=== PATIENT | male | born 1950 | race Caucasian/White ===

== ENCOUNTER 2017-06-22 00:34 | Inpatient (IN) | payer OTHER ==
[2017-06-22 01:20] LABS: Absolute Lymphocytes (CBC) 0.7 K/uL (0.7-4.9); Absolute Monocytes 0.7 K/uL (0.1-1.3); Absolute Neutrophil 15.7 K/uL (1.8-8.0); Basophils % 0.3 % (0-1.3); Eosinophils % 0.2 % (0-4.4); Hematocrit 26.6 % (39.6-49.0); Lymphocytes % 4.3 % (15.3-44.8); MCV 92.5 fL (80-100); MPV 7.7 fL (7.6-11.3); Monocytes % 4.1 % (3.3-12.3); RBC Red Blood Cell Count 2.88 M/uL (4.33-5.43)
[2017-06-22 01:22] LABS: Urine Blood 1+ (NEG); Urine Glucose 1+ (NEG); Urine Protein 3+ (NEG)
[2017-06-22 01:25] LABS: Protime INR 1.48
[2017-06-22 01:32] LABS: Potassium 4.6 mEq/L (3.6-5.0)
[2017-06-22 01:38] LABS: Albumin 2.9 g/dL (3.2-5.5); Bilirubin Direct 0.1 mg/dL (0-0.2); Bilirubin Total 0.4 mg/dL (0.3-1.2); Magnesium 1.8 mg/dL (1.8-2.5)
[2017-06-22] MEDS ORDERED: PANTOPRAZOLE 40 MG INJ ONE (01:39)
[2017-06-22] MEDS ORDERED: ONDANSETRON 4 MG/2 ML VIAL ONE (01:40)
[2017-06-22 01:41] LABS: CKMB Creatine Kinase MB 1.6 ng/ml (0.3-4.0)
[2017-06-22 01:42] LABS: Urine RBC <5 /HPF (NONE SEEN)
[2017-06-22 01:43] LABS: Urine Bacteria <20 /HPF (NONE SEEN); Urine Culture Reflex Order NOT NEEDED
[2017-06-22 03:04] LABS: Blood Morphology Comment NOT SEEN (NOT SEEN); Platelet Estimate ADEQ; Urine White Blood Cell Casts OK
--- NOTE | 2017-06-22 03:09 | EDPHYS ---
Physician Documentation [facility] Name: Fausto Bird Age: 66 yrs Sex: Male : 1950 Arrival Date: 06/22/2017 Time: 00:44 Bed 15 Private MD: ED Physician Ric Reyes HPI: 06/22 01:42 This 66 yrs old Male presents to ER via EMS with complaints of Abdominal tw4 Pain, Nausea/Vomiting. 01:42 The patient presents to the emergency department with nausea, vomiting. Onset: The tw4 symptoms/episode began/occurred today. Possible causes: unknown. The symptoms are aggravated by nothing. The symptoms are alleviated by nothing. Associated signs and symptoms: The patient has no apparent associated signs or symptoms. Severity of symptoms: At their worst the symptoms were moderate in the emergency department the symptoms are unchanged. The patient has not experienced similar symptoms in the past. Historical: - Allergies: 01:01 bactrim-topical; bs1 - Home Meds: 01:01 allopurinol 300 mg Oral tab 1 tab once daily [Active]; digoxin 125 mcg Oral tab 1 tab bs1 once daily [Active]; simvastatin 40 mg Oral tab 1 tab once daily [Active]; metoprolol tartrate 25 mg Oral tab three times a day [Active]; Folbic 2.5-25-2 mg Oral tab 1 tab once daily [Active]; furosemide 40 mg Oral tab 3 times per day [Active]; glipizide 10 mg Oral tab 1 tab 2 times per day [Active]; Xarelto 15 mg Oral tab daily [Active]; spironolactone 25 mg Oral tab 1 tab 2 times per day [Active]; Integra 125-40-3 mg Oral cap 1 cap once daily [Active]; Iron CR Oral 325 mg three times a day [Active]; Lantus 100 unit/mL Sub-Q soln morning [Active]; Lantus 30 units Sub-Q soln nightly [Active]; loratadine 10 mg Oral tab 1 tab once daily [Active]; niacin 500 mg Oral tab 1 tab 3 times per day [Active]; omeprazole 40 mg Oral cpDR 1 cap once daily [Active]; tramadol 50 mg Oral tab as needed [Active]; Vitamin D Oral 5000 unit daily [Active]; potassium chloride 10 mEq Oral cpER 1 cap once daily [Active]; Novolin R 3-11 units Sub-Q as needed [Active]; Vitamin C 500 mg Oral cpER twice a day [Active]; Zofran Oral [Active]; - PMHx: 01:01 Atrial Fib; Cellulitis; Diabetes - IDDM; Hypertension; Myocardial infarction; anemic; bs1 NV; lymphedema; - PSHx: 01:01 Cholecystectomy; bs1 - Immunization history:: Adult Immunizations up to date. - Social history:: Smoking status: Patient/guardian denies using tobacco. ROS: 01:42 Constitutional: Negative for fever, chills, and weight loss, Respiratory: Negative for tw4 shortness of breath, cough, wheezing, and pleuritic chest pain. 01:42 Cardiovascular: Positive for chest pain, Negative for edema, orthopnea, palpitations. 01:42 Abdomen/GI: Positive for abdominal pain, nausea and vomiting, abdominal cramps, Negative for diarrhea, constipation. Exam: 01:42 Constitutional: This is a well developed, well nourished patient who is awake, alert, tw4 and in no acute distress. Head/Face: Normocephalic, atraumatic. Chest/axilla: Normal chest wall appearance and motion. Nontender with no deformity. No lesions are appreciated. Cardiovascular: Regular rate and rhythm with a normal S1 and S2. No gallops, murmurs, or rubs. Normal PMI, no JVD. No pulse deficits. Respiratory: Lungs have equal breath sounds bilaterally, clear to auscultation and percussion. No rales, rhonchi or wheezes noted. No increased work of breathing, no retractions or nasal flaring. Abdomen/GI: Soft, non-tender, with normal bowel sounds. No distension or tympany. No guarding or rebound. No evidence of tenderness throughout. MS/ Extremity: Pulses equal, no cyanosis. Neurovascular intact. Full, normal range of motion. Neuro: Awake and alert, GCS 15, oriented to person, place, time, and situation. Cranial nerves II-XII grossly intact. Motor strength 5/5 in all extremities. Sensory grossly intact. Cerebellar exam normal. Normal gait. Vital Signs: 00:35 BP 165 / 85; Pulse 72; Resp 17; Temp 97.9(O); Pulse Ox 99% on R/A; Weight 141.07 kg; bs1 Height 6 ft. 3 in. (190.50 cm); Pain 6/10; 01:30 BP 168 / 96; Pulse 62; Resp 16; Pulse Ox 97% on R/A; bs1 02:30 BP 164 / 91; Pulse 65; Resp 17; Pulse Ox 98% on R/A; bs1 03:47 BP 170 / 82; Pulse 69; Resp 17; Pulse Ox 98% on R/A; Pain 0/10; bs1 04:06 BP 164 / 91; Pulse 79; Resp 16; Temp 97.9(O); Pulse Ox 99% on R/A; Pain 0/10; bs1 00:35 Body Mass Index 38.87 (141.07 kg, 190.50 cm) bs1 MDM: 00:47 Patient medically screened. tw4 03:07 Differential diagnosis: Nonspecific abd pain, gastritis, appendicitis, diverticulitis. tw4 Data reviewed: vital signs, nurses notes. Counseling: I had a detailed discussion with the patient and/or guardian regarding: the historical points, exam findings, and any diagnostic results supporting the discharge/admit diagnosis. Physician consultation: Martín Weaver MD was contacted at 03:06, regarding admission, patient's condition, and will see patient in inpatient room. Admission orders: after a detailed discussion of the patient's condition and case, the admit orders are written by me. 06/22 00:48 Order name: Basic Metabolic Panel; Complete Time: 03:4 06/22 03:02 Interpretation: Normal except: NA 134; BUN 78; CRE 3.00; GFR 21. tw06/22 00:48 Order name: BNP; Complete Time: 03:01 4 06/22 03:02 Interpretation: Abnormal: BNP 149. 06/22 00:48 Order name: CBC with Diff 4 06/22 03:02 Interpretation: Normal except: WBC 17.2; RBC 2.88; HGB 8.3; HCT 26.6; MCHC 31.3; RDW tw4 17.7; NEUT A 15.7; LYM% 4.3; ARIANA% 91.1. 06/22 00:48 Order name: Ckmb; Complete Time: 03:01 06/22 00:48 Order name: CPK; Complete Time: 03:01 06/22 03:02 Interpretation: Abnormal: CPK 20. 06/22 00:48 Order name: LFT's; Complete Time: 03:01 06/22 03:02 Interpretation: Normal except: ALB 2.9; GLOB 4.1; A/G 0.7. 06/22 00:48 Order name: Magnesium; Complete Time: 03:02 06/22 00:48 Order name: PT-INR; Complete Time: 03:01 [facility] 06/22 03:03 Interpretation: Abnormal: PT 17.5. 06/22 00:48 Order name: Ptt, Activated; Complete Time: 03:02 06/22 00:48 Order name: Troponin (emerg Dept Use Only); Complete Time: 03:02 06/22 00:48 Order name: Amylase, Serum; Complete Time: 03:02 06/22 00:48 Order name: Lipase; Complete Time: 03:02 06/22 00:48 Order name: Urine Microscopic Only; Complete Time: 03:02 [facility] 06/22 00:48 Order name: XRAY Chest (1 view) 06/22 00:59 Order name: Urine Dipstick--Ancillary (enter results); Complete Time: 03:01 [place] 06/22 02:11 Order name: Abdomen [facility] 06/22 03:04 Order name: CBC Smear Scan [facility] 06/22 03:48 Order name: CKMB Creatine Kinase MB [facility] 06/22 03:48 Order name: CKMB Creatine Kinase MB [facility] 06/22 03:48 Order name: CKMB Creatine Kinase MB [facility] 06/22 03:48 Order name: CKMB Creatine Kinase MB [facility] 06/22 03:48 Order name: Creatine Phosphokinase [facility] 06/22 03:48 Order name: Creatine Phosphokinase [facility] 06/22 03:48 Order name: Creatine Phosphokinase [facility] 06/22 03:48 Order name: Creatine Phosphokinase [facility] 06/22 03:48 Order name: Troponin I [facility] 06/22 03:48 Order name: Troponin I [facility] 06/22 03:48 Order name: Troponin I [facility] 06/22 00:48 Order name: EKG; Complete Time: 00:49 06/22 00:48 Order name: Cardiac monitoring; Complete Time: 01:06 4 06/22 00:48 Order name: EKG - Nurse/Tech; Complete Time: 00:50 06/22 00:48 Order name: IV Saline Lock; Complete Time: 00:50 06/22 00:48 Order name: Labs collected and sent; Complete Time: 01:06 06/22 00:48 Order name: O2 Per Protocol; Complete Time: 00:50 06/22 00:48 Order name: O2 Sat Monitoring; Complete Time: 00:50 06/22 00:48 Order name: Urine Dipstick-Ancillary (obtain specimen); Complete Time: 01:06 4 06/22 03:48 Order name: CONS Pharmacy Consult [facility] 06/22 03:48 Order name: Clear Liquid [facility] Administered Medications: 01:44 Drug: Zofran 4 mg Route: IVP; Site: left antecubital; bs1 01:57 Follow up: Response: No adverse reaction bs1 01:44 Drug: ProTONIX 40 mg Route: IVP; Site: left antecubital; bs1 01:56 Follow up: Response: No adverse reaction; Nausea is decreased bs1 Disposition: 06/22/17 03:08 Hospitalization ordered by Martín Weaver for Observation. Preliminary diagnosis are Chest pain, unspecified, Atrial fibrillation and flutter, Generalized abdominal pain. - Bed requested for Telemetry/MedSurg (observation). - Status is Observation. bs1 - Condition is Stable. - Problem is new. - Symptoms are unchanged. UTI on Admission? No Signatures: Dispatcher [employer] [facility] Nori Murphy RN RN Stacey Alexandre RN RN bs1 Ric Reyes MD MD tw4 Corrections: (The following items were deleted from the chart) 01:28 00:49 Creatinine for Radiology+C.LAB.BRZ ordered. [facility] 02:11 00:55 Abdomen Pelvis W Con+CT.RAD.BRZ ordered. [facility] 03:22 03:08 Hospitalization Ordered by Martín Weaver MD for Observation. Preliminary diagnosis is Chest pain, unspecified; Atrial fibrillation and flutter; Generalized abdominal pain. Bed requested for Telemetry/MedSurg (observation). Status is Observation. Condition is Stable. Problem is new. Symptoms are unchanged. UTI on Admission? No. tw4 04:06 03:22 06/22/2017 03:08 Hospitalization Ordered by Martín Weaver MD for Observation. bs1 Preliminary diagnosis is Chest pain, unspecified; Atrial fibrillation and flutter; Generalized abdominal pain. Bed requested for Telemetry/MedSurg (observation). Status is Observation. Condition is Stable. Problem is new. Symptoms are unchanged. UTI on Admission? No. mw
--- NOTE | 2017-06-22 03:09 | ER ---
Nurse's Notes [facility] Name: Fausto Bird Age: 66 yrs Sex: Male : 1950 Arrival Date: 06/22/2017 Time: 00:44 Bed 15 Private MD: Diagnosis: Chest pain, unspecified;Atrial fibrillation and flutter;Generalized abdominal pain Presentation: 06/22 00:51 Presenting complaint: EMS states: "Patient c/o RUQ abdominal pain that radiates to bs1 Bilateral Lower Quads for 2 day's, with c/o nausea and vomiting, vitals wnl, BG 292, EKG A-fib.". Transition of care: patient was not received from another setting of care. Onset of symptoms was June 20, 2017. Initial Sepsis Screen: Does the patient meet any 2 criteria? No. Patient's initial sepsis screen is negative. Does the patient have a suspected source of infection? No. Patient's initial sepsis screen is negative. Care prior to arrival: EKG Medication(s) given: zofran 4 mg, IV initiated. 20 GA, in the left antecubital area, Glucose check: 292. 00:51 Method Of Arrival: EMS: [facility] bs1 00:51 Acuity: BLANCA 3 bs1 Historical: - Allergies: 01:01 bactrim-topical; bs1 - Home Meds: 01:01 allopurinol 300 mg Oral tab 1 tab once daily [Active]; digoxin 125 mcg Oral tab 1 tab bs1 once daily [Active]; simvastatin 40 mg Oral tab 1 tab once daily [Active]; metoprolol tartrate 25 mg Oral tab three times a day [Active]; Folbic 2.5-25-2 mg Oral tab 1 tab once daily [Active]; furosemide 40 mg Oral tab 3 times per day [Active]; glipizide 10 mg Oral tab 1 tab 2 times per day [Active]; Xarelto 15 mg Oral tab daily [Active]; spironolactone 25 mg Oral tab 1 tab 2 times per day [Active]; Integra 125-40-3 mg Oral cap 1 cap once daily [Active]; Iron CR Oral 325 mg three times a day [Active]; Lantus 100 unit/mL Sub-Q soln morning [Active]; Lantus 30 units Sub-Q soln nightly [Active]; loratadine 10 mg Oral tab 1 tab once daily [Active]; niacin 500 mg Oral tab 1 tab 3 times per day [Active]; omeprazole 40 mg Oral cpDR 1 cap once daily [Active]; tramadol 50 mg Oral tab as needed [Active]; Vitamin D Oral 5000 unit daily [Active]; potassium chloride 10 mEq Oral cpER 1 cap once daily [Active]; Novolin R 3-11 units Sub-Q as needed [Active]; Vitamin C 500 mg Oral cpER twice a day [Active]; Zofran Oral [Active]; - PMHx: 01:01 Atrial Fib; Cellulitis; Diabetes - IDDM; Hypertension; Myocardial infarction; anemic; bs1 PR; lymphedema; - PSHx: 01:01 Cholecystectomy; bs1 - Immunization history:: Adult Immunizations up to date. - Social history:: Smoking status: Patient/guardian denies using tobacco. Screenin:03 Abuse screen: Denies threats or abuse. Denies injuries from another. Nutritional bs1 screening: No deficits noted. Tuberculosis screening: No symptoms or risk factors identified. Fall Risk No fall in past 12 months (0 pts). No secondary diagnosis (0 pts). IV access (20 points). Ambulatory Aid- Crutches/Cane/Walker (15 pts). Gait- Weak (10 pts.). Mental Status- Oriented to own ability (0 pts). Total Umaña Fall Scale indicates Low Risk Score (25-44 pts). Assessment: 01:00 General: Appears in no apparent distress. uncomfortable, ill, obese, Behavior is calm, bs1 cooperative, appropriate for age. Pain: Complains of pain in Right Upper abdomen Pain radiates to Bilateral lower Abdomen. Neuro: Level of Consciousness is awake, alert, obeys commands, Oriented to person, place, time, situation, Appropriate for age Speech is normal, Facial symmetry appears normal, Pupils are PERRLA, Intact. Cardiovascular: Denies chest pain, palpitations, shortness of breath, Heart tones S1 S2 present Capillary refill < 3 seconds Patient's skin is warm and dry. Cardiovascular: Rhythm is W/ right bundle branch block noted on EKG. Respiratory: Airway is patent Trachea midline Respiratory effort is even, unlabored, Respiratory pattern is regular, symmetrical, Breath sounds are clear bilaterally. GI: Abdomen is round non-distended, Pt is actively vomiting brown in color Bowel sounds present X 4 quads. Abdomen is tender to palpation in right upper quadrant, right lower quadrant and left lower quadrant Reports lower abdominal pain, upper abdominal pain, nausea, vomiting, Patient currently denies bloody stool, diarrhea, rectal bleeding. : No deficits noted. No signs and/or symptoms were reported regarding the genitourinary system. EENT: No deficits noted. No signs and/or symptoms were reported regarding the EENT system. Derm: Skin is intact, Skin is pink, warm \\T\\ dry. lymphedema noted to bilateral lower legs. Patients right first/2nd digit covered on dressing, patient states sores for diabetes/lymphedema. Musculoskeletal: Circulation, motion, and sensation intact. Capillary refill < 3 seconds, Range of motion: intact in all extremities. 01:40 Reassessment: Patient c/o nausea/vomiting. 50cc brown emesis in bag, notified Dr raúl Reyes, verbal order for protonix/zofran. 02:45 Reassessment: Patient appears in no apparent distress at this time. Patient and/or bs1 family updated on plan of care and expected duration. Pain level reassessed. Patient is alert, oriented x 3, equal unlabored respirations, skin warm/dry/pink. Pending results of CT scan. 03:46 Reassessment: Patient appears in no apparent distress at this time. No changes from bs1 previously documented assessment. Patient and/or family updated on plan of care and expected duration. Pain level reassessed. Patient is alert, oriented x 3, equal unlabored respirations, skin warm/dry/pink. Vital Signs: 00:35 BP 165 / 85; Pulse 72; Resp 17; Temp 97.9(O); Pulse Ox 99% on R/A; Weight 141.07 kg; bs1 Height 6 ft. 3 in. (190.50 cm); Pain 6/10; 01:30 BP 168 / 96; Pulse 62; Resp 16; Pulse Ox 97% on R/A; bs1 02:30 BP 164 / 91; Pulse 65; Resp 17; Pulse Ox 98% on R/A; bs1 03:47 BP 170 / 82; Pulse 69; Resp 17; Pulse Ox 98% on R/A; Pain 0/10; bs1 04:06 BP 164 / 91; Pulse 79; Resp 16; Temp 97.9(O); Pulse Ox 99% on R/A; Pain 0/10; bs1 00:35 Body Mass Index 38.87 (141.07 kg, 190.50 cm) bs1 ED Course: 00:44 Patient arrived in ED. bs1 00:47 Ric Reyes MD is Attending Physician. tw4 00:51 Stacey Alexandre, BEBO is Primary Nurse. bs1 00:54 Triage completed. bs1 01:03 Patient has correct armband on for positive identification. Bed in low position. Call bs1 light in reach. Side rails up X 1. radiation monitor on. Pulse ox on. NIBP on. Warm blanket given. 01:04 Arm band placed on left wrist. EKG completed in triage. Results shown to MD. bs1 01:06 Maintain EMS IV. Dressing intact. Good blood return noted. Site clean \\T\\ dry. Gauge \\T\\ bs 1 site: 20G double lumen to left AC. IV is patent. 01:09 X-ray completed. Portable x-ray completed in exam room. Patient tolerated procedure kw well. 01:10 XRAY Chest (1 view) In Process Unspecified. EDMS 02:53 Abdomen In Process Unspecified. EDMS 03:07 Martín Weaver MD is Hospitalizing Provider. tw4 04:04 No provider procedures requiring assistance completed. Patient admitted, IV remains in bs1 place. intact. Administered Medications: 01:44 Drug: Zofran 4 mg Route: IVP; Site: left antecubital; bs1 01:57 Follow up: Response: No adverse reaction bs1 01:44 Drug: ProTONIX 40 mg Route: IVP; Site: left antecubital; bs1 01:56 Follow up: Response: No adverse reaction; Nausea is decreased bs1 Outcome: 03:08 Decision to Hospitalize by Provider. tw4 04:04 Admitted to Med/surg accompanied by tech, via stretcher, room 214, with chart, Report bs1 called to BEBO Huerta 04:04 Condition: stable 04:04 Instructed on the need for admit. 04:06 Patient left the ED. bs1 Signatures: Dispatcher [employer] EDMS Yamilet Brian kw Stacey Alexandre RN RN bs1 Amy, Ric, MD MD tw4
[2017-06-22] MEDS ORDERED: Morphine 2 MG/2 ML SYR ONE (04:18)
[2017-06-22] MEDS ORDERED: MORPHINE 2 MG/ML SYR IV ONE (04:34)
[2017-06-22 05:37] LABS: CKMB Creatine Kinase MB 1.8 ng/ml (0.3-4.0)
--- NOTE | 2017-06-22 06:50 | RAD REPORT ---
EXAM DESCRIPTION: CT - Abdomen Pelvis Wo Contrast - 06/22/2017 6:28 am CLINICAL HISTORY: Right upper quadrant pain, abdominal pain, prior cholecystectomy A preliminary written report was provided at the time of the study, and the report was reviewed prio r to final dictation. COMPARISON: CT study December 2015 and July 2015 TECHNIQUE: Axial [address] imaging of the abdomen and pelvis was performed without IV contrast. No IV contrast was given because of allergy, abnormal renal function, patient refusal or physician re quest. Oral contrast was given. All CT scans are performed using dose optimization technique as appropriate and may include automated exposure control or mA/KV adjustment according to patient size. FINDINGS: No acute pleural or parenchymal lung base abnormality. No pericardial thickening or effusi on. There is a large 7 centimeter area of dense tissue in the left chest/breast region. No calcificat ion or spiculated tissue. A 5 centimeter area of similar tissue noted on the right. Liver capsule has a nodular contour. No focal lesions seen on noncontrast imaging. No splenomegaly or focal splenic process. Pancreas and peripancreatic tissue show no acute finding or significant inter tamar change. Cholecystectomy clips are present. No biliary tree dilatation. No hydronephrosis or suspicious renal mass. No significant adrenal finding. Isodense renal masses an d pyelonephritis cannot be excluded in the absence of IV contrast. Partially filled urinary bladder i s grossly normal. No bladder calculi. Prostate gland and seminal vesicles are normal range. No gastric dilatation or wall thickening. No dilated large or small bowel loops. Moderate stool volum e throughout the nondilated colon. No acute colon process seen. No free air, free fluid or inflammatory stranding. No mass or bulky lymphadenopathy. Small fat only umbilical hernia is present. Patient has laxity of the abdominal wall musculature and fascia. Periton eal fat and bowel loops extend to the left lateral aspect of the body with the abdominal wall fascia intact. Advanced disc and bony degenerative changes are present. Scoliotic curvature is present. No pathologi c bone process identifiable. Arterial calcifications are present. Old rib fractures are noted. IMPRESSION: No bowel obstruction, free air or surgically emergent finding. No acute GI or process identifiable. There is moderate stool volume throughout the colon. Nodular liver contour with no focal liver lesion and no ascites. Cirrhosis or other hepatic parenchym al disease could be present. Pronounced bilateral left greater than right gynecomastia.
[2017-06-22] MEDS: ONDANSETRON 4 MG/2 ML VIAL IV PRN ×2 (07:37→16:21)
--- NOTE | 2017-06-22 07:45 | RAD REPORT ---
EXAM DESCRIPTION: RAD - Chest Single View - 06/22/2017 1:10 am CLINICAL HISTORY: Right upper quadrant pain COMPARISON: September 2016 TECHNIQUE: AP portable chest image was obtained 0101 hours . FINDINGS: Interstitial markings are prominent but diminished compared to the prior study. No periphe ral mass or consolidation. No significant failure or volume overload findings. Lung volumes are reduc ed. Heart and vasculature are normal. No measurable pleural effusion and no pneumothorax. No acute marvel ne finding. Significant degenerative change at each shoulder joint, not fully assessed on this study. No acute aortic findings suspected. IMPRESSION: Mild chronic interstitial lung disease less prominent than seen previously. No focal pro cess or significant failure/ volume overload.
[2017-06-22] MEDS: INSULIN -REGULAR HUMAN 50 UNIT/0.5 ML ML SQ SCH ×4 (08:34→21:54)
--- NOTE | 2017-06-22 08:45 | EKG ---
Test Date: 2017-06-22 Test Time: 00:38:40 Instructor Of Spanish: VIKTOR MEASUREMENT RESULTS: Intervals: Rate: 74 [place]: QRSD: 138 QT: 396 QTc: 439 [place]: P: [place]: QRS: -2 T: -42 INTERPRETIVE STATEMENTS: Atrial fibrillation Right bundle branch block T wave abnormality, consider inferior ischemia or digitalis effect Abnormal ECG Compared to ECG 09/18/2016 22:01:25 Myocardial infarct finding no longer present T-wave abnormality still present Possible ischemia still present Electronically Signed On 06-22-17 08:43:42 CDT by Yannick Degroot
[2017-06-22 10:47] LABS: CKMB Creatine Kinase MB 1.7 ng/ml (0.3-4.0)
[2017-06-22] MEDS ORDERED: D50W 25 GM/50 ML SYRINGE IV PRN (14:21)
[2017-06-22] MEDS ORDERED: GLUCAGON 1 MG/VIAL IM PRN (14:21)
[2017-06-22] MEDS ORDERED: NA CHLORIDE 0.9% 1,000 ML IV SCH (15:00)
[2017-06-22] MEDS: ACETAMINOPHEN 500 MG TAB PO PRN (16:22)
--- NOTE | 2017-06-22 20:12 | RAD REPORT ---
EXAM DESCRIPTION: US - Renal Ultrasound-Complete - 06/22/2017 7:52 pm CLINICAL HISTORY: Renal failure. COMPARISON: 10/04/2012 FINDINGS: Both kidneys are normal in size, shape and echotexture. The right kidney measures 13.3 x 8.0 x 7.5 cm. No hydronephrosis, focal mass or perinephric fluid. The left kidney measures 13.8 x 7.7 x 7.2 cm. No hydronephrosis, focal mass or perinephric fluid. IMPRESSION: Unremarkable renal sonogram.
[2017-06-22 21:35] LABS: CKMB Creatine Kinase MB 1.9 ng/ml (0.3-4.0)
[2017-06-22] MEDS: METOPROLOL TAR 25 MG TAB PO SCH (21:53)
[2017-06-23] MEDS: INSULIN -REGULAR HUMAN 50 UNIT/0.5 ML ML SQ SCH ×4 (07:30→21:24)
[2017-06-23] MEDS: METOPROLOL TAR 25 MG TAB PO SCH ×2 (09:13→13:00)
[2017-06-23] MEDS: DIGOXIN 0.125 MG TABLET PO SCH (09:14)
[2017-06-23] MEDS: NA CHLORIDE 0.9% 1,000 ML IV SCH ×2 (11:00→21:00)
[2017-06-23] MEDS: ONDANSETRON 4 MG/2 ML VIAL IV PRN (14:54)
[2017-06-23] MEDS: ACETAMINOPHEN 500 MG TAB PO PRN ×2 (14:57→23:53)
[2017-06-23] MEDS: RIVAROXABAN 15 MG TABLET PO SCH (17:27)
[2017-06-23] MEDS: METOPROLOL TAR 50 MG TAB PO SCH (21:23)
--- NOTE | 2017-06-23 22:55 | PN ---
Date of Progress Note: 06/23/2017 Subjective: The patient told the nurse staff today that he felt somewhat better and he wanted to try eating. He did that early afternoon. Shortly thereafter, he did throw up. The patient's medicatio n has been adjusted somewhat due to his elevated creatinine level by Nephrology. To date, this has n ot made a significant change in his vital signs he feels; however, the issue wi th diuretic has to be addressed sooner or later. The patient is continued on IV fluids. Nephrology workup is in progress and the abdominal pain and the vomiting still remains undiagnosed, although the patient has had a history of GI problems in the past. This was a rather acute onset where he became anorectic and nauseous. We continue with the nephrology workup and adjust medications and intake an d diet accordingly. HR/MODL Voice ID: [id number] Report ID: [id number]
[2017-06-24] MEDS: ONDANSETRON 4 MG/2 ML VIAL IV PRN (01:52)
[2017-06-24] MEDS: NA CHLORIDE 0.9% 1,000 ML IV SCH ×2 (02:04→17:02)
--- NOTE | 2017-06-24 03:42 | CON ---
Date of Consultation: 06/23/2017 Reason For Consultation: Elevated BUN and creatinine. History Of Present Illness: This is a pleasant 66-year-old gentleman with significant past medical h istory of hypertension, hyperlipidemia, chronic kidney disease, baseline creatinine around 1.6, follo ws up with Dr. Randle. The patient came to the hospital complaining from nausea, vomiting, and abdomin al pain. Primary workup showed elevated BUN and creatinine. For that reason, we have been consulted . The patient denied taking nonsteroids. No recent hospitalization. No recent IV antibiotic. No c ontrast. The patient had history of acute kidney injury before, required dialysis, weaned after that . Past Medical History: Includes; 1.Coronary artery disease, status post MA, complicated with atrial fibrillation. 2.Chronic kidney disease secondary to diabetic nephrosclerosis. 3.Diabetes, complicated with neuropathy. 4.Lymphedema. 5.Obstructive sleep apnea. Past Surgical History: Includes partial parathyroidectomy. Allergies: ALLERGY TO BACTROBAN. Family History: Positive for hypertension. Social History: Denies smoking. Denies drinking. Denies drugs abuse. Physical Examination: General: When I saw the patient, the patient was lying in bed, not in any distress. Vital Signs: Blood pressure of 192/87, pulse of 67, and afebrile. Chest: Clear to auscultation. Heart: S1, S2. Systolic murmur. Abdomen: Soft, nontender. Extremities: No edema. Vascular: Carotid bruit positive. Laboratory Data: WBC 17.2, H and H 8.3/26.6, and platelets of 247. Blood sugar has been uncontrolle d. Sodium 134, potassium 4.6, bicarb 25, BUN 78, creatinine 3, GFR of 21, and glucose 248. Uric aci d of 5. BNP of 149. Chest x-ray; mild cardiomegaly and congestion. Albumin 2.9. Assessment And Plan: 1.Acute kidney injury secondary to possible prerenal secondary to poor intake superimposed with gluc ose diuresis. I am going to go ahead and start the patient on IV fluid hydration. We will bolus the patient with 500. Then, we are going to continue on the bolus, and we will monitor the patient. 2.Hyperkalemia, resolved. 3.Hypertension. I am going to continue metoprolol. 4.Renal failure, with nephrotic range of proteinuria mostly secondary to diabetes in the presence of anemia and acute kidney injury. Light chain disease needs to be ruled out. I am going to go ahead and send for SPEP/UPEP and serology, and we will follow up the patient. NEGRA Voice ID: [id number] Report ID: [id number]
[2017-06-24 05:29] LABS: Absolute Monocytes 0.9 K/uL (0.1-1.3); Absolute Neutrophil 9.6 K/uL (1.8-8.0); Basophils % 0.4 % (0-1.3); Eosinophils % 0.9 % (0-4.4); Hematocrit 26.4 % (39.6-49.0); Lymphocytes % 8.8 % (15.3-44.8); MCH 29.4 pg (27.0-35.0); MCV 92.8 fL (80-100); MPV 7.8 fL (7.6-11.3); Monocytes % 7.9 % (3.3-12.3); RBC Red Blood Cell Count 2.84 M/uL (4.33-5.43)
[2017-06-24 06:40] LABS: Albumin 2.5 g/dL (3.2-5.5); BUN Blood Urea Nitrogen 54 mg/dL (6-20); Bicarbonate 25 mEq/L (21-31); Ferritin 69.3 ng/ml (23.9-336.2); Glucose Level 124 mg/dL (65-120); Magnesium 1.7 mg/dL (1.8-2.5); Phosphorus 3.3 mg/dL (2.5-4.3); Potassium 4.4 mEq/L (3.6-5.0); Sodium Level 137 mEq/L (135-145); Thyroid Stimulating Hormone 1.32 uIU/mL (0.34-5.60); Transferrin 191 mg/dL (180-329)
[2017-06-24 06:41] LABS: Folic Acid, (Folate) > 22.3 ng/ml (>5.21)
[2017-06-24] MEDS: INSULIN -REGULAR HUMAN 50 UNIT/0.5 ML ML SQ SCH ×4 (07:30→21:00)
[2017-06-24] MEDS: DIGOXIN 0.125 MG TABLET PO SCH (08:18)
[2017-06-24] MEDS: METOPROLOL TAR 50 MG TAB PO SCH ×2 (08:18→21:38)
[2017-06-24] MEDS: AMLODIPINE 10 MG TAB PO SCH (08:18)
[2017-06-24] MEDS ORDERED: SODIUM CHLORIDE 0.9% 10ML INJ IV PRN (09:19)
[2017-06-24] MEDS: PANTOPRAZOLE 40 MG INJ IVP SCH ×2 (09:41→21:37)
[2017-06-24] MEDS: RIVAROXABAN 15 MG TABLET PO SCH (17:02)
--- NOTE | 2017-06-24 20:45 | PN ---
Date of Progress Note: 06/24/2017 Subjective: The patient is seen and examined. Chart reviewed and case discussed with RN. Hospitalist group covering Dr. Weaver's patients. The patient does report some nausea throughout yesterday and has been on clear liquid diet. Review of Systems: Negative except as above. Medications: Reviewed. Physical Examination: Vital Signs: Temperature 97.4, heart rate 59, blood pressure 169/74, respirations 18, O2 100% on room air. General: Awake, alert, oriented x3, in mild distress. Elderly male, obese, BMI 36. CV: S1, S2. Irregularly irregular. Peripheral pulses present. Respiratory: Diminished breath sounds with some crackles. Gastrointestinal: Abdomen is soft, nontender, nondistended. Positive bowel sounds. Extremities: No clubbing, cyanosis. The patient does have peripheral edema. Neurologic: Nonfocal. Laboratory Data: Sodium 137, potassium 4.4, chloride 104, CO2 25, BUN 54, creatinine 2.68, glucose 124, calcium 8.6, phosphorus 3.3, magnesium 1.7. Iron 18, TIBC 267, transferrin 191, ferritin 69. WBC 11.7, H and H 8.4 and 26.4, platelets 237, neutrophils 82%. Folate greater than 22, TSH 1.32. Assessment And Plan: 1. Acute kidney injury secondary to prerenal azotemia. We will continue with IV fluid. Creatinine slightly improved. Appreciate Nephrology input. 2. Hyperkalemia, corrected. 3. Hypertension. Continue home medications. 4. Obesity, BMI 36.5. 5. Abdominal pain. CT scan personally reviewed, no acute findings. 6. Obstructive sleep apnea, on CPAP. 7. Nausea, vomiting. We will continue with diuretics. 8. Coronary artery disease, [place] artery and [place] heart without angina, stable. 9. Atrial fibrillation, chronic. 10. Diabetes mellitus type 2 with neuropathy and long-term use of insulin. Continue sliding scale. 11. Chronic lymphedema. 12. Gastrointestinal and deep venous thrombosis prophylaxis addressed. Plan: Consult Cardiology and GI. Continue clear liquid diet. Follow up with renal workup. SA/MODL Voice ID: [id number] Report ID: [id number] REJI
[2017-06-24] MEDS: ACETAMINOPHEN 500 MG TAB PO PRN (21:38)
--- NOTE | 2017-06-25 00:30 | PN ---
Date of Progress Note: 06/24/2017 Chief Complaint: Elevated BUN and creatinine. History Of Present Illness: The patient has history of hypertension, chronic kidney disease, stage 3, baseline creatinine 1.6. He came to the hospital because of nausea, vomiting, abdominal pain. Workup showed elevated BUN and creatinine. The patient denied history of nonsteroidal anti-inflammatory medication. He did not have IV contrast and did not start any new antibiotics. On arrival to the hospital, BUN was 78, creatinine 3.0. The patient was found to have acute kidney injury, severe nonoliguric secondary to volume depletion and precipitated by glucose diuresis secondary to hyperglycemia. The patient was started on IV fluids. Renal function has not improved significantly since yesterday. The patient has nonoliguric urine output. The patient was found to have leukocytosis. White count improved from 17.2 to 11.7. BUN today is 54, creatinine 2.68. Electrolytes as follows, sodium 147, potassium 4.4, chloride 104, CO2 25, phosphorus 3.3, magnesium 1.7, calcium 8.6. ROS: no chest pain , no cough , no hematuria Physical exam CV S1, S2, no pericardial friction rub Lungs : few crackles at bases , no wheezing Abdomen: no rebound , no guarding , bowel sounds present Extremity : no cyanosis Impression And Plan: 1. Acute kidney injury on chronic kidney disease secondary to hypovolemia, continue IV fluids. 2. Hypomagnesemia, magnesium 1.7, replacement as needed. Monitor magnesium level. 3. Uncontrolled diabetes causing prerenal azotemia and nonoliguric ATN. Continue insulin. 4. The patient had a CT scan of the abdomen and pelvis without contrast and renal ultrasound. Renal ultrasound did not show hydronephrosis. There is no evidence of mass. 5. The patient will continue IV fluids for acute on chronic kidney injury. Continue to adjust blood pressure medication to prevent hypotension. Avoid nonsteroidal anti-inflammatory medication due to high risk of worsening of the kidney function and possible hyperkalemia. I spent total 36 min including 26 min to coordinate care plan. LANG/SOHAN Voice ID: [id number] Report ID: [id number] REJI
[2017-06-25 01:47] LABS: Rheumatoid Factor NEG (NEG)
[2017-06-25] MEDS: NA CHLORIDE 0.9% 1,000 ML IV SCH (02:43)
[2017-06-25 04:56] LABS: Absolute Lymphocytes (CBC) 0.9 K/uL (0.7-4.9); Absolute Monocytes 1.1 K/uL (0.1-1.3); Absolute Neutrophil 8.3 K/uL (1.8-8.0); Basophils % 0.6 % (0-1.3); Eosinophils % 1.6 % (0-4.4); Hematocrit 24.7 % (39.6-49.0); Lymphocytes % 8.7 % (15.3-44.8); MCH 29.7 pg (27.0-35.0); MPV 7.6 fL (7.6-11.3); Monocytes % 10.7 % (3.3-12.3); RBC Red Blood Cell Count 2.65 M/uL (4.33-5.43)
[2017-06-25 05:35] LABS: Albumin 2.3 g/dL (3.2-5.5); Magnesium 1.6 mg/dL (1.8-2.5); Phosphorus 3.4 mg/dL (2.5-4.3)
[2017-06-25] MEDS ORDERED: MAGNESIUM SULFATE 1 gm IVPB 1 GM/100 ML BAG IV ONE ×2 (06:45→15:23)
[2017-06-25] MEDS: PANTOPRAZOLE 40 MG INJ IVP SCH ×2 (08:27→20:48)
[2017-06-25] MEDS: INSULIN -REGULAR HUMAN 50 UNIT/0.5 ML ML SQ SCH ×4 (08:27→20:47)
[2017-06-25] MEDS: AMLODIPINE 10 MG TAB PO SCH (08:28)
[2017-06-25] MEDS: METOPROLOL TAR 50 MG TAB PO SCH ×2 (08:28→20:47)
[2017-06-25] MEDS: DIGOXIN 0.125 MG TABLET PO SCH (08:29)
[2017-06-25 12:23] LABS: Hematocrit 28.8 % (39.6-49.0)
--- NOTE | 2017-06-25 13:16 | CON ---
CARDIOLOGY CONSULT Reason For Consult: Help with managing diuretics and anticoagulants. History Of Present Illness: Mr. Bird is a 66-year-old man who has chronic atrial fib. He has never b een known to have coronary heart disease, never had a stent or bypass surgery. He has a heart rate c ontrol using digoxin and has anticoagulation with rivaroxaban and as an outpatient, he has been using furosemide, although it is not listed. He does say he takes furosemide as an outpatient. Since ryan ng here in the hospital, he has gained quite a bit of weight. He has had intravenous fluid. Came to the hospital because of shortness of breath and actually presented to the hospital on June 22, this is June 25. Also his right upper quadrant seemed to be painful. Since being in the hospital, he h as had normal cardiac enzymes. He has had a prior cholecystectomy. A CT of the abdomen shows a 7-cm area of dense tissue in the left breast region. Liver is nodular. No hydronephrosis. No free air. He has a lot of bony degeneration and disk disease. No definite cause of his right upper quadrant pain was seen unless the liver is causing pain, but otherwise normally look like cirrhosis. The mazin ent has renal failure. Presently, he is getting no diuretics. He is getting intravenous fluids in t he form of magnesium sulfate. He has been getting normal saline and an attempt to improve his renal function, but I am very worried that it is going to back fire on us if he is going to develop pulmona ry edema. We will do an echocardiogram, reassess his LV function, but he has mildly ejection fractio n in the past with a lot of diastolic dysfunction caused by a combination of poor relaxation of the h eart and atrial fib. Physical Examination: Vital Signs: He is morbidly obese, 6 feet 3 inches, 300 pounds. His blood pressure is 136/78, tempe rature 97.7. General: Alert, oriented, and pleasant, not in distress. Lungs: Do not reveal crackles. Heart: Irregularly irregular going about 80 times per minute. Extremities: 2 to 3+ edema. He has [place] wraps on and has chronic lymphedema as well as diastolic heart failure. Impression: The patient should probably not be getting fluid resuscitation or any other attempt to r escue his kidney function. I am sure his creatinine could be made to get a little lower than it is. It is 2.48, now 3.0 on admission, but the downside of that will be increased fluid retention and we are really at risk of getting pulmonary edema possibly of sudden onset, sudden deterioration if we ke ep trying to hydrate him, so I would be against that. I would be in favor of initiating therapy with a diuretic, not a potassium-sparing diuretic, and continuing rivaroxaban, getting an echocardiogram. LEIDA/MODL Voice ID: [id number] Report ID: [id number]
--- NOTE | 2017-06-25 14:22 | PN ---
Date of Progress Note: 06/25/2017 Subjective: The patient seen and examined, chart reviewed and case discussed with RN. The patient s tates, he feels better. No further abdominal pain. Review of Systems: Negative except as above. Medications: Reviewed. Physical Examination: Vital Signs: Temperature 98.2, heart rate 55, blood pressure 186/78, respirations 16, and O2 99% on room air. General: Awake, alert, oriented x3, in mild distress, elderly male, morbidly obese. CV: S1, S2, irregularly irregular. Peripheral pulses weak bilaterally. Respiratory: Diminished breath sounds at the bases. No wheezing or crackles. Gastrointestinal: Abdomen is soft, nontender, nondistended. Positive bowel sounds. Extremities: No clubbing, cyanosis. Peripheral edema is present. Neurologic: Nonfocal. Laboratory Data: Sodium a 135, potassium 4, chloride 105, CO2 21, BUN 47, creatinine 2.48, glucose 1 80, calcium 8, magnesium 1.6, and albumin 2.3. WBC 10.6, H and H 7.9, 24.7, platelets 223, and neutr ophils 78%. Assessment: A 66-year-old male with; 1.Acute kidney injury secondary to prerenal azotemia. We will continue with IV fluids. Creatinine is improving. Avoid NSAIDs. Nephrology on board. 2.Acute anemia. We will recheck H and H in the afternoon. Transfuse if drops any further. GI on b oard. 3.Hyperkalemia, corrected. 4.Hypertension. Continue home medications. Stable. 5.Obesity, body mass index 36.5. 6.Abdominal pain. No acute findings on CT scan, resolved. 7.Obstructive sleep apnea, on CPAP. 8.Intractable nausea and vomiting, improved. We will advance diet. 9.Coronary artery disease, [place] artery, [place] heart without angina, stable. 10.Chronic atrial fibrillation, on anticoagulation. 11.Diabetes mellitus type 2 with neuropathy and long-term use of insulin. We will continue sliding scale. 12.Chronic lymphedema. 13.Gastrointestinal and deep venous thrombosis prophylaxis with PPI and the patient is already on ch ronic anticoagulation. Plan: Follow up on H and H. Transfuse as needed. Nephrology workup underway. /SOHAN Voice ID: [id number] Report ID: [id number]
--- NOTE | 2017-06-25 15:43 | HP ---
Date of Admission: 06/23/2017 Entrance Complaint: Abdominal pain. History Of Present Illness: The patient states he came to the emergency room because he had some sig nificant lateral and right lower quadrant discomfort associated with marked anorexia. He stated he h ad anything solid to eat in a couple days prior to admission. The pain became increasingl y more severe and he felt that he possibly would need a blood transfusion as he was quite weak and he has required these in the past associated with the same symptoms, abdominal pain and nausea. There are also some vomiting, and as mentioned, he therefore presented to the emergency room. Past History: The patient has had significant medical problems over the past years, starting with __ which has been somewhat difficult to control but relatively good control as of late. Cardiac disease with atrial fib Xarelto which has created some bleeding problems, which has requi red transfusion on a number of occasions and followup with Gastroenterology for this. He is seeing a Nephrology starting at approximately 10 years ago when he had an acute episode of renal failure ____ it was precipitated by medication. He has been followed and doing quite well and was slated t o see the cardiac catheterization technician next week. The blood work prior to being seen by Nephrology was done a few day s ago. It was pulled up and his creatinine was just over 3. The patient has had numerous scopes and GI problems multiple superficial ulcerations. This was present on a PillCam pr ecipitated by Xarelto. However, it was felt that the risk of GI bleed was less risk of pr oblems from atrial fibrillation. He was therefore maintained on his Xarelto and actually his atrial fibrillation has been under good control. Social History: Nonsmoker, nondrinker. Family History: Noncontributory. Physical Examination: General: The patient is a morbidly obese elderly male, appears quite uncomfortable. Vital Signs: With stable vital signs. Head and Neck: Normocephalic. Pupils are equal and reactive to light and accommodation. Fundi negat patrica. Trachea midline. Thyroid not palpable. ENT: Negative. Chest: Clear to P and A. Cardiovascular: PMI midclavicular line. Heart: Sounds normal. Peripheral pulses are present and equal bilaterally. Abdomen: Obese. Minimal tenderness in the right lower quadrant extending close to the CVA area. No guarding, rebound, tenderness, or rigidity. Bowel sounds hypoactive. Extremities: Moderately dehydrated. Good tone and movement. Bilateral reflexes physiologic. Rectal: Deferred. Impression: Abdominal pain, unknown etiology; dehydration; acute renal failure, possibly secondary t o and/or medication; atrial fibrillation, controlled; hypertension, controlled. Plan: The patient will be admitted at the present time. His H and H are just above the limit for bl ood transfusion; however, his creatinine necessitated some hydration and possible medication adjustme nt. This will be done during his current stay. HR/MODL Voice ID: [id number]
--- NOTE | 2017-06-25 16:35 | RAD REPORT ---
EXAM DESCRIPTION: Omid Single View06/25/2017 4:29 pm CLINICAL HISTORY: Shortness of breath COMPARISON: June 22, 2017 FINDINGS: Minimal interstitial pulmonary edema is suspected. The heart is mildly to moderately enlar ged
--- NOTE | 2017-06-25 17:02 | ECHO ---
HEIGHT: 6 ft 3 in WEIGHT: 300 lb 3.2 oz DATE OF STUDY: 06/25/[address]: Gabriel Gomes MD 2-DIMENSIONAL: YES M.MODE: YES DOPPLER: YES COLOR FLOW: YES TDS: YES PORTABLE: DEFINITY: BUBBLE STUDY: DIAGNOSIS: CHEST PAIN CARDIAC HISTORY: CATHERIZATION: NO SURGERY: NO PROSTHETIC VALVE: NO PACEMAKER: NO MEASUREMENTS (cm) DIASTOLIC (NORMALS) SYSTOLIC (NORMALS) IVSd 1.1 (0.6-1.2) LA Diam 4.6 (1.9-4.0) LVEF 50% LVIDd 4.7 (3.5-5.7) LVIDs 3.5 (2.0-3.5) %FS 26% LVPWd 1.1 (0.6-1.2) Ao Diam 3.3 (2.0-3.7) 2 DIMENSIONAL ASSESSMENT: RIGHT ATRIUM: DILATED LEFT ATRIUM: DILATED RIGHT VENTRICLE: NORMAL LEFT VENTRICLE: NORMAL TRICUSPID VALVE: NORMAL MITRAL VALVE: NORMAL PULMONIC VALVE: NORMAL AORTIC VALVE: NORMAL PERICARDIAL EFFUSION: NONE AORTIC ROOT: NORMAL LEFT VENTRICULAR WALL MOTION: PARADOXICAL SEPTAL MOTION ABNORMALITY DOPPLER/COLOR FLOW: MILD TO MODERATE TRICUSPID REGURGITATION. ESTIMATED RIGHT VENTRICULAR SYSTOLIC PRESSURE 55 mmHg (MODERATE PULMONARY HYPERTENSION). COMMENTS: NORMAL LEFT VENTRICULAR EJECTION FRACTION WITH PARADOXICAL SEPTAL MOTION ABNORMALITY. DILATED LEFT ATRIUM AND RIGHT ATRIUM. MILD TO MODERATE TRICUSPID REGURGITATION. MODERATE PULMONARY HYPERTENSION. TECHNOLOGIST: DARON FREGOSO
[2017-06-25] MEDS: RIVAROXABAN 15 MG TABLET PO SCH (17:17)
[2017-06-25] MEDS ORDERED: FUROSEMIDE 40 MG/4 ML VIAL IV ONE (17:19)
[2017-06-25] MEDS: ACETAMINOPHEN 500 MG TAB PO PRN (23:32)
[2017-06-26 05:22] LABS: Absolute Lymphocytes (CBC) 0.9 K/uL (0.7-4.9); Absolute Monocytes 1.1 K/uL (0.1-1.3); Absolute Neutrophil 8.6 K/uL (1.8-8.0); Basophils % 0.4 % (0-1.3); Eosinophils % 1.2 % (0-4.4); Hematocrit 23.6 % (39.6-49.0); Lymphocytes % 8.5 % (15.3-44.8); MCH 29.3 pg (27.0-35.0); MCV 93.9 fL (80-100); MPV 7.9 fL (7.6-11.3); Monocytes % 10.3 % (3.3-12.3); RBC Red Blood Cell Count 2.51 M/uL (4.33-5.43)
[2017-06-26 05:54] LABS: Albumin 2.1 g/dL (3.2-5.5); Magnesium 1.8 mg/dL (1.8-2.5); Phosphorus 3.6 mg/dL (2.5-4.3); Potassium 4.3 mEq/L (3.6-5.0)
[2017-06-26 07:12] LABS: HIV 1/2 Antibody Diff Not indicated.; HIV AG/AB 4TH GEN Non-reactive (Non-reactive)
[2017-06-26 07:17] LABS: Hematocrit 24.1 % (39.6-49.0)
[2017-06-26] MEDS: INSULIN -REGULAR HUMAN 50 UNIT/0.5 ML ML SQ SCH ×4 (07:30→21:14)
[2017-06-26] MEDS: DIGOXIN 0.125 MG TABLET PO SCH ×4 (09:00→21:03)
[2017-06-26] MEDS: PANTOPRAZOLE 40 MG INJ IVP SCH (09:00)
[2017-06-26] MEDS: AMLODIPINE 10 MG TAB PO SCH (10:12)
[2017-06-26] MEDS: METOPROLOL TAR 50 MG TAB PO SCH ×2 (10:13→21:04)
--- NOTE | 2017-06-26 10:53 | PN ---
Subjective: Mr. Bird seems to have a fall in his hemoglobin. It was 7.9 yesterday, 8.8, now it is 7. 6. His degree of fall would not really be consistent with acute blood loss, but he probably is intra vascularly volume overloaded, needs a little diuresis and has poor bone marrow function probably from worsening renal failure. His creatinine today is 2.93. I am not sure he needs a transfusion. I wo uld not like to see us stop the Xarelto. Really not convinced this is acute blood loss. He might ne ed erythropoietin or something like that. If we have to stop Xarelto, his risk of stroke will be ext remely high. Thank you very much for your kind referral. I will follow Mr. Bird with you. ISI Voice ID: [id number] Report ID: [id number]
[2017-06-26 13:32] LABS: HBsAG Nonreactive (Nonreactive); Hepatitis C Virus RNA (PCR)log <1.18 log IU/mL
--- NOTE | 2017-06-26 13:53 | PN ---
Date of Progress Note: 06/26/2017 Subjective: The patient seen and examined, chart reviewed and case discussed with RN. The patient s tates he feels better. Breathing is doing okay. Review of Systems: Negative except as above. Medications: Reviewed. Physical Examination: Vital Signs: Temperature 97.9, heart rate 61, blood pressure 182/77, respirations 18, O2 99% on room air. General: Awake, alert, oriented x3, in no acute distress. Elderly male, morbidly obese, BMI 37. CV: S1, S2, irregularly irregular. Peripheral pulses present. Respiratory: Diminished breath sounds and crackles improving. Gastrointestinal: Abdomen is soft, nontender, nondistended. Positive bowel sounds. Extremities: The patient does have some lower extremity edema. Neurologic: Nonfocal. Laboratory Data: Sodium 133, potassium 4.3, chloride 104, CO2 21, BUN 46, creatinine 2.93, glucose 2 49, calcium 7.7, phosphorus 3.6, magnesium 1.8. WBC 10.9, H and H 7.4, 23.6, platelets 206, repeat H and H 7.6, 24.1. Assessment And Plan: A 66-year-old male with; 1.Acute kidney injury secondary to prerenal azotemia. Hold off on IV fluids due to fluid overload. We will avoid NSAIDs. Appreciate Nephrology input. 2.Acute anemia. No intervention planned from GI. The patient's hemoglobin is fluctuating. We will transfuse if less than 7. We will monitor H and H. 3.Hyperkalemia, corrected. 4.Hypertension, stable. We will continue on home medications. 5.Obesity, BMI 36. 6.Abdominal pain, resolved. 7.Obstructive sleep apnea, on CPAP. 8.Intractable nausea and vomiting, resolved. Tolerating diet. 9.Coronary artery disease. [place] artery and [place] heart without angina, stable. 10.Chronic atrial fibrillation, on anticoagulation, has high risk for stroke, therefore needs antico agulation. 11.Diabetes mellitus type 2 with neuropathy with long-term use of insulin. We will continue sliding scale. 12.Chronic lymphedema. 13.Gastrointestinal and deep venous thrombosis prophylaxis, PPI and the patient is on chronic antico agulation with Xarelto. Plan: Monitor H and H. Continue diuresis. The patient may benefit from IV iron infusion. SA/MODL Voice ID: [id number] Report ID: [id number]
[2017-06-26] MEDS ORDERED: FUROSEMIDE 40 MG/4 ML VIAL IV ONE (15:00)
[2017-06-26] MEDS ORDERED: NA CHLORIDE 0.9% 250 ML ONE (15:06)
--- NOTE | 2017-06-26 15:14 | PN ---
Date of Progress Note: 06/26/2017 Subjective: The patient feeling slightly heavy. According to him, no nausea, no vomiting. Physical Examination: Vital Signs: Blood pressure 182/77, pulse of 61, afebrile. Chest: Crackles bilateral base. Heart: S1, S2. Regular. Abdomen: Soft. Morbidly obese. No guarding. No rebound. Extremities: Wrapping with a compression stocking. Laboratory Data: WBC is 10.9, H and H 7.6/24.1, platelet of 206. Sodium 133, potassium 4.3, bicarb 21, BUN 46, creatinine 2.9, GFR 22, calcium 7.7, phos 3.6, magnesium 1.8, albumin 2.1. Current Medications: The patient on its include Xarelto, Norvasc 10, digoxin, metoprolol 50 b.i.d., Lasix 80, Zofran, pantoprazole. Has magnesium sulfate. Assessment And Plan: 1.Acute kidney injury secondary to cardiorenal, poor perfusion, acute tubular necrosis, currently lo ok to me on the wet side. I agree with you resuming the Lasix. We will resume as 40 mg and will giv e extra dose after transfusion. 2.Iron deficiency anemia. Given the heart condition for the patient, the patient is going to need b lood transfusion and IV iron. I am going to start the patient on IV iron and will follow up H and H. We will give Lasix after the transfusion. I do not see any need for KVNG given the clear iron defic iency anemia. 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 Naidu. We will go ahead and do the transfusion and the IV iron and we will follow up. 3.Hyponatremia. Dilutional secondary to congestive heart failure. I will resume Lasix. AIDAN/SOHAN Voice ID: [id number] Report ID: [id number]
[2017-06-26] MEDS: RIVAROXABAN 15 MG TABLET PO SCH (17:56)
[2017-06-26 19:11] LABS: Anti-Cardiolipin IgA Antibody <11 APL (<=11)
[2017-06-26] MEDS: SOD FERRIC GLUC COMPLX/SUCROSE 250 MG in NA CHLORIDE 0.9% 250 ML IV SCH (19:49)
[2017-06-26] MEDS: HYDRALAZINE HCL 10 MG TABLET PO SCH (21:03)
[2017-06-26 21:14] LABS: Hematocrit 26.6 % (39.6-49.0)
[2017-06-26 23:11] LABS: Albumin, (SPE) 2.4 g/dL (3.8-4.8); Alpha-1-Globulins 0.5 g/dL (0.2-0.3); Alpha-2-Globulins 1.1 g/dL (0.5-0.9); Gamma Globulins 0.9 g/dL (0.8-1.7); INTERPRETATION REPORT
[2017-06-27 05:00] LABS: Absolute Lymphocytes (CBC) 0.8 K/uL (0.7-4.9); Absolute Monocytes 1.2 K/uL (0.1-1.3); Absolute Neutrophil 10.3 K/uL (1.8-8.0); Basophils % 0.4 % (0-1.3); Eosinophils % 1.3 % (0-4.4); Hematocrit 25.2 % (39.6-49.0); Lymphocytes % 6.4 % (15.3-44.8); MCH 28.7 pg (27.0-35.0); MCV 91.7 fL (80-100); Monocytes % 9.6 % (3.3-12.3); RBC Red Blood Cell Count 2.75 M/uL (4.33-5.43)
[2017-06-27 05:19] LABS: Albumin 2.1 g/dL (3.2-5.5); Magnesium 1.9 mg/dL (1.8-2.5); Phosphorus 3.5 mg/dL (2.5-4.3); Potassium 4.1 mEq/L (3.6-5.0)
[2017-06-27] MEDS: INSULIN -REGULAR HUMAN 50 UNIT/0.5 ML ML SQ SCH ×4 (08:54→20:42)
[2017-06-27] MEDS: METOPROLOL TAR 50 MG TAB PO SCH ×2 (08:54→20:38)
[2017-06-27] MEDS: HYDRALAZINE HCL 10 MG TABLET PO SCH ×2 (08:54→20:39)
[2017-06-27] MEDS: FUROSEMIDE 40 MG TABLET PO SCH (08:55)
[2017-06-27] MEDS: AMLODIPINE 10 MG TAB PO SCH (08:55)
[2017-06-27] MEDS: PANTOPRAZOLE 40MG TABLET PO SCH (08:55)
[2017-06-27] MEDS ORDERED: FUROSEMIDE 40 MG TABLET PO SCH (09:00)
--- NOTE | 2017-06-27 14:54 | PN ---
Date of Progress Note: 06/27/2017 Subjective: The patient status post 1 unit of blood transfusion. Yesterday hemoglobin dropped again . Physical Examination: Vital Signs: Blood pressure of 161/74, pulse of 65. Afebrile. The patient had urine output of 1225 . The patient was positive of 400. Chest: Decreased entry bilateral base. Heart: S1, S2. Irregularly irregular. Abdomen: Soft. Nontender. Extremity: Compression dressings on both. Laboratory Data: WBC 12.5, H and H 7.9/25.2, platelet 203. Sodium 133, potassium 4.1, bicarb 20, BU N 48, creatinine 2.9, GFR of 22, calcium 7.7, phosphorus 3.5, magnesium 1.9. Medications: Current medications the patient is on include: 1.IV iron. The patient received a dose yesterday. 2.Xarelto. 3.Norvasc 10. 4.Metoprolol 50 b.i.d. 5.Lasix 40 daily. 6.Pantoprazole. Assessment And Plan: 1.Acute kidney injury secondary to cardiorenal. Currently on the normal volume to the wet side. I am going to continue on the Lasix. The patient is going to receive extra dose of Lasix today after t he transfusion, and we will follow up. 2.Hypertension, controlled. We will utilize blood pressure for diuresis. 3.Iron deficiency anemia, status post transfusion. Going to receive another unit of transfusion tod ay. We will diurese after the patient is on IV iron. I had discussed the case with Dr. Gomes. Dr. Gomes is going to watch for another 24 hours to see if hemoglobin continues to drop. Possibly, he is going to back up on the Xarelto. We will follow up. 4.Congestive heart failure. Continue diuresis. AIDAN/MODL Voice ID: [id number] Report ID: [id number]
--- NOTE | 2017-06-27 15:15 | PN ---
Date of Progress Note: 06/27/2017 Subjective: The patient seen and examined. Chart reviewed and case discussed with RN. The patient received blood yesterday. Review of Systems: Negative except as above. Medications: Reviewed. Physical Examination: Vital Signs: Temperature 98.5, heart rate 65, blood pressure 161/74, respirations 20, O2 97% on room air. General: Awake, alert, oriented x3. Morbidly obese male. BMI 37. Elderly, somewhat ill-appearing. CV: S1, S2. Irregularly irregular. Peripheral pulses weak bilaterally. Respiratory: Moving air well bilaterally. No wheezing. No stridor. Gastrointestinal: Abdomen is soft, nondistended, nontender. Positive bowel sounds. No guarding or rigidity. Extremities: No clubbing, cyanosis, 1+ edema bilateral lower extremities. Skin: Chronic venous stasis changes, bilateral lower extremities. Neurologic: Nonfocal. Laboratory Data: Sodium 133, potassium 4.1, chloride 105, CO2 20, BUN 48, creatinine 2.94, glucose 2 45, calcium 7.7, magnesium 1.9, phosphorus 3.5. WBC 12.5, H and H 7.9, 25.2, platelets 203. HIV ant ibody nonreactive. Assessment And Plan: A 66-year-old male with; 1.Acute kidney injury secondary to prerenal or cardiorenal syndrome, currently in some volume overlo ad. IV fluids have been held. Lasix has been continued. 2.Acute blood loss anemia. GI does not have any plans for intervention. The patient sees Dr. Lucien coombs as an outpatient. Dr. Adame covering. Hemoglobin keeps fluctuating. The patient has been transfus ed 1 unit. The patient does have history of angiodysplasia and is on anticoagulant. Continue to mon itor H and H. Continue IV iron. 3.Essential hypertension stable. 4.Obesity, BMI 36. 5.Obstructive sleep apnea, on CPAP. 6.Intractable CP. 7.Coronary artery disease [place] artery and [place] heart without angina, stable. 8.Chronic atrial fibrillation on anticoagulation. 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 Continue sliding scale. 10.Chronic lymphedema. 11.Gastrointestinal and deep venous thrombosis prophylaxis with PPI. The patient already on Xarelto . Plan: Monitor H and H. Continue IV iron infusion. The care of patient will be transferred back to Dr. Weaver in [facility]/SOHAN Voice ID: [id number] Report ID: [id number]
[2017-06-27] MEDS ORDERED: FUROSEMIDE 40 MG/4 ML VIAL IV ONE ×2 (17:00→18:00)
[2017-06-27] MEDS: RIVAROXABAN 15 MG TABLET PO SCH (17:10)
[2017-06-27 19:58] LABS: Hematocrit 27.6 % (39.6-49.0)
[2017-06-28 04:58] LABS: Absolute Lymphocytes (CBC) 0.9 K/uL (0.7-4.9); Absolute Monocytes 1.2 K/uL (0.1-1.3); Absolute Neutrophil 9.4 K/uL (1.8-8.0); Basophils % 0.6 % (0-1.3); Eosinophils % 1.7 % (0-4.4); Hematocrit 26.4 % (39.6-49.0); Lymphocytes % 7.9 % (15.3-44.8); MCH 29.5 pg (27.0-35.0); MCV 90.5 fL (80-100); MPV 7.9 fL (7.6-11.3); Monocytes % 10.3 % (3.3-12.3); RBC Red Blood Cell Count 2.92 M/uL (4.33-5.43)
[2017-06-28 05:31] VITALS: BMI 38.0
[2017-06-28 05:42] LABS: Albumin 2.1 g/dL (3.2-5.5); Magnesium 1.8 mg/dL (1.8-2.5); Phosphorus 3.8 mg/dL (2.5-4.3); Potassium 4.3 mEq/L (3.6-5.0)
[2017-06-28] MEDS ORDERED: MAGNESIUM SULFATE 1 gm IVPB 1 GM/100 ML BAG IV ONE (07:07)
[2017-06-28] MEDS: INSULIN -REGULAR HUMAN 50 UNIT/0.5 ML ML SQ SCH ×4 (08:31→21:28)
[2017-06-28] MEDS: HYDRALAZINE HCL 10 MG TABLET PO SCH ×2 (08:32→21:27)
[2017-06-28] MEDS: FUROSEMIDE 40 MG TABLET PO SCH (08:32)
[2017-06-28] MEDS: DIGOXIN 0.125 MG TABLET PO SCH ×4 (08:32→21:27)
[2017-06-28] MEDS: METOPROLOL TAR 50 MG TAB PO SCH ×2 (08:32→21:27)
[2017-06-28] MEDS: PANTOPRAZOLE 40MG TABLET PO SCH (08:32)
[2017-06-28] MEDS: AMLODIPINE 10 MG TAB PO SCH (08:32)
[2017-06-28 14:00] LABS: Scleroderma Antibody (Scl-70) <1.0 AI (<1.0)
[2017-06-28] MEDS: RIVAROXABAN 15 MG TABLET PO SCH (16:26)
[2017-06-28 17:09] LABS: P-ANCA Anti-Myeloperoxidase Ab <1.0 AI (<1.0)
--- NOTE | 2017-06-28 17:13 | PN ---
Date of Progress Note: 06/28/2017 Subjective: The patient states he feels somewhat better today, although he still complains of signif icant weakness. He is still a little dyspneic. Discussed the case with Gastroenterology and Cardiol davian. The former suggested perhaps the use of endoscopic cauterization if bleeding persists based on a prior history of telangiectasia with a PillCam. Cardiology felt that the medication including Lasi x and a blood thinner is necessary. The risk reward ratio is significant without probability of the patient being discharged in the a.m. depending on his progression and symptomatology is good. We vandana l discuss further the nephrology problems prior to discharge. HR/MODL Voice ID: [id number] Report ID: [id number]
--- NOTE | 2017-06-29 01:11 | PN ---
Date of Progress Note: 06/28/2017 Chief Complaint: Chronic kidney disease on acute kidney injury and fluid overload. Subjective: The patient has acute kidney injury secondary to cardiorenal syndrome. The patient continues to have fluid overload and the patient is on Lasix treatment for fluid overload with peripheral edema. The patient has congestive heart failure, acute on chronic. Renal function has not improved significantly since yesterday. Review of Systems: Denies fever or chills. Denies nausea or vomiting. Physical Examination: Lungs: Few crackles bilaterally. Heart: S1, S2, irregularly, irregular. Abdomen: Soft, benign. Extremities: Dressing in place, edema present in both legs. Laboratory Data: BUN 40, creatinine 2.9, calcium 7.7, phosphorus 3.5, magnesium 1.9, and sodium 133. Impression And Plan: 1. Acute kidney injury, moderately severe, nonoliguric. Renal function has not improved significantly. Continue treatment with Lasix to treat acute kidney injury and congestive heart failure. The patient has cardiorenal syndrome. The patient will continue low-sodium diet, Lasix and metoprolol for congestive heart failure. 2. Continue low-sodium diet and monitor fluid balance. 3. Hypertension, controlled. The patient will continue current medication along with diuretics to treat fluid overload. 4. Anemia, the patient received blood transfusion. Monitor hemoglobin level and check iron stores, to start iron supplementation as needed. 5. Congestive heart failure, hypertensive heart disease, coronary artery disease. Continue beta roel. Lasix dose will be adjusted for adequate diuresis. I spent total 36 min including 26 min to coordinate care plan. LANG/SOHAN Voice ID: [id number] Report ID: [id number] REJI
[2017-06-29 05:12] LABS: Potassium 4.6 mEq/L (3.6-5.0)
[2017-06-29] MEDS: FUROSEMIDE 40 MG TABLET PO SCH (09:29)
[2017-06-29] MEDS: PANTOPRAZOLE 40MG TABLET PO SCH (09:29)
[2017-06-29] MEDS: METOPROLOL TAR 50 MG TAB PO SCH ×2 (09:29→21:45)
[2017-06-29] MEDS: INSULIN -REGULAR HUMAN 50 UNIT/0.5 ML ML SQ SCH ×4 (09:30→21:46)
[2017-06-29] MEDS: HYDRALAZINE HCL 10 MG TABLET PO SCH ×2 (09:30→21:45)
[2017-06-29] MEDS: AMLODIPINE 10 MG TAB PO SCH (09:30)
--- NOTE | 2017-06-29 11:43 | RAD REPORT ---
EXAM DESCRIPTION: RAD - Chest Single View - 06/29/2017 11:36 am CLINICAL HISTORY: COPD, shortness of breath COMPARISON: June 25 TECHNIQUE: AP portable chest image was obtained 1123 hours . FINDINGS: No large mass or consolidation seen. Central vasculature and lung markings are prominent, slightly worse than the June 25 study. Trachea is midline. Heart size is upper normal. No pneumothorax is present. No large pleural effusion. No gross bony abnormality seen. No acute aortic findings susp ected. IMPRESSION: Mild CHF or volume overload pattern similar to slightly worse than June 25.
--- NOTE | 2017-06-29 13:07 | PN ---
Date of Progress Note: 06/29/2017 Subjective: The patient feeling shortness of breath and heavy according to him. Physical Examination: Vital Signs: Blood pressure 165/74, pulse of 78. The patient had urine output of 1200. Chest: Decreased air entry, bilateral bases crackles. Heart: S1, S2. Regular. Abdomen: Soft, nontender. Extremities: Bilateral compression dressing. Laboratory Data: WBC 11.8, H and H 8.6/26.4, platelets 182. Sodium 131, potassium 4.6, bicarb 20, B UN 59, creatinine 3.2, calcium 7.7, magnesium of 2. Current Medications: The patient on its include: 1.IV iron. 2.Xarelto. 3.Norvasc 10. 4.Digoxin. 5.Metoprolol 50 b.i.d. 6.Lasix 40. 7.Pantoprazole. 8.Insulin. Assessment And Plan: 1.Acute kidney injury on advanced chronic kidney disease, slightly on the wet side. I am going to g o ahead and increase his Lasix to 80 mg. I am going to give him the dose of today as IV and we will monitor the patient. I had long discussion with the patient that this diuresis may cause kidney inju ry, but unfortunately given the heart situation, the patient may need to stay on this dose of Lasix t o establish better volume control even though that can progress him to requiring renal replacement th erapy. The patient verbalized understanding. I will discuss with Dr. Weaver the case and we will f ollow up. 2.Hypertension. We will utilize blood pressure for more diuresis. 3.GI loss, iron deficiency anemia. Continue IV iron. Status post transfusion 2 units. We will fol low up. 4.Congestive heart failure, diastolic dysfunction as by Cardiology. 5.Cardiac arrhythmia, atrial fibrillation. We will follow up with Cardiology. The patient is on Xa relto. AIDAN/SOHAN Voice ID: [id number] Report ID: [id number]
[2017-06-29] MEDS: SOD FERRIC GLUC COMPLX/SUCROSE 250 MG in NA CHLORIDE 0.9% 250 ML IV SCH (14:00)
[2017-06-29] MEDS: RIVAROXABAN 15 MG TABLET PO SCH (18:11)
[2017-06-29 20:57] LABS: Beta Globulin 24 HR Urine 13 %; Creatinine 24 Hour Urine 1.02 g/24 h (0.63-2.50); Gamma Globulin, 24hr Urine 12 %; Interpretation: REPORT; Urine Alpha-2-Globulins, 24 Hr 8 %; Urine PEP Abn Protein Band1 REPORT; Urine Protein/Creat Ratio 24Hr 7839 mg/g creat (<=84); Urine Total Volume 24 Hours 1950 mL
[2017-06-29 23:39] VITALS: O2SAT 100
--- NOTE | 2017-06-30 00:04 | PN ---
Date of Progress Note: 06/29/2017 Subjective: The patient did continue to complain of some dyspnea, especially exertional, still has e levated chemistries and attempt to increase the fluid removal by increasing the Lasix and continue to monitor creatinine, which fell around the [address] Ramos in regard to sebastianme nt, the patient requested however, we feel that medically he is not stable enough at this time to go to a SNF and suggested the use of the rehab and/or LTAC. A rehab consultation will be dolores dawna sutton and depending on results, disposition will be made. HR/MODL Voice ID: [id number] Report ID: [id number]
[2017-06-30] MEDS: INSULIN -REGULAR HUMAN 50 UNIT/0.5 ML ML SQ SCH ×2 (07:30→11:30)
[2017-06-30] MEDS ORDERED: FUROSEMIDE 40 MG/4 ML VIAL IV SCH (09:00)
[2017-06-30] MEDS: METOPROLOL TAR 50 MG TAB PO SCH (09:44)
[2017-06-30] MEDS: AMLODIPINE 10 MG TAB PO SCH (09:44)
[2017-06-30] MEDS: HYDRALAZINE HCL 10 MG TABLET PO SCH (09:44)
[2017-06-30] MEDS: DIGOXIN 0.125 MG TABLET PO SCH ×2 (09:44→13:00)
[2017-06-30] MEDS: PANTOPRAZOLE 40MG TABLET PO SCH (09:44)
[2017-06-30 10:43] LABS: MCH 29.6 pg (27.0-35.0); MCV 91.5 fL (80-100); MPV 8.3 fL (7.6-11.3); RBC Red Blood Cell Count 3.06 M/uL (4.33-5.43)
[2017-06-30 11:21] LABS: Albumin 2.6 g/dL (3.2-5.5); Phosphorus 3.8 mg/dL (2.5-4.3); Potassium 4.6 mEq/L (3.6-5.0)
[2017-06-30 12:52] VITALS: BP 137/61; TEMP 97.8
--- NOTE | 2017-08-30 07:44 | DS ---
Date of Discharge: 06/30/2017 Hospital Course: The patient was admitted to the hospital on 06/23. He presented to the emergency ro om complaining of widespread abdominal pain. The patient has had recurrent episodes of this type of presentation associated with this. There has been some GI bleeding and the question has been whether to continue his anticoagulation in the form of Xarelto for his atrial fibrillation and then been on Coumadin in the past or to stop and control the bleeding. 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 His diuresis was increased with the use o f higher doses of Lasix. During his hospital stay, his symptoms of anorexia and abdominal pain persi sted for a number of days. In an attempt to control the symptomatology, various electrolyte imbalanc es occurred including hyponatremia and hyperkalemia. His diabetes remained in good control for the m ost part, and eventually his appetite increased. His blood counts which were borderline for transfus ion on admission relieved by transfusions and it was attempted to transfer him to even LTAC or a nurs ing home venue and this took some time to clarify as well and by the time he was ready for discharge, he felt that he could be handled at home with home health nurse involved. So, this was accomplished . He was discharged in fair condition. Final Diagnoses: Acute renal failure on advanced chronic kidney disease; gastrointestinal bleed; con gestive heart failure, acute on chronic; hypertension, controlled; coronary artery disease; atrial fibrillation, chronic; [id number] diabetes mellitus, good control; hyponatremia; hyperkale kenroy; moderate obesity. HR/MODL Voice ID: [id number] Report ID: [id number]
== END 2017-06-30 15:02 | DRG 683 ==
LOC: ER 00:34 → 2ND 03:44 → OBSVTOIN 03:44 → INTOOBSV 03:44 → OBSVTOIN 06-23 15:55
PROVIDERS: ADMIT Family Medicine; ATTEND Family Medicine
DX: N17.9 Acute kidney failure, unspecified (principal); E87.1 Hypo-osmolality and hyponatremia; D62 Acute posthemorrhagic anemia; E86.0 Dehydration; I25.10 Atherosclerotic heart disease of native coronary artery without angina pectoris; E11.40 Type 2 diabetes mellitus with diabetic neuropathy, unspecified; I89.0 Lymphedema, not elsewhere classified; E87.5 Hyperkalemia; I48.2 Chronic atrial fibrillation; E11.65 Type 2 diabetes mellitus with hyperglycemia; E11.22 Type 2 diabetes mellitus with diabetic chronic kidney disease; I12.9 Hypertensive chronic kidney disease with stage 1 through stage 4 chronic kidney disease, or unspecified chronic kidney disease; N18.9 Chronic kidney disease, unspecified; G47.33 Obstructive sleep apnea (adult) (pediatric); E66.01 Morbid (severe) obesity due to excess calories
CPT/HCPCS: 36415; 71045; 74176; 76770; 80048; 80069; 80076; 81003; 81015; 82150; 82550; 82553; 82570; 82728; 82746; 82962; 83520; 83540; 83690; 83735; 83880; 83970; 84156; 84165; 84166; 84443; 84466; 84484; 84550; 85014; 85018; 85025; 85027; 85044; 85610; 85730; 86021; 86038; 86147; 86160; 86225; 86235; 86317; 86430; 86704; 86706; 86850; 86900; 86901; 87340; 87389; 87493; 87522; 93005; 93306; 96374; 96375; 97163; 99285; C9113; G0378; J2270; J2405; J2916; J3475; J7030; P9016

== ENCOUNTER 2017-06-30 11:20 | Inpatient (IN) | payer OTHER ==
--- NOTE | 2017-06-30 13:37 | R.PREADM ---
SCREENING DATE AND TIME 06/30/2017 11:22 (CDT) ANTICIPATED REHAB ADMISSION DATE 07/02/2017 REFERRING FACILITY [facility] REFERRAL DATE AND TIME 06/30/2017 11:23 (CDT) ACUTE ADMIT DATE 06/23/2017 Previous Rehabilitation(s): No. REFERRING PHYSICIAN Martín Weaver REHAB FACILITY [facility] CLINICAL LIAISON Marissa Ferrari PHYSICIAN REVIEWER Dr. Angel Devi M.D. MR# [id number] HERNANDO ALBARRAN AD[address]ESS [address] [facility] [place] [address] DATE OF 1950 AGE 66 SSN# [id number] GENDER male MARITAL STATUS RACE white ADMIT FROM 02 - [facility] PRE-HOSPITAL LIVING SETTING 01 - Home (private home/apt. board/care, assisted living, custodial, transitional living) HOME TYPE AND DETAILS Type of home: single family house # of levels in the residence: 1 # of steps within the residence: 0 # of steps to enter the residence: 0 PRE-HOSPITAL LIVING WITH Alone FAMILY SUPPORT Yes PRIMARY FAMILY CONTACT NAME Keon Bird PRIMARY FAMILY CONTACT PHONE PHONE PRIMARY FAMILY CONTACT ON ADM.? no IS PRIMARY FAMILY CONTACT AUTH. REP.? no 1ST EMERGENCY CONTACT Keon Pelon 1ST CONTACT PHONE PHONE 1ST CONTACT ON ADM. no IS 1ST CONTACT AUTH. REP.? no PHONE 2ND CONTACT ON ADM.? no PATIENT EMPLOYMENT STATUS Disabled PAYOR INFORMATION: 1ST PAYOR NAME MEDICARE 1ST PAYOR INJURY/ILLNESS DUE TO ACCIDENT? No ANOTHER GREEN PARTY RESPONSIBLE? No PRIMARY REHAB/ACUTE DIAGNOSIS: Acute Kidney Injury, Anemia ONSET DATE 06/23/2017 REHAB IMPAIRMENT CATEGORY (MARIA LUZ): 20 Miscellaneous (Misc) does NOT meet 60% rule PRIMARY DIAGNOSIS-RELATED SURGERIES: N/A COMORBID REHAB/ACUTE DIAGNOSES: - Tier 3 Acute kidney failure, unspecified [N179] - Non-Tiered Type 2 diabetes mellitus with diabetic neuropathy, unspecified [E1140] - N/A GERD Atrial Fibrillation Anemia Essential Hypertension CAD Obstructive Sleep apnea Chronic Lymphedema INTERVENTIONS: - GERD Altered diet Elevation of head of bed Medications Nausea/vomiting Nighttime food/fluid restrictions Nutrition - Atrial Fibrillation Anticoagulation Medications VS - CAD 02 sats Activity management Medications VS RISK FOR COMPLICATIONS: - GERD Alteration in sleep Aspiration Dehydration Malnutrition Pain - Atrial Fibrillation CVA Heart failure Limb embolus - CAD CHF Cardiac Arrest OK Pain SUMMARY OF ACUTE HOSPITALIZATION: Pt. is a 66 yo Right-handed white male. On 06/23/2017 he was admitted to [facility] with diagnosis Acute Kidney Injury, Anemia. His impairment category is Debility 16 - Debility (16). Pre-morbidly, Pt. was independent/mod-I in Transfers Control, Communication, Social Cognition, Self-C are, Sphincter Control, and Locomotion; and he had good Sphincter Control. Currently, he has deficits of Safety Awareness, Transfers Control, Balance, Endurance, Locomotion, an d Self-Care. Pt. is now referred to [facility] for acute in-patient rehabilitation in order to maximize patient's functional independence in activities of daily living, strength, ROM, and mobi lity. Patient has realistic goal of being discharged at assistance level 6-Jose R to reside at Home with Fam polina/Relatives. PAST MEDICAL HISTORY Acute kidney failure, unspecified [N179] Anemia Atrial Fibrillation CAD Chronic Lymphedema Essential Hypertension GERD Obstructive Sleep apnea Type 2 diabetes mellitus with diabetic neuropathy, unspecified [E1140] PAST SURGICAL HISTORY: Cholecystectomy MEDICATION ALLERGIES: Mupirocin ENVIRONMENTAL ALLERGIES: None Known - Substance Allergies None Known - Other Allergies None Known CODE STATUS: Full code WEIGHT/HEIGHT/BMI: WEIGHT 304 lbs HEIGHT 6' 3" BMI 38 DIET: - Diet Type Regular - Diet - Solid Texture Regular - Diet - Liquid Texture Regular - Tube Feed N/A REVIEW OF SYSTEMS: - Gen Alert and awake Lying in bed No apparent distress Oriented to: person, time, and place - Vital Signs Temperature: 97.7 F SBP/DBP: 142/79 Pulse: 65 Resp: 16 Vital signs stable, afebrile - CVS RRR VITAL SIGNS Temperature: 97.7 F SBP/DBP: 142/79 Pulse: 65 Resp: 16 Vital signs stable, afebrile CURRENT SPHINCTER CONTROL: Pre-hospital bladder status: continent # of bladder accidents in the last 7 days prior to screenin Pre-hospital bowel status: unspecified # of bowel accidents in the last 7 days prior to screenin Last Bowel Movement Date: 06/30/2017 DETAILED CURRENT FUNCTIONAL STATUS: - Bladder accident frequency: Ind - No accidents in the past 7 days - Bowel accident frequency: Ind - No accidents in the past 7 days - Walking score based on distance walked: 1(<=50ft) FUNCTIONAL STATUS: - Self-Care A. Eating Ind Ind B. Grooming Ind Ind C. Bathing Ind sup D. Dressing - Upper Ind sup E. Dressing - Lower Ind sup F. Toileting Ind Ind - Sphincter Control G: Bladder control Ind Ind H: Bowel control Ind Ind - Transfers Control I. Bed/Chair/Wheelchair Ind Shavon J. Toilet Ind Shavon K. Tub/Shower Ind ADNO - Locomotion L. Walk/Wheelchair (W) Ind Shavon M. Stairs Ind ADNO - Communication N. Comprehension (B) Ind Ind O. Expression (B) Ind Ind - Social Cognition P. Social Interaction Ind Ind Q. Problem Solving Ind Ind R. Memory Ind Ind - Endurance Fair - Balance Fair - Safety Awareness Fair CURRENT FUNC. DEFICITS: Safety Awareness, Transfers Control, Balance, Endurance, Locomotion, and Self-Care THERAPY NOTES FROM ACUTE CARE: Attached. SPECIAL NEEDS: - Safety Concerns Skin breakdown precautions needed due to skin breakdown risk PRECAUTIONS: - Fall Precaution Bed and chair alarm PATIENT NEEDS ACTIVE AND ONGOING THERAPEUTIC INTERVENTION OF MULTIPLE THERAPY DISCIPLINES, INCLUDING: - Occupational Therapy Evaluate and Treat. - Physical Therapy Evaluate and Treat. PATIENT NEEDS CLOSE MEDICAL SUPERVISION BY A REHABILITATION PHYSICIAN FOR: Coordination of Treatment Team Diabetes Management Medical and Co-Morbidity Management Pain Management PATIENT REQUIRES 24X7 REHAB NURSING FOR MEDICAL AND FUNCTIONAL MGT. OF THE FOLLOWING DEFICITS: ADL's Ambulation Communication Disease Management Medication Management Patient/Family Education Providing Safe Environment Pain Management Transfers PATIENT REQUIRES INTENSIVE, COORDINATED INTERDISCIPLINARY APPROACH TO REHAB: Arranging Home Equipment/Services Discharge Planning Family Intervention/Training Interlocking And Signal Mechanic/Case Management PATIENT REHAB POTENTIAL: Expected level of measurable improvement will be of a practical value to patient's functional capacit y or adaptations to impairments Has a viable Discharge Plan Medically appropriate; condition is sufficiently stable to participate in intensive rehab program Patient is able and expected to receive 3 hours of individualized therapy daily on at least 5 of ever y 7 days Patient's prognosis for significant practical improvement within a reasonable period of time appears Good DISCHARGE PLAN: - Estimated Length of Stay (days) 13. - Consensus on plan Discharge plan has been discussed with primary caregiver. Patient/Family is in agreement with the dolores n. Primary caregiver is in agreement with the plan. - Patient/Family Goals Return home with assistance. - Planned Living Setting Upon Discharge Home, to live with Family/Relatives. RECOMMENDED CARE LEVEL: IRF RECOMMENDATION DETAILS: Recommended Admission to Comprehensive Rehabilitation Program to Increase Functional Sellers SCREENER'S COMPLETENESS CONFIRMATION: - Screening Confirmation The patient data collection on this preadmission screening form is finished PHYSICIANS REVIEW AND ADMISSION DETERMINATION Admit - Based on my review of the Pre-Admission Screening results, in my medical judgment and experie nce, I concur with the findings and recommend admission to [facility], as this patient requires an IRF level of care. SIGNATURE PANEL: Clinical Liaison - [electronically] signed by Marissa Ferrari on 06/30/2017 at 11:50 (CDT) Physician Reviewer - [electronically] signed by Dr. Angel Devi M.D. on 06/30/2017 at 12:38 (CDT )
[2017-06-30] MEDS ORDERED: GLUCAGON 1 MG/VIAL IM PRN (16:22)
[2017-06-30] MEDS ORDERED: D50W 25 GM/50 ML SYRINGE IV PRN (16:22)
[2017-06-30] MEDS ORDERED: LORATADINE 10 MG TAB PO PRN (17:40)
[2017-06-30] MEDS: RIVAROXABAN 15 MG TABLET PO SCH (17:44)
[2017-06-30] MEDS: INSULIN -REGULAR HUMAN 50 UNIT/0.5 ML ML SQ SCH ×2 (17:44→20:56)
[2017-06-30] MEDS: glipiZIDE 5 MG TAB PO SCH (18:00)
[2017-06-30] MEDS ORDERED: SOD FERRIC GLUC COMPLX/SUCROSE 250 MG in NA CHLORIDE 0.9% 250 ML IV SCH (18:00)
--- NOTE | 2017-06-30 18:15 | PN ---
Date of Progress Note: 06/30/2017 The patient states he feels somewhat better today. His Lasix dose was increased. His creatinine is still elevated over 3.2. However, his hemoglobin has come up slightly to 9.1. He is being transferr ed to fifth floor for rehab for generalized weakness, equilibrium problems strengthening and continua tion of his medical treatment. He will be followed up by myself and Nephrology as [facility] HR/MODL Voice ID: [id number] Report ID: [id number]
[2017-06-30] MEDS: ATORVASTATIN 20 MG TAB PO SCH (20:11)
[2017-06-30] MEDS: TRAMADOL HCL 50 MG TAB PO PRN (20:11)
[2017-06-30] MEDS: ASCORBIC ACID 500 MG TABLET PO SCH (20:11)
[2017-06-30] MEDS: METOPROLOL TAR 50 MG TAB PO SCH (20:12)
--- NOTE | 2017-07-01 03:01 | PN ---
Date of Progress Note: 06/30/2017 Subjective: The patient had no event. The patient being diuresed, still have leg swelling. Accordi ng to him, his shortness of breath is better. Physical Examination: Vital Signs: Blood pressure 142/65, pulse of 80, Chest: Decreased entry bilateral base. Heart: S1, S2. Regular. Abdomen: Soft, nontender. Extremities: +3 edema. Venous stasis bilateral. Laboratory Data: For the patient, WBC 13.5, H and H 9.1/28, platelet 238. Sodium 130, potassium 4.6 , bicarb 31, chloride 101, BUN 75, creatinine 3.9, GFR of 19. Current Medications: The patient on include, 1.IV iron. 2.Xarelto. 3.Atorvastatin. 4.Digoxin. 5.Metoprolol 50. 6.Lasix 40 daily. 7.Insulin. 8.Albuterol. 9.Tramadol. 10.Cholecalciferol. 11.Vitamin C. Assessment And Plan: 1.Acute kidney injury on advanced chronic kidney disease secondary to cardiorenal, still on the wet side. I am going to continue diuresis. We will increase the Lasix to 60 mg. 2.Gastrointestinal bleed secondary to be in small intestine superimposed with Xarelto use, that has been stabilized. We will continue to monitor. 3.Congestive heart failure, diastolic dysfunction. Continue current dose of Lasix by increasing to 60. 4.Gout. No activity. I going to go ahead and decrease his allopurinol to 100 given the degree of i n the kidney function. 5.Iron deficiency anemia. Continue IV iron. 6.Deconditioning. Continue PT/OT. We will consider inpatient rehab. 7.Atrial fibrillation. Continue follow up with Cardiology regarding Xarelto. Continue digoxin. MA/MODL Voice ID: [id number] Report ID: [id number]
--- NOTE | 2017-07-01 03:23 | FAST ---
SHIFT START DATE/TIME: 06/30/2017 19:00 (CDT) SHIFT END DATE/TIME: 07/01/2017 07:00 (CDT) NAME HERNANDO ARAIZA DATE OF : 1950 DATE OF ADMISSION: 06/30/2017 15:08 (CDT) PHONE: AGE: 66 [facility]# [id number] GENDER: Male ENCOUNTER PHYSICIAN: Dr. Angel Devi M.D. ADMISSION DIAGNOSIS: - Debility 16 - Debility (16) Acute Kidney Injury, Anemia. EATING: Activity did not occur on this shift EATING - SCORE: 0-UNK GROOMING: Activity did not occur on this shift GROOMING - SCORE: 0-UNK BATHING: Activity did not occur on this shift BATHING - SCORE: 0-UNK DRESSING - UPPER BODY: Patient is not dressing in public clothing ARTICLES SCORE Total number of steps: 0 DRESSING - UPPER BODY - SCORE: 0-UNK DRESSING - LOWER BODY: Patient is not dressing in public clothing ARTICLES SCORE Total number of steps: 0 DRESSING - LOWER BODY - SCORE: 0-UNK TOILETING: TOILETING - STEP 1: Does the patient require assistance with toileting? Yes. TOILETING - STEP 2: Does the patient require the assistance of a helper? Yes. TOILETING - STEP 3: How much assistance does the patient require from the helper? Hands-on assistance from the helper TOILETING - STEP 4: Of the 3 tasks: 1) Adjusting clothing prior to use, 2) Cleansing of perineal area, 3) Adjusting clot jennifer after use; How many tasks does the patient perform WITHOUT assistance of the helper? Three tasks with steadying assistance from the helper TOILETING - SCORE: 4-MIN BLADDER MANAGEMENT: BLADDER MANAGEMENT - STEP 1: Does the patient control the bladder completely and intentionally without equipment or devices or med ications, and is always continent? No. BLADDER MANAGEMENT - STEP 2: Does the patient require the assistance of a helper? Yes. BLADDER MANAGEMENT - STEP 3: How much assistance does the patient require from the helper? Only set-up of equipment - such as plac ing it within reach of the patient or emptying a device - to maintain either satisfactory voiding pat tern or managing an external device, such as an absorbent pad, ileal device, or catheter BLADDER MANAGEMENT - SCORE: 5-SUP BLADDER MANAGEMENT - FREQUENCY OF ACCIDENTS: BLADDER MANAGEMENT(FA) - STEP 1: How many accidents has the patient had during the current shift? 1 BOWEL MANAGEMENT: Activity did not occur on this shift BOWEL MANAGEMENT - SCORE: 7-IND TRANSFERS: BED, CHAIR, WHEELCHAIR: TRANSFERS: BED, CHAIR, WHEELCHAIR - STEP 1: Does the patient require assistance with bed, chair, or wheelchair transfers? Yes. TRANSFERS: BED, CHAIR, WHEELCHAIR - STEP 2: Does the patient require the assistance of a helper? Yes. TRANSFERS: BED, CHAIR, WHEELCHAIR - STEP 3: How much assistance does the patient require from the helper? Lifting of the legs TRANSFERS: BED, CHAIR, WHEELCHAIR - STEP 4: How many legs does the patient require the helper to lift? both legs TRANSFERS: BED, CHAIR, WHEELCHAIR - SCORE: 3-MOD TRANSFERS: TOILET: Activity did not occur on this shift TRANSFERS: TOILET - SCORE: 0-UNK TRANSFERS: SHOWER: Activity did not occur on this shift TRANSFERS: SHOWER - SCORE: 0-UNK TRANSFERS: TUB: Activity did not occur on this shift TRANSFERS: TUB - SCORE: 0-UNK LOCOMOTION: WALK: Activity did not occur on this shift LOCOMOTION: WALK - SCORE: 0-UNK LOCOMOTION: WHEELCHAIR: Activity did not occur on this shift LOCOMOTION: WHEELCHAIR - SCORE: 0-UNK COMPREHENSION: COMPREHENSION: TYPE: Both COMPREHENSION - STEP 1: Does the patient require help to understand complex and abstract ideas (such as current events, finan phill, discharge planning, medical issues, relationships, etc)? No. COMPREHENSION - STEP 2: Does the patient need extra time, require an assistive device (such as glasses, hearing aids, or an a ugmentative communication system), OR does s/he have mild difficulty expressing complex and abstract ideas (including mild dysarthria or mild word-finding problems)? Yes. COMPREHENSION - SCORE: 6-LOUANN EXPRESSION EXPRESSION: TYPE: Both EXPRESSION - STEP 1: Does the patient require help expressing complex and abstract ideas (such as current events, finances , discharge planning, medical issues, relationships, etc)? No. EXPRESSION - STEP 2: Does the patient need extra time, require an assistive device (such as augmentive communication syste m or a communication board), OR does s/he have mild difficulty expressing complex and abstract ideas (including mild dysarthria or mild word-find problems)? Yes. EXPRESSION - SCORE: 6-LOUANN SOCIAL INTERACTION: SOCIAL INTERACTION - STEP 1: Does the patient require a helper to interact with others in social and therapeutic situations? No. SOCIAL INTERACTION - STEP 2: Does the patient need extra time in social situations, OR does s/he interact with staff, other patien ts, and family members ONLY in structured environments, OR does s/he require medication for social in teraction? Yes, patient needs extra time SOCIAL INTERACTION - SCORE: 6-LOUANN PROBLEM SOLVING: PROBLEM SOLVING - STEP 1: Does the patient need help to solve complex problems such as managing a checking account or confronti ng interpersonal problems? No. PROBLEM SOLVING - STEP 2: Does the patient require extra time to make decisions or solve problems, OR does s/he have slight dif ficulty reading, initiating, or self-correcting in unfamiliar situations? Yes, patient needs extra ti me. PROBLEM SOLVING - SCORE: 6-LOUANN MEMORY: MEMORY - STEP 1: Does the patient need help to remember frequently encountered people, daily routines, and executing r equests? No. MEMORY - STEP 2: Does the patient have slight difficulty recognizing frequently encountered people, daily routines, or executing requests without the need for repetition or using self-initiated or environmental cues to remember? Yes. MEMORY - SCORE: 6-LOUANN
[2017-07-01 06:03] LABS: Urine Appearance CLOUDY; Urine Bilirubin NEGATIVE (NEG); Urine Blood NEGATIVE (NEG); Urine Color YELLOW; Urine Glucose TRACE (NEG); Urine Protein 3+ (NEG); Urine Specific Gravity 1.015 (1.005-1.030); Urine Urobilinogen 0.2 mg/dL (0.2-1.0)
[2017-07-01 06:28] LABS: Albumin 2.4 g/dL (3.2-5.5); Potassium 4.7 mEq/L (3.6-5.0); Prealbumin 15.5 mg/dl (18-38)
[2017-07-01 06:29] LABS: Urine Bacteria <20 /HPF (NONE SEEN); Urine RBC NONE SEEN /HPF (NONE SEEN)
[2017-07-01 06:30] LABS: Absolute Lymphocytes (CBC) 0.8 K/uL (0.7-4.9); Absolute Monocytes 1.2 K/uL (0.1-1.3); Absolute Neutrophil 9.6 K/uL (1.8-8.0); Basophils % 0.7 % (0-1.3); Eosinophils % 1.6 % (0-4.4); Hematocrit 26.9 % (39.6-49.0); Lymphocytes % 6.8 % (15.3-44.8); MCH 30.4 pg (27.0-35.0); MCV 90.9 fL (80-100); MPV 8.6 fL (7.6-11.3); Monocytes % 10.3 % (3.3-12.3); RBC Red Blood Cell Count 2.96 M/uL (4.33-5.43)
[2017-07-01 06:30] LABS: Urine Amorphous Sediment 2+ /HPF (NONE SEEN); Urine Culture Reflex Order NOT NEEDED; Urine Mucus LIGHT /HPF (NONE SEEN)
[2017-07-01] MEDS: VITAMIN D 5,000 UNIT CAP PO SCH (07:55)
[2017-07-01] MEDS: DIGOXIN 0.125 MG TABLET PO SCH (07:55)
[2017-07-01] MEDS: POTASSIUM CL SA 10 MEQ TAB PO SCH (07:55)
[2017-07-01] MEDS: TRAMADOL HCL 50 MG TAB PO PRN ×2 (07:55→20:37)
[2017-07-01] MEDS: ASCORBIC ACID 500 MG TABLET PO SCH ×2 (07:56→20:37)
[2017-07-01] MEDS: PANTOPRAZOLE 40MG TABLET PO SCH (07:56)
[2017-07-01] MEDS: FUROSEMIDE 40 MG TABLET PO SCH (07:56)
[2017-07-01] MEDS: glipiZIDE 5 MG TAB PO SCH ×2 (07:56→16:57)
[2017-07-01] MEDS: METOPROLOL TAR 50 MG TAB PO SCH ×2 (07:56→20:37)
[2017-07-01] MEDS: ALLOPURINOL 100 MG TAB PO SCH (07:58)
[2017-07-01] MEDS: INSULIN -REGULAR HUMAN 50 UNIT/0.5 ML ML SQ SCH ×4 (07:59→20:38)
[2017-07-01] MEDS ORDERED: ALLOPURINOL 300 MG TAB PO SCH ×2 (08:00)
[2017-07-01] MEDS ORDERED: LORATADINE 10 MG TAB PO SCH (08:00)
[2017-07-01] MEDS ORDERED: GLUCAGON 1 MG/VIAL IM PRN (09:55)
[2017-07-01] MEDS ORDERED: D50W 25 GM/50 ML SYRINGE IV PRN (09:55)
--- NOTE | 2017-07-01 11:44 | FAST ---
SHIFT START DATE/TIME: 07/01/2017 07:00 (CDT) SHIFT END DATE/TIME: 07/01/2017 19:00 (CDT) NAME HERNANDO ARAIZA DATE OF : 1950 DATE OF ADMISSION: 06/30/2017 15:08 (CDT) PHONE: AGE: 66 [facility]# [id number] GENDER: Male ENCOUNTER PHYSICIAN: Dr. Angel Devi M.D. ADMISSION DIAGNOSIS: - Debility 16 - Debility (16) Acute Kidney Injury, Anemia. EATING: EATING - STEP 1: Does the patient require assistance when eating? Yes. EATING - STEP 2: Does the patient require the assistance of a helper? No, patient only requires an assistive device, O R s/he takes more than reasonable time to eat, OR there is a safety concern, OR s/he requires modifie d food consistency EATING - SCORE: 6-LOUANN GROOMING: Comb/brush hair Wash, rinse, and dry face GROOMING - STEP 1: Does the patient require assistance when grooming? Yes. GROOMING - STEP 2: Does the patient require the assistance of a helper? Yes. GROOMING - STEP 3: How much assistance does the patient require from the helper? Only prior equipment preparation/set up from the helper GROOMING - SCORE: 5-SUP BATHING: Activity did not occur on this shift BATHING - SCORE: 0-UNK DRESSING - UPPER BODY: T-shirt/pullover shirt (four steps) ARTICLES SCORE Total number of steps: 4 DRESSING - UPPER BODY - STEP 1: Does the patient require help when dressing above the waist? Yes. DRESSING - UPPER BODY - STEP 2: Does the patient require the assistance of a helper? Yes. DRESSING - UPPER BODY - STEP 3: Does the helper touch the patient while dressing? Yes. DRESSING - UPPER BODY - STEP 4: How many of the total steps does the patient complete on his/her own? 2 DRESSING - UPPER BODY - SCORE: 3-MOD DRESSING - LOWER BODY: Elastic waist pants (three steps) ARTICLES SCORE Total number of steps: 3 DRESSING - LOWER BODY - STEP 1: Does the patient require help when dressing below the waist? Yes. DRESSING - LOWER BODY - STEP 2: Does the patient require the assistance of a helper? Yes. DRESSING - LOWER BODY - STEP 3: Does the helper touch the patient while dressing? Yes. DRESSING - LOWER BODY - STEP 4: How many of the total steps does the patient complete on his/her own? 1 DRESSING - LOWER BODY - STEP 5: Does patient require total assistance for dressing below the waist such as the helper holding clothin g and performing basically all the activities? No. DRESSING - LOWER BODY - SCORE: 2-MAX TOILETING: TOILETING - STEP 1: Does the patient require assistance with toileting? Yes. TOILETING - STEP 2: Does the patient require the assistance of a helper? Yes. TOILETING - STEP 3: How much assistance does the patient require from the helper? Hands-on assistance from the helper TOILETING - STEP 4: Of the 3 tasks: 1) Adjusting clothing prior to use, 2) Cleansing of perineal area, 3) Adjusting clot jennifer after use; How many tasks does the patient perform WITHOUT assistance of the helper? Three tasks with steadying assistance from the helper TOILETING - SCORE: 4-MIN BLADDER MANAGEMENT: BLADDER MANAGEMENT - STEP 1: Does the patient control the bladder completely and intentionally without equipment or devices or med ications, and is always continent? No. BLADDER MANAGEMENT - STEP 2: Does the patient require the assistance of a helper? Yes. BLADDER MANAGEMENT - STEP 3: How much assistance does the patient require from the helper? Only set-up of equipment - such as plac ing it within reach of the patient or emptying a device - to maintain either satisfactory voiding pat tern or managing an external device, such as an absorbent pad, ileal device, or catheter BLADDER MANAGEMENT - SCORE: 5-SUP BOWEL MANAGEMENT: Activity did not occur on this shift BOWEL MANAGEMENT - SCORE: 7-IND TRANSFERS: BED, CHAIR, WHEELCHAIR: TRANSFERS: BED, CHAIR, WHEELCHAIR - STEP 1: Does the patient require assistance with bed, chair, or wheelchair transfers? Yes. TRANSFERS: BED, CHAIR, WHEELCHAIR - STEP 2: Does the patient require the assistance of a helper? Yes. TRANSFERS: BED, CHAIR, WHEELCHAIR - STEP 3: How much assistance does the patient require from the helper? Lifting of the legs TRANSFERS: BED, CHAIR, WHEELCHAIR - STEP 4: How many legs does the patient require the helper to lift? one leg TRANSFERS: BED, CHAIR, WHEELCHAIR - SCORE: 4-MIN TRANSFERS: TOILET: TRANSFERS: TOILET - STEP 1: Does the patient require assistance with toilet transfers? Yes. TRANSFERS: TOILET - STEP 2: Does the patient require the assistance of a helper? Yes. TRANSFERS: TOILET - STEP 3: How much assistance does the patient require from the helper? Patient performs half or more of the tr ansferring tasks TRANSFERS: TOILET - STEP 4: Does the patient need only incidental help such as contact guard or steadying during toilet transfer? Yes. TRANSFERS: TOILET - SCORE: 4-MIN TRANSFERS: SHOWER: Activity did not occur on this shift TRANSFERS: SHOWER - SCORE: 0-UNK TRANSFERS: TUB: Activity did not occur on this shift TRANSFERS: TUB - SCORE: 0-UNK LOCOMOTION: WALK: Activity did not occur on this shift LOCOMOTION: WALK - SCORE: 0-UNK LOCOMOTION: WHEELCHAIR: Activity did not occur on this shift LOCOMOTION: WHEELCHAIR - SCORE: 0-UNK COMPREHENSION: COMPREHENSION - SCORE: 0-UNK EXPRESSION EXPRESSION - SCORE: 0-UNK SOCIAL INTERACTION: SOCIAL INTERACTION - SCORE: 0-UNK PROBLEM SOLVING: PROBLEM SOLVING - SCORE: 0-UNK MEMORY: MEMORY - SCORE: 0-UNK SIGNATURE PANEL: The following modified sections: Eating - Score, Grooming - Score, Bathing - Score, Dressing - Upper Body - Score, Dressing - Lower Body - Score, Toileting - Score, Bladder Management - Score, Bowel Man agement - Score, Transfers: Bed, Chair, Wheelchair - Score, Transfers: Toilet - Score, Transfers: Radha wer - Score, Transfers: Tub - Score, Locomotion: Walk - Score, Locomotion: Wheelchair - Score, Compre hension - Score, Expression - Score, Social Interaction - Score, Problem Solving - Score, Memory - Sc ore were [electronically] signed by Guerrero Osborn on WedJul 01 2017 10:45:21 GMT-0500 (Central Daylight Time)
--- NOTE | 2017-07-01 16:44 | FAST ---
ENCOUNTER DATE AND TIME: 07/01/2017 08:00 (CDT) NAME HERNANDO ARAIZA DATE OF : 1950 DATE OF ADMISSION: 06/30/2017 15:08 (CDT) PHONE: AGE: 66 N# [id number] GENDER: Male ENCOUNTER PHYSICIAN: Dr. Angel Devi M.D. ADMISSION DIAGNOSIS: - Debility 16 - Debility (16) Acute Kidney Injury, Anemia. EATING: Activity did not occur on this shift EATING - SCORE: 0-UNK GROOMING: Comb/brush hair Oral care Wash, rinse, and dry face Wash, rinse, and dry hands GROOMING - STEP 1: Does the patient require assistance when grooming? No. GROOMING - SCORE: 7-IND BATHING: Abdomen Buttocks Chest Left arm Left lower leg and foot Left upper leg Perineal area Right arm Right lower leg and foot Right upper leg BATHING - STEP 1: Does the patient require assistance when bathing? Yes. BATHING - STEP 2: Does the patient require the assistance of a helper? Yes. BATHING - STEP 3: How much assistance does the patient require from the helper? More than just incidental help BATHING - STEP 4: What percent of the body parts did the patient bathe WITHOUT the helper? Half or more of the body par ts BATHING - SCORE: 3-MOD DRESSING - UPPER BODY: T-shirt/pullover shirt (four steps) ARTICLES SCORE Total number of steps: 4 DRESSING - UPPER BODY - STEP 1: Does the patient require help when dressing above the waist? Yes. DRESSING - UPPER BODY - STEP 2: Does the patient require the assistance of a helper? Yes. DRESSING - UPPER BODY - STEP 3: Does the helper touch the patient while dressing? Yes. DRESSING - UPPER BODY - STEP 4: How many of the total steps does the patient complete on his/her own? 3 DRESSING - UPPER BODY - SCORE: 4-MIN DRESSING - LOWER BODY: Elastic waist pants (three steps) Sock - Left foot (one step) Sock - Right foot (one step) ARTICLES SCORE Total number of steps: 5 DRESSING - LOWER BODY - STEP 1: Does the patient require help when dressing below the waist? Yes. DRESSING - LOWER BODY - STEP 2: Does the patient require the assistance of a helper? Yes. DRESSING - LOWER BODY - STEP 3: Does the helper touch the patient while dressing? Yes. DRESSING - LOWER BODY - STEP 4: How many of the total steps does the patient complete on his/her own? 0 DRESSING - LOWER BODY - STEP 5: Does patient require total assistance for dressing below the waist such as the helper holding clothin g and performing basically all the activities? Yes. DRESSING - LOWER BODY - SCORE: 1-DEP TOILETING: Activity did not occur on this shift TOILETING - SCORE: 0-UNK BLADDER MANAGEMENT: Activity did not occur on this shift BLADDER MANAGEMENT - SCORE: 7-IND BOWEL MANAGEMENT: Activity did not occur on this shift BOWEL MANAGEMENT - SCORE: 7-IND TRANSFERS: BED, CHAIR, WHEELCHAIR: Activity did not occur on this shift TRANSFERS: BED, CHAIR, WHEELCHAIR - SCORE: 0-UNK TRANSFERS: TOILET: Activity did not occur on this shift TRANSFERS: TOILET - SCORE: 0-UNK TRANSFERS: SHOWER: Activity did not occur on this shift TRANSFERS: SHOWER - SCORE: 0-UNK TRANSFERS: TUB: TRANSFERS: TUB - STEP 1: Does the patient require assistance with tub transfers? Yes. TRANSFERS: TUB - STEP 2: Does the patient require the assistance of a helper? Yes. TRANSFERS: TUB - STEP 3: How much assistance does the patient require from the helper? More than incidental help TRANSFERS: TUB - STEP 4: How much more help does the patient require from the helper? [place] lifts BOTH legs into or out of th e tub TRANSFERS: TUB - SCORE: 3-MOD LOCOMOTION: WALK: Activity did not occur on this shift LOCOMOTION: WALK - SCORE: 0-UNK LOCOMOTION: WHEELCHAIR: Activity did not occur on this shift LOCOMOTION: WHEELCHAIR - SCORE: 0-UNK LOCOMOTION: STAIRS: Activity did not occur on this shift LOCOMOTION: STAIRS - SCORE: 0-UNK COMPREHENSION: COMPREHENSION: TYPE: Both COMPREHENSION - STEP 1: Does the patient require help to understand complex and abstract ideas (such as current events, finan phill, discharge planning, medical issues, relationships, etc)? No. COMPREHENSION - STEP 2: Does the patient need extra time, require an assistive device (such as glasses, hearing aids, or an a ugmentative communication system), OR does s/he have mild difficulty expressing complex and abstract ideas (including mild dysarthria or mild word-finding problems)? No. COMPREHENSION - SCORE: 7-IND EXPRESSION EXPRESSION: TYPE: Both EXPRESSION - STEP 1: Does the patient require help expressing complex and abstract ideas (such as current events, finances , discharge planning, medical issues, relationships, etc)? No. EXPRESSION - STEP 2: Does the patient need extra time, require an assistive device (such as augmentive communication syste m or a communication board), OR does s/he have mild difficulty expressing complex and abstract ideas (including mild dysarthria or mild word-find problems)? No. EXPRESSION - SCORE: 7-IND SOCIAL INTERACTION: SOCIAL INTERACTION - STEP 1: Does the patient require a helper to interact with others in social and therapeutic situations? No. SOCIAL INTERACTION - STEP 2: Does the patient need extra time in social situations, OR does s/he interact with staff, other patien ts, and family members ONLY in structured environments, OR does s/he require medication for social in teraction? Yes, patient needs extra time SOCIAL INTERACTION - SCORE: 6-LOUANN PROBLEM SOLVING: PROBLEM SOLVING - STEP 1: Does the patient need help to solve complex problems such as managing a checking account or confronti ng interpersonal problems? No. PROBLEM SOLVING - STEP 2: Does the patient require extra time to make decisions or solve problems, OR does s/he have slight dif ficulty reading, initiating, or self-correcting in unfamiliar situations? Yes, patient needs extra ti me. PROBLEM SOLVING - SCORE: 6-LOUANN MEMORY: MEMORY - STEP 1: Does the patient need help to remember frequently encountered people, daily routines, and executing r equests? No. MEMORY - STEP 2: Does the patient have slight difficulty recognizing frequently encountered people, daily routines, or executing requests without the need for repetition or using self-initiated or environmental cues to remember? Yes. MEMORY - SCORE: 6-LOUANN SIGNATURE PANEL: The following modified sections: Eating - Score, Grooming - Score, Bathing - Score, Dressing - Upper Body - Score, Dressing - Lower Body - Score, Toileting - Score, Transfers: Bed, Chair, Wheelchair - S core, Transfers: Toilet - Score, Transfers: Shower - Score, Transfers: Tub - Score, Comprehension - S core, Expression - Score, Social Interaction - Score, Problem Solving - Score, Memory - Score were [e lectronically] signed by Elise Hand OT on WedJul 01 2017 15:45:34 T-0500 ([facility])
[2017-07-01] MEDS: RIVAROXABAN 15 MG TABLET PO SCH (16:57)
--- NOTE | 2017-07-01 17:29 | R.HP ---
FACILITY: [facility] ENCOUNTER DATE AND TIME: 07/01/2017 16:27 (CDT) MR#: [id number] NAME HERNANDO ARAIZA ADDRESS: [address] [place] [address] CITY: [place] [address] [id number] PHONE: DATE OF : 1950 AGE: 66 SSN# [id number] GENDER: Male DEXTERITY Right-handed MARITAL STATUS RACE White PRE-HOSPITAL LIVING SETTING 01 - Home (private home/apt. board/care, assisted living, [facility], transitional living) PRE-HOSPITAL LIVING WITH Alone ENCOUNTER PHYSICIAN: Dr. Angel Devi M.D. REFERRING DOCTOR: Martín Weaver DATE OF ADMISSION: 06/30/2017 15:08 (CDT) REFERRING FACILITY [facility] HOME TYPE AND DETAILS: Type of home: single family house # of levels in the residence: 1 # of steps within the residence: 0 # of steps to enter the residence: 0 ADMISSION DIAGNOSIS: Acute Kidney Injury, Anemia ONSET DATE: 06/23/2017 PRIMARY DIAGNOSIS-RELATED SURGERIES: N/A SECONDARY/COMORBID DIAGNOSES (TIERED): - Tier 3 Acute kidney failure, unspecified [N179] - Non-Tiered Type 2 diabetes mellitus with diabetic neuropathy, unspecified [E1140] - N/A GERD Atrial Fibrillation Anemia Essential Hypertension CAD Obstructive Sleep apnea Chronic Lymphedema HISTORY OF PRESENT ILLNESS (HPI): Pt. is a 66 yo Right-handed white male. On 06/23/2017 he was admitted to [facility] with diagnosis Acute Kidney Injury, Anemia. His impairment category is Debility 16 - Debility (16). Pre-morbidly, Pt. was independent/mod-I in Transfers Control, Communication, Social Cognition, Self-C are, Sphincter Control, and Locomotion; and he had good Sphincter Control. Currently, he has deficits of Safety Awareness, Transfers Control, Balance, Endurance, Locomotion, an d Self-Care. Pt. is now referred to [facility] for acute in-patient rehabilitation in order to maximize patient's functional independence in activities of daily living, strength, ROM, and mobi lity. Patient has realistic goal of being discharged at assistance level 6-Jose R to reside at Home with Fam polina/Relatives. MEDICATION ALLERGIES: Mupirocin ENVIRONMENTAL ALLERGIES: None Known - Substance Allergies None Known - Other Allergies None Known PAST MEDICAL HISTORY: Acute kidney failure, unspecified [N179] Anemia Atrial Fibrillation CAD Chronic Lymphedema Essential Hypertension GERD Obstructive Sleep apnea Type 2 diabetes mellitus with diabetic neuropathy, unspecified [E1140] PAST SURGICAL HISTORY: Cholecystectomy FAMILY HISTORY: Family history is not contributory. SOCIAL HISTORY: - Home Living Alone REVIEW OF SYSTEMS: - Gen No Chills No Fatigue No Fever - Eyes No Double Vision No itchiness - ENMT No Difficulty Swallowing - CVS No Chest Discomfort No Chest Pain No Fatigue No Weight Gain - Resp No Cough No Shortness of Breath - GI Continent No Abdominal Pain No Constipation No Diarrhea - Continent No Kidney Pain No Painful Urination No Urinary Urgency - MSK No Joint Pain No Muscle Cramps No Stiffness - Skin No Itching No Rash No Suspicious Lesions - Neuro No Coordination Difficulty No Difficulty with Concentration No Memory Loss No Seizures No Weakness - Psych No Anxiety No Depression No HIV Exposure No Persistent Infections No Seasonal Allergies - Endo No Cold/Heat Intolerance No Excessive Hunger No Excessive Thirst No Excessive Urination PHYSICAL EXAM - Gen Alert and awake Lying in bed No apparent distress Oriented to: person, time, and place - Skin No skin breakdown. Normacephalic - Eyes No abnormalities - ENMT No abnormalities - Neck No abnormalities - CVS RRR - Chest Clear - Abd Soft - GI Non distended Deferred - No abnormalities - Ext no edema - MSK 4/5 weakness in both lower extremities. - Neuro No focal deficits - Psych No abnormalities VITAL SIGNS Temperature: 97.7 F SBP/DBP: 142/79 Pulse: 65 Resp: 16 Vital signs stable, afebrile NURSING: - Shower allowing shower - Lab Results blood Sugar Check ACHS PRECAUTIONS: - Fall Precaution Bed and chair alarm ACTIVITIES OOB only with supervision FUNCTIONAL STATUS: - Self-Care A. Eating Ind Ind B. Grooming Ind Ind C. Bathing Ind sup D. Dressing - Upper Ind sup E. Dressing - Lower Ind sup F. Toileting Ind Ind - Sphincter Control G: Bladder control Ind Ind H: Bowel control Ind Ind - Transfers Control I. Bed/Chair/Wheelchair Ind Shavon J. Toilet Ind Shavon K. Tub/Shower Ind ADNO - Locomotion L. Walk/Wheelchair (W) Ind Shavon M. Stairs Ind ADNO - Communication N. Comprehension (B) Ind Ind O. Expression (B) Ind Ind - Social Cognition P. Social Interaction Ind Ind Q. Problem Solving Ind Ind R. Memory Ind Ind - Endurance Fair - Balance Fair - Safety Awareness Fair CURRENT FUNC. DEFICITS: Safety Awareness, Transfers Control, Balance, Endurance, Locomotion, and Self-Care ASSESSMENT: Pt. is a 66 yo Right-handed white male.On 06/23/2017 he was admitted to [facility] with diagnosis Acute Kidney Injury, Anemia.His impairment category is Debility 16 - Debility (16 ).Pre-morbidly, Pt. was independent/mod-I in Transfers Control, Communication, Social Cognition, Self -Care, Sphincter Control, and Locomotion; and he had good Sphincter Control.Currently, he has deficit s of Safety Awareness, Transfers Control, Balance, Endurance, Locomotion, and Self-Care.Pt. is now re ferred to [facility] for acute in-patient rehabilitation in order to maximize patient's functional independence in activities of daily living, strength, ROM, and mobility.- Rehab Goal Patient has realistic goal of being discharged at assistance level 6-Jose R to reside at Home with Fam polina/Relatives. REHAB PLAN: - Physical Therapy Gait dysfunction - to improve, our physical therapists will perform initial evaluation of pt's status upon admission and devise an individualized program for Gait Training, and Wheel Chair mobility Inability to transfer - to improve, our physical therapists will perform initial evaluation of pt's s tatus upon admission and devise an individualized program for Bed mobility Need for home safety evaluation - to improve, our physical therapists will perform initial evaluation of pt's status upon admission and devise an individualized program for Home Evaluation Need in caregiver upon discharge - to improve, our physical therapists will perform initial evaluatio n of pt's status upon admission and devise an individualized program for Caregiver Training New precaution - to improve, our physical therapists will perform initial evaluation of pt's status u frank admission and devise an individualized program for Patient precaution education Poor balance - to improve, our physical therapists will perform initial evaluation of pt's status upo n admission and devise an individualized program for Balance Training Poor endurance - to improve, our physical therapists will perform initial evaluation of pt's status u frank admission and devise an individualized program for Endurance Training Weakness - to improve, our physical therapists will perform initial evaluation of pt's status upon ad mission and devise an individualized program for Aquatic Therapy, Neuromuscular Reeducation, and Stre ngthening Achieving independence - to improve, our physical therapists will perform initial evaluation of pt's status upon admission and devise an individualized program for Community Reintegration Activities - Occupational Therapy ADL deficits - to improve, our occupation therapists will perform initial evaluation of pt's status u frank admission and devise an individualized program for Bathing, Bed mobility, Community Reintegration , Cooking, Dressing, Eating, Fine Motor Skills, Grooming, Homemaking, Kitchen Mobility, Laundry, Rebecca ent Education, Safety Awareness, Splinting - Positioning, Transfers(Toilet, Tub, Shower), and Wheel C hair Management Need for home health care coordinator - to improve, our occupation therapists will perform initial evaluation of pt's s tatus upon admission and devise an individualized program for Caregiver Training Weakness - to improve, our occupation therapists will perform initial evaluation of pt's status upon admission and devise an individualized program for Aquatic Therapy, Balance, Endurance, UE ROM, and U E strengthening MEDICAL PLAN: - Diet Type Start Regular - Diet - Liquid Texture Start Regular - Tube Feed Start N/A - Lab Results blood Sugar Check ACHS - Fall Precaution Bed and chair alarm - Diet - Solid Texture Regular - Shower shower DISCHARGE PLAN: - Estimated Length of Stay (days) 13. - Consensus on plan Discharge plan has been discussed with primary caregiver. Patient/Family is in agreement with the dolores n. Primary caregiver is in agreement with the plan. - Patient/Family Goals Return home with assistance. - Planned Living Setting Upon Discharge Home, to live with Family/Relatives. SIGNATURE PANEL: (CDT)
--- NOTE | 2017-07-01 17:30 | PAPE ---
PATIENT: [facility] MR# [id number] REFERRING DOCTOR Martín Weaver EVALUATION DATE AND TIME 07/01/2017 16:31 (CDT) NAME HERNANDO ARAIZA DATE OF 1950 AGE 66 PHONE N# [id number] GENDER male EVALUATING PHYSICIAN Dr. Angel Devi M.D. ADMISSION DIAGNOSIS: Acute Kidney Injury, Anemia ONSET DATE 06/23/2017 SECONDARY/COMORBID DIAGNOSES TIERED: - Tier 3 Acute kidney failure, unspecified [N179] - Non-Tiered Type 2 diabetes mellitus with diabetic neuropathy, unspecified [E1140] - N/A GERD Atrial Fibrillation Anemia Essential Hypertension CAD Obstructive Sleep apnea Chronic Lymphedema POST-ADMISSION FUNCTIONAL/MEDICAL STATUS: - Bladder Same accident frequency: Ind - No accidents in the past 7 days - Bowel Same accident frequency: Ind - No accidents in the past 7 days - Walking Same score based on distance walked: 1(<=50ft) STATUS CHANGE EVALUATION: No change in Functional or Medical Status is identified compared with Pre-Admission screening. PATIENT NEEDS CLOSE MEDICAL SUPERVISION BY A REHABILITATION PHYSICIAN FOR: Coordination of Treatment Team Diabetes Management Medical and Co-Morbidity Management Pain Management PATIENT REQUIRES 24X7 REHAB NURSING FOR MEDICAL AND FUNCTIONAL MGT. OF THE FOLLOWING DEFICITS: ADL's Ambulation Communication Disease Management Medication Management Patient/Family Education Providing Safe Environment Pain Management Transfers PATIENT REQUIRES INTENSIVE, COORDINATED INTERDISCIPLINARY APPROACH TO REHAB: Arranging Home Equipment/Services Discharge Planning Family Intervention/Training Motocross Racer/Case Management LIST OF IDENTIFIED AND POTENTIAL PROBLEMS: Alteration in leisure activities Bladder, Incontinence Blood Pressure, Hypertension/hypotension Issues Bowel, Incontinence Diabetes, Hyperglycemia/hypoglycemia Issues Infection, Actual or Potential Mobility Impaired Pain, Alteration in Comfort Self Care Deficit Skin Integrity, Actual or Potential Urinary Tract Infection (UTI), Actual or Potential RISK FOR COMPLICATIONS - GERD Alteration in sleep. Aspiration. Dehydration. Malnutrition. Pain. - Atrial Fibrillation CVA. Heart failure. Limb embolus. - CAD CHF. Cardiac Arrest. RI. Pain. INTERVENTIONS - GERD Altered diet. Elevation of head of bed. Medications. Nausea/vomiting. Nighttime food/fluid restrictio ns. Nutrition. - Atrial Fibrillation Anticoagulation. Medications. VS. - CAD 02 sats. Activity management. Medications. VS. PATIENT COULD BE AT RISK FOR COMPLICATIONS FROM ADVERSE MEDICAL CONDITIONS DUE TO HIS/HER COMORBIDITI ES AND THE RIGORS OF THE INTENSIVE REHABILLITATION PROGRAM. METHODS OR INTERVENTIONS TO AVOID COMPLIC ATIONS INCLUDE: - Infection Clinical staff to assess and manage the signs and symptoms of infection including fever, redness, war mth, etc. - Urinary Tract Infection - Falls Patient will be evaluated for Fall Precautions and will be placed on Fall Precautions as indicated pe r protocol. - Skin Breakdown Nursing will assess skin daily using assessment tool and will place on Skin Breakdown Precautions as indicated per protocol. - Pain Clinical staff may employ non-medication methods such as massage, distraction, decrease stimulus, etc . as needed. Clinical staff will assess patient's pain level every shift per protocol to assess and e nsure pain management effectiveness. Medications will be given and the pain level re-assessed. PRELIMINARY PLAN OF CARE: - Physical Therapy Patient needs Physical Therapy for a daily minimum of 1.5 hours at least 5 out of 7 days, to improve: Mobility, Strengthening, Transfers, Stretching, ROM, Endurance, Ability to manage stairs, Gait, and Balance. - Rehabilitation Nursing Patient requires 24x7 Rehabilitation Nursing for: Pain Issues, Identifying and preventing risk factor s, Monitoring and reporting current medical conditions, Assisting with ambulation and transfer, Marlene ting with all ADL-s, Teaching patients about disease process and medications, Family teaching, Provid ing safe environment, Bowel and Bladder Issues, Skin Integrity, and Medication Management. Patient needs Motocross Racer and/or Case Management for: Discharge Planning, Arranging Home Equipmen t or Services, and Family Interventions. - Dietary and Nutrition Services Patient needs Dietary and Nutrition Services for: Adequate Nutrition, Nutritional Supplements, and Nu tritional Education. - Occupational Therapy Patient needs Occupational Therapy for a daily minimum of 1.5 hours at least 5 out of 7 days, to impr ove Activities of Daily Living, including: Eating, Grooming, Bathing, Dressing, Toileting, Toilet Tra nsfers, Community Reintegration, Higher functional activities, Adaptive Equipment, Splinting, Househo ld Tasks, and Other activities as determined. POTENTIAL FUNCTIONAL GOALS FOR PATIENT TO ACHIEVE BY DISCHARGE: - Safety Precaution Patient will remain free from falls or injury at time of discharge. - Bed Mobility Patient will perform bed mobility at 4-Shavon level of assistance. - Transfers Patient will complete transfers from bed to chair at 4-Shavon level of assistance. - Mobility Patient will ambulate 150 ft with 4-Shavon level of assistance with RW. PATIENT REHAB POTENTIAL Expected level of measurable improvement will be of a practical value to patient's functional capacit y or adaptations to impairments Has a viable Discharge Plan Medically appropriate; condition is sufficiently stable to participate in intensive rehab program Patient is able and expected to receive 3 hours of individualized therapy daily on at least 5 of ever y 7 days Patient's prognosis for significant practical improvement within a reasonable period of time appears Good DISCHARGE PLAN: - Estimated Length of Stay (days) 13. - Consensus on plan Discharge plan has been discussed with primary caregiver. Patient/Family is in agreement with the dolores n. Primary caregiver is in agreement with the plan. - Patient/Family Goals Return home with assistance. - Planned Living Setting Upon Discharge Home, to live with Family/Relatives. CONCLUSION ON REHABILITATION NECESSITY: I have evaluated patient's pre-admission functional status and, comparing it to the patient's post-ad mission functional status now, I conclude that the pre-admission assessment was accurate. Patient's c ondition on admission supports the medical necessity of admission to IRF. It is safe to proceed with patient's therapy program. SIGNATURE PANEL: (CDT)
--- NOTE | 2017-07-01 18:27 | FAST ---
ENCOUNTER DATE AND TIME: 07/01/2017 08:00 (CDT) NAME HERNANDO ARAIZA DATE OF : 1950 DATE OF ADMISSION: 06/30/2017 15:08 (CDT) PHONE: AGE: 66 N# [id number] GENDER: Male ENCOUNTER PHYSICIAN: Dr. Angel Devi M.D. ADMISSION DIAGNOSIS: - Debility 16 - Debility (16) Acute Kidney Injury, Anemia. EATING: Activity did not occur on this shift EATING - SCORE: 0-UNK GROOMING: Activity did not occur on this shift GROOMING - SCORE: 0-UNK BATHING: Activity did not occur on this shift BATHING - SCORE: 0-UNK DRESSING - UPPER BODY: Activity did not occur on this shift Patient is not dressing in public clothing ARTICLES SCORE Total number of steps: 0 DRESSING - UPPER BODY - SCORE: 0-UNK DRESSING - LOWER BODY: Activity did not occur on this shift Patient is not dressing in public clothing ARTICLES SCORE Total number of steps: 0 DRESSING - LOWER BODY - SCORE: 0-UNK TOILETING: Activity did not occur on this shift TOILETING - SCORE: 0-UNK BLADDER MANAGEMENT: Activity did not occur on this shift BLADDER MANAGEMENT - SCORE: 7-IND BOWEL MANAGEMENT: Activity did not occur on this shift BOWEL MANAGEMENT - SCORE: 7-IND TRANSFERS: BED, CHAIR, WHEELCHAIR: TRANSFERS: BED, CHAIR, WHEELCHAIR - STEP 1: Does the patient require assistance with bed, chair, or wheelchair transfers? Yes. TRANSFERS: BED, CHAIR, WHEELCHAIR - STEP 2: Does the patient require the assistance of a helper? Yes. TRANSFERS: BED, CHAIR, WHEELCHAIR - STEP 3: How much assistance does the patient require from the helper? Lifting of the patient TRANSFERS: BED, CHAIR, WHEELCHAIR - STEP 4: Does the helper lift the patient ONLY up? ONLY down? Up AND Down? ONLY up. TRANSFERS: BED, CHAIR, WHEELCHAIR - SCORE: 3-MOD TRANSFERS: TOILET: Activity did not occur on this shift TRANSFERS: TOILET - SCORE: 0-UNK TRANSFERS: SHOWER: Activity did not occur on this shift TRANSFERS: SHOWER - SCORE: 0-UNK TRANSFERS: TUB: Activity did not occur on this shift TRANSFERS: TUB - SCORE: 0-UNK LOCOMOTION: WALK: Patient walks less than 50 feet LOCOMOTION: WALK - SCORE: 1-DEP LOCOMOTION: WHEELCHAIR: LOCOMOTION: WHEELCHAIR - STEP 1: Does the patient need help to go 150 feet in a wheelchair? Yes. LOCOMOTION: WHEELCHAIR - STEP 2: How much assistance does the patient need from the helper? Only supervision, cuing, or coaxing LOCOMOTION: WHEELCHAIR - SCORE: 5-SUP LOCOMOTION: STAIRS: Activity did not occur on this shift LOCOMOTION: STAIRS - SCORE: 0-UNK COMPREHENSION: COMPREHENSION - SCORE: 0-UNK EXPRESSION EXPRESSION - SCORE: 0-UNK SOCIAL INTERACTION: SOCIAL INTERACTION - SCORE: 0-UNK PROBLEM SOLVING: PROBLEM SOLVING - SCORE: 0-UNK MEMORY: MEMORY - SCORE: 0-UNK SIGNATURE PANEL: The following modified sections: Transfers: Bed, Chair, Wheelchair - Score, Transfers: Toilet - Score , Locomotion: Walk - Score, Locomotion: Wheelchair - Score, Locomotion: Stairs - Score were [electron [email or web address]] signed by Jeffery Griffiths PT on WedJul 01 2017 17:28:[address] [facility]-0500 (Central Daylight Time)
[2017-07-01] MEDS: NYSTATIN PWDR 100000 UNIT/GM TOP SCH (20:37)
[2017-07-01] MEDS: ATORVASTATIN 20 MG TAB PO SCH (20:37)
[2017-07-01] MEDS ORDERED: INSULIN DETEMIR 100 UNIT/1 ML INSULIN SQ SCH (21:00)
[2017-07-02] MEDS: ACETAMINOPHEN 325 MG TABLET PO PRN ×2 (01:19→19:55)
[2017-07-02] MEDS: TRAMADOL HCL 50 MG TAB PO PRN ×3 (01:30→17:12)
--- NOTE | 2017-07-02 03:38 | CON ---
Date of Consultation: 07/01/2017 Reason For Consultation: Elevated BUN and creatinine, fluid management. History Of Present Illness: This is a pleasant, 66-year-old gentleman with significant past medical history of hypertension, hyperlipidemia, chronic kidney disease, used to have baseline creatinine 1.6 . Follow up with Dr. Patrick, admitted to [facility] with elevation BUN, creatinine, anasarca with AFib a nd GI bleed. Workup was negative. Possibility of PMA bleeding from small intestine required multipl e transfusion and workup show iron deficiency anemia. The patient with diuresis and anasarca creatin ine jumped to 3.2. The patient was then transferred to rehab to continue physical therapy. On the hospitalization, we had to decrease his Lasix and adjusted as he was on acute kidney injury. After hydration his kidney function plateaued and start holding the fluid again. For that reason, we will resume the Lasix. Past Medical History: Include: 1.Congestive heart failure disease complicated with diastolic dysfunction. Normal ejection fraction . 2.Chronic kidney disease,stage 3, normal size kidney. 3.Lymphedema. 4.COPD. 5.Obstructive sleep apnea. 6.Diabetes. Past Surgical History: Include partial parathyroidectomy. Allergies: TO BACTRIM. Family History: Positive for hypertension. Social History: Denies smoking, denies drinking, denies drugs abuse. Review of Systems: Head and Neck: No red eye. No ear pain. GI: No nausea, no vomiting. : No polyuria. No dysuria. No hematuria. 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 Musculoskeletal: No joint pain. +3 edema with lymphedema. Physical Examination: Vital Signs: When I saw the patient, blood pressure of 169/70, pulse of 82. Chest: Clear to auscultation. Heart: S1, S2. Regular. Abdomen: Soft, nontender, morbidly obese. Extremities: Lymphedema bilateral. Current Medications: The patient on include: 1.Loratadine. 2.Nystatin. 3.IV iron. 4.Xarelto. 5.Atorvastatin. 6.Digoxin. 7.Metoprolol 50 b.i.d. 8.Lasix 60. 9.Pantoprazole. 10.Insulin. 11.Allopurinol. 12.Vitamin C and potassium supplement. Assessment And Plan: Acute kidney injury on chronic kidney disease secondary to cardiorenal. Catalina wolf kidney speed so low, so we cannot leave you by yourself in the house. Your kidney speed around 3 3 right now. 1.Chronic kidney disease with acute kidney injury secondary to cardiorenal over volume. I am going to resume Lasix at 60 mg and we will follow up. 2.Hypertension, uncontrolled. I am going to go ahead and add low dose of hydralazine. We will avoi d calcium channel roel to avoid any lower extremity swelling. 3.Iron deficiency anemia. Continue supplement. 4.Atrial fibrillation as by Cardiology. 5.Deconditioning. Continue PT, OT. Case discussed with the patient. Discussed with Dr. Weaver, p [facility] physician, agreed on the plan. NEGRA Voice ID: [id number] Report ID: [id number]
--- NOTE | 2017-07-02 03:44 | FAST ---
SHIFT START DATE/TIME: 07/01/2017 19:00 (CDT) SHIFT END DATE/TIME: 07/02/2017 07:00 (CDT) NAME HERNANDO ARAIZA DATE OF : 1950 DATE OF ADMISSION: 06/30/2017 15:08 (CDT) PHONE: AGE: 66 [facility]# [id number] GENDER: Male ENCOUNTER PHYSICIAN: Dr. Angel Devi M.D. ADMISSION DIAGNOSIS: - Debility 16 - Debility (16) Acute Kidney Injury, Anemia. EATING: EATING - STEP 1: Does the patient require assistance when eating? Yes. EATING - STEP 2: Does the patient require the assistance of a helper? Yes. EATING - STEP 3: Does the patient perform half or more of the eating tasks? Yes. EATING - STEP 4: Does the patient need only supervision, cuing, coaxing OR help to apply an orthosis OR help to cut fo od, open containers, pour liquids, or butter bread? Yes. EATING - SCORE: 5-SUP GROOMING: Wash, rinse, and dry face Wash, rinse, and dry hands GROOMING - STEP 1: Does the patient require assistance when grooming? Yes. GROOMING - STEP 2: Does the patient require the assistance of a helper? Yes. GROOMING - STEP 3: How much assistance does the patient require from the helper? More than incidental help GROOMING - STEP 4: How many grooming tasks does the patient perform WITHOUT the assistance of the helper? Half or more o f the grooming tasks GROOMING - SCORE: 3-MOD BATHING: Activity did not occur on this shift BATHING - SCORE: 0-UNK DRESSING - UPPER BODY: Patient is not dressing in public clothing ARTICLES SCORE Total number of steps: 0 DRESSING - UPPER BODY - SCORE: 0-UNK DRESSING - LOWER BODY: Patient is not dressing in public clothing ARTICLES SCORE Total number of steps: 0 DRESSING - LOWER BODY - SCORE: 0-UNK TOILETING: TOILETING - STEP 1: Does the patient require assistance with toileting? Yes. TOILETING - STEP 2: Does the patient require the assistance of a helper? Yes. TOILETING - STEP 3: How much assistance does the patient require from the helper? Hands-on assistance from the helper TOILETING - STEP 4: Of the 3 tasks: 1) Adjusting clothing prior to use, 2) Cleansing of perineal area, 3) Adjusting clot jennifer after use; How many tasks does the patient perform WITHOUT assistance of the helper? Three tasks with steadying assistance from the helper TOILETING - SCORE: 4-MIN BLADDER MANAGEMENT: BLADDER MANAGEMENT - STEP 1: Does the patient control the bladder completely and intentionally without equipment or devices or med ications, and is always continent? No. BLADDER MANAGEMENT - STEP 2: Does the patient require the assistance of a helper? Yes. BLADDER MANAGEMENT - STEP 3: How much assistance does the patient require from the helper? Patient requires contact assistance fro m the helper BLADDER MANAGEMENT - STEP 4: How much contact assistance does the patient require from the helper? Patient requires minimal assist ance to maintain an external device - by positioning, and the patient performs 75% or more of bladder management tasks, while the helper provides less than 25% of the assistance to position patient on / off bedpan BLADDER MANAGEMENT - SCORE: 4-MIN BLADDER MANAGEMENT - FREQUENCY OF ACCIDENTS: BLADDER MANAGEMENT(FA) - STEP 1: How many accidents has the patient had during the current shift? 0 BOWEL MANAGEMENT: Activity did not occur on this shift BOWEL MANAGEMENT - SCORE: 7-IND TRANSFERS: BED, CHAIR, WHEELCHAIR: Patient requires more than one helper and/or the use of a mechanical lift is utilized TRANSFERS: BED, CHAIR, WHEELCHAIR - SCORE: 1-DEP TRANSFERS: TOILET: Activity did not occur on this shift TRANSFERS: TOILET - SCORE: 0-UNK TRANSFERS: SHOWER: Activity did not occur on this shift TRANSFERS: SHOWER - SCORE: 0-UNK TRANSFERS: TUB: Activity did not occur on this shift TRANSFERS: TUB - SCORE: 0-UNK LOCOMOTION: WALK: Activity did not occur on this shift LOCOMOTION: WALK - SCORE: 0-UNK LOCOMOTION: WHEELCHAIR: Activity did not occur on this shift LOCOMOTION: WHEELCHAIR - SCORE: 0-UNK COMPREHENSION: COMPREHENSION: TYPE: Both COMPREHENSION - STEP 1: Does the patient require help to understand complex and abstract ideas (such as current events, finan phill, discharge planning, medical issues, relationships, etc)? No. COMPREHENSION - STEP 2: Does the patient need extra time, require an assistive device (such as glasses, hearing aids, or an a ugmentative communication system), OR does s/he have mild difficulty expressing complex and abstract ideas (including mild dysarthria or mild word-finding problems)? Yes. COMPREHENSION - SCORE: 6-LOUANN EXPRESSION EXPRESSION: TYPE: Both EXPRESSION - STEP 1: Does the patient require help expressing complex and abstract ideas (such as current events, finances , discharge planning, medical issues, relationships, etc)? No. EXPRESSION - STEP 2: Does the patient need extra time, require an assistive device (such as augmentive communication syste m or a communication board), OR does s/he have mild difficulty expressing complex and abstract ideas (including mild dysarthria or mild word-find problems)? Yes. EXPRESSION - SCORE: 6-LOUANN SOCIAL INTERACTION: SOCIAL INTERACTION - STEP 1: Does the patient require a helper to interact with others in social and therapeutic situations? No. SOCIAL INTERACTION - STEP 2: Does the patient need extra time in social situations, OR does s/he interact with staff, other patien ts, and family members ONLY in structured environments, OR does s/he require medication for social in teraction? Yes, patient needs extra time SOCIAL INTERACTION - SCORE: 6-LOUANN PROBLEM SOLVING: PROBLEM SOLVING - STEP 1: Does the patient need help to solve complex problems such as managing a checking account or confronti ng interpersonal problems? No. PROBLEM SOLVING - STEP 2: Does the patient require extra time to make decisions or solve problems, OR does s/he have slight dif ficulty reading, initiating, or self-correcting in unfamiliar situations? Yes, patient needs extra ti me. PROBLEM SOLVING - SCORE: 6-LOUANN MEMORY: MEMORY - STEP 1: Does the patient need help to remember frequently encountered people, daily routines, and executing r equests? No. MEMORY - STEP 2: Does the patient have slight difficulty recognizing frequently encountered people, daily routines, or executing requests without the need for repetition or using self-initiated or environmental cues to remember? Yes. MEMORY - SCORE: 6-LOUANN SIGNATURE PANEL: The following modified sections: Eating - Score, Grooming - Score, Bathing - Score, Dressing - Upper Body - Score, Dressing - Lower Body - Score, Toileting - Score, Bladder Management - Score, Bowel Man agement - Score, Transfers: Bed, Chair, Wheelchair - Score, Transfers: Toilet - Score, Transfers: Radha wer - Score, Transfers: Tub - Score, Locomotion: Walk - Score, Locomotion: Wheelchair - Score, Compre hension - Score, Expression - Score, Social Interaction - Score, Problem Solving - Score, Memory - Sc ore were [electronically] signed by Jake IrvinNLesley on WedJul 02 2017 02:46:17 T-0500 ( Central Daylight Time)
[2017-07-02] MEDS: NYSTATIN PWDR 100000 UNIT/GM TOP SCH ×2 (08:00→19:57)
--- NOTE | 2017-07-02 08:22 | P.CNS ---
Date of Consult: 07/02/17 Reason for Consult: onychomycosis Requesting Physician: Angel Devi Chief Complaint: painful toenails with callous sub righ thallux Allergies mupirocin [From Bactroban] Allergy (Intermediate, Verified 06/22/17 04:53) Hives/Rash Home Medications: Allopurinol 1 tab PO DAILY 07/01/15 Ascorbate Calcium [Vitamin C] 1 tab PO BID 07/01/15 Cholecalciferol (Vitamin D3) [Vitamin D3] 1 cap PO DAILY 07/01/15 Cyanoco/FA/Pyri [Folbic*] 1 tab PO DAILY 07/01/15 Digoxin [Lanoxin] 1 tab PO DAILY 07/01/15 Glipizide 1 tab PO BID 07/01/15 Insulin Glargine,Hum.rec.anlog [Lantus] 30 unit SQ BEDTIME 07/01/15 Loratadine [Claritin*] 1 tab PO DAILY 07/01/15 Metoprolol Tartrate [Lopressor*] 50 mg PO BID 07/01/15 Niacin 1 tab PO BID 07/01/15 Potassium Chloride [Klor-Con 10] 1 tab PO DAILY 07/01/15 Rivaroxaban [Xarelto*] 1 tab PO DAILY 07/01/15 Simvastatin 15 tab PO DAILY 07/01/15 Tramadol HCl [Ultram] 1 tab PO QIDP PRN 07/01/15 Insulin Glargine,Hum.rec.anlog [Lantus] 50 unit SQ DAILY 12/02/15 Iron Fum & Ps Cmp/Vit C & B [Integra Capsule] 1 cap PO BID 12/02/15 Insulin Aspart [Novolog] 3 - 11 units SQ TID 06/22/17 Omeprazole [Prilosec] 40 mg PO DAILY 06/22/17 Furosemide [Lasix] 60 mg PO DAILY #30 tablet 06/30/17 - Past Medical/Surgical History Diabetic: Yes -: IDDM -: sleep apnea -: Afib -: osteoarthritis -: gout -: [place] -: lymphadema BLE -: HTN -: high cholesterol -: parathyroid nodule removed -: lap luis -: biopsy(benign breast tissue) - Family History Mother Medical History: Cancer Sister Medical History: Cancer Father Medical History: Heart disease Brother Medical History: Hypertension - Social History Smoking Status: Unknown if ever smoked Alcohol use: Yes CD- Drugs: No Caffeine use: Yes Place of Residence: Home Review of Systems 10-point ROS is otherwise unremarkable Physical Examination Temp Pulse Resp BP Pulse Ox 98.0 F 56 18 149/68 H 99 07/02/17 06:48 07/02/17 06:48 07/02/17 06:48 07/02/17 06:48 07/02/17 06:48 General: Alert, In no apparent distress, Oriented x3 Cardiovascular: Edema, Abnormal pulses Capillary refill: >2 Seconds Musculoskeletal: No clubbing, No swelling, No contractures, No erythema, No tenderness, No warmth Integumentary: Other (thickened bilateral hallux nails with subungual debris. Digits 2-4 demonstrate elongated discolored nails. focal hyperkeratotic lesion sub right hallux that upon debridement revealed a superficial ulceration with granular base) Neurological: Abnormal sensation - Problems (1) Tinea unguium Current Visit: Yes Status: Acute (2) Onychogryphosis Current Visit: Yes Status: Acute (3) Corns and callosities Current Visit: Yes Status: Acute (4) Diabetic foot ulcer Current Visit: No Status: Acute Conclusions/Impression: Debridement of nails performed at bedside as well as hyperkeratotic lesion sub right hallux. Upon debridement of lesion an ulceration was noted to have a granular base, no probing, no signs of infection Bactroban with gauze dressing to right hallux wound daily Physician Review: Patient Assessed, Agree with Above Assessment and Plan Critical Care: No Time Spent Managing Pts care (In Minutes): 30
[2017-07-02] MEDS: FUROSEMIDE 40 MG TABLET PO SCH (08:42)
[2017-07-02] MEDS: POTASSIUM CL SA 10 MEQ TAB PO SCH (08:43)
[2017-07-02] MEDS: ASCORBIC ACID 500 MG TABLET PO SCH ×2 (08:43→19:55)
[2017-07-02] MEDS: glipiZIDE 5 MG TAB PO SCH ×2 (08:44→17:15)
[2017-07-02] MEDS: PANTOPRAZOLE 40MG TABLET PO SCH (08:44)
[2017-07-02] MEDS: METOPROLOL TAR 50 MG TAB PO SCH ×2 (08:44→19:55)
[2017-07-02] MEDS: VITAMIN D 5,000 UNIT CAP PO SCH (08:44)
[2017-07-02] MEDS: ALLOPURINOL 100 MG TAB PO SCH (08:44)
[2017-07-02] MEDS: DIGOXIN 0.125 MG TABLET PO SCH (08:45)
[2017-07-02] MEDS: INSULIN -REGULAR HUMAN 50 UNIT/0.5 ML ML SQ SCH ×4 (08:55→21:24)
[2017-07-02] MEDS: INSULIN DETEMIR 100 UNIT/1 ML INSULIN SQ SCH ×2 (08:55→21:24)
[2017-07-02] MEDS: SOD FERRIC GLUC COMPLX/SUCROSE 250 MG in NA CHLORIDE 0.9% 250 ML IV SCH (09:00)
--- NOTE | 2017-07-02 09:38 | P.RH.PN ---
Estimated Length of Stay: 12 Expected Discharge Date: 07/11/17 Discharge Disposition Plan: Home Vital Signs: Last Vital Signs Temp 98.0 F 07/02/17 06:48 Pulse 60 07/02/17 08:44 Resp 18 07/02/17 06:48 BP 149/68 H 07/02/17 08:44 Pulse Ox 99 07/02/17 06:48 Laboratory: Laboratory Last Values WBC 11.9 K/uL (4.3-10.9) H 07/01/17 05:36 RBC 2.96 M/uL (4.33-5.43) L 07/01/17 05:36 Hgb 9.0 g/dL (13.6-17.9) L 07/01/17 05:36 Hct 26.9 % (39.6-49.0) L 07/01/17 05:36 MCV 90.9 fL (80-100) 07/01/17 05:36 MCH 30.4 pg (27.0-35.0) 07/01/17 05:36 MCHC 33.5 g/dL (32.0-36.0) 07/01/17 05:36 RDW 18.3 % (12.1-15.2) H 07/01/17 05:36 Plt Count 218 K/uL (152-406) 07/01/17 05:36 MPV 8.6 fL (7.6-11.3) 07/01/17 05:36 Neutrophils % 80.6 % (41.7-73.7) H 07/01/17 05:36 Lymphocytes % 6.8 % (15.3-44.8) L 07/01/17 05:36 Monocytes % 10.3 % (3.3-12.3) 07/01/17 05:36 Eosinophils % 1.6 % (0-4.4) 07/01/17 05:36 Basophils % 0.7 % (0-1.3) 07/01/17 05:36 Absolute Neutrophils 9.6 K/uL (1.8-8.0) H 07/01/17 05:36 Absolute Lymphocytes 0.8 K/uL (0.7-4.9) 07/01/17 05:36 Absolute Monocytes 1.2 K/uL (0.1-1.3) 07/01/17 05:36 Absolute Eosinophils 0.2 K/uL (0-0.5) 07/01/17 05:36 Absolute Basophils 0.1 K/uL (0-0.5) 07/01/17 05:36 Sodium 133 mEq/L (135-145) L 07/01/17 05:36 Potassium 4.7 mEq/L (3.6-5.0) 07/01/17 05:36 Chloride 105 mEq/L (101-111) 07/01/17 05:36 Carbon Dioxide 19 mEq/L (21-31) L 07/01/17 05:36 BUN 76 mg/dL (6-20) H 07/01/17 05:36 Creatinine 3.22 mg/dL (0.61-1.24) H 07/01/17 05:36 Estimated GFR 20 mL/min (=/>90) L 07/01/17 05:36 Glucose 171 mg/dL (65-120) H 07/01/17 05:36 POC Glucose 234 mg/dl (65-120) H 07/02/17 06:57 Calcium 8.1 mg/dL (8.5-10.5) L 07/01/17 05:36 Magnesium 2.0 mg/dL (1.8-2.5) 07/01/17 05:36 Albumin 2.4 g/dL (3.2-5.5) L 07/01/17 05:36 Prealbumin 15.5 mg/dl (18-38) L 07/01/17 05:36 Urine Color Yellow 07/01/17 05:20 Urine Appearance Cloudy 07/01/17 05:20 Urine pH 5.0 (5.0-7.0) 07/01/17 05:20 Ur Specific [place] 1.015 (1.005-1.030) 07/01/17 05:20 Urine Ketones Negative (NEG) 07/01/17 05:20 Urine Blood Negative (NEG) 07/01/17 05:20 Urine Nitrite Negative (NEG) 07/01/17 05:20 Urine Bilirubin Negative (NEG) 07/01/17 05:20 Urine Urobilinogen 0.2 mg/dL (0.2-1.0) 07/01/17 05:20 Ur Leukocyte Esterase Negative (NEG) 07/01/17 05:20 Urine RBC None seen /HPF (NONE SEEN) 07/01/17 05:20 Urine WBC <5 /HPF (<5) 07/01/17 05:20 Ur Squamous Epith Cells <5 /HPF (NONE SEEN) 07/01/17 05:20 Amorphous Sediment 2+ /HPF (NONE SEEN) H 07/01/17 05:20 Urine Bacteria <20 /HPF (NONE SEEN) 07/01/17 05:20 Hyaline Casts 5-10 /LPF (NONE SEEN) 07/01/17 05:20 Urine Mucus Light /HPF (NONE SEEN) 07/01/17 05:20 Urine Culture Reflexed Not needed 07/01/17 05:20 Urine Glucose Trace (NEG) 07/01/17 05:20 Urine Total Protein 3+ (NEG) H 07/01/17 05:20 Digoxin 2.0 ng/ml (1.0-2.0) 07/01/17 05:36 Weight: 302 lb Wound Present: No Closed Surgical Incision Present: No Negative Pressure Wound Therapy Present: No Physician Update: Poorly controlled blood sugars up to 280's. Will increase insulin to 40 units in the PM and 50 units in the AM. Low Hgb for which he is getting iron infusions. Low prealbumin, on promod. He has bilateral lymphedema and a small open wound on the right anterior leg. Dr. Coleman is seeing the patient. He uses the leg wraps. He is at moderate assistance with transfers. He requires moderate assistance with ambulation and walkered about 40' yestaday. Medical Issues: hgb- 9, on IV iron Q72H. daily CB and BMP Pain Issues: tramadol 50mg QID PO Functional Improvement: pt presents with moderate strength deficits in bilateral LEs. pt demonstrates reduced tolerance to functional activity due to fatigue and weakness. pt demonstrates reduced trunk strength and stability. During ambulation and transitional movements pt exhibits reduced balance. Skilled PT services are necessary to address the above mentioned impairments and functional limitations. Functional Improvement Occupational Therapy: POOR ENDURANCE, HOWEVER, GOOD MOTIVATION. Summary: Patient's care plan and terminal worker goals have been reviewed and revised as necessary. Please see the Rehabilitation Signature page for all necessary signatures.
[2017-07-02 09:48] LABS: Absolute Lymphocytes (CBC) 0.6 K/uL (0.7-4.9); Absolute Monocytes 1.1 K/uL (0.1-1.3); Absolute Neutrophil 9.3 K/uL (1.8-8.0); Basophils % 0.5 % (0-1.3); Eosinophils % 1.2 % (0-4.4); Hematocrit 27.2 % (39.6-49.0); Lymphocytes % 5.6 % (15.3-44.8); MCH 29.5 pg (27.0-35.0); MCV 90.7 fL (80-100); MPV 8.5 fL (7.6-11.3)
[2017-07-02] MEDS: HYDRALAZINE HCL 25 MG TABLET PO SCH ×2 (09:51→19:56)
[2017-07-02 10:48] LABS: Potassium 4.6 mEq/L (3.6-5.0)
[2017-07-02] MEDS: RIVAROXABAN 15 MG TABLET PO SCH (17:15)
[2017-07-02] MEDS: PROMOD 30 ML DOSE PO SCH (19:56)
[2017-07-02] MEDS: ATORVASTATIN 20 MG TAB PO SCH (21:00)
--- NOTE | 2017-07-03 01:26 | PN ---
Date of Progress Note: 07/02/2017 Chief Complaint: Acute kidney injury. History Of Present Illness: The patient developed acute kidney injury due to nonoliguric ATN. He responded to IV fluids. Renal function remains at baseline. The patient has congestive heart failure with diastolic dysfunction, chronic kidney disease stage 3. Renal ultrasound showed normal kidney size. The patient is recovering from acute kidney injury. He has history of atrial fibrillation and anasarca. Review of Systems: Denies fever, chills. Physical Examination: General: Not in acute distress Eyes: Anicteric sclerae. EOMI. Ears, Nose, Mouth, and Throat: Oral mucosa moist. No pallor. Neck: Supple. No JVD. No bruits. Extremities: 3+ edema in both lower extremities. Impression And Plan: 1. Acute kidney injury on chronic kidney disease due to cardiorenal syndrome and nonoliguric acute tubular necrosis. Renal function has somewhat improved. Continue to monitor fluid balance and electrolytes. 2. Chronic kidney disease secondary to cardiorenal syndrome and benign nephrosclerosis. Continue Lasix for volemia control. 3. Hypertension. The patient is on multiple blood pressure medication including hydralazine. Plan is to avoid calcium channel roel due to lower extremity edema. 4. Atrial fibrillation, as per Cardiology team. LANG/SOHAN Voice ID: [id number] Report ID: [id number] MTDD
[2017-07-03 06:19] LABS: Absolute Lymphocytes (CBC) 0.6 K/uL (0.7-4.9); Absolute Monocytes 1.1 K/uL (0.1-1.3); Absolute Neutrophil 7.3 K/uL (1.8-8.0); Basophils % 0.8 % (0-1.3); Hematocrit 25.2 % (39.6-49.0); Lymphocytes % 6.9 % (15.3-44.8); MCV 90.5 fL (80-100); MPV 8.3 fL (7.6-11.3); Monocytes % 11.5 % (3.3-12.3); RBC Red Blood Cell Count 2.78 M/uL (4.33-5.43)
[2017-07-03 06:25] LABS: Potassium 4.9 mEq/L (3.6-5.0)
[2017-07-03] MEDS: TRAMADOL HCL 50 MG TAB PO PRN ×3 (06:34→20:49)
[2017-07-03] MEDS: PANTOPRAZOLE 40MG TABLET PO SCH (06:34)
[2017-07-03] MEDS: INSULIN -REGULAR HUMAN 50 UNIT/0.5 ML ML SQ SCH ×4 (07:30→22:17)
[2017-07-03] MEDS: PROMOD 30 ML DOSE PO SCH ×2 (08:00→20:46)
[2017-07-03] MEDS: NYSTATIN PWDR 100000 UNIT/GM TOP SCH ×2 (08:00→20:00)
[2017-07-03] MEDS: glipiZIDE 5 MG TAB PO SCH ×2 (08:32→17:36)
[2017-07-03] MEDS: ASCORBIC ACID 500 MG TABLET PO SCH ×2 (08:32→20:45)
[2017-07-03] MEDS: FUROSEMIDE 40 MG TABLET PO SCH (08:34)
[2017-07-03] MEDS: POTASSIUM CL SA 10 MEQ TAB PO SCH (08:35)
[2017-07-03] MEDS: METOPROLOL TAR 50 MG TAB PO SCH ×2 (08:35→20:44)
[2017-07-03] MEDS: VITAMIN D 5,000 UNIT CAP PO SCH (08:35)
[2017-07-03] MEDS: HYDRALAZINE HCL 25 MG TABLET PO SCH ×2 (08:36→20:46)
[2017-07-03] MEDS: ALLOPURINOL 100 MG TAB PO SCH (08:36)
[2017-07-03] MEDS: DIGOXIN 0.125 MG TABLET PO SCH (08:36)
[2017-07-03] MEDS: INSULIN DETEMIR 100 UNIT/1 ML INSULIN SQ SCH ×2 (08:37→21:00)
[2017-07-03] MEDS: RIVAROXABAN 15 MG TABLET PO SCH (17:36)
[2017-07-03] MEDS: ATORVASTATIN 20 MG TAB PO SCH (20:45)
--- NOTE | 2017-07-04 00:08 | PN ---
Date of Progress Note: 07/03/2017 Chief Complaint: acute kidney injury. History Of Present Illness: Acute kidney injury, nonoliguric, in recovery phase. The patient has nonoliguric ATN. Primarily, he was treated with IV fluids. Recently, he is on diuretic because of congestive heart failure with diastolic dysfunction. He has underlying chronic kidney disease stage 3. Review of Systems: The patient is complaining of leg edema. Denies PND, orthopnea. Physical Examination: Lungs: Clear to auscultation bilaterally. Heart: S1-S2. Abdomen: Soft, nontender. Extremities: 3+ edema in both legs. Impression And Plan: 1. Acute kidney injury. Monitor renal function. The patient has cardiorenal syndrome. Continue diuretics. Lasix was increased to 60 mg twice a day. Monitor fluid balance, adjust diuretic dose according to urine output. 2. Hypertension. The patient is on multiple blood pressure medications. Plan is to avoid calcium channel roel because of lower extremity edema. 3. Atrial fibrillation, as per Cardiology. 4. Chronic kidney disease secondary to cardiorenal syndrome. There is underlying benign nephrosclerosis. Ultrasound of the kidneys did not show hydronephrosis. LANG/SOHAN Voice ID: [id number] Report ID: [id number] REJI
[2017-07-04] MEDS: ACETAMINOPHEN 325 MG TABLET PO PRN (03:24)
[2017-07-04 05:38] VITALS: BMI 44.6
[2017-07-04 06:32] LABS: Absolute Lymphocytes (CBC) 0.6 K/uL (0.7-4.9); Absolute Monocytes 1.1 K/uL (0.1-1.3); Absolute Neutrophil 7.2 K/uL (1.8-8.0); Basophils % 0.6 % (0-1.3); Eosinophils % 1.5 % (0-4.4); Lymphocytes % 6.7 % (15.3-44.8); MCH 30.1 pg (27.0-35.0); MCV 90.9 fL (80-100); MPV 8.3 fL (7.6-11.3); Monocytes % 11.9 % (3.3-12.3); RBC Red Blood Cell Count 2.75 M/uL (4.33-5.43)
[2017-07-04 06:47] LABS: Digoxin Level 1.3 ng/ml (1.0-2.0); Magnesium 2.2 mg/dL (1.8-2.5)
[2017-07-04 07:01] LABS: Potassium 4.8 mEq/L (3.6-5.0)
[2017-07-04] MEDS: INSULIN -REGULAR HUMAN 50 UNIT/0.5 ML ML SQ SCH ×4 (07:30→21:00)
[2017-07-04] MEDS: NYSTATIN PWDR 100000 UNIT/GM TOP SCH ×2 (08:00→20:00)
[2017-07-04] MEDS: ASCORBIC ACID 500 MG TABLET PO SCH ×2 (08:17→21:16)
[2017-07-04] MEDS: VITAMIN D 5,000 UNIT CAP PO SCH (08:17)
[2017-07-04] MEDS: METOPROLOL TAR 50 MG TAB PO SCH ×2 (08:17→21:15)
[2017-07-04] MEDS: glipiZIDE 5 MG TAB PO SCH ×2 (08:17→16:58)
[2017-07-04] MEDS: ALLOPURINOL 100 MG TAB PO SCH (08:18)
[2017-07-04] MEDS: PANTOPRAZOLE 40MG TABLET PO SCH (08:18)
[2017-07-04] MEDS: FUROSEMIDE 40 MG TABLET PO SCH (08:18)
[2017-07-04] MEDS: HYDRALAZINE HCL 25 MG TABLET PO SCH ×2 (08:18→21:15)
[2017-07-04] MEDS: POTASSIUM CL SA 10 MEQ TAB PO SCH (08:19)
[2017-07-04] MEDS: DIGOXIN 0.125 MG TABLET PO SCH (08:19)
[2017-07-04] MEDS: INSULIN DETEMIR 100 UNIT/1 ML INSULIN SQ SCH (08:23)
[2017-07-04] MEDS: TRAMADOL HCL 50 MG TAB PO PRN ×2 (08:23→17:00)
[2017-07-04] MEDS: PROMOD 30 ML DOSE PO SCH ×2 (08:24→21:17)
[2017-07-04] MEDS ORDERED: BISACODYL 10 MG RECTAL SUPP PR PRN (13:47)
[2017-07-04] MEDS: RIVAROXABAN 15 MG TABLET PO SCH (16:58)
[2017-07-04] MEDS ORDERED: INSULIN DETEMIR 100 UNIT/1 ML INSULIN SQ SCH (21:00)
[2017-07-04] MEDS: ATORVASTATIN 20 MG TAB PO SCH (21:15)
[2017-07-04] MEDS: DOCUSATE NA/SENNA CONC 1 TAB PO SCH (21:16)
[2017-07-05 06:45] LABS: Absolute Lymphocytes (CBC) 0.6 K/uL (0.7-4.9); Absolute Monocytes 1.1 K/uL (0.1-1.3); Absolute Neutrophil 7.4 K/uL (1.8-8.0); Basophils % 0.8 % (0-1.3); Eosinophils % 1.8 % (0-4.4); Hematocrit 26.8 % (39.6-49.0); Lymphocytes % 6.8 % (15.3-44.8); MCH 29.1 pg (27.0-35.0); MCV 91.1 fL (80-100); MPV 8.9 fL (7.6-11.3); Monocytes % 11.6 % (3.3-12.3); Potassium 4.8 mEq/L (3.6-5.0); RBC Red Blood Cell Count 2.94 M/uL (4.33-5.43)
[2017-07-05] MEDS: TRAMADOL HCL 50 MG TAB PO PRN ×3 (06:52→20:22)
[2017-07-05] MEDS: INSULIN -REGULAR HUMAN 50 UNIT/0.5 ML ML SQ SCH ×4 (07:30→21:12)
[2017-07-05] MEDS: PROMOD 30 ML DOSE PO SCH ×2 (08:45→20:20)
[2017-07-05] MEDS: ALLOPURINOL 100 MG TAB PO SCH (08:45)
[2017-07-05] MEDS: POTASSIUM CL SA 10 MEQ TAB PO SCH (08:45)
[2017-07-05] MEDS: ASCORBIC ACID 500 MG TABLET PO SCH ×2 (08:45→20:22)
[2017-07-05] MEDS: NYSTATIN PWDR 100000 UNIT/GM TOP SCH ×2 (08:45→20:23)
[2017-07-05] MEDS: INSULIN DETEMIR 100 UNIT/1 ML INSULIN SQ SCH (08:45)
[2017-07-05] MEDS: FUROSEMIDE 40 MG TABLET PO SCH (08:45)
[2017-07-05] MEDS: DIGOXIN 0.125 MG TABLET PO SCH (08:45)
[2017-07-05] MEDS: PANTOPRAZOLE 40MG TABLET PO SCH (08:45)
[2017-07-05] MEDS: METOPROLOL TAR 50 MG TAB PO SCH ×2 (08:45→20:23)
[2017-07-05] MEDS: HYDRALAZINE HCL 25 MG TABLET PO SCH ×2 (08:45→20:23)
[2017-07-05] MEDS: glipiZIDE 5 MG TAB PO SCH ×2 (08:45→17:19)
[2017-07-05] MEDS: VITAMIN D 5,000 UNIT CAP PO SCH (08:45)
[2017-07-05] MEDS: SOD FERRIC GLUC COMPLX/SUCROSE 250 MG in NA CHLORIDE 0.9% 250 ML IV SCH (09:00)
[2017-07-05] MEDS: RIVAROXABAN 15 MG TABLET PO SCH (17:19)
[2017-07-05 19:32] VITALS: TEMP 97.8
[2017-07-05] MEDS ORDERED: FUROSEMIDE 40 MG TABLET PO SCH (20:00)
[2017-07-05] MEDS: ATORVASTATIN 20 MG TAB PO SCH (20:22)
[2017-07-05] MEDS: DOCUSATE NA/SENNA CONC 1 TAB PO SCH (20:22)
[2017-07-05] MEDS ORDERED: INSULIN DETEMIR 100 UNIT/1 ML INSULIN SQ SCH (21:00)
--- NOTE | 2017-07-05 21:52 | PN ---
Date of Progress Note: 07/05/2017 Chief Complaint: Acute on chronic kidney injury. History Of Present Illness: Nonoliguric acute kidney injury on chronic kidney disease associated with fluid overload, edema, and anasarca. The patient is started on Lasix and lasix dose will be increased today. Legs edema has not improved. The patient has progressively worse azotemia. BUN is up to 100, creatinine 3.35. Review of Systems: The patient denies fever, chills. Denies PND, orthopnea. Physical Examination: Lungs: Few crackles at bases. Heart: S1, S2. Abdomen: Soft, benign. Extremities: Severe edema in both legs. Laboratory Data: Blood work; sodium 134, potassium 4.8, chloride 104, CO2 of 21 , BUN 100, creatinine 3.35, calcium 8.0. Impression And Plan: Acute on chronic kidney injury. Urine output has not improved in response to diuretics. Diuretic dose is increased. Legs edema has worsened and the patient will take Lasix 80 mg tablet twice a day along with metolazone, although the patient has severe azotemia. The patient may need to have Lasix drip. Plan is to transfer the patient to telemetry floor. If the patient does not respond to diuretics, he may need to have dialysis for fluid overload control. Plans were discussed with the patient that he may need dialysis if diuretic treatment does not yield effective diuresis. I spent total 36 min including 25 min to coordinate care plan. LANG/SOHAN Voice ID: [id number] Report ID: [id number] REJI
[2017-07-06 00:16] VITALS: BP 148/69
[2017-07-06] MEDS ORDERED: METOLAZONE 2.5 MG TABLET PO SCH (07:30)
--- NOTE | 2017-08-02 20:28 | R.DS ---
FACILITY [facility] MR# [id number] NAME HERNANDO BIRD AD[address]ESS [address] [place] [address] PHONE DATE OF 1950 AGE 66 SSN# [id number] GENDER Male DEXTERITY Right-handed MARITAL STATUS RACE White ENCOUNTER PHYSICIAN Dr. Angel Devi M.D. REFERRING DOCTOR Martní Weaver REFERRING FACILITY [facility] DISCHARGE DIAGNOSIS: - Debility 16 - Debility (16) Acute Kidney Injury, Anemia. DISCHARGE COMORBIDITIES: - Tier 3 Acute kidney failure, unspecified [N179] - Non-Tiered Type 2 diabetes mellitus with diabetic neuropathy, unspecified [E1140] - N/A GERD Atrial Fibrillation Anemia Essential Hypertension CAD Obstructive Sleep apnea Chronic Lymphedema DATE OF ADMISSION 06/30/2017 15:08 (CDT) MEDICATION ALLERGIES: Mupirocin ENVIRONMENTAL ALLERGIES: None Known - Substance Allergies None Known - Other Allergies None Known NURSING: - Shower allowing shower - Lab Results blood Sugar Check ACHS PRECAUTIONS: - Fall Precaution Bed and chair alarm ACTIVITIES OOB only with supervision THERAPIES: - Occupational Therapy Evaluate and Treat - Physical Therapy Evaluate and Treat HISTORY OF PRESENT ILLNESS: Pt. is a 66 yo Right-handed white male.On 06/23/2017 he was admitted to [facility] with diagnosis Acute Kidney Injury, Anemia.His impairment category is Debility 16 - Debility (16 ).Pre-morbidly, Pt. was independent/mod-I in Self-Care, Sphincter Control, Communication, and Social Cognition; and he had good Sphincter Control.Currently, he has deficits of Safety Awareness, Transfer s Control, Balance, Endurance, Locomotion, and Self-Care.Pt. is now referred to [facility] for acute in-patient rehabilitation in order to maximize patient's functional independen ce in activities of daily living, strength, ROM, and mobility.- Rehab Goal Patient has realistic goal of being discharged at assistance level 6-Jose R to reside at Home with Fam polina/Relatives. HOSPITAL COURSE: FALL PRECAUTION: DIET - LIQUID TEXTURE: On 06/30/2017 Pt was upgraded to Regular Diet - Liquid Texture. DIET - SOLID TEXTURE: On 06/30/2017 Pt was upgraded to Regular Diet - Solid Texture. DIET TYPE: On 06/30/2017 Pt was upgraded to Regular Diet Type. On 06/30/2017 the following precautions were added for the patient: Fall Precaution - Bed and chair a larm. On 07/01/2017 the following precautions were added for the patient: Fall Precaution - Bed and chair alarm. The following precautions were removed for the patient: Fall Precaution - Bed and chair alarm, and Fa ll Precaution - Bed and chair alarm. TUBE FEED: On 06/30/2017 Pt was changed to N/A Tube Feed. DISCHARGE PHYSICAL EXAM - Gen Alert and awake Lying in bed No apparent distress Oriented to: person, time, and place - Skin No skin breakdown. Normacephalic - Eyes No abnormalities - ENMT No abnormalities - Neck No abnormalities - CVS RRR - Chest Clear - Abd Soft - GI Non distended Deferred - No abnormalities - Ext no edema - MSK 4/5 weakness in both lower extremities. - Neuro No focal deficits - Psych No abnormalities DISCHARGE FUNCTIONAL/MEDICAL STATUS: - N/A Pelon Bird was transferred to the acute care floor due to volume overload. FUNCTIONAL STATUS: - Self-Care A. Eating 7-Ind 7-Ind B. Grooming 7-Ind 7-Ind C. Bathing 5-sup 5-sup D. Dressing - Upper 5-sup 5-sup E. Dressing - Lower 5-sup 5-sup F. Toileting 7-Ind 7-Ind - Sphincter Control G: Bladder control 7-Ind 7-Ind H: Bowel control 7-Ind 7-Ind - Transfers Control I. Bed/Chair/Wheelchair 4-Shavon 2-maxA J. Toilet 4-Shavon 4-Shavon K. Tub/Shower 0-ADNO 0-ADNO - Locomotion L. Walk/Wheelchair (W) 4-Shavon 1-Dep M. Stairs 0-ADNO 0-ADNO - Communication N. Comprehension (B) 7-Ind 7-Ind O. Expression (B) 7-Ind 7-Ind - Social Cognition P. Social Interaction 7-Ind 7-Ind Q. Problem Solving 7-Ind 7-Ind R. Memory 7-Ind 7-Ind - Endurance Fair - Balance Fair - Safety Awareness Fair DISCHARGE INSTRUCTIONS: - N/A Xarelto 15 mg daily. DISCHARGE PLAN, FOLLOW UP CARE PROVISIONS: - Estimated Length of Stay (days) 13. - Consensus on plan Discharge plan has been discussed with primary caregiver. Patient/Family is in agreement with the dolores n. Primary caregiver is in agreement with the plan. - Patient/Family Goals Return home with assistance. - Planned Living Setting Upon Discharge Home, to live with Family/Relatives. SIGNATURE PANEL: (CDT)
== END 2017-07-05 23:25 | disposition short-term general hospital (02) | DRG 948 ==
LOC: 5TH 15:08 → 3RD-ICU 07-05 23:18 → 5TH 07-05 23:18
PROVIDERS: ADMIT Psychiatry & Neurology Neurology with Special Qualifications in Child Neurology; ATTEND Psychiatry & Neurology Neurology with Special Qualifications in Child Neurology
DX: R53.81 Other malaise (principal); N17.9 Acute kidney failure, unspecified; I13.0 Hypertensive heart and chronic kidney disease with heart failure and stage 1 through stage 4 chronic kidney disease, or unspecified chronic kidney disease; I50.30 Unspecified diastolic (congestive) heart failure; E86.0 Dehydration; I48.91 Unspecified atrial fibrillation; I25.10 Atherosclerotic heart disease of native coronary artery without angina pectoris; D50.9 Iron deficiency anemia, unspecified; N18.3 Chronic kidney disease, stage 3 (moderate); B35.1 Tinea unguium; L60.2 Onychogryphosis; L84 Corns and callosities; E11.621 Type 2 diabetes mellitus with foot ulcer; K21.9 Gastro-esophageal reflux disease without esophagitis; G47.33 Obstructive sleep apnea (adult) (pediatric)
CPT/HCPCS: 36415; 80048; 80162; 81001; 82040; 82962; 83735; 84134; 85025; 87086; 87088; 97542; J2916

== ENCOUNTER 2017-07-05 21:30 | Inpatient (IN) | payer OTHER ==
[2017-07-06] MEDS ORDERED: FUROSEMIDE 40 MG/4 ML VIAL IV ONE (00:10)
[2017-07-06] MEDS ORDERED: BISACODYL 10 MG RECTAL SUPP PR PRN (00:15)
[2017-07-06] MEDS ORDERED: GLUCAGON 1 MG/VIAL IM PRN (00:15)
[2017-07-06] MEDS ORDERED: DOCUSATE NA/SENNA CONC 1 TAB PO PRN (00:15)
[2017-07-06] MEDS ORDERED: D50W 25 GM/50 ML SYRINGE IV PRN (00:15)
[2017-07-06] MEDS ORDERED: LORATADINE 10 MG TAB PO PRN (00:15)
[2017-07-06] MEDS ORDERED: NA CHLORIDE 0.9% 100 ML ONE ×2 (00:39→05:10)
[2017-07-06] MEDS ORDERED: FUROSEMIDE 20 MG/ 2ML VIAL ONE (00:40)
[2017-07-06] MEDS: FUROSEMIDE 100 MG in NA CHLORIDE 0.9% 90 ML IV SCH ×5 (00:42→21:22)
[2017-07-06] MEDS: TRAMADOL HCL 50 MG TAB PO PRN ×3 (04:34→21:20)
[2017-07-06 05:03] LABS: Absolute Lymphocytes (CBC) 0.7 K/uL (0.7-4.9); Absolute Monocytes 1.1 K/uL (0.1-1.3); Absolute Neutrophil 8.5 K/uL (1.8-8.0); Basophils % 0.9 % (0-1.3); Eosinophils % 1.1 % (0-4.4); Hematocrit 27.5 % (39.6-49.0); Lymphocytes % 6.5 % (15.3-44.8); MCH 29.1 pg (27.0-35.0); MCV 91.6 fL (80-100); MPV 8.8 fL (7.6-11.3); Monocytes % 10.4 % (3.3-12.3)
[2017-07-06] MEDS ORDERED: FUROSEMIDE 40 MG/4 ML VIAL ONE (05:11)
[2017-07-06] MEDS ORDERED: FUROSEMIDE 100 MG/10 ML VIAL IV ONE (05:12)
[2017-07-06 05:24] LABS: Albumin 2.7 g/dL (3.2-5.5); Bilirubin Direct 0.1 mg/dL (0-0.2); Bilirubin Total 0.4 mg/dL (0.3-1.2); Magnesium 2.2 mg/dL (1.8-2.5); Phosphorus 5.6 mg/dL (2.5-4.3); Protein, Total 6.7 g/dL (6.0-8.3)
[2017-07-06] MEDS: PANTOPRAZOLE 40MG TABLET PO SCH (05:58)
[2017-07-06] MEDS: INSULIN -REGULAR HUMAN 50 UNIT/0.5 ML ML SQ SCH ×4 (07:30→21:00)
[2017-07-06] MEDS: INSULIN DETEMIR 100 UNIT/1 ML INSULIN SQ SCH (08:20)
[2017-07-06] MEDS: ALLOPURINOL 100 MG TAB PO SCH (08:23)
[2017-07-06] MEDS: HYDRALAZINE HCL 25 MG TABLET PO SCH ×2 (08:23→21:21)
[2017-07-06] MEDS: ASCORBIC ACID 500 MG TABLET PO SCH ×2 (08:23→21:21)
[2017-07-06] MEDS: VITAMIN D 5,000 UNIT CAP PO SCH (08:23)
[2017-07-06] MEDS: METOPROLOL TAR 50 MG TAB PO SCH ×3 (08:24→21:00)
[2017-07-06] MEDS: METOLAZONE 2.5 MG TABLET PO SCH (08:25)
[2017-07-06] MEDS: POTASSIUM CL SA 10 MEQ TAB PO SCH (09:00)
[2017-07-06] MEDS: DIGOXIN 0.125 MG TABLET PO SCH (09:07)
[2017-07-06] MEDS: glipiZIDE 5 MG TAB PO SCH ×2 (09:22→17:01)
[2017-07-06] MEDS: NYSTATIN PWDR 100000 UNIT/GM TOP SCH ×2 (09:23→21:00)
[2017-07-06] MEDS: PROMOD 30 ML DOSE PO SCH ×2 (09:24→21:00)
[2017-07-06] MEDS: ACETAMINOPHEN 325 MG TABLET PO PRN ×2 (12:45→21:20)
--- NOTE | 2017-07-06 15:06 | RAD REPORT ---
EXAM DESCRIPTION: RAD - Chest Single View - 07/06/2017 2:34 pm CLINICAL HISTORY: Shortness of breath COMPARISON: June 29 TECHNIQUE: AP portable chest image was obtained 1423 hours . FINDINGS: The lung volumes are low. Retrocardiac base is limited in assessment. Cardiac silhouette i s enlarged, similar to comparison. Vasculature is prominent and there is a prominence of the central lung markings that extends to the mid and lower lung garcia. Pattern is similar to slightly worse jocelyne n the June 29 study. No pneumothorax or large pleural effusion. No gross bony abnormality seen. No a cute aortic findings suspected. IMPRESSION: Mild CHF/volume overload pattern slightly worse than June 29.
[2017-07-06] MEDS ORDERED: SILVER NITRATE 1 APPL TOP ONE (15:53)
[2017-07-06] MEDS: COLLAGENASE 30 GM OINTMENT TOP SCH (16:15)
[2017-07-06] MEDS: RIVAROXABAN 15 MG TABLET PO SCH (16:56)
[2017-07-06] MEDS ORDERED: EPOETIN ALFA 10,000 UNIT/ML SQ SCH (20:00)
[2017-07-06] MEDS ORDERED: INSULIN DETEMIR 100 UNIT/1 ML INSULIN SQ SCH (21:00)
[2017-07-06] MEDS: ATORVASTATIN 20 MG TAB PO SCH (21:20)
[2017-07-06] MEDS: DOCUSATE NA/SENNA CONC 1 TAB PO SCH (21:21)
[2017-07-06] MEDS ORDERED: EPOETIN ALFA 10,000 UNIT/ML VIAL ONE (21:31)
--- NOTE | 2017-07-07 00:24 | PN ---
Date of Progress Note: 07/06/2017 The patient now in ICU, on an IV Lasix drip. He states he still has episodes of dyspnea while he fee ls there is not much difference in the past 24 hours. Peripheral edema has gone down somewhat. In v iew of the situation in regard to fluid overload, renal failure, and basically status quo as far as t he general condition of the patient is concerned, I feel it may be of some benefit to obtain a Cardio logy consultation in regard to the element of failure. This will be done tomorrow. If possible, the patient could be transferred to floor care tomorrow as well. HR/MODL Voice ID: [id number] Report ID: [id number]
[2017-07-07] MEDS: FUROSEMIDE 100 MG in NA CHLORIDE 0.9% 90 ML IV SCH ×6 (03:13→20:29)
[2017-07-07] MEDS: ACETAMINOPHEN 325 MG TABLET PO PRN (03:14)
[2017-07-07 04:57] LABS: Absolute Lymphocytes (CBC) 0.8 K/uL (0.7-4.9); Absolute Neutrophil 8.2 K/uL (1.8-8.0); Basophils % 0.6 % (0-1.3); Eosinophils % 1.4 % (0-4.4); Hematocrit 26.5 % (39.6-49.0); MCH 29.7 pg (27.0-35.0); MCV 91.6 fL (80-100); MPV 8.7 fL (7.6-11.3); Monocytes % 9.4 % (3.3-12.3); RBC Red Blood Cell Count 2.89 M/uL (4.33-5.43)
--- NOTE | 2017-07-07 05:04 | CON ---
Date of Consultation: 07/06/2017 Additional Admitting Physician: Edenilson Hunt DO. Reason For Consultation: Volume overload, acute on chronic renal failure. History Of Present Illness: Mr. Bird is 66, has a history of coronary artery disease, atrial fibrilla tion, anemia, diabetes, and hypertension, chronic renal insufficiency, and came in with worsening adrian al failure who was in rehab and was brought back down for severe edema. He is being seen by Dr. Smith from Nephrology who is having the patient on Lasix and metolazone. The Lasix drip is being consider ed and so is hemodialysis. Echocardiogram in early June of 2017 was normal with a normal ejection fra ction. Past Medical History: As stated above. Allergies: MUPIROCIN. Medications: Include Lipitor, Lanoxin, Lasix, glipizide, Lopressor, hydralazine, insulin, Protonix, and Xarelto. Review of Systems: Negative. Social History: Negative. Family History: Negative. Physical Examination: General: The patient weighed 337 pounds. HEENT: Negative. Neck: Supple with no bruit. Chest: Clear Cardiac: Exam revealed a regular rhythm and rate with an S4 gallops. No murmurs or rubs. Abdomen: Benign Extremities: Revealed no clubbing, cyanosis, or edema. No clubbing or cyanosis. Had 2 to 3+ edema, anasarca. Diagnostic Data: His creatinine is 3.45, hemoglobin is 8.7. EKG is nonspecific. Chest x-ray is luis angel ar. Impression And Plan: 1.Volume overload. I believe this is secondary to acute on chronic renal failure. I doubt we are d ealing with congestive heart failure. I would not do any further cardiac workup at this point and I agree with Dr. Smith's plan. 2.Coronary artery disease, that is stable. 3.[place] fibrillation, on Xarelto. 4.Anemia. 5.Diabetes. 6.Hypertension. 7.Gastroesophageal reflux disease. 8.Dyslipidemia. 9.I will continue his present regimen as is for now. I have a strong feeling that he will end up on dialysis. We will continue to follow along. MARY/SOHAN Voice ID: [id number] Report ID: [id number]
[2017-07-07] MEDS: TRAMADOL HCL 50 MG TAB PO PRN ×2 (06:13→18:41)
[2017-07-07] MEDS: PANTOPRAZOLE 40MG TABLET PO SCH (06:13)
[2017-07-07] MEDS: INSULIN -REGULAR HUMAN 50 UNIT/0.5 ML ML SQ SCH ×4 (07:30→20:27)
--- NOTE | 2017-07-07 08:01 | P.PN ---
Subjective Date of Service: 07/07/17 Primary Care Provider: Dr. Weaver(I am covering for Dr. Weaver) Chief Complaint: Shortness of breath Subjective: Other (Patient improved. Patient without any significant shortness of breath this morning. Patient on Lasix drip. Patient diuresed 7 L over the last 24 hr) Physical Examination - Vital Signs Temperature: 97 F Blood Pressure: 156/74 Pulse: 55 Respirations: 13 Pulse Ox (%): 100 - Physical Exam General: Alert, In no apparent distress, Oriented x3, Cooperative HEENT: Atraumatic Neck: Supple Respiratory: Crackles/rales (Crackles to the bases but improved aeration bilateral) Cardiovascular: Normal pulses, Regular rate/rhythm Gastrointestinal: Normal bowel sounds, Soft and benign, Non-distended, No tenderness, No masses, No rebound, No guarding, Other (Morbid obesity) Musculoskeletal: No erythema, No tenderness, No warmth Integumentary: Other (Chronic lymphedema to the lower extremities. Edema improved.) Neurological: Normal speech, Normal strength at 5/5 x4 extr, Normal tone, Normal affect Lymphatics: No axilla or inguinal lymphadenopathy - Studies Laboratory Data (last 24 hrs) 07/07/17 04:33: Sodium 134 L, Potassium 4.0, BUN 116 H, Creatinine 3.29 H, Glucose 74 07/07/17 04:33: WBC 10.2, Hgb 8.6 L, Hct 26.5 L, Plt Count 220 Medications List Reviewed: Yes Assessment & Plan - Problems (Diagnosis) (1) Shortness of breath Current Visit: Yes Status: Acute Plan: Secondary to acute on chronic renal disease and CHF. Spoke with Cardiology today. Pulmonary edema likely related to renal disease. Patient on Lasix strip. Will discuss with nephrology. Possible transfer the floor. Will maintain 1500 cc fluid restriction. Patient did put out 7 L of fluid over the last 24 hr. Will monitor chest x-ray's. Will monitor lab. (2) Chronic renal disease Current Visit: Yes Status: Acute Plan: Patient with acute on chronic renal disease started Lasix drip. Will continue with recommendations. Qualifiers: Chronic kidney disease stage: stage 5, not on chronic dialysis Qualified Code(s): N18.5 - Chronic kidney disease, stage 5 (3) Hypertension Current Visit: Yes Status: Chronic Plan: Blood pressure controlled, will continue medication. (4) Obstructive sleep apnea Current Visit: Yes Status: Chronic Plan: Continue with CPAP at night. Maintain sats above 90%. (5) Chronic anticoagulation Current Visit: Yes Status: Chronic Plan: Continue with Eliquis. Patient with history of atrial fibrillation. (6) Hyperlipidemia Current Visit: Yes Status: Chronic Plan: Continue with medication. Qualifiers: Hyperlipidemia type: unspecified Qualified Code(s): E78.5 - Hyperlipidemia , unspecified (7) Anemia Onset Date: 07/02/15 Current Visit: No Status: Chronic Plan: Likely of chronic renal disease. Will monitor closely. Patient on chronic anti coagulation therapy-Eliquis for atrial fibrillation. Qualifiers: Anemia type: due to chronic kidney disease Chronic kidney disease stage: stage 5, not on chronic dialysis Qualified Code(s): N18.5 - Chronic kidney disease, stage 5; D63.1 - Anemia in chronic kidney disease (8) Atrial fibrillation Onset Date: 01/08/16 Current Visit: No Status: Chronic Plan: Continue with medication. Patient on chronic anti coagulation therapy. Qualifiers: Atrial fibrillation type: chronic (9) Diabetes mellitus Onset Date: 01/08/16 Current Visit: No Status: Chronic Plan: Continue with insulin therapy. Will monitor and adjust appropriately. 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 insulin use: with prison use Diabetes mellitus complication status: with kidney complications Diabetes mellitus complication detail: with chronic kidney disease Chronic kidney disease stage: stage 5, not on chronic dialysis Qualified Code(s): E11.22 - Type 2 diabetes mellitus with diabetic chronic kidney disease; N18.5 - Chronic kidney disease, stage 5; Z79.4 - residential ( current) use of insulin (10) GERD (gastroesophageal reflux disease) Current Visit: No Status: Chronic Plan: Continue with medication Qualifiers: (11) Lymphedema Current Visit: No Status: Acute Plan: Patient has chronic lymphedema. Continue with Lasix drip. Much improved. (12) Obesity Current Visit: No Status: Chronic Plan: Address lifestyle modification education Qualifiers: Obesity type: due to excess calories Obesity classification: adult class 3 (BMI >= 40) Serious obesity comorbidity presence: with serious comorbidity Body mass index: BMI 40.0-44.9 Qualified Code(s): E66.01 - Morbid (severe) obesity due to excess calories; Z68.41 - Body mass index (BMI) 40.0-44.9, adult Discharge Plan: Other (Inpatient rehab) Plan to discharge in: Greater than 2 days - Code Status/Comfort Care Code Status Assessed: No Time Spent Managing Pts Care (In Minutes): 55
--- NOTE | 2017-07-07 08:16 | CON ---
Date of Consultation: 07/06/2017 Additional Consulting Physician: Dr. Weaver. Reason For Consultation: Elevated BUN and creatinine, fluid management, anasarca. History Of Present Illness: This is a pleasant 66-year-old gentleman well known to me from previous admission with significant past medical history of hypertension, congestive heart failure, diastolic function with normal ejection fraction, last echocardiogram was done on this admission. 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 The patient develop shortness of breath and picture of pulmonary edema. For that reason, the patient was transferred back to the acute. The patient over the night, was placed on Lasix drip. According to him , his shortness of breath has been subsided significantly. The patient in the last 5 hour, had urine output of 1700. Past Medical History: Include, 1. Congestive heart failure, diastolic dysfunction, normal ejection fraction. 2. Chronic kidney disease, stage 4, baseline creatinine 3, GFR 20. 3. Lymphedema. 4. COPD. 5. GI bleed. 6. Obstructive sleep apnea. 7. Diabetes. Past Surgical History: Include parathyroidectomy. Allergies: BACTRIM. Family History: Positive for hypertension. Social History: Denies smoking, denies drinking, denies drug abuse. Review of Systems: Head and Neck: No red eye. No ear pain. GI: No nausea, no vomiting. : No polyuria. No dysuria. No hematuria. GLAZE MAKER: Not applicable. Respiratory: Has shortness of breath. Cardiovascular: Has leg edema. Endocrine: No polydipsia. Skin: No rash. Neuro: Generalized weakness. Musculoskeletal: Generalized fatigue. Rehab Medications: Include, 1. Bisacodyl. 2. Docusate. 3. Pantoprazole. 4. Insulin. 5. Nystatin. 6. Atorvastatin. 7. Lasix 80 b.i.d. 8. Hydralazine. 9. Allopurinol 100 daily. 10. Metolazone 2.5 daily. 11. Cholecalciferol. 12. Xarelto. 13. KCl. 14. Loratadine. 15. Glipizide. 16. Digoxin. Current Medications: In the hospital include, 1. Allopurinol. 2. Tylenol. 3. Atorvastatin. 4. Cholecalciferol. 5. Lasix drip. 6. Glipizide. 7. Hydralazine 25 b.i.d. 8. Insulin. 9. Loratadine. 10. Metolazone 2.5 daily. 11. Pantoprazole. 12. KCl. 13. Xarelto. 14. Tramadol. Physical Examination: General: When I saw the patient, the patient lying in bed. Feeling better. Vital Signs: Blood pressure 158/74, pulse of 75. The patient had urine output of 1700 in the last 5 hours. Chest: Decreased entry bilaterally. Heart: S1, S2 RRR Abdomen: Soft and nontender. Extremities: Bilateral edema with compression dressing bilaterally. Neurologic: Alert and oriented x3. Nonfocal. Laboratory Data: Sodium 134, potassium 5, bicarb 21, phosphorus 5.2, magnesium of 2.2. Chest x-ray done today showing over volume compared to the chest x-ray done back on the looked slightly more congested with cardiomegaly. Assessment And Plan: 1. Advanced chronic kidney disease, cardiorenal slow progression over volume nonoliguric. I am going to continue Lasix drip for the time being to establish better volume control for the patient. 2. Hypertension, controlled. We will utilize the blood pressure for more diuresis. 3. Anemia, secondary to gastrointestinal loss, stable. Continue to monitor. Status post IV iron. I am going to go ahead and give the patient an Epogen. We will follow up the patient. 4. Congestive heart failure. We will optimize the fluid status for the patient. 5. Anasarca, secondary to cardiorenal as above. AIDAN/SOHAN Voice ID: [id number] Report ID: [id number] REJI
[2017-07-07] MEDS: NYSTATIN PWDR 100000 UNIT/GM TOP SCH ×2 (09:00→20:27)
[2017-07-07] MEDS: DIGOXIN 0.125 MG TABLET PO SCH (09:28)
[2017-07-07] MEDS: HYDRALAZINE HCL 25 MG TABLET PO SCH ×2 (09:28→20:25)
[2017-07-07] MEDS: glipiZIDE 5 MG TAB PO SCH ×2 (09:28→17:35)
[2017-07-07] MEDS: VITAMIN D 5,000 UNIT CAP PO SCH (09:28)
[2017-07-07] MEDS: ASCORBIC ACID 500 MG TABLET PO SCH ×2 (09:28→20:24)
[2017-07-07] MEDS: POTASSIUM CL SA 10 MEQ TAB PO SCH (09:28)
[2017-07-07] MEDS: ALLOPURINOL 100 MG TAB PO SCH (09:28)
[2017-07-07] MEDS: METOPROLOL TAR 50 MG TAB PO SCH ×2 (09:29→20:25)
[2017-07-07] MEDS: METOLAZONE 2.5 MG TABLET PO SCH (09:29)
[2017-07-07] MEDS: PROMOD 30 ML DOSE PO SCH ×2 (09:50→20:28)
[2017-07-07] MEDS: INSULIN DETEMIR 100 UNIT/1 ML INSULIN SQ SCH ×2 (09:51→20:26)
[2017-07-07] MEDS: COLLAGENASE 30 GM OINTMENT TOP SCH (10:16)
--- NOTE | 2017-07-07 12:31 | PN ---
Mr. Bird seems to be doing fine. He was in the ICU after he appeared to be dyspneic to the staff on t he fifth floor. He actually denies being dyspneic, so he is in a chronic condition where he is fairl y ill. We are walking a balancing line between too much diuresis resulting in more rapid progression of his renal disease and too little diuresis where he is volume overloaded and dyspneic. Since bebe weaver in the ICU overnight, he has diuresed probably more than 3 L. I think we can stop intravenous anti biotics, put him on the regular floor and try and head golf coach the fifth floor staff not to be too aggressiv e about sending him out of there. They may be unable to do rehab on him. He may not be the ideal ca ndidate for rehab. He is diuresed enough now, I think he could be out of ICU and I think we could st op the intravenous antibiotics and put him back on oral diuretics. SH/MODL Voice ID: [id number] Report ID: [id number]
[2017-07-07] MEDS: RIVAROXABAN 15 MG TABLET PO SCH (17:36)
--- NOTE | 2017-07-07 19:22 | PN ---
Date of Progress Note: 07/07/2017 Subjective: The patient doing better. The patient had good urine output over the night on the Lasix drip. Objective: Vital Signs: When I saw the patient, blood pressure of 167/87, pulse of 69. The patient had urine output of 5900, negative of 4300. Weight castillo, the patient lost 11 pounds. Chest: Decreased entry bilateral base. Heart: S1, S2. Regular. Abdomen: Soft nontender, and morbidly obese. Extremities: Edema. Compression dressing both legs. Laboratory Data: WBC 10.2, H and H 8.6/26.5, and platelets 220. Sodium 134, potassium 4, bicarb 22, BUN 116, creatinine 3.2, and calcium 8.3. Current Medications: The patient on include; 1.Nystatin. 2.Xarelto. 3.Atorvastatin. 4.Hydralazine 25 b.i.d. 5.Metoprolol 50. 6.Lasix drip. 7.Metolazone 2.5 daily. 8.Pantoprazole. 9.Glipizide. 10.Bisacodyl. Assessment And Plan: 1.Chronic kidney disease, stable, still on the wet side. I going to go ahead. Continue on the Lasi x drip. We will consider switching him to IV bolus of the Lasix tomorrow and we will follow up. 2.Hypertension. Continue to utilize the blood pressure for more diuresis. I am going to go ahead a nd increase the hydralazine to 3 times a day. 3.Congestive heart failure. We will optimize the patient's fluid. 4.Iron deficiency anemia secondary to gastrointestinal loss, stable. No active bleed. Currently, w e will continue to monitor. The patient received Epogen as a component of anemia of chronic kidney d isease. 5.Chronic obstructive pulmonary disease. We will follow up with the primary. The patient cleared f rom the renal standpoint to transfer to the floor. AIDAN/SOHAN Voice ID: [id number] Report ID: [id number]
[2017-07-07] MEDS: ATORVASTATIN 20 MG TAB PO SCH (20:25)
[2017-07-07] MEDS: DOCUSATE NA/SENNA CONC 1 TAB PO SCH (20:28)
[2017-07-08] MEDS: FUROSEMIDE 100 MG in NA CHLORIDE 0.9% 90 ML IV SCH ×2 (01:37→06:40)
[2017-07-08] MEDS: TRAMADOL HCL 50 MG TAB PO PRN ×3 (01:44→21:25)
[2017-07-08 04:13] LABS: Absolute Lymphocytes (CBC) 0.8 K/uL (0.7-4.9); Absolute Monocytes 1.2 K/uL (0.1-1.3); Absolute Neutrophil 9.1 K/uL (1.8-8.0); Basophils % 0.7 % (0-1.3); Eosinophils % 1.3 % (0-4.4); Hematocrit 26.2 % (39.6-49.0); Lymphocytes % 7.2 % (15.3-44.8); MCH 29.2 pg (27.0-35.0); MPV 8.6 fL (7.6-11.3); Monocytes % 10.2 % (3.3-12.3); RBC Red Blood Cell Count 2.88 M/uL (4.33-5.43)
[2017-07-08 05:08] LABS: Potassium 3.9 mEq/L (3.6-5.0)
[2017-07-08] MEDS: PANTOPRAZOLE 40MG TABLET PO SCH (06:38)
--- NOTE | 2017-07-08 07:26 | RAD REPORT ---
EXAM DESCRIPTION: Omid Single View07/08/2017 6:55 am CLINICAL HISTORY: Shortness of breath COMPARISON: July 06 FINDINGS: The johan are blurred indicative of minimal interstitial pulmonary edema. The heart remain s enlarged IMPRESSION: Minimal interstitial pulmonary edema without significant change from the prior exam
[2017-07-08] MEDS: INSULIN -REGULAR HUMAN 50 UNIT/0.5 ML ML SQ SCH ×4 (07:30→21:27)
[2017-07-08] MEDS: INSULIN DETEMIR 100 UNIT/1 ML INSULIN SQ SCH ×2 (08:00→21:27)
[2017-07-08] MEDS ORDERED: METOLAZONE 2.5 MG TABLET PO SCH (09:00)
[2017-07-08] MEDS: METOLAZONE 5 MG TABLET PO SCH (10:02)
[2017-07-08] MEDS: VITAMIN D 5,000 UNIT CAP PO SCH (10:02)
[2017-07-08] MEDS: glipiZIDE 5 MG TAB PO SCH ×2 (10:02→17:03)
[2017-07-08] MEDS: POTASSIUM CL SA 10 MEQ TAB PO SCH (10:04)
[2017-07-08] MEDS: METOPROLOL TAR 50 MG TAB PO SCH ×2 (10:05→21:26)
[2017-07-08] MEDS: DIGOXIN 0.125 MG TABLET PO SCH (10:05)
[2017-07-08] MEDS: ALLOPURINOL 100 MG TAB PO SCH (10:06)
[2017-07-08] MEDS: ASCORBIC ACID 500 MG TABLET PO SCH ×2 (10:06→21:25)
[2017-07-08] MEDS: HYDRALAZINE HCL 25 MG TABLET PO SCH ×3 (10:06→21:26)
[2017-07-08] MEDS: COLLAGENASE 30 GM OINTMENT TOP SCH (10:07)
[2017-07-08] MEDS: NYSTATIN PWDR 100000 UNIT/GM TOP SCH ×2 (10:07→21:28)
[2017-07-08] MEDS: PROMOD 30 ML DOSE PO SCH ×2 (10:08→21:28)
--- NOTE | 2017-07-08 16:15 | P.PN ---
Subjective Date of Service: 07/08/17 Primary Care Provider: Dr. Weaver(I am covering for Dr. Weaver) Chief Complaint: Shortness of breath Pt seen and examined with RN. Chart Reviewed. Today has no complains to offer. On Lasix ggt at this time. States he feels much better today. Review of Systems General: As per HPI Physical Examination - Vital Signs Temperature: 97.0 F Blood Pressure: 190/87 Pulse: 71 Respirations: 16 Pulse Ox (%): 97 - Physical Exam General: Alert, In no apparent distress, Oriented x3 HEENT: Atraumatic Neck: Supple Respiratory: Clear to auscultation bilaterally, Normal air movement Cardiovascular: Regular rate/rhythm, Normal S1 S2, Edema Gastrointestinal: Normal bowel sounds, No tenderness Musculoskeletal: No tenderness, Swelling (1+ BL LE) Integumentary: No rashes Neurological: Normal speech, Normal tone, Normal affect Lymphatics: No axilla or inguinal lymphadenopathy - Studies Laboratory Data (last 24 hrs) 07/08/17 03:49: Sodium 136, Potassium 3.9, BUN 108 H, Creatinine 3.31 H, Glucose 97, Magnesium 2.0 07/08/17 03:49: WBC 11.3 H, Hgb 8.4 L, Hct 26.2 L, Plt Count 228 Medications List Reviewed: Yes Assessment & Plan - Problems (Diagnosis) (1) Dyspnea Onset Date: 07/02/15 Current Visit: No Status: Acute Plan: Dyspnea most Likely 2.2 to Volume Overload due to chronic kidney Disease. -Lasix ggt for now -24hr outpt 3155ML -Nephrology Consulted. appreciated Reccs -Switch to lasix 80mg BID -Fluid restriction and low Na diet -F/U with I&O's in AM Qualifiers: Dyspnea type: dyspnea on exertion Qualified Code(s): R06.09 - Other forms of dyspnea (2) Chronic renal disease Current Visit: Yes Status: Acute Plan: See # 1 Qualifiers: Chronic kidney disease stage: stage 5, not on chronic dialysis Qualified Code(s): N18.5 - Chronic kidney disease, stage 5 (3) Hyperlipidemia Current Visit: Yes Status: Chronic Plan: On Statin Qualifiers: Hyperlipidemia type: unspecified Qualified Code(s): E78.5 - Hyperlipidemia , unspecified (4) Hypertension Current Visit: Yes Status: Chronic Qualifiers: Hypertension type: essential hypertension Qualified Code(s): I10 - Essential (primary) hypertension (5) Obstructive sleep apnea Current Visit: Yes Status: Chronic Plan: CPAP at night (6) Atrial fibrillation Onset Date: 07/02/15 Current Visit: No Status: Chronic Plan: On BB and Xarelto Qualifiers: Atrial fibrillation type: chronic Qualified Code(s): I48.2 - Chronic atrial fibrillation (7) Lymphedema Current Visit: No Status: Chronic (8) Diabetes mellitus Onset Date: 01/08/16 Current Visit: No Status: Chronic Qualifiers: Diabetes mellitus type: type 2 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 remote 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 operator use Diabetes mellitus complication status: with kidney complications Diabetes mellitus complication detail: with chronic kidney disease Chronic kidney disease stage: stage 5, not on chronic dialysis Qualified Code(s): E11.22 - Type 2 diabetes mellitus with diabetic chronic kidney disease; N18.5 - Chronic kidney disease, stage 5; 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
[2017-07-08] MEDS: FUROSEMIDE 40 MG TABLET PO SCH (17:03)
[2017-07-08] MEDS: RIVAROXABAN 15 MG TABLET PO SCH (17:04)
[2017-07-08] MEDS: DOCUSATE NA/SENNA CONC 1 TAB PO SCH (21:00)
[2017-07-08] MEDS: ATORVASTATIN 20 MG TAB PO SCH (21:25)
--- NOTE | 2017-07-09 00:10 | PN ---
Date of Progress Note: 07/08/2017 Chief Complaint: Chronic kidney, stage 4, associated with fluid overload; severe cardiorenal syndrome; and anasarca. The patient was started on IV Lasix drip to control fluid overload. He is feeling better. He has history of lymphedema. He denies PND, orthopnea. Review of Systems: Denies cough, chest pain, palpitations. Physical Examination: Lungs: Decreased breath sound at bases. Heart: S1-S2. Abdomen: Soft, benign. Extremities: Dressing in both legs. Laboratory Data: Sodium 134, potassium 4.0, bicarbonate 22, BUN 116, creatinine 3.2, calcium 8.3. Impression And Plan: 1. Chronic kidney disease stage 4 with acute kidney injury, cardiorenal syndrome, accelerated chronic kidney disease, anasarca. The patient will continue Lasix. There is some response to Lasix drip. The patient completed the Lasix drip. Plan is continue Lasix maintenance dose, continue low-sodium diet. 2. Hypertension. Blood pressure is elevated. Continue hydralazine, medication adjusted. 3. Congestive heart failure. Lasix is needed. Continue low-sodium diet and hydralazine for congestive heart failure. RACHELLE inhibitor on hold because of acute kidney injury. 4. Chronic pulmonary lung disease. The patient will follow up with primary care and Pulmonary team. 5. The patient is feeling better today. I discussed with the patient on previous occasion because of elevated BUN, he may need to start dialysis. The BUN is somewhat improving since yesterday. BUN yesterday was 116 and today is 108. There is high prerenal azotemia, hyperphosphatemia. Continue to monitor daily electrolytes and make further recommendation as far as the need for dialysis. i spent total 36 min including 26 min to coordinate care plan. LANG/SOHAN Voice ID: [id number] Report ID: [id number] REJI
[2017-07-09 05:19] LABS: Absolute Lymphocytes (CBC) 0.7 K/uL (0.7-4.9); Absolute Monocytes 1.2 K/uL (0.1-1.3); Absolute Neutrophil 11.3 K/uL (1.8-8.0); Basophils % 0.4 % (0-1.3); Eosinophils % 0.9 % (0-4.4); Hematocrit 27.3 % (39.6-49.0); Lymphocytes % 5.5 % (15.3-44.8); MCH 28.7 pg (27.0-35.0); MCV 91.6 fL (80-100); MPV 8.8 fL (7.6-11.3); Monocytes % 9.2 % (3.3-12.3); RBC Red Blood Cell Count 2.98 M/uL (4.33-5.43)
[2017-07-09 06:02] LABS: Magnesium 1.9 mg/dL (1.8-2.5); Potassium 3.5 mEq/L (3.6-5.0)
[2017-07-09] MEDS: PANTOPRAZOLE 40MG TABLET PO SCH (06:33)
--- NOTE | 2017-07-09 07:08 | RAD REPORT ---
EXAM DESCRIPTION: RAD - Chest Single View - 07/09/2017 6:45 am CLINICAL HISTORY: Shortness of breath, pulmonary edema COMPARISON: July 08 TECHNIQUE: AP portable chest image was obtained 0622 hours . FINDINGS: Inspiratory effort is only minimally improved. No new or progressive peripheral mass or co nsolidation. Prominent central vasculature and lung markings remain. This is minimally improved. Trac hea is midline. Heart and vasculature are normal. No measurable pleural effusion and no pneumothorax. No gross bony abnormality seen. No acute aortic findings suspected. IMPRESSION: Partial clearing of the central edema pattern compared to prior day study. No new or progressive cardiopulmonary finding.
[2017-07-09] MEDS: INSULIN -REGULAR HUMAN 50 UNIT/0.5 ML ML SQ SCH ×4 (07:30→21:00)
[2017-07-09] MEDS: COLLAGENASE 30 GM OINTMENT TOP SCH (09:00)
[2017-07-09] MEDS: NYSTATIN PWDR 100000 UNIT/GM TOP SCH ×2 (09:00→21:02)
[2017-07-09] MEDS: TRAMADOL HCL 50 MG TAB PO PRN ×2 (09:18→20:58)
[2017-07-09] MEDS: DIGOXIN 0.125 MG TABLET PO SCH (10:05)
[2017-07-09] MEDS: POTASSIUM CL SA 10 MEQ TAB PO SCH (10:05)
[2017-07-09] MEDS: FUROSEMIDE 40 MG TABLET PO SCH ×2 (10:05→16:15)
[2017-07-09] MEDS: ASCORBIC ACID 500 MG TABLET PO SCH ×2 (10:05→21:00)
[2017-07-09] MEDS: ALLOPURINOL 100 MG TAB PO SCH (10:05)
[2017-07-09] MEDS: VITAMIN D 5,000 UNIT CAP PO SCH (10:05)
[2017-07-09] MEDS: HYDRALAZINE HCL 25 MG TABLET PO SCH ×3 (10:05→21:00)
[2017-07-09] MEDS: PROMOD 30 ML DOSE PO SCH ×2 (10:06→21:01)
[2017-07-09] MEDS: METOPROLOL TAR 50 MG TAB PO SCH ×2 (10:06→20:58)
[2017-07-09] MEDS: METOLAZONE 5 MG TABLET PO SCH (10:06)
[2017-07-09] MEDS: glipiZIDE 5 MG TAB PO SCH ×2 (10:06→16:15)
--- NOTE | 2017-07-09 12:44 | PN ---
Mr. Bird seems to be fairly stable. He is in chronic AFib. His BUN and creatinine are staying about the same. BUN is 118. I think the plan is to discharge him to long-term acute care or alf that has physical therapy capabilities. There are no cardiac issues outstanding at this point and I think he is ready to be transferred at any point. LEIDA/SOHAN Voice ID: [id number] Report ID: [id number]
--- NOTE | 2017-07-09 15:58 | P.PN ---
Subjective Date of Service: 07/09/17 Primary Care Provider: Dr. Weaver(I am covering for Dr. Weaver) Chief Complaint: Shortness of breath Pt seen and examined with RN. Chart Reviewed. Today has no complains to offer. States he feels much better today. Working with PT. Denied by Inpatient rehab. SNF at [facility] placement pending. Review of Systems General: As per HPI Physical Examination - Vital Signs Temperature: 97.8 F Blood Pressure: 175/70 Pulse: 70 Respirations: 18 Pulse Ox (%): 99 - Physical Exam General: Alert, In no apparent distress HEENT: Atraumatic, PERRLA, EOMI Neck: Supple, JVD not distended Respiratory: Clear to auscultation bilaterally, Normal air movement Cardiovascular: Regular rate/rhythm, Normal S1 S2 Gastrointestinal: Normal bowel sounds, No tenderness Musculoskeletal: No tenderness Integumentary: No rashes Neurological: Normal speech, Normal tone, Normal affect Lymphatics: No axilla or inguinal lymphadenopathy - Studies Laboratory Data (last 24 hrs) 07/09/17 04:39: Sodium 133 L, Potassium 3.5 L, BUN 118 H, Creatinine 3.28 H, Glucose 206 H, Magnesium 1.9 07/09/17 04:39: WBC 13.5 H D, Hgb 8.6 L, Hct 27.3 L, Plt Count 227 Medications List Reviewed: Yes Assessment & Plan - Problems (Diagnosis) (1) Dyspnea Onset Date: 07/02/15 Current Visit: No Status: Acute Plan: Dyspnea most Likely 2.2 to Volume Overload due to chronic kidney Disease. -Lasix PO now -24hr outpt adequate -Nephrology Consulted. appreciated Reccs -Fluid restriction and low Na diet -F/U with I&O's in AM Qualifiers: Dyspnea type: dyspnea on exertion Qualified Code(s): R06.09 - Other forms of dyspnea (2) Chronic renal disease Current Visit: Yes Status: Acute Plan: See # 1 Qualifiers: Chronic kidney disease stage: stage 5, not on chronic dialysis Qualified Code(s): N18.5 - Chronic kidney disease, stage 5 (3) Hyperlipidemia Current Visit: Yes Status: Chronic Plan: On Statin Qualifiers: Hyperlipidemia type: unspecified Qualified Code(s): E78.5 - Hyperlipidemia , unspecified (4) Hypertension Current Visit: Yes Status: Chronic Qualifiers: Hypertension type: essential hypertension Qualified Code(s): I10 - Essential (primary) hypertension (5) Obstructive sleep apnea Current Visit: Yes Status: Chronic Plan: CPAP at night (6) Atrial fibrillation Onset Date: 07/02/15 Current Visit: No Status: Chronic Plan: On BB and Xarelto Qualifiers: Atrial fibrillation type: chronic Qualified Code(s): I48.2 - Chronic atrial fibrillation (7) Lymphedema Current Visit: No Status: Chronic (8) Diabetes mellitus Onset Date: 01/08/16 Current Visit: No Status: Chronic Qualifiers: Diabetes mellitus type: type 2 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: with manager long term care use Diabetes mellitus complication status: with kidney complications Diabetes mellitus complication detail: with chronic kidney disease Chronic kidney disease stage: stage 5, not on chronic dialysis Qualified Code(s): E11.22 - Type 2 diabetes mellitus with diabetic chronic kidney disease; N18.5 - Chronic kidney disease, stage 5; Z79.4 - residential ( current) use of insulin (9) GERD (gastroesophageal reflux disease) Current Visit: No Status: Chronic Qualifiers: Esophagitis presence: without esophagitis Qualified Code(s): K21.9 - Gastro -esophageal reflux disease without esophagitis (10) Morbid obesity Onset Date: 01/08/16 Current Visit: No Status: Chronic
[2017-07-09] MEDS: RIVAROXABAN 15 MG TABLET PO SCH (16:15)
[2017-07-09] MEDS: DOCUSATE NA/SENNA CONC 1 TAB PO SCH (21:00)
[2017-07-09] MEDS: ATORVASTATIN 20 MG TAB PO SCH (21:00)
[2017-07-09] MEDS: INSULIN DETEMIR 100 UNIT/1 ML INSULIN SQ SCH (21:00)
--- NOTE | 2017-07-10 02:28 | PN ---
Date of Progress Note: 07/09/2017 The patient is doing well. The patient is responding to the diuresis. Physical Examination: Vital Signs: Blood pressure of 176/77, pulse of 69, afebrile. The patient had urine output of 2300, negative of 1 L. Chest: Decreased air entry bilateral base. Heart: S1, S2. Regular. Abdomen: Soft, nontender. Extremities: Lymphedema. Stocking dressing. Laboratory Data: WBC 13.5, H and H 8.6/27.3, platelets 227. Sodium 131, potassium 3.5, bicarb 25, B UN 118, creatinine 3.2, calcium 8, magnesium 1.9. Current Medications: Include, 1.Nystatin. 2.Loratadine. 3.Xarelto. 4.Atorvastatin. 5.Digoxin. 6.Metoprolol. 7.Tylenol. 8.Lasix 40 b.i.d. 9.Pantoprazole. 10.Insulin. Assessment And Plan: 1.Chronic kidney disease, stage IIIB, secondary to hypertension, nephrosclerosis, stable on baseline . I am going to go ahead and increase Lasix to 80 mg and add metolazone to establish better volume c ontrol. We will monitor. 2.Hypertension. We are increasing the diuresis to have better volume control. 3.Anemia secondary to chronic kidney disease, stable. We will monitor. 4.Hypomagnesemia. We will supplement. 5.Hypokalemia. Continue supplement. 6.Chronic obstructive pulmonary disease. Continue CPAP. The patient waiting for placement at [facility]. NEGRA Voice ID: [id number] Report ID: [id number]
[2017-07-10] MEDS: TRAMADOL HCL 50 MG TAB PO PRN ×2 (03:44→16:35)
[2017-07-10 05:10] LABS: Absolute Lymphocytes (CBC) 0.8 K/uL (0.7-4.9); Absolute Monocytes 1.5 K/uL (0.1-1.3); Absolute Neutrophil 15.2 K/uL (1.8-8.0); Basophils % 0.3 % (0-1.3); Eosinophils % 0.3 % (0-4.4); Hematocrit 26.5 % (39.6-49.0); Lymphocytes % 4.3 % (15.3-44.8); MCH 29.5 pg (27.0-35.0); MCV 89.5 fL (80-100); MPV 8.8 fL (7.6-11.3); Monocytes % 8.3 % (3.3-12.3); RBC Red Blood Cell Count 2.96 M/uL (4.33-5.43)
[2017-07-10 05:41] LABS: Blood Morphology Comment NOT SEEN (NOT SEEN); Platelet Estimate ADEQ
[2017-07-10 05:57] LABS: Magnesium 1.9 mg/dL (1.8-2.5); Potassium 3.5 mEq/L (3.6-5.0)
[2017-07-10] MEDS: PANTOPRAZOLE 40MG TABLET PO SCH (06:17)
[2017-07-10] MEDS: INSULIN -REGULAR HUMAN 50 UNIT/0.5 ML ML SQ SCH ×5 (07:30→22:01)
[2017-07-10] MEDS: glipiZIDE 5 MG TAB PO SCH ×2 (07:54→17:14)
--- NOTE | 2017-07-10 08:48 | RAD REPORT ---
EXAM DESCRIPTION: RAD - Chest Single View - 07/09/2017 10:37 pm CLINICAL HISTORY: COPD, shortness of breath COMPARISON: July 09 TECHNIQUE: AP portable chest image was obtained 2225 hours . FINDINGS: Lung volumes remain low. Lung markings remain prominent. Heart size and vasculature also r emain prominent. Trachea is midline. No measurable pleural effusion and no pneumothorax. No gross bon y abnormality seen. No acute aortic findings suspected. IMPRESSION: Heart, vasculature and lung markings remain prominent. Exam is stable from prior day.
[2017-07-10] MEDS ORDERED: METOLAZONE 5 MG TABLET PO SCH (09:00)
[2017-07-10] MEDS: VITAMIN D 5,000 UNIT CAP PO SCH (09:39)
[2017-07-10] MEDS: ASCORBIC ACID 500 MG TABLET PO SCH ×2 (09:39→22:00)
[2017-07-10] MEDS: HYDRALAZINE HCL 25 MG TABLET PO SCH ×3 (09:39→22:01)
[2017-07-10] MEDS: POTASSIUM CL SA 10 MEQ TAB PO SCH (09:40)
[2017-07-10] MEDS: FUROSEMIDE 40 MG TABLET PO SCH ×2 (09:41→17:14)
[2017-07-10] MEDS: DIGOXIN 0.125 MG TABLET PO SCH (09:41)
[2017-07-10] MEDS: METOPROLOL TAR 50 MG TAB PO SCH ×2 (09:41→21:58)
[2017-07-10] MEDS: ALLOPURINOL 100 MG TAB PO SCH (09:41)
[2017-07-10] MEDS: PROMOD 30 ML DOSE PO SCH ×2 (09:42→21:58)
[2017-07-10] MEDS: COLLAGENASE 30 GM OINTMENT TOP SCH (09:43)
[2017-07-10] MEDS: NYSTATIN PWDR 100000 UNIT/GM TOP SCH ×2 (09:45→21:00)
--- NOTE | 2017-07-10 10:06 | P.PN ---
Subjective Date of Service: 07/10/17 Primary Care Provider: Dr. Weaver(I am covering for Dr. Weaver) Chief Complaint: Shortness of breath Pt seen and examined with RN. Chart Reviewed. Pt is feeling tired today and states he is also weaker than before. Denied by Inpatient rehab. SNF at [facility] placement pending. This AM WBC is elevated. No fever or chills and no associated symptoms noted. Review of Systems General: As per HPI Physical Examination - Vital Signs Temperature: 97.3 F Blood Pressure: 134/62 Pulse: 59 Respirations: 18 Pulse Ox (%): 100 - Physical Exam General: Alert, In no apparent distress, Oriented x3, Obese HEENT: Atraumatic Neck: Supple, JVD not distended Respiratory: Normal air movement, Crackles/rales Cardiovascular: Regular rate/rhythm, Normal S1 S2 Gastrointestinal: Normal bowel sounds, Soft and benign, Non-distended, No tenderness Musculoskeletal: No tenderness Integumentary: No rashes Neurological: Normal speech, Normal tone, Normal affect Lymphatics: No axilla or inguinal lymphadenopathy - Studies Laboratory Data (last 24 hrs) 07/10/17 04:34: Sodium 135, Potassium 3.5 L, BUN 116 H, Creatinine 3.33 H, Glucose 172 H, Magnesium 1.9 07/10/17 04:34: WBC 17.6 H D, Hgb 8.7 L, Hct 26.5 L, Plt Count 228 Medications List Reviewed: Yes Assessment & Plan - Problems (Diagnosis) (1) Leukocytosis Current Visit: Yes Status: Acute Plan: Most Likely infectious process. -Will get UA and xray 2 view at this time -Will start on empiric Antibiotics -Will f.u with results. -Will also get CRP Qualifiers: Leukocytosis type: bandemia Qualified Code(s): D72.825 - Bandemia (2) Dyspnea Onset Date: 07/02/15 Current Visit: No Status: Acute Plan: Dyspnea most Likely 2.2 to Volume Overload due to chronic kidney Disease. -Lasix PO for now -24hr outpt 2335ml -Nephrology Consulted. appreciated Reccs -Fluid restriction and low Na diet -F/U with I&O's in AM Qualifiers: Dyspnea type: dyspnea on exertion Qualified Code(s): R06.09 - Other forms of dyspnea (3) Chronic renal disease Current Visit: Yes Status: Acute Plan: See # 1 Qualifiers: Chronic kidney disease stage: stage 5, not on chronic dialysis Qualified Code(s): N18.5 - Chronic kidney disease, stage 5 (4) Hyperlipidemia Current Visit: Yes Status: Chronic Plan: On Statin Qualifiers: Hyperlipidemia type: unspecified Qualified Code(s): E78.5 - Hyperlipidemia , unspecified (5) Hypertension Current Visit: Yes Status: Chronic Qualifiers: Hypertension type: essential hypertension Qualified Code(s): I10 - Essential (primary) hypertension (6) Obstructive sleep apnea Current Visit: Yes Status: Chronic Plan: CPAP at night (7) Atrial fibrillation Onset Date: 07/02/15 Current Visit: No Status: Chronic Plan: On BB and Xarelto Qualifiers: Atrial fibrillation type: chronic Qualified Code(s): I48.2 - Chronic atrial fibrillation (8) Lymphedema Current Visit: No Status: Chronic (9) Diabetes mellitus Onset Date: 01/08/16 Current Visit: No Status: Chronic Qualifiers: Diabetes mellitus type: type 2 Diabetes mellitus snf insulin use: with snf use Diabetes mellitus complication status: with kidney complications Diabetes mellitus complication detail: with chronic kidney disease Chronic kidney disease stage: stage 5, not on chronic dialysis Qualified Code(s): E11.22 - Type 2 diabetes mellitus with diabetic chronic kidney disease; N18.5 - Chronic kidney disease, stage 5; Z79.4 - jail ( current) use of insulin (10) GERD (gastroesophageal reflux disease) Current Visit: No Status: Chronic Qualifiers: Esophagitis presence: without esophagitis Qualified Code(s): K21.9 - Gastro -esophageal reflux disease without esophagitis (11) Morbid obesity Onset Date: 01/08/16 Current Visit: No Status: Chronic
[2017-07-10] MEDS ORDERED: Levofloxacin500mg IV 500 MG/100 ML BAG IV SCH (11:00)
--- NOTE | 2017-07-10 11:42 | RAD REPORT ---
EXAM DESCRIPTION: RAD - Chest Pa And Lat (2 Views) - 07/10/2017 10:41 am CLINICAL HISTORY: Sepsis COMPARISON: July 09 TECHNIQUE: AP and lateral views were obtained. FINDINGS: The lungs are underinflated. No new mass or consolidation. Lung markings are prominent but not clearly different. Trachea is midline. Heart size is normal and central vasculature is within normal limits. No pleural effusion or pneumothorax seen. No acute bony finding noted. No aortic ab normality. IMPRESSION: No acute cardiopulmonary process. No pneumonia or new lung parenchymal process seen.
[2017-07-10] MEDS ORDERED: Levofloxacin500mg IV 500 MG/100 ML BAG IV ONE (12:00)
[2017-07-10 12:13] LABS: Urine Appearance CLOUDY; Urine Bilirubin NEGATIVE (NEG); Urine Blood NEGATIVE (NEG); Urine Color YELLOW; Urine Glucose NEGATIVE (NEG); Urine Protein NEGATIVE (NEG); Urine Specific Gravity 1.015 (1.005-1.030); Urine Urobilinogen 0.2 mg/dL (0.2-1.0); Urine pH 5.5 (5.0-7.0)
[2017-07-10 12:14] LABS: Urine Microscopic Reflex ORDER UMIC
[2017-07-10 12:24] LABS: Urine Bacteria >50 /HPF (NONE SEEN); Urine Culture Reflex Order REFLEXED
--- NOTE | 2017-07-10 14:28 | PN ---
Date of Progress Note: 07/10/2017 Subjective: The patient is doing better off oxygen. Objective: Vital Signs: Blood pressure 132/62, pulse of 59, afebrile. The patient had good urine o utput of 2300, negative of 1 L. Weight castillo, the patient down to 325. Chest: Clear to auscultation. Heart: S1, S2 regular. Abdomen: Soft, nontender. Extremities: bilateral compression dressing. Current Medications: Levaquin 250 daily, Nystatin, loratadine, rivastigmine, atorvastatin, digoxin, hydralazine 25 t.i.d., metoprolol 50 b.i.d., Tylenol, Lasix 80 b.i.d. oral, metolazone 5, pantoprazol e, insulin, docusate, KCl, and tramadol. Laboratory Data: WBC 17.6, H and H 8.7/26.5, and platelets 222. Sodium 132, potassium 3.5, bicarb 2 6, BUN 116, creatinine 3.3, calcium 8.1, phos 4, and magnesium 1.9. Chest x-ray, no congestion. Assessment And Plan: 1.Chronic kidney disease with acute kidney injury secondary to cardiorenal recover plateau. I am go ing to discontinue metolazone as the chest x-ray did not show major over volume. 2.Hypertension, controlled, optimal. We will continue to monitor. 3.Hypomagnesemia, status post supplement. 4.Hypokalemia. We will supplement. 5.Chronic obstructive pulmonary disease exacerbation and obstructive sleep apnea. Continue treatmen t. 6.Congestive heart failure, diastolic dysfunction. look to me euvolemic. Discontinue metolazone. Continue current dose of Lasix. AIDAN/SOHAN Voice ID: [id number] Report ID: [id number]
[2017-07-10] MEDS: RIVAROXABAN 15 MG TABLET PO SCH (17:14)
[2017-07-10] MEDS: DOCUSATE NA/SENNA CONC 1 TAB PO SCH (21:00)
[2017-07-10] MEDS: INSULIN DETEMIR 100 UNIT/1 ML INSULIN SQ SCH (21:00)
[2017-07-10] MEDS: ATORVASTATIN 20 MG TAB PO SCH (22:00)
[2017-07-10] MEDS: ACETAMINOPHEN 325 MG TABLET PO PRN (22:00)
[2017-07-11] MEDS: TRAMADOL HCL 50 MG TAB PO PRN ×2 (02:22→20:28)
[2017-07-11 05:56] LABS: Potassium 3.5 mEq/L (3.6-5.0)
[2017-07-11] MEDS: PANTOPRAZOLE 40MG TABLET PO SCH (06:10)
[2017-07-11] MEDS: INSULIN -REGULAR HUMAN 50 UNIT/0.5 ML ML SQ SCH ×5 (07:30→20:30)
[2017-07-11] MEDS: ASCORBIC ACID 500 MG TABLET PO SCH ×2 (08:14→20:27)
[2017-07-11] MEDS: DIGOXIN 0.125 MG TABLET PO SCH (08:14)
[2017-07-11] MEDS: VITAMIN D 5,000 UNIT CAP PO SCH (08:14)
[2017-07-11] MEDS: POTASSIUM CL SA 10 MEQ TAB PO SCH (08:14)
[2017-07-11] MEDS: ALLOPURINOL 100 MG TAB PO SCH (08:14)
[2017-07-11] MEDS: glipiZIDE 5 MG TAB PO SCH ×2 (08:14→17:23)
[2017-07-11] MEDS: METOPROLOL TAR 50 MG TAB PO SCH ×2 (08:15→20:27)
[2017-07-11] MEDS: FUROSEMIDE 40 MG TABLET PO SCH ×2 (08:15→17:24)
[2017-07-11] MEDS: HYDRALAZINE HCL 25 MG TABLET PO SCH ×3 (08:15→20:28)
[2017-07-11] MEDS: COLLAGENASE 30 GM OINTMENT TOP SCH (08:18)
[2017-07-11] MEDS: NYSTATIN PWDR 100000 UNIT/GM TOP SCH ×2 (08:19→20:36)
[2017-07-11] MEDS: PROMOD 30 ML DOSE PO SCH ×2 (09:24→20:29)
[2017-07-11 10:36] LABS: Absolute Lymphocytes (CBC) 0.5 K/uL (0.7-4.9); Absolute Monocytes 1.1 K/uL (0.1-1.3); Absolute Neutrophil 15.2 K/uL (1.8-8.0); Basophils % 0.1 % (0-1.3); Eosinophils % 0.3 % (0-4.4); Hematocrit 27.8 % (39.6-49.0); Lymphocytes % 3.2 % (15.3-44.8); MCH 28.2 pg (27.0-35.0); MCV 91.5 fL (80-100); MPV 8.1 fL (7.6-11.3); Monocytes % 6.5 % (3.3-12.3); RBC Red Blood Cell Count 3.04 M/uL (4.33-5.43)
[2017-07-11 10:48] LABS: Potassium 3.4 mEq/L (3.6-5.0)
[2017-07-11 11:24] LABS: Albumin 2.6 g/dL (3.2-5.5); Bilirubin Total 0.4 mg/dL (0.3-1.2); Protein, Total 6.9 g/dL (6.0-8.3)
[2017-07-11] MEDS ORDERED: Levofloxacin 250mg IV 250 MG/50 ML BAG IV SCH (12:00)
[2017-07-11 13:27] LABS: Blood Morphology Comment NOT SEEN (NOT SEEN); Platelet Estimate ADEQ; Urine White Blood Cell Casts OK
--- NOTE | 2017-07-11 13:35 | PN ---
Date of Progress Note: 07/11/2017 Subjective: The patient doing better. No nausea. No vomiting. Shortness of breath subsided signif icantly. Physical Examination: Vital Signs: Blood pressure 166/63, pulse of 56, afebrile. Chest: Decreased air entry bilateral base. Heart: S1, S2. Regular. Abdomen: Soft, morbidly obese. Extremities: Compression dressing bilateral. Laboratory Data: WBC 17, H and H 8.6/27.8, platelets of 233. Sodium 132, potassium 3.4, bicarb 26, BUN 124 trending down, creatinine 3.6, calcium of 8. Urinalysis; specific gravity 1015, RBC 20, WBC more than 50. Current Medications: The patient on its include: 1.Levaquin 250 daily. 2.Nystatin. 3.Loratadine. 4.Xarelto. 5.Digoxin. 6.Hydralazine 25 t.i.d. 7.Metoprolol 50 b.i.d. 8.Lasix 80 b.i.d. 9.Tylenol. 10.Pantoprazole. 11.Insulin. Assessment And Plan: 1.Chronic kidney disease, stage 4, advanced, secondary to cardiorenal, looked to me started to be no rmal volume with significant third space. I am going to decrease the Lasix to 60 b.i.d. We will ord er chest x-ray tomorrow for better evaluation of his fluid status. 2.Hypertension, uncontrolled. Increase hydralazine to 50. 3.Urinary tract infection. I agree with Levaquin. Follow up culture. 4.Chronic obstructive pulmonary disease. Continue breathing treatment. 5.Congestive heart failure, cardiac arrhythmia. Continue Xarelto. 6.Gastrointestinal bleed, stable. 7.Diabetes as by primary. AIDAN/MODL Voice ID: [id number] Report ID: [id number]
[2017-07-11] MEDS ORDERED: POTASSIUM CL SA 10 MEQ TAB PO ONE (14:00)
--- NOTE | 2017-07-11 14:13 | P.PN ---
Subjective Date of Service: 07/11/17 Primary Care Provider: Dr. Weaver(I am covering for Dr. Weaver) Chief Complaint: Shortness of breath Pt seen and examined with RN. Chart Reviewed. Pt is feeling tired today. Denied by Inpatient rehab. SNF at [facility] placement pending. UA with Gram - rods Review of Systems General: As per HPI Physical Examination - Vital Signs Temperature: 97.8 F Blood Pressure: 161/62 Pulse: 61 Respirations: 20 Pulse Ox (%): 100 - Physical Exam General: Alert, In no apparent distress HEENT: Atraumatic, PERRLA, EOMI Neck: Supple, JVD not distended Respiratory: Clear to auscultation bilaterally, Normal air movement Cardiovascular: Regular rate/rhythm, Normal S1 S2 Gastrointestinal: Normal bowel sounds, No tenderness Musculoskeletal: No tenderness Integumentary: No rashes Neurological: Normal speech, Normal tone, Normal affect Lymphatics: No axilla or inguinal lymphadenopathy - Studies Laboratory Data (last 24 hrs) 07/11/17 10:27: Sodium 132 L, Potassium 3.4 L, BUN 124 H, Creatinine 3.66 H, Glucose 285 H, Total Bilirubin 0.4, AST 13, ALT 15, Alkaline Phosphatase 121 07/11/17 10:27: WBC 17.0 H, Hgb 8.6 L, Hct 27.8 L, Plt Count 233 07/11/17 04:26: Sodium 136, Potassium 3.5 L, BUN 128 H, Creatinine 3.57 H, Glucose 163 H, Magnesium 2.0 Medications List Reviewed: Yes Assessment & Plan - Problems (Diagnosis) (1) UTI (urinary tract infection) Current Visit: Yes Status: Acute Plan: UA with > 50Bacteria -On Levaquin now. -Will f.u with Culture Qualifiers: Urinary tract infection type: acute cystitis Hematuria presence: without hematuria Qualified Code(s): N30.00 - Acute cystitis without hematuria (2) Leukocytosis Current Visit: Yes Status: Acute Plan: Most Likely 2/2 to UTI -On Levaquin now. -Will f.u with Culture Qualifiers: Leukocytosis type: bandemia Qualified Code(s): D72.825 - Bandemia (3) Dyspnea Onset Date: 07/02/15 Current Visit: No Status: Acute Plan: Dyspnea most Likely 2.2 to Volume Overload due to chronic kidney Disease. -Lasix PO BID for now -Nephrology Consulted. appreciated Reccs -Fluid restriction and low Na diet -F/U with I&O's in AM Qualifiers: Dyspnea type: dyspnea on exertion Qualified Code(s): R06.09 - Other forms of dyspnea (4) Chronic renal disease Current Visit: Yes Status: Acute Plan: See # 1 Qualifiers: Chronic kidney disease stage: stage 5, not on chronic dialysis Qualified Code(s): N18.5 - Chronic kidney disease, stage 5 (5) Hyperlipidemia Current Visit: Yes Status: Chronic Plan: On Statin Qualifiers: Hyperlipidemia type: unspecified Qualified Code(s): E78.5 - Hyperlipidemia , unspecified (6) Hypertension Current Visit: Yes Status: Chronic Qualifiers: Hypertension type: essential hypertension Qualified Code(s): I10 - Essential (primary) hypertension (7) Obstructive sleep apnea Current Visit: Yes Status: Chronic Plan: CPAP at night (8) Atrial fibrillation Onset Date: 07/02/15 Current Visit: No Status: Chronic Plan: On BB and Xarelto Qualifiers: Atrial fibrillation type: chronic Qualified Code(s): I48.2 - Chronic atrial fibrillation (9) Lymphedema Current Visit: No Status: Chronic (10) Diabetes mellitus Onset Date: 01/08/16 Current Visit: No Status: Chronic Qualifiers: Diabetes mellitus type: type 2 Diabetes mellitus nursing home insulin use: with nursing home use Diabetes mellitus complication status: with kidney complications Diabetes mellitus complication detail: with chronic kidney disease Chronic kidney disease stage: stage 5, not on chronic dialysis Qualified Code(s): E11.22 - Type 2 diabetes mellitus with diabetic chronic kidney disease; N18.5 - Chronic kidney disease, stage 5; 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
[2017-07-11] MEDS: RIVAROXABAN 15 MG TABLET PO SCH (17:24)
[2017-07-11] MEDS: ATORVASTATIN 20 MG TAB PO SCH (20:28)
[2017-07-11] MEDS: INSULIN DETEMIR 100 UNIT/1 ML INSULIN SQ SCH (20:29)
[2017-07-11] MEDS: DOCUSATE NA/SENNA CONC 1 TAB PO SCH (21:00)
[2017-07-11] MEDS: ACETAMINOPHEN 325 MG TABLET PO PRN (22:52)
[2017-07-12] MEDS: PANTOPRAZOLE 40MG TABLET PO SCH (06:22)
[2017-07-12 06:48] VITALS: BMI 42.2
--- NOTE | 2017-07-12 07:01 | RAD REPORT ---
EXAM DESCRIPTION: RAD - Chest Single View - 07/12/2017 6:18 am CLINICAL HISTORY: Shortness of breath, fluid overload COMPARISON: July 10, July 09 TECHNIQUE: AP portable chest image was obtained 0605 hours . FINDINGS: No new mass or consolidation. Heart, vasculature and lung markings remain prominent. Trach ea is midline. No measurable pleural effusion and no pneumothorax. No gross bony abnormality seen. No acute aortic findings suspected. IMPRESSION: Stable chest from prior day imaging. No new or progressive finding.
[2017-07-12 08:04] VITALS: BP 180/81; TEMP 97.7
[2017-07-12] MEDS: INSULIN -REGULAR HUMAN 50 UNIT/0.5 ML ML SQ SCH (08:31)
[2017-07-12] MEDS: FUROSEMIDE 40 MG TABLET PO SCH (08:33)
[2017-07-12] MEDS: DIGOXIN 0.125 MG TABLET PO SCH (08:34)
[2017-07-12] MEDS: METOPROLOL TAR 50 MG TAB PO SCH (08:34)
[2017-07-12] MEDS: glipiZIDE 5 MG TAB PO SCH (08:34)
[2017-07-12] MEDS: POTASSIUM CL SA 10 MEQ TAB PO SCH (08:34)
[2017-07-12] MEDS: ASCORBIC ACID 500 MG TABLET PO SCH (08:34)
[2017-07-12] MEDS: HYDRALAZINE HCL 25 MG TABLET PO SCH (08:35)
[2017-07-12] MEDS: VITAMIN D 5,000 UNIT CAP PO SCH (08:35)
[2017-07-12] MEDS: ALLOPURINOL 100 MG TAB PO SCH (08:35)
[2017-07-12] MEDS: NYSTATIN PWDR 100000 UNIT/GM TOP SCH (08:36)
[2017-07-12] MEDS: COLLAGENASE 30 GM OINTMENT TOP SCH (08:36)
[2017-07-12] MEDS: PROMOD 30 ML DOSE PO SCH (09:00)
--- NOTE | 2017-07-12 09:57 | P.DS ---
Admission Date: 07/05/17 Discharge Date: 07/12/17 Primary Care Provider: Dr. Weaver(I am covering for Dr. Weaver) Disposition: ROUTINE DISCHARGE Discharge Condition: GOOD Reason for Admission: Shortness of breath Consultations: Cardiology Nephrology Procedures: None - Problems (1) UTI (urinary tract infection) Current Visit: Yes Status: Acute Qualifiers: Urinary tract infection type: acute cystitis Hematuria presence: without hematuria Qualified Code(s): N30.00 - Acute cystitis without hematuria (2) Leukocytosis Current Visit: Yes Status: Acute Qualifiers: Leukocytosis type: bandemia Qualified Code(s): D72.825 - Bandemia (3) Dyspnea Onset Date: 07/02/15 Current Visit: No Status: Acute Qualifiers: Dyspnea type: dyspnea on exertion Qualified Code(s): R06.09 - Other forms of dyspnea (4) Chronic renal disease Current Visit: Yes Status: Acute Qualifiers: Chronic kidney disease stage: stage 5, not on chronic dialysis Qualified Code(s): N18.5 - Chronic kidney disease, stage 5 (5) Hyperlipidemia Current Visit: Yes Status: Chronic Qualifiers: Hyperlipidemia type: unspecified Qualified Code(s): E78.5 - Hyperlipidemia , unspecified (6) Hypertension Current Visit: Yes Status: Chronic Qualifiers: Hypertension type: essential hypertension Qualified Code(s): I10 - Essential (primary) hypertension (7) Obstructive sleep apnea Current Visit: Yes Status: Chronic (8) Atrial fibrillation Onset Date: 07/02/15 Current Visit: No Status: Chronic Qualifiers: Atrial fibrillation type: chronic Qualified Code(s): I48.2 - Chronic atrial fibrillation (9) Lymphedema Current Visit: No Status: Chronic (10) Diabetes mellitus Onset Date: 01/08/16 Current Visit: No Status: Chronic Qualifiers: Diabetes mellitus type: type 2 Diabetes mellitus regional [employer] insulin use: with shelter use Diabetes mellitus complication status: with kidney complications Diabetes mellitus complication detail: with chronic kidney disease Chronic kidney disease stage: stage 5, not on chronic dialysis Qualified Code(s): E11.22 - Type 2 diabetes mellitus with diabetic chronic kidney disease; N18.5 - Chronic kidney disease, stage 5; Z79.4 - long-term ( current) use of insulin (11) GERD (gastroesophageal reflux disease) Current Visit: No Status: Chronic Qualifiers: Esophagitis presence: without esophagitis Qualified Code(s): K21.9 - Gastro -esophageal reflux disease without esophagitis (12) Morbid obesity Onset Date: 01/08/16 Current Visit: No Status: Chronic Brief History of Present Illness: See HPI Hospital Course: Overall during the hospital stay patient remained stable Patient was initially admitted to the hospital on 2017 for abdominal pain and acute kidney injury most likely secondary to prerenal azotemia and then was discharged to rehab where medicine team and nephrology was following him On June 30, 2017. Patient was then transferred back to ICU for worsening of fluid overload and possible sepsis was placed on Lasix drip and was admitted to the ICU. For patient's acute on chronic kidney injury initially on the admission on June 23 nephrology was consulted. Patient was placed on fluid restriction along with Lasix 80 mg IV daily. Patient initially had marked improvement in his BUN and creatinine and thus Lasix was switched over to p.o. patient had a good fluid balance and had adequate diuresis at which point he was cleared to be transferred to rehab for deconditioning and to be followed along with nephrology. While in the rehab patient had improvement 1st 24 hr however started having worsening of BUN and creatinine and fluid overload and thus was transferred back to the medical floor for further treatment. Patient had elevated BUN and creatinine and was retaining fluid due to kidney disease. Nephrology at that time made a decision to place the patient on Lasix drip and diuresed patient adequately and thus he was initially admitted to the ICU. Patient remained on the Lasix drip in the ICU for 24-48 hr and then was switched over to IV Lasix with adequate diuresis urine output and weight loss. Patient was then switched over to p.o. Lasix and continued to show improvement. Nephrology at that time cleared patient for discharge on oral Lasix. For patient's sepsis patient was found to have urinary tract infection with 4+ gram-negative rods. Patient was initially started on IV Levaquin and was switched over to p.o. Levaquin here in the hospital. Patient had marked improvement in his symptoms and thus was asked to continue taking Levaquin for total of 10 days upon discharge. Patient was then referred back to inpatient rehab for continuation of his physical therapy for his deconditioning however was denied stay there as patient was not able to participate in physical therapy as per rehab standards. Patient was then referred over to [facility] for placement for group home facility however was denied as [facility] does not have capabilities of dialysis in in case patient needs dialysis in future. Patient was then referred over to [facility] and was expected for group home facility and was transferred there for further care. All other chronic conditions remained stable while here in the hospital Vital Signs/Physical Exam: Temp Pulse Resp BP Pulse Ox 97.7 F 64 18 180/81 H 98 07/12/17 08:00 07/12/17 08:34 07/12/17 08:00 07/12/17 08:34 07/12/17 08:00 General: Alert, In no apparent distress, Oriented x3, Obese HEENT: Atraumatic, PERRLA, EOMI Neck: Supple, JVD not distended Respiratory: Normal air movement, Crackles/rales Cardiovascular: Regular rate/rhythm, Normal S1 S2 Gastrointestinal: Normal bowel sounds, Soft and benign, Non-distended, No tenderness Musculoskeletal: No tenderness, Swelling Integumentary: No rashes Neurological: Normal speech, Normal tone, Normal affect Lymphatics: No axilla or inguinal lymphadenopathy Laboratory Data at Discharge: WBC 17.0 K/uL (4.3-10.9) H 07/11/17 10:27 Hgb 8.6 g/dL (13.6-17.9) L 07/11/17 10:27 Hct 27.8 % (39.6-49.0) L 07/11/17 10:27 Plt Count 233 K/uL (152-406) 07/11/17 10:27 Sodium 132 mEq/L (135-145) L 07/11/17 10:27 Potassium 3.4 mEq/L (3.6-5.0) L 07/11/17 10:27 BUN 124 mg/dL (6-20) H 07/11/17 10:27 Creatinine 3.66 mg/dL (0.61-1.24) H 07/11/17 10:27 Glucose 285 mg/dL (65-120) H 07/11/17 10:27 Phosphorus 5.6 mg/dL (2.5-4.3) H 07/06/17 04:45 Magnesium 2.0 mg/dL (1.8-2.5) 07/11/17 04:26 Total Bilirubin 0.4 mg/dL (0.3-1.2) 07/11/17 10:27 AST 13 IU/L (10-42) 07/11/17 10:27 ALT 15 IU/L (10-60) 07/11/17 10:27 Alkaline Phosphatase 121 IU/L (42-121) 07/11/17 10:27 Home Medications: Ascorbate Calcium [Vitamin C] 1 tab PO BID 07/01/15 Digoxin [Lanoxin] 1 tab PO DAILY 07/01/15 Glipizide 1 tab PO BID 07/01/15 Loratadine [Claritin*] 1 tab PO DAILY PRN 07/01/15 Metoprolol Tartrate [Lopressor*] 50 mg PO BID 07/01/15 Potassium Chloride [Klor-Con 10] 1 tab PO DAILY 07/01/15 Rivaroxaban [Xarelto*] 1 tab PO DAILY 07/01/15 Tramadol HCl [Ultram] 1 tab PO QIDP PRN 07/01/15 Acetaminophen [Tylenol] 650 mg PO Q6HP PRN 07/06/17 Allopurinol [Zyloprim*] 100 mg PO DAILY 07/06/17 Atorvastatin Calcium [Lipitor*] 20 mg PO BEDTIME 07/06/17 Bisacodyl [Dulcolax*] 10 mg RC DAILY PRN 07/06/17 Cholecalciferol (Vitamin D3) [Vitamin D 5,000 IU Cap*] 5,000 unit PO DAILY 07/06 D50w [Dextrose 50%*] 12.5 gm IV PRN 07/06/17 Docusate/Senna [Senokot-S*] 2 tab PO BEDTIME 07/06/17 Glucagon HCl 1 mg IM PRN 07/06/17 Hydralazine [Apresoline*] 25 mg PO BID 07/06/17 Insulin -Regular Human [Novolin -R*] See Protocol SQ ACHS 07/06/17 Insulin Detemir [Levemir] 30 units SQ BEDTIME 07/06/17 Insulin Detemir [Levemir] 50 units SQ DAILY WITH BREAKFAST 07/06/17 Metolazone [Zaroxolyn*] 2.5 mg PO DAILY 07/06/17 Nystatin Powder [Mycostatin (Powder)*] 1 laly TOP BID 07/06/17 Pantoprazole [Protonix Tab*] 40 mg PO DAILY 07/06/17 Protein Supplement [Promod] 30 ml PO BID 07/06/17 traMADol HCL [Ultram*] 50 mg PO QIDP PRN 07/06/17 Furosemide [Lasix*] 60 mg PO BIDL #60 tab 07/12/17 Levofloxacin [Levaquin] 500 mg PO DAILY #10 tab 07/12/17 New Medications: Furosemide [Lasix*] 60 mg PO BIDL #60 tab Levofloxacin [Levaquin] 500 mg PO DAILY #10 tab Patient Discharge Instructions: Please f.u with PCP in the clinic in 1 to 2 week post discharge Diet: Regular Activity: Ad michel Followup: Gypsy Ramos MD [ACTIVE - CAN ADMIT] - 1-2 Weeks (Call to schedule an appointment) Martín Weaver MD [ACTIVE - CAN ADMIT] - 1-2 Weeks (Call to schedule an appointment)
[2017-07-12 11:09] VITALS: O2SAT 98
== END 2017-07-12 10:47 | DRG 682 ==
LOC: 3RD-ICU 21:30 → 4TH 07-07 14:45
PROVIDERS: ADMIT Family Medicine; ATTEND Family Medicine
DX: N17.9 Acute kidney failure, unspecified (principal); A41.9 Sepsis, unspecified organism; I13.0 Hypertensive heart and chronic kidney disease with heart failure and stage 1 through stage 4 chronic kidney disease, or unspecified chronic kidney disease; I50.32 Chronic diastolic (congestive) heart failure; Z68.41 Body mass index [BMI] 40.0-44.9, adult; J44.1 Chronic obstructive pulmonary disease with (acute) exacerbation; N30.00 Acute cystitis without hematuria; N18.5 Chronic kidney disease, stage 5; E11.22 Type 2 diabetes mellitus with diabetic chronic kidney disease; J44.9 Chronic obstructive pulmonary disease, unspecified; I48.2 Chronic atrial fibrillation; I89.0 Lymphedema, not elsewhere classified; D63.1 Anemia in chronic kidney disease; E83.42 Hypomagnesemia; E87.6 Hypokalemia; I25.10 Atherosclerotic heart disease of native coronary artery without angina pectoris; K21.9 Gastro-esophageal reflux disease without esophagitis; E66.01 Morbid (severe) obesity due to excess calories; G47.33 Obstructive sleep apnea (adult) (pediatric); Z79.01 Long term (current) use of anticoagulants
CPT/HCPCS: 36415; 71045; 71046; 80048; 80053; 81003; 81015; 82248; 82962; 83735; 84100; 84145; 85025; 86140; 87077; 87086; 87088; 87186; 97163; J0885; J1940; J3590; Q4081

== ENCOUNTER 2017-08-10 08:41 | Emergency (ER) | payer OTHER ==
[2017-08-10] MEDS ORDERED: PANTOPRAZOLE 40 MG INJ ONE (09:13)
--- NOTE | 2017-08-10 09:24 | EDPHYS ---
Physician Documentation [facility] Name: Fausto Bird Age: 66 yrs Sex: Male : 1950 Arrival Date: 08/10/2017 Time: 08:45 Bed 7 Private MD: ED Physician Mike Lin HPI: 08/10 09:18 This 66 yrs old Male presents to ER via EMS with complaints of Abnormal Lab daria Results. 09:18 anemia , hx of small bowel bleed. Onset: The symptoms/episode began/occurred 3 day(s) daria ago. Severity of symptoms: At their worst the symptoms were mild. The patient has not experienced similar symptoms in the past. Historical: - Allergies: 09:08 bactrim-topical; tw2 09:08 mupirocin; tw2 - Home Meds: 09:08 allopurinol 300 mg Oral tab 1 tab once daily [Active]; digoxin 125 mcg Oral tab 1 tab tw2 once daily [Active]; Folbic 2.5-25-2 mg Oral tab 1 tab once daily [Active]; furosemide 40 mg Oral tab 3 times per day [Active]; Xarelto 15 mg Oral tab daily [Active]; Lantus 30 units Sub-Q soln nightly [Active]; Lantus 100 unit/mL Sub-Q soln morning [Active]; Integra 125-40-3 mg Oral cap 1 cap once daily [Active]; glipizide 10 mg Oral tab 1 tab 2 times per day [Active]; Iron CR Oral 325 mg three times a day [Active]; loratadine 10 mg Oral tab 1 tab once daily [Active]; metoprolol tartrate 25 mg Oral tab three times a day [Active]; niacin 500 mg Oral tab 1 tab 3 times per day [Active]; Novolin R 3-11 units Sub-Q as needed [Active]; omeprazole 40 mg Oral cpDR 1 cap once daily [Active]; potassium chloride 10 mEq Oral cpER 1 cap once daily [Active]; simvastatin 40 mg Oral tab 1 tab once daily [Active]; spironolactone 25 mg Oral tab 1 tab 2 times per day [Active]; tramadol 50 mg Oral tab as needed [Active]; Vitamin C 500 mg Oral cpER twice a day [Active]; Vitamin D Oral 5000 unit daily [Active]; Zofran Oral [Active]; - PMHx: 09:08 anemic; Cellulitis; Diabetes - IDDM; Hypertension; lymphedema; IL; Myocardial tw2 infarction; Atrial Fib; - PSHx: 09:08 Cholecystectomy; tw2 - Immunization history:: Adult Immunizations up to date. - Social history:: Smoking status: Patient/guardian denies using tobacco. - Family history:: not pertinent. - Ebola Screening: : Patient denies travel to an Ebola-affected area in the 21 days before illness onset. ROS: 09:18 Constitutional: Negative for fever, chills, and weight loss, Eyes: Negative for injury, daria pain, redness, and discharge, ENT: Negative for injury, pain, and discharge, Neck: Negative for injury, pain, and swelling, Cardiovascular: Negative for chest pain, palpitations, and edema, Respiratory: Negative for shortness of breath, cough, wheezing, and pleuritic chest pain, Back: Negative for injury and pain, : Negative for injury, bleeding, discharge, and swelling, MS/Extremity: Negative for injury and deformity, Neuro: Negative for headache, weakness, numbness, tingling, and seizure, Psych: Negative for depression, anxiety, suicide ideation, homicidal ideation, and hallucinations, Allergy/Immunology: Negative for hives, rash, and allergies, Endocrine: Negative for neck swelling, polydipsia, polyuria, polyphagia, and marked weight changes, Hematologic/Lymphatic: Negative for swollen nodes, abnormal bleeding, and unusual bruising. 09:18 Abdomen/GI: Positive for black/tarry stool. 09:18 Skin: Positive for pallor. Exam: 09:18 Constitutional: This is a well developed, well nourished patient who is awake, alert, daria and in no acute distress. Head/Face: Normocephalic, atraumatic. Eyes: Pupils equal round and reactive to light, extra-ocular motions intact. Lids and lashes normal. Conjunctiva and sclera are non-icteric and not injected. Cornea within normal limits. Periorbital areas with no swelling, redness, or edema. ENT: Nares patent. No nasal discharge, no septal abnormalities noted. Tympanic membranes are normal and external auditory canals are clear. Oropharynx with no redness, swelling, or masses, exudates, or evidence of obstruction, uvula midline. Mucous membranes moist. Neck: Trachea midline, no thyromegaly or masses palpated, and no cervical lymphadenopathy. Supple, full range of motion without nuchal rigidity, or vertebral point tenderness. No Meningismus. Chest/axilla: Normal chest wall appearance and motion. Nontender with no deformity. No lesions are appreciated. Cardiovascular: Regular rate and rhythm with a normal S1 and S2. No gallops, murmurs, or rubs. Normal PMI, no JVD. No pulse deficits. Respiratory: Lungs have equal breath sounds bilaterally, clear to auscultation and percussion. No rales, rhonchi or wheezes noted. No increased work of breathing, no retractions or nasal flaring. Back: No spinal tenderness. No costovertebral tenderness. Full range of motion. Male : Normal genitalia with no discharge or lesions. MS/ Extremity: Pulses equal, no cyanosis. Neurovascular intact. Full, normal range of motion. Neuro: Awake and alert, GCS 15, oriented to person, place, time, and situation. Cranial nerves II-XII grossly intact. Motor strength 5/5 in all extremities. Sensory grossly intact. Cerebellar exam normal. Normal gait. Psych: Awake, alert, with orientation to person, place and time. Behavior, mood, and affect are within normal limits. 09:18 Abdomen/GI: Inspection: abdomen appears normal, Bowel sounds: normal, Palpation: abdomen is soft and non-tender, Liver: no appreciated palpable abnormalities, Hernia: not appreciated. Vital Signs: 08:48 BP 135 / 63; Pulse 75; Resp 22; Temp 97.7(O); Pulse Ox 100% on R/A; Weight 140.61 kg tw2 (R); Height 6 ft. 0 in. (182.88 cm); Pain 0/10; 09:40 BP 148 / 81; Pulse 70; Resp 16; Pulse Ox 100% on R/A; tw2 10:30 BP 140 / 76; Pulse 76; Resp 17; Pulse Ox 99% on R/A; tw2 11:45 BP 145 / 89; Pulse 80; Resp 16; Pulse Ox 100% on R/A; tw2 12:01 BP 142 / 77; Pulse 74; Resp 19; Temp 97.8(TE); Pulse Ox 100% on R/A; tw2 13:01 BP 138 / 77; Pulse 78; Resp 17; Pulse Ox 100% on R/A; tw2 08:48 Body Mass Index 42.04 (140.61 kg, 182.88 cm) tw2 MDM: 09:00 Patient medically screened. [facility] 09:18 Data reviewed: vital signs, nurses notes, lab test result(s), EKG, radiologic studies, daria plain films. 08/10 09:09 Order name: Basic Metabolic Panel [facility] 08/10 09:09 Order name: CBC with Diff; Complete Time: 10:23 [facility] 08/10 09:09 Order name: Ckmb; Complete Time: 10:39 [facility] 08/10 09:09 Order name: CPK [facility] 08/10 09:09 Order name: LFT's [facility] 08/10 09:09 Order name: Magnesium; Complete Time: 10:39 [facility] 08/10 09:09 Order name: NT PRO-BNP; Complete Time: 10:39 [facility] 08/10 09:09 Order name: PT-INR; Complete Time: 10:23 [facility] 08/10 09:09 Order name: Ptt, Activated; Complete Time: 10:23 [facility] 08/10 09:09 Order name: Troponin (emerg Dept Use Only); Complete Time: 10:23 [facility] 08/10 09:09 Order name: Lipase; Complete Time: 10:39 [facility] 08/10 09:09 Order name: Type And Screen [facility] 08/10 09:10 Order name: Basic Metabolic Panel; Complete Time: 10:39 [facility] 08/10 09:10 Order name: Creatine Phosphokinase; Complete Time: 10:39 EDPR 08/10 09:09 Order name: XRAY Chest (1 view); Complete Time: 10:23 [facility] 08/10 09:09 Order name: EKG; Complete Time: 09:10 [facility] 08/10 09:09 Order name: Cardiac monitoring; Complete Time: 09:10 [facility] 08/10 09:10 Order name: Liver (Hepatic) Function; Complete Time: 10:39 EDPR 08/10 09:15 Order name: Digoxin; Complete Time: 10:23 [facility] 08/10 09:17 Order name: Urine Dipstick--Ancillary (enter results) ag 08/10 09:18 Order name: Urine Dipstick-Ancillary; Complete Time: 10:23 EDPR 08/10 09:27 Order name: CONS Physician Consult [facility] 08/10 09:30 Order name: Bb Add On ag 08/10 10:54 Order name: Packed RBC Leukored -1 EDPR 08/10 11:03 Order name: Diet Ada 1800 Martin; Complete Time: 11:04 tw2 08/10 09:09 Order name: EKG - Nurse/Tech; Complete Time: 09:41 [facility] 08/10 09:09 Order name: IV Saline Lock; Complete Time: 09:41 [facility] 08/10 09:09 Order name: Labs collected and sent; Complete Time: 09:41 [facility] 08/10 09:09 Order name: O2 Per Protocol; Complete Time: 09:10 [facility] 08/10 09:09 Order name: O2 Sat Monitoring; Complete Time: 09:10 [facility] 08/10 09:09 Order name: Urine Dipstick-Ancillary (obtain specimen); Complete Time: 11:01 [facility] 08/10 09:09 Order name: Transfuse; Complete Time: 11:57 [facility] Administered Medications: 09:25 Drug: ProTONIX 40 mg Route: IVP; Site: left antecubital; tw2 09:41 Follow up: Response: No adverse reaction tw2 10:53 Drug: Benadryl 12.5 mg Route: IVP; Site: left antecubital; tw2 11:57 Follow up: Response: No adverse reaction tw2 10:55 Drug: Lasix 60 mg Route: IVP; Site: left antecubital; tw2 11:57 Follow up: Response: No adverse reaction tw2 11:00 Drug: Tylenol 650 mg Route: PO; tw2 11:58 Follow up: Response: No adverse reaction tw2 13:00 Drug: Ativan 0.5 mg Route: IVP; Site: left antecubital; tw2 13:01 Follow up: Response: No adverse reaction tw2 Disposition: 08/10/17 10:34 Transfer ordered to [facility]. Diagnosis are Gastrointestinal hemorrhage, unspecified, Anemia, unspecified, Acute kidney failure, Unspecified combined systolic (congestive) and diastolic (congestive) heart failure, Coagulation defect, unspecified. - Reason for transfer: Higher level of care. - Accepting physician is to [facility]. - Condition is Fair. - Problem is new. - Symptoms are unchanged. Signatures: Dispatcher [employer] Mike Almonte MD MD cha Wise, Tara RN RN tw2 Corrections: (The following items were deleted from the chart) 09:29 09:23 Hospitalization Ordered by Paola Covington MD for Inpatient Admission. Preliminary daria diagnosis is Gastrointestinal hemorrhage, unspecified; Anemia, unspecified; Unspecified kidney failure. Bed requested for Telemetry/MedSurg (Inpatient). Status is Inpatient Admission. Condition is Fair. Problem is new. Symptoms have improved. UTI on Admission? No. daria 10:30 09:29 08/10/2017 09:23 Hospitalization Ordered by Paola Covington MD for Inpatient daria Admission. Preliminary diagnosis is Gastrointestinal hemorrhage, unspecified; Anemia, unspecified; Unspecified kidney failure; Atrial fibrillation and flutter. Bed requested for Telemetry/MedSurg (Inpatient). Status is Inpatient Admission. Condition is Fair. Problem is new. Symptoms have improved. UTI on Admission? No. daria 10:38 10:34 08/10/2017 10:34 Transfer ordered to [facility]. Diagnosis is daria Gastrointestinal hemorrhage, unspecified; Anemia, unspecified; Acute kidney failure; Unspecified combined systolic (congestive) and diastolic (congestive) heart failure. Reason for transfer: Higher level of care. Accepting physician is to [facility]. Condition is Fair. Problem is new. Symptoms are unchanged. daria 13:03 10:38 08/10/2017 10:34 Transfer ordered to [facility]. Diagnosis is tw2 Gastrointestinal hemorrhage, unspecified; Anemia, unspecified; Acute kidney failure; Unspecified combined systolic (congestive) and diastolic (congestive) heart failure; Coagulation defect, unspecified. Reason for transfer: Higher level of care. Accepting physician is to [facility]. Condition is Fair. Problem is new. Symptoms are unchanged. daria
--- NOTE | 2017-08-10 09:24 | ER ---
Nurse's Notes [facility] Name: Fausto Bird Age: 66 yrs Sex: Male : 1950 Arrival Date: 08/10/2017 Time: 08:45 Bed 7 Private MD: Diagnosis: Gastrointestinal hemorrhage, unspecified;Anemia, unspecified;Acute kidney failure;Unspecified combined systolic (congestive) and diastolic (congestive) heart failure;Coagulation defect, unspecified Presentation: 08/10 08:46 Presenting complaint: EMS states: pt from [facility], had labs drawn this morning, tw2 called back with critical Hgb of 7.1, hx: dm, anemia, afib, gi bleed, on dig and xarelto, hx of lymphedema has farrow wraps on, staff says no leakage from the skin, pt was 102 mg/dL BGL this morning hasnt eaten today. Transition of care: patient was received from another setting of care (long-term care facility), [facility]. Onset of symptoms was August 10, 2017. Risk Assessment: Do you want to hurt yourself or someone else? Patient reports no desire to harm self or others. Initial Sepsis Screen: Does the patient meet any 2 criteria? No. Patient's initial sepsis screen is negative. Does the patient have a suspected source of infection? No. Patient's initial sepsis screen is negative. Care prior to arrival: None. 08:46 Method Of Arrival: EMS: [facility] tw2 08:46 Acuity: BLANCA 3 tw2 Triage Assessment: 08:48 General: Appears in no apparent distress. Cardiovascular: Rhythm is atrial fibrillation.tw2 Historical: - Allergies: 09:08 bactrim-topical; tw2 09:08 mupirocin; tw2 - Home Meds: 09:08 allopurinol 300 mg Oral tab 1 tab once daily [Active]; digoxin 125 mcg Oral tab 1 tab tw2 once daily [Active]; Folbic 2.5-25-2 mg Oral tab 1 tab once daily [Active]; furosemide 40 mg Oral tab 3 times per day [Active]; Xarelto 15 mg Oral tab daily [Active]; Lantus 30 units Sub-Q soln nightly [Active]; Lantus 100 unit/mL Sub-Q soln morning [Active]; Integra 125-40-3 mg Oral cap 1 cap once daily [Active]; glipizide 10 mg Oral tab 1 tab 2 times per day [Active]; Iron CR Oral 325 mg three times a day [Active]; loratadine 10 mg Oral tab 1 tab once daily [Active]; metoprolol tartrate 25 mg Oral tab three times a day [Active]; niacin 500 mg Oral tab 1 tab 3 times per day [Active]; Novolin R 3-11 units Sub-Q as needed [Active]; omeprazole 40 mg Oral cpDR 1 cap once daily [Active]; potassium chloride 10 mEq Oral cpER 1 cap once daily [Active]; simvastatin 40 mg Oral tab 1 tab once daily [Active]; spironolactone 25 mg Oral tab 1 tab 2 times per day [Active]; tramadol 50 mg Oral tab as needed [Active]; Vitamin C 500 mg Oral cpER twice a day [Active]; Vitamin D Oral 5000 unit daily [Active]; Zofran Oral [Active]; - PMHx: 09:08 anemic; Cellulitis; Diabetes - IDDM; Hypertension; lymphedema; [place]; Myocardial tw2 infarction; Atrial Fib; - PSHx: 09:08 Cholecystectomy; tw2 - Immunization history:: Adult Immunizations up to date. - Social history:: Smoking status: Patient/guardian denies using tobacco. - Family history:: not pertinent. - Ebola Screening: : Patient denies travel to an Ebola-affected area in the 21 days before illness onset. Screenin:49 Abuse screen: Denies threats or abuse. Nutritional screening: No deficits noted. tw2 Tuberculosis screening: No symptoms or risk factors identified. Fall Risk None identified. Assessment: 08:50 General: Appears in no apparent distress. obese, Behavior is calm, cooperative, tw2 appropriate for age. Pain: Denies pain. Neuro: Level of Consciousness is awake, alert, obeys commands, Oriented to person, place, time, situation. Cardiovascular: Denies chest pain, shortness of breath, Heart tones S1 S2 Capillary refill < 3 seconds Patient's skin is warm and dry. Respiratory: Airway is patent Respiratory effort is even, unlabored, Respiratory pattern is regular, symmetrical, Breath sounds are clear bilaterally. GI: No signs and/or symptoms were reported involving the gastrointestinal system. Abdomen is round non-distended, obese, Bowel sounds present X 4 quads. : No signs and/or symptoms were reported regarding the genitourinary system. EENT: No signs and/or symptoms were reported regarding the EENT system. Derm: Skin is intact, Skin is dry, Skin is pale, Reports lymphedema to b/l LE, Farrow wraps in place to b/l LE, pt denies drainage and denies bedsores. Musculoskeletal: Range of motion: intact in all extremities. 09:40 Reassessment: Patient appears in no apparent distress at this time. No changes from tw2 previously documented assessment. Patient and/or family updated on plan of care and expected duration. Pain level reassessed. Patient is alert, oriented x 3, equal unlabored respirations, skin warm/dry/pink. 10:31 Reassessment: Patient appears in no apparent distress at this time. No changes from tw2 previously documented assessment. Patient and/or family updated on plan of care and expected duration. Pain level reassessed. Patient is alert, oriented x 3, equal unlabored respirations, skin warm/dry/pink. 11:30 Reassessment: Patient appears in no apparent distress at this time. No changes from tw2 previously documented assessment. Patient and/or family updated on plan of care and expected duration. Pain level reassessed. Patient is alert, oriented x 3, equal unlabored respirations, skin warm/dry/pink. SEE TRANSFUSION RECORD FOR PRBC'S. 13:02 Reassessment: see BLOOD TRANSFUSION RECORD for signoff and continuation of iv blood tw2 products while in route to [facility]. Vital Signs: 08:48 BP 135 / 63; Pulse 75; Resp 22; Temp 97.7(O); Pulse Ox 100% on R/A; Weight 140.61 kg tw2 (R); Height 6 ft. 0 in. (182.88 cm); Pain 0/10; 09:40 BP 148 / 81; Pulse 70; Resp 16; Pulse Ox 100% on R/A; tw2 10:30 BP 140 / 76; Pulse 76; Resp 17; Pulse Ox 99% on R/A; tw2 11:45 BP 145 / 89; Pulse 80; Resp 16; Pulse Ox 100% on R/A; tw2 12:01 BP 142 / 77; Pulse 74; Resp 19; Temp 97.8(TE); Pulse Ox 100% on R/A; tw2 13:01 BP 138 / 77; Pulse 78; Resp 17; Pulse Ox 100% on R/A; tw2 08:48 Body Mass Index 42.04 (140.61 kg, 182.88 cm) tw2 ED Course: 08:45 Patient arrived in ED. hj 08:45 Lexy Cheek, BEBO is Primary Nurse. tw2 08:48 Triage completed. tw2 08:49 Arm band placed on. tw2 08:50 Bed in low position. Call light in reach. Side rails up X2. tilt tray driver on. Pulse tw2 ox on. NIBP on. 09:00 Mike Lin MD is Attending Physician. daria 09:20 No provider procedures requiring assistance completed. Inserted saline lock: 20 gauge tw2 in left antecubital area, using aseptic technique. Blood collected. 09:22 Paola Covington MD is Hospitalizing Provider. daria 09:33 X-ray completed. Portable x-ray completed in exam room. Patient tolerated procedure mh1 well. 09:34 XRAY Chest (1 view) In Process Unspecified. EDMS 11:30 One on one care for administration of PRBC's. tw2 13:01 Patient transferred, IV remains in place. tw2 Administered Medications: 09:25 Drug: ProTONIX 40 mg Route: IVP; Site: left antecubital; tw2 09:41 Follow up: Response: No adverse reaction tw2 10:53 Drug: Benadryl 12.5 mg Route: IVP; Site: left antecubital; tw2 11:57 Follow up: Response: No adverse reaction tw2 10:55 Drug: Lasix 60 mg Route: IVP; Site: left antecubital; tw2 11:57 Follow up: Response: No adverse reaction tw2 11:00 Drug: Tylenol 650 mg Route: PO; tw2 11:58 Follow up: Response: No adverse reaction tw2 13:00 Drug: Ativan 0.5 mg Route: IVP; Site: left antecubital; tw2 13:01 Follow up: Response: No adverse reaction tw2 Output: 11:11 Urine: 400ml (Voided); Total: 400ml. tw2 11:45 Urine: 300ml (Voided); Total: 700ml. tw2 Outcome: 09:23 Decision to Hospitalize by Provider. daria 10:34 ER care complete, transfer ordered by MD. huff 13:01 Transferred by ground EMS [place] [facility] [facility] [place] tw2 13:01 Condition: stable 13:01 Instructed on the need for transfer. 13:03 Patient left the ED. tw2 Signatures: Dispatcher [employer] Mike Almonte MD MD cha Harvey, Martha 1 John Lopez RN RN Lexy Cheek RN RN tw2
[2017-08-10 09:42] LABS: Absolute Lymphocytes (CBC) 0.8 K/uL (0.7-4.9); Absolute Monocytes 0.9 K/uL (0.1-1.3); Absolute Neutrophil 9.2 K/uL (1.8-8.0); Basophils % 0.6 % (0-1.3); Eosinophils % 1.6 % (0-4.4); Lymphocytes % 7.5 % (15.3-44.8); MCH 27.4 pg (27.0-35.0); MPV 8.8 fL (7.6-11.3); Monocytes % 8.2 % (3.3-12.3); RBC Red Blood Cell Count 2.73 M/uL (4.33-5.43)
[2017-08-10 09:54] LABS: Urine Blood TRACE (NEG); Urine Glucose NEGATIVE (NEG); Urine Protein 2+ (NEG); Urine Specific Gravity 1.015 (1.005-1.030)
[2017-08-10 10:01] LABS: Protime INR 1.84
--- NOTE | 2017-08-10 10:22 | RAD REPORT ---
EXAM DESCRIPTION: Omid Single View08/10/2017 9:35 am CLINICAL HISTORY: Cough COMPARISON: July 12, 2017 FINDINGS: Mild interstitial lung opacities are present bilaterally. The heart is mildly to moderate ly enlarged IMPRESSION: Mild CHF
[2017-08-10 10:23] LABS: ALT/SGPT 13 U/L (12-78); AST/SGOT 13 U/L (15-37); Albumin 2.5 g/dL (3.4-5.0); Alkaline Phosphatase 143 U/L (45-117); BUN Blood Urea Nitrogen 104 mg/dL (7-18); Bicarbonate 28 mmol/L (21-32); Bilirubin Direct 0.1 mg/dL (0-0.2); Bilirubin Total 0.3 mg/dL (0.2-1.0); CKMB Creatine Kinase MB < 1.0 ng/mL (0.3-3.6); Creatine Phosphokinase 17 U/L (39-308); Glucose Level 74 mg/dL (74-106); Lipase 142 U/L (73-393); Magnesium 1.9 mg/dL (1.8-2.4); NT PRO-BNP 9162 pg/mL (<125); Potassium 3.8 mmol/L (3.5-5.1); Protein, Total 6.9 g/dL (6.4-8.2); Sodium Level 138 mmol/L (136-145)
[2017-08-10] MEDS ORDERED: DIPHENHYDRAMINE 50 MG/ML VIAL ONE (10:53)
[2017-08-10] MEDS ORDERED: FUROSEMIDE 40 MG/4 ML VIAL ONE (10:53)
[2017-08-10] MEDS ORDERED: ACETAMINOPHEN 325 MG TABLET ONE (10:53)
[2017-08-10] MEDS ORDERED: FUROSEMIDE 20 MG/ 2ML VIAL ONE (10:53)
[2017-08-10] MEDS ORDERED: NA CHLORIDE 0.9% 250 ML ONE (11:19)
[2017-08-10] MEDS ORDERED: LORazepam 2 MG/ML VIAL ONE (13:01)
[2017-08-10 13:11] VITALS: O2SAT 100
[2017-08-10 13:12] VITALS: TEMP 97.8
[2017-08-10 13:13] VITALS: BP 138/77
--- NOTE | 2017-08-10 15:35 | EKG ---
Test Date: 2017-08-10 Test Time: 09:26:20 Hand Shoe Cutter: BOOM MEASUREMENT RESULTS: Intervals: Rate: 69 [place]: QRSD: 144 QT: 432 QTc: 462 [place]: P: [place]: QRS: 2 T: -52 INTERPRETIVE STATEMENTS: Atrial fibrillation Right bundle branch block T wave abnormality, consider inferior ischemia Abnormal ECG Compared to ECG 06/22/2017 00:38:40 No significant changes Electronically Signed On 08-10-17 15:33:45 CDT by Yannick Degroot
== END 2017-08-10 13:03 | disposition short-term general hospital (02) ==
LOC: ER 08:41 → UNDOADMIN 09:25 → ERHOLD 09:25 → ER 13:03
PROC: 30233N1 Transfusion of Nonautologous Red Blood Cells into Peripheral Vein, Percutaneous Approach (ICD-10-PCS; principal; 2017-08-10)
DX: D64.9 Anemia, unspecified (principal); N17.9 Acute kidney failure, unspecified; I50.40 Unspecified combined systolic (congestive) and diastolic (congestive) heart failure; D68.9 Coagulation defect, unspecified; I10 Essential (primary) hypertension; E11.9 Type 2 diabetes mellitus without complications; I25.2 Old myocardial infarction; I48.91 Unspecified atrial fibrillation; Z79.4 Long term (current) use of insulin; Z79.01 Long term (current) use of anticoagulants; Z88.1 Allergy status to other antibiotic agents; Z88.8 Allergy status to other drugs, medicaments and biological substances
CPT/HCPCS: 36415; 36430; 71045; 80048; 80076; 80162; 81003; 82550; 82553; 83690; 83735; 83880; 84484; 85025; 85610; 85730; 86850; 86900; 86901; 93005; 96374; 96375; 99285; C9113; J1940; P9016

== ENCOUNTER 2017-09-10 15:04 | Emergency (ER) | payer OTHER ==
--- OUTSIDE RECORDS SUMMARY | 2017-09-10 15:07 | XMS REPORT ---
:1950 [facility] [address] [place] [address] Care Team Providers Name Role Phone DAMIEN OLMEDO Unavailable Unavailable Problems This patient has no known problems. Allergies, Adverse Reactions, Alerts This patient has no known allergies or adverse reactions. Medications This patient has no known medications. Results Test Description Test Time Test Comments Text Results Atomic Results Result Comments POCT-GLUCOSE METER 2017-08-12 17:10:00 Test Item Value Reference Range Comments POC-GLUCOSE METER (BEAKER) (test 261 mg/dL 70-[address] [facility] [address] [facility] xlvn=[id number]) [facility] [address] POCT-GLUCOSE [id number] 11:33:00 Test Item Value Reference Range Comments POC-GLUCOSE METER (BEAKER) 198 mg/dL 70-[address] [facility] [address] [facility] (test cvci=1805) [facility] [address] CBC W/PLT COUNT & AUTO [id number] 09:37:00 Test Item Value Reference Range Comments WHITE BLOOD CELL COUNT (BEAKER) (test qctx=924) 11.7 K/ L 3.5-10.5 RED BLOOD CELL COUNT (BEAKER) (test pxqm=781) 2.99 M/ L 4.63-6.08 HEMOGLOBIN (BEAKER) (test rheq=606) 8.7 GM/DL 13.7-17.5 HEMATOCRIT (BEAKER) (test otgu=903) 27.5 % 40.1-51.0 MEAN CORPUSCULAR VOLUME (BEAKER) (test zgoj=589) 92.0 fL 79.0-92.2 MEAN CORPUSCULAR HEMOGLOBIN (BEAKER) (test 29.1 pg 25.7-32.2 ydcg=728) MEAN CORPUSCULAR HEMOGLOBIN CONC (BEAKER) (test 31.6 GM/DL 32.3-36.5 lvfb=239) RED CELL DISTRIBUTION WIDTH (BEAKER) (test 16.0 % 11.6-14.4 zrwo=252) PLATELET COUNT (BEAKER) (test jtbz=662) 213 K/CU MM 150-450 MEAN PLATELET VOLUME (BEAKER) (test ejoh=814) 10.7 fL 9.4-12.4 NUCLEATED RED BLOOD CELLS (BEAKER) (test 0 /100 WBC 0-0 djqj=268) NEUTROPHILS RELATIVE PERCENT (BEAKER) (test 81 % hxgb=797) LYMPHOCYTES RELATIVE PERCENT (BEAKER) (test 6 % ienm=996) MONOCYTES RELATIVE PERCENT (BEAKER) (test 10 % byyp=571) EOSINOPHILS RELATIVE PERCENT (BEAKER) (test 2 % jfje=766) BASOPHILS RELATIVE PERCENT (BEAKER) (test 0 % eonw=744) NEUTROPHILS ABSOLUTE COUNT (BEAKER) (test 9.49 K/ L 1.78-5.38 oodd=360) LYMPHOCYTES ABSOLUTE COUNT (BEAKER) (test 0.73 K/ L 1.32-3.57 azpe=971) MONOCYTES ABSOLUTE COUNT (BEAKER) (test 1.13 K/ L 0.30-0.82 kxjy=132) EOSINOPHILS ABSOLUTE COUNT (BEAKER) (test 0.19 K/ L 0.04-0.54 hqcq=315) BASOPHILS ABSOLUTE COUNT (BEAKER) (test 0.03 K/ L 0.01-0.08 qhiw=438) IMMATURE GRANULOCYTES-RELATIVE PERCENT (BEAKER) 1 % 0-1 (test joxh=2815) POCT-GLUCOSE [id number] 07:52:00 Test Item Value Reference Range Comments POC-GLUCOSE METER (BEAKER) 126 mg/dL 70-110 TESTED AT [address] (test podh=3925) [facility] [address] CALCIUM, [id number] 06:39:00 Test Item Value Reference Range Comments CALCIUM IONIZED (BEAKER) (test yyfc=640) 1.02 mmol/L 1.12-1.27 PH, BLOOD (BEAKER) (test negy=5393) 7.43 LIPID [id number] 05:57:00 Test Item Value Reference Range Comments TRIGLYCERIDES (BEAKER) (test qqzo=831) 54 mg/dL CHOLESTEROL (BEAKER) (test bqbf=791) 96 mg/dL HDL CHOLESTEROL (BEAKER) (test dsef=645) 29 mg/dL LDL CHOLESTEROL CALCULATED (BEAKER) (test vwjb=974) 56 mg/dL Triglyceride Reference Range: Low Risk <150 Borderline 150- 199 High Risk 200-499 Very High Risk >=500Cholesterol Reference Range: Low Risk <200 Borderline 200-239 High Risk > 240HDL Cholesterol Reference Range: Low Risk >=60 High Risk <40LDL Cholesterol Reference Range: Optimal <100 Near Optimal 100-129 Borderline 130-159 High 160-189 Very High >=190BASIC METABOLIC [id number] 05:56:00 Test Item Value Reference Range Comments SODIUM (BEAKER) (test 135 meq/L 136-145 rpey=619) POTASSIUM (BEAKER) (test 3.7 meq/L 3.5-5.1 peoq=955) CHLORIDE (BEAKER) (test 101 meq/L 98-107 fybn=969) CO2 (BEAKER) (test 25 meq/L 22-29 lhyo=488) BLOOD UREA NITROGEN 92 mg/dL 7-21 (BEAKER) (test obvf=661) CREATININE (BEAKER) (test 2.52 mg/dL 0.57-1.25 zdae=571) GLUCOSE RANDOM (BEAKER) 135 mg/dL 70-105 (test swfb=006) CALCIUM (BEAKER) (test 8.7 mg/dL 8.4-10.2 hhcc=717) EGFR (BEAKER) (test 26 mL/min/1.73 sq m ESTIMATED GFR IS NOT iaqx=6329) ACCURATE CREATININE CLEARANCE IN PREDICTING GLOMERULAR FILTRATION RATE. ESTIMATED GFR IS NOT APPLICABLE FOR DIALYSIS PATIENTS. [id number] 05:48:00 Test Item Value Reference Range Comments MAGNESIUM (BEAKER) (test shvf=164) 1.6 mg/dL 1.6-2.6 HEPATIC FUNCTION [id number] 05:48:00 Test Item Value Reference Range Comments TOTAL PROTEIN (BEAKER) (test cgoe=898) 6.3 gm/dL 6.0-8.3 ALBUMIN (BEAKER) (test fghe=7624) 2.9 g/dL 3.5-5.0 BILIRUBIN TOTAL (BEAKER) (test bwgj=876) 0.4 mg/dL 0.2-1.2 BILIRUBIN DIRECT (BEAKER) (test ukvb=680) 0.3 mg/dL 0.1-0.5 ALKALINE PHOSPHATASE (BEAKER) (test rqci=858) 136 U/L 40-150 AST (SGOT) (BEAKER) (test unjh=290) 10 U/L 5-34 ALT (SGPT) (BEAKER) (test jlpe=741) 9 U/L 6-55 PROTHROMBIN [id number] 05:37:00 Test Item Value Reference Range Comments PROTIME (BEAKER) (test ybhe=832) 18.1 seconds 11.7-14.7 INR (BEAKER) (test rkpc=400) 1.5 <=5.9 RECOMMENDED COUMADIN/WARFARIN INR THERAPY RANGESSTANDARD DOSE: 2.0 - 3.0 Includes: PROPHYLAXIS forvenous thrombosis, systemic embolization; TREATMENT for venous thrombosis and/or pulmonary embolus.HIGH RISK: Target INR is 2.5-3.5 for patients with mechanical heart valves.POCT-GLUCOSE [id number] 21:34:00 Test Item Value Reference Range Comments POC-GLUCOSE METER (BEAKER) 260 mg/dL 70-110 TESTED AT [address] (test pyzi=6617) [facility] [address] POCT-GLUCOSE [id number] 17:13:00 Test Item Value Reference Range Comments POC-GLUCOSE METER (BEAKER) 202 mg/dL 70-110 TESTED AT [address] (test wjra=2185) [facility] [address] CBC W/PLT COUNT & AUTO [id number] 16:36:00 Test Item Value Reference Range Comments WHITE BLOOD CELL COUNT (BEAKER) (test etyf=263) 10.3 K/ L 3.5-10.5 RED BLOOD CELL COUNT (BEAKER) (test czcb=690) 3.01 M/ L 4.63-6.08 HEMOGLOBIN (BEAKER) (test qrah=296) 8.5 GM/DL 13.7-17.5 HEMATOCRIT (BEAKER) (test xxii=332) 27.0 % 40.1-51.0 MEAN CORPUSCULAR VOLUME (BEAKER) (test hngj=052) 89.7 fL 79.0-92.2 MEAN CORPUSCULAR HEMOGLOBIN (BEAKER) (test 28.2 pg 25.7-32.2 vjmm=353) MEAN CORPUSCULAR HEMOGLOBIN CONC (BEAKER) (test 31.5 GM/DL 32.3-36.5 isii=462) RED CELL DISTRIBUTION WIDTH (BEAKER) (test 15.8 % 11.6-14.4 qavi=946) PLATELET COUNT (BEAKER) (test rfmx=667) 203 K/CU MM 150-450 MEAN PLATELET VOLUME (BEAKER) (test azlz=067) 10.5 fL 9.4-12.4 NUCLEATED RED BLOOD CELLS (BEAKER) (test 0 /100 WBC 0-0 hxef=808) NEUTROPHILS RELATIVE PERCENT (BEAKER) (test 83 % xpwj=430) LYMPHOCYTES RELATIVE PERCENT (BEAKER) (test 7 % nrve=613) MONOCYTES RELATIVE PERCENT (BEAKER) (test 8 % rqmg=387) EOSINOPHILS RELATIVE PERCENT (BEAKER) (test 1 % vdyi=392) BASOPHILS RELATIVE PERCENT (BEAKER) (test 0 % deri=471) NEUTROPHILS ABSOLUTE COUNT (BEAKER) (test 8.57 K/ L 1.78-5.38 uhyr=597) LYMPHOCYTES ABSOLUTE COUNT (BEAKER) (test 0.71 K/ L 1.32-3.57 udtb=704) MONOCYTES ABSOLUTE COUNT (BEAKER) (test 0.78 K/ L 0.30-0.82 wryv=136) EOSINOPHILS ABSOLUTE COUNT (BEAKER) (test 0.09 K/ L 0.04-0.54 rrew=333) BASOPHILS ABSOLUTE COUNT (BEAKER) (test 0.04 K/ L 0.01-0.08 sqxm=331) IMMATURE GRANULOCYTES-RELATIVE PERCENT (BEAKER) 1 % 0-1 (test vpew=0755) CBC (HEMOGRAM ONLY)2017-08-11 16:30:00 Test Item Value Reference Range Comments WHITE BLOOD CELL COUNT (BEAKER) (test toqi=072) 10.3 K/ L 3.5-10.5 RED BLOOD CELL COUNT (BEAKER) (test pnwg=164) 3.01 M/ L 4.63-6.08 HEMOGLOBIN (BEAKER) (test dork=571) 8.5 GM/DL 13.7-17.5 HEMATOCRIT (BEAKER) (test gbzm=315) 27.0 % 40.1-51.0 MEAN CORPUSCULAR VOLUME (BEAKER) (test klbl=689) 89.7 fL 79.0-92.2 MEAN CORPUSCULAR HEMOGLOBIN (BEAKER) (test 28.2 pg 25.7-32.2 zqwa=689) MEAN CORPUSCULAR HEMOGLOBIN CONC (BEAKER) (test 31.5 GM/DL 32.3-36.5 lnlf=320) RED CELL DISTRIBUTION WIDTH (BEAKER) (test 15.8 % 11.6-14.4 spiz=901) PLATELET COUNT (BEAKER) (test lxhi=869) 203 K/CU MM 150-450 MEAN PLATELET VOLUME (BEAKER) (test bpns=039) 10.5 fL 9.4-12.4 NUCLEATED RED BLOOD CELLS (BEAKER) (test 0 /100 WBC 0-0 vtqy=740) POCT-GLUCOSE [id number] 12:32:00 Test Item Value Reference Range Comments POC-GLUCOSE METER (BEAKER) 209 mg/dL 70-110 TESTED AT [address] (test lxxq=5001) [facility] [address] POCT-GLUCOSE [id number] 07:51:00 Test Item Value Reference Range Comments POC-GLUCOSE METER (BEAKER) 101 mg/dL 70-110 TESTED AT [address] (test zrnk=1523) [facility] [address] CALCIUM, [id number] 06:35:00 Test Item Value Reference Range Comments CALCIUM IONIZED (BEAKER) (test rayj=520) 1.03 mmol/L 1.12-1.27 PH, BLOOD (BEAKER) (test tjen=2239) 7.39 BASIC METABOLIC [id number] 05:22:00 Test Item Value Reference Range Comments SODIUM (BEAKER) (test 135 meq/L 136-145 frrw=026) POTASSIUM (BEAKER) (test 3.6 meq/L 3.5-5.1 uryi=536) CHLORIDE (BEAKER) (test 99 meq/L 98-107 jeyp=932) CO2 (BEAKER) (test 25 meq/L 22-29 qijs=333) BLOOD UREA NITROGEN 106 mg/dL 7-21 (BEAKER) (test kgqa=467) CREATININE (BEAKER) (test 2.58 mg/dL 0.57-1.25 gujy=890) GLUCOSE RANDOM (BEAKER) 105 mg/dL 70-105 (test bstx=445) CALCIUM (BEAKER) (test 8.6 mg/dL 8.4-10.2 fadz=331) EGFR (BEAKER) (test 25 mL/min/1.73 sq m ESTIMATED GFR IS NOT vwnj=6060) ACCURATE CREATININE CLEARANCE IN PREDICTING GLOMERULAR FILTRATION RATE. ESTIMATED GFR IS NOT APPLICABLE FOR DIALYSIS PATIENTS. [id number] 05:20:00 Test Item Value Reference Range Comments MAGNESIUM (BEAKER) (test sgda=453) 1.5 mg/dL 1.6-2.6 LIPID [id number] 05:20:00 Test Item Value Reference Range Comments TRIGLYCERIDES (BEAKER) (test xlto=477) 62 mg/dL CHOLESTEROL (BEAKER) (test gnls=811) 87 mg/dL HDL CHOLESTEROL (BEAKER) (test xbgn=374) 28 mg/dL LDL CHOLESTEROL CALCULATED (BEAKER) (test ptks=254) 47 mg/dL Triglyceride Reference Range: Low Risk <150 Borderline 150- 199 High Risk 200-499 Very High Risk >=500Cholesterol Reference Range: Low Risk <200 Borderline 200-239 High Risk > 240HDL Cholesterol Reference Range: Low Risk >=60 High Risk <40LDL Cholesterol Reference Range: Optimal <100 Near Optimal 100-129 Borderline 130-159 High 160-189 Very High >=190HEPATIC FUNCTION [id number] 05:20:00 Test Item Value Reference Range Comments TOTAL PROTEIN (BEAKER) (test tcto=634) 6.3 gm/dL 6.0-8.3 ALBUMIN (BEAKER) (test gdkw=2831) 2.9 g/dL 3.5-5.0 BILIRUBIN TOTAL (BEAKER) (test snfo=855) 0.4 mg/dL 0.2-1.2 BILIRUBIN DIRECT (BEAKER) (test nhsk=298) 0.2 mg/dL 0.1-0.5 ALKALINE PHOSPHATASE (BEAKER) (test opok=620) 135 U/L 40-150 AST (SGOT) (BEAKER) (test unui=968) 10 U/L 5-34 ALT (SGPT) (BEAKER) (test mpdy=004) 9 U/L 6-55 PROTHROMBIN [id number] 04:45:00 Test Item Value Reference Range Comments PROTIME (BEAKER) (test fqed=378) 19.6 seconds 11.7-14.7 INR (BEAKER) (test uouk=587) 1.7 <=5.9 RECOMMENDED COUMADIN/WARFARIN INR THERAPY RANGESSTANDARD DOSE: 2.0 - 3.0 Includes: PROPHYLAXIS forvenous thrombosis, systemic embolization; TREATMENT for venous thrombosis and/or pulmonary embolus.HIGH RISK: Target INR is 2.5-3.5 for patients with mechanical heart valves.CBC W/PLT COUNT & AUTO [id number] 04:41:00 Test Item Value Reference Range Comments WHITE BLOOD CELL COUNT 11.3 K/ L 3.5-10.5 (BEAKER) (test ldnv=123) RED BLOOD CELL COUNT (BEAKER) 2.63 M/ L 4.63-6.08 (test ymil=097) HEMOGLOBIN (BEAKER) (test 7.4 GM/DL 13.7-17.5 iixu=878) HEMATOCRIT (BEAKER) (test 24.0 % 40.1-51.0 ydsf=332) MEAN CORPUSCULAR VOLUME 91.3 fL 79.0-92.2 (BEAKER) (test umyy=610) MEAN CORPUSCULAR HEMOGLOBIN 28.1 pg 25.7-32.2 (BEAKER) (test bems=488) MEAN CORPUSCULAR HEMOGLOBIN 30.8 GM/DL 32.3-36.5 CONC (BEAKER) (test yvns=863) RED CELL DISTRIBUTION WIDTH 16.1 % 11.6-14.4 (BEAKER) (test scrz=956) PLATELET COUNT (BEAKER) (test 202 K/CU MM 150-450 Discordant PLT result athx=012) compared to previous result; a clinical correlation required. MEAN PLATELET VOLUME (BEAKER) 10.0 fL 9.4-12.4 (test isbo=393) NUCLEATED RED BLOOD CELLS 0 /100 WBC 0-0 (BEAKER) (test vprs=076) NEUTROPHILS RELATIVE PERCENT 82 % (BEAKER) (test pzsc=454) LYMPHOCYTES RELATIVE PERCENT 7 % (BEAKER) (test efqv=584) MONOCYTES RELATIVE PERCENT 8 % (BEAKER) (test qilt=584) EOSINOPHILS RELATIVE PERCENT 2 % (BEAKER) (test irme=720) BASOPHILS RELATIVE PERCENT 0 % (BEAKER) (test qstw=356) NEUTROPHILS ABSOLUTE COUNT 9.28 K/ L 1.78-5.38 (BEAKER) (test owih=084) LYMPHOCYTES ABSOLUTE COUNT 0.81 K/ L 1.32-3.57 (BEAKER) (test lbmg=546) MONOCYTES ABSOLUTE COUNT 0.85 K/ L 0.30-0.82 (BEAKER) (test gblw=150) EOSINOPHILS ABSOLUTE COUNT 0.18 K/ L 0.04-0.54 (BEAKER) (test dfvk=405) BASOPHILS ABSOLUTE COUNT 0.04 K/ L 0.01-0.08 (BEAKER) (test wfok=729) IMMATURE 1 % 0-1 GRANULOCYTES-RELATIVE PERCENT (BEAKER) (test mmjd=3099) POCT-GLUCOSE [id number] 22:14:00 Test Item Value Reference Range Comments POC-GLUCOSE METER (BEAKER) 135 mg/dL 70-[address] [facility] [address] [facility] (test uehv=3803) [facility] [address] COMPREHENSIVE METABOLIC [id number] 18:13:00 Test Item Value Reference Range Comments TOTAL PROTEIN (BEAKER) 6.5 gm/dL 6.0-8.3 Specimen slightly (test dpbf=133) hemolyzed ALBUMIN (BEAKER) (test 2.9 g/dL 3.5-5.0 Specimen slightly zirm=7617) hemolyzed ALKALINE PHOSPHATASE 135 U/L 40-150 (BEAKER) (test erpf=061) BILIRUBIN TOTAL (BEAKER) 0.5 mg/dL 0.2-1.2 Specimen slightly (test rjbj=600) hemolyzed SODIUM (BEAKER) (test 135 meq/L 136-145 qedw=233) POTASSIUM (BEAKER) (test 3.7 meq/L 3.5-5.1 Specimen slightly tuuj=359) hemolyzed CHLORIDE (BEAKER) (test 98 meq/L 98-107 ggyz=115) CO2 (BEAKER) (test 26 meq/L 22-29 oiss=686) BLOOD UREA NITROGEN 103 mg/dL 7-21 (BEAKER) (test tgsx=594) CREATININE (BEAKER) (test 2.59 mg/dL 0.57-1.25 Specimen slightly jkqx=858) hemolyzed GLUCOSE RANDOM (BEAKER) 64 mg/dL 70-105 (test zqyl=996) CALCIUM (BEAKER) (test 8.8 mg/dL 8.4-10.2 cepf=824) AST (SGOT) (BEAKER) (test 15 U/L 5-34 Specimen slightly rdzo=140) hemolyzed ALT (SGPT) (BEAKER) (test 13 U/L 6-55 Specimen slightly ixqr=100) hemolyzed EGFR (BEAKER) (test 25 mL/min/1.73 sq m ESTIMATED GFR IS NOT sywb=2329) ACCURATE CREATININE CLEARANCE IN PREDICTING GLOMERULAR FILTRATION RATE. ESTIMATED GFR IS NOT APPLICABLE FOR DIALYSIS PATIENTS. CBC W/PLT COUNT & AUTO [id number] 17:37:00 Test Item Value Reference Range Comments WHITE BLOOD CELL COUNT (BEAKER) (test axyz=219) 11.7 K/ L 3.5-10.5 RED BLOOD CELL COUNT (BEAKER) (test bmvo=335) 2.94 M/ L 4.63-6.08 HEMOGLOBIN (BEAKER) (test dozr=102) 8.4 GM/DL 13.7-17.5 HEMATOCRIT (BEAKER) (test uiay=132) 26.2 % 40.1-51.0 MEAN CORPUSCULAR VOLUME (BEAKER) (test ecmx=735) 89.1 fL 79.0-92.2 MEAN CORPUSCULAR HEMOGLOBIN (BEAKER) (test 28.6 pg 25.7-32.2 ioen=564) MEAN CORPUSCULAR HEMOGLOBIN CONC (BEAKER) (test 32.1 GM/DL 32.3-36.5 ofxt=526) RED CELL DISTRIBUTION WIDTH (BEAKER) (test 16.8 % 11.6-14.4 yflr=834) PLATELET COUNT (BEAKER) (test idup=977) 313 K/CU MM 150-450 MEAN PLATELET VOLUME (BEAKER) (test xmhp=432) 12.1 fL 9.4-12.4 NUCLEATED RED BLOOD CELLS (BEAKER) (test 0 /100 WBC 0-0 xswt=510) NEUTROPHILS RELATIVE PERCENT (BEAKER) (test 80 % sbjb=005) LYMPHOCYTES RELATIVE PERCENT (BEAKER) (test 10 % tthq=077) MONOCYTES RELATIVE PERCENT (BEAKER) (test 7 % rqso=243) EOSINOPHILS RELATIVE PERCENT (BEAKER) (test 1 % mvgr=996) BASOPHILS RELATIVE PERCENT (BEAKER) (test 0 % uuxg=326) NEUTROPHILS ABSOLUTE COUNT (BEAKER) (test 9.29 K/ L 1.78-5.38 clqk=820) LYMPHOCYTES ABSOLUTE COUNT (BEAKER) (test 1.18 K/ L 1.32-3.57 wwmk=244) MONOCYTES ABSOLUTE COUNT (BEAKER) (test 0.84 K/ L 0.30-0.82 yxvm=207) EOSINOPHILS ABSOLUTE COUNT (BEAKER) (test 0.14 K/ L 0.04-0.54 yglt=696) BASOPHILS ABSOLUTE COUNT (BEAKER) (test 0.03 K/ L 0.01-0.08 nbhu=881) IMMATURE GRANULOCYTES-RELATIVE PERCENT (BEAKER) 2 % 0-1 (test fhkz=2128) POCT-GLUCOSE [id number] 15:37:00 Test Item Value Reference Range Comments POC-GLUCOSE METER (BEAKER) 83 mg/dL 70-[address] [facility] [address] (test kcyi=7566) [facility] [address]
--- OUTSIDE RECORDS SUMMARY | 2017-09-10 15:07 | XMS REPORT | Clinical Summary ---
:1950 Author Organization [facility] Address [address] [place] [address] Phone Care Team Providers Name Role Phone Unavailable Primary Care Provider Unavailable Allergies No Known Allergies Current Medications Prescription Sig. Disp. Refills Start End Date Status Date pantoprazole Take 1 tablet (40 0 Active (PROTONIX) 40 MG mg total) by mouth 8 tablet daily. metoprolol Take 1 tablet (25 0 08/12/19 Active (LOPRESSOR) 25 MG mg total) by mouth 8 19 tablet 2 (two) times daily. allopurinol Take 300 mg by Active (ZYLOPRIM) 300 MG mouth daily. tablet digoxin (LANOXIN) Take 125 mcg by Active 0.125 MG tablet mouth daily. multivitamins Take 1 tablet by Active (FOLBIC) 2.5-25-2 mouth daily. mg tablet furosemide (LASIX) Take 40 mg by Active 40 MG tablet mouth 3 (three) times daily. insulin glargine Inject 30 Units Active (LANTUS) 100 subcutaneously unit/mL injection nightly Use as directed . iron fum,ps Take 1 capsule by Active cmplx-vit C-niacin mouth daily. (INTEGRA) 125-40-3 mg Cap glipiZIDE Take 10 mg by Active (GLUCOTROL) 10 MG mouth 2 (two) tablet times daily before meals. ferrous sulfate Take 325 mg by Active (IRON) 325 (65 FE) mouth 3 (three) MG tablet times daily with meals. loratadine Take 10 mg by Active (CLARITIN) 10 mg mouth daily. tablet metoprolol Take 25 mg by Active (LOPRESSOR) 25 MG mouth 3 (three) tablet times daily. niacin 500 MG Take 500 mg by Active tablet mouth 3 (three) times daily with meals. insulin regular Inject Active (HUMULIN R,NOVOLIN subcutaneously as R) 100 unit/mL needed for High injection Blood Sugar Use as directed . omeprazole Take 40 mg by Active (PRILOSEC) 40 MG mouth daily. capsule potassium chloride Take 10 mEq by Active (KLOR-CON) 10 MEQ mouth daily. CR tablet simvastatin (ZOCOR) Take 40 mg by Active 40 MG tablet mouth nightly. spironolactone Take 25 mg by Active (ALDACTONE) 25 MG mouth 2 (two) tablet times daily. traMADol (ULTRAM) Take 50 mg by Active 50 mg tablet mouth as needed for Pain. ascorbic acid, Take 500 mg by Active vitamin C, mouth 2 (two) (ASCORBIC ACID WITH times daily. ALEJANDRO HIPS) 500 MG tablet cholecalciferol, Take 5,000 Units Active vitamin D3, 5,000 by mouth daily. unit Tab traMADol (ULTRAM) Take 1 tablet (50 30 tablet 0 08/22/19 50 mg tablet mg total) by mouth 8 18 every 6 (six) hours as needed for up to 10 days. Max Daily Amount: 200 mg rivaroxaban Take by mouth 08/12/19 Discontinued (XARELTO) 15 mg Tab daily with dinner. 18 tablet Active Problems Problem Noted Date GI bleed 08/10/2017 Encounters Date Type Specialty Care Team Description 08/10/2017 [facility] Internal [facility] Gastrointestinal - Encounter Medicine MD Elin hemorrhage, 08/12/2017 Cathleen, unspecified Yashash D gastrointestinal hemorrhage type;IDDM (insulin dependent diabetes mellitus) (HCC);Essential hypertension;Hyperlipi demia, unspecified hyperlipidemia type;Atrial fibrillation, unspecified type ([facility]) 08/10/2017 Telephone Gastroenterology Serenity Edward MD after 09/09/2016 Social History Tobacco Use Types Packs/Day Years Used Date Never Smoker Smokeless Tobacco: Never Used Alcohol Use Drinks/Week oz/Week Comments No Sex Assigned at Date Recorded Not on file Last Filed Vital Signs Vital Sign Reading Time Taken Blood Pressure 172/79 08/12/2017 6:57 AM CDT Pulse 80 08/12/2017 6:57 AM CDT Temperature 36.3 C (97.4 F) 08/12/2017 6:57 AM CDT Respiratory Rate 18 08/12/2017 6:57 AM CDT Oxygen Saturation 96% 08/12/2017 6:57 AM CDT Inhaled Oxygen Concentration - - Weight - - Height - - Body Mass Index - - Plan of Treatment Not on file Results TRANSFUSION SERVICE REPORT - SCAN (08/13/2017 6:02 PM)Only the most recent of2 resultswithin the time period is included.EKG-SCANNED (08/13/2017 2:01 PM) RHYTHM STRIP - SCAN (08/13/2017 2:01 PM)Prepare Leuko-Red RBC (08/12/2017 11: 54 PM) Component Value Ref Range CROSSMATCH COMPATIBLE Unit ABO A Pos UNIT NUMBER [id number] Status TRANSFUSED Blood Bank Product RED BLOOD CELLS PRODUCT CODE [id number] Specimen Performing Laboratory Other [employer] [place] POC-Glucose meter (08/12/2017 4:49 PM)Only the most recent of9 resultswithin the time period is included. Component Value Ref Range POC-Glucose Meter 261 (H)Comment: TESTED AT [address] 70 - 110 mg/[place] [address] Specimen Performing Laboratory Blood [facility] [address] [address] CBC with platelet count + automated diff (08/12/2017 8:59 AM)Only the most recent of4 resultswithin the time period is included. Component Value Ref Range WBC 11.7 (H) 3.5 - 10.5 K/L RBC 2.99 (L) 4.63 - 6.08 M/L Hemoglobin 8.7 (L) 13.7 - 17.5 GM/DL Hematocrit 27.5 (L) 40.1 - 51.0 % MCV 92.0 79.0 - 92.2 fL MCH 29.1 25.7 - 32.2 pg MCHC 31.6 (L) 32.3 - 36.5 GM/DL RDW 16.0 (H) 11.6 - 14.4 % Platelets 213 150 - 450 K/CU MM MPV 10.7 9.4 - 12.4 fL nRBC 0 0 - 0 /100 WBC % Neutros 81 % % Lymphs 6 % % Monos 10 % % Eos 2 % % Baso 0 % # Neutros 9.49 (H) 1.78 - 5.38 K/L # Lymphs 0.73 (L) 1.32 - 3.57 K/L # Monos 1.13 (H) 0.30 - 0.82 K/L # Eos 0.19 0.04 - 0.54 K/L # Baso 0.03 0.01 - 0.08 K/L Immature Granulocytes-Relative 1 0 - 1 % Specimen Performing Laboratory Blood - Arm, Right [address] [address] CBC with platelet count + automated diff (08/12/2017 8:59 AM)Only the most recent of4 resultswithin the time period is included. Specimen Performing Laboratory Blood Narrative The following orders were created for panel order CBC with platelet count + automated diff. Procedure Abnormality Status --------- ------ CBC with platelet count ...[[id number]]AbnormalFinal result Please view results for these tests on the individual orders. Calcium, Ionized (08/12/2017 4:58 AM)Only the most recent of2 resultswithin the time period is included. Component Value Ref Range Calcium, Ion 1.02 (L) 1.12 - 1.27 mmol/L pH, Blood 7.43 Specimen Performing Laboratory Blood [address] [address] Prothrombin time/INR (08/12/2017 4:58 AM)Only the most recent of2 resultswithin the time period is included. Component Value Ref Range Protime 18.1 (H) 11.7 - 14.7 seconds INR 1.5 <=5.9 Specimen Performing Laboratory Blood [address] [address] Narrative RECOMMENDED COUMADIN/WARFARIN INR THERAPY RANGES STANDARD DOSE: 2.0 - 3.0 Includes: PROPHYLAXIS for venous thrombosis, systemic embolization; TREATMENT for venous thrombosis and/or pulmonary embolus. HIGH RISK: Target INR is 2.5-3.5 for patients with mechanical heart valves. Magnesium (08/12/2017 4:58 AM)Only the most recent of2 resultswithin the time period is included. Component Value Ref Range Magnesium 1.6 1.6 - 2.6 mg/dL Specimen Performing Laboratory Blood [address] [address] Hepatic function panel (08/12/2017 4:58 AM)Only the most recent of2 resultswithin the time period is included. Component Value Ref Range Protein, Total 6.3 6.0 - 8.3 gm/dL Albumin 2.9 (L) 3.5 - 5.0 g/dL Total Bilirubin 0.4 0.2 - 1.2 mg/dL Bilirubin, Direct 0.3 0.1 - 0.5 mg/dL Alkaline Phosphatase 136 40 - 150 U/L AST 10 5 - 34 U/L ALT 9 6 - 55 U/L Specimen Performing Laboratory Blood [address] [address] Lipid panel (08/12/2017 4:58 AM)Only the most recent of2 resultswithin the time period is included. Component Value Ref Range Triglycerides 54 mg/dL Cholesterol 96 mg/dL HDL 29 mg/dL LDL Calculated 56 mg/dL Specimen Performing Laboratory Blood [address] [address] Narrative Triglyceride Reference Range: Low Risk <150 [id number] High Risk 200-499 Very High Risk>=500 Cholesterol Reference Range: Low Risk <200 [id number] High Risk>240 HDL Cholesterol Reference Range: Low Risk >=60 High Risk <40 LDL Cholesterol Reference Range: Optimal<100 Near [id number] [id number] [id number] Very High >=190 Basic metabolic panel (08/12/2017 4:58 AM)Only the most recent of2 resultswithin the time period is included. Component Value Ref Range Sodium 135 (L) 136 - 145 meq/L Potassium 3.7 3.5 - 5.1 meq/L Chloride 101 98 - 107 meq/L CO2 25 22 - 29 meq/L BUN 92 (H) 7 - 21 mg/dL Creatinine 2.52 (H) 0.57 - 1.25 mg/dL Glucose 135 (H) 70 - 105 mg/dL Calcium 8.7 8.4 - 10.2 mg/dL EGFR 26Comment: ESTIMATED GFR IS NOT ACCURATE mL/min/1.73 sq m CREATININE CLEARANCE IN PREDICTING GLOMERULAR FILTRATION RATE. ESTIMATED GFR IS NOT APPLICABLE FOR DIALYSIS PATIENTS. Specimen Performing Laboratory Blood [address] [address] CBC (Hemogram only) (08/11/2017 4:09 PM) Component Value Ref Range WBC 10.3 3.5 - 10.5 K/L RBC 3.01 (L) 4.63 - 6.08 M/L Hemoglobin 8.5 (L) 13.7 - 17.5 GM/DL Hematocrit 27.0 (L) 40.1 - 51.0 % MCV 89.7 79.0 - 92.2 fL MCH 28.2 25.7 - 32.2 pg MCHC 31.5 (L) 32.3 - 36.5 GM/DL RDW 15.8 (H) 11.6 - 14.4 % Platelets 203 150 - 450 K/CU MM MPV 10.5 9.4 - 12.4 fL nRBC 0 0 - 0 /100 WBC Specimen Performing Laboratory Blood - Arm, Left [address] [address] Type and screen, automated (08/10/2017 5:01 PM) Component Value Ref Range ABO/RH AUTOMATED (BEAKER) A POSITIVE Ab Scrn NEGATIVE Specimen Performing Laboratory Blood [address] [address] Comprehensive metabolic panel (08/10/2017 5:01 PM) Component Value Ref Range Protein, Total 6.5Comment: Specimen slightly hemolyzed 6.0 - 8.3 gm/dL Albumin 2.9 (L)Comment: Specimen slightly hemolyzed 3.5 - 5.0 g/dL Alkaline Phosphatase 135 40 - 150 U/L Total Bilirubin 0.5Comment: Specimen slightly hemolyzed 0.2 - 1.2 mg/dL Sodium 135 (L) 136 - 145 meq/L Potassium 3.7Comment: Specimen slightly hemolyzed 3.5 - 5.1 meq/L Chloride 98 98 - 107 meq/L CO2 26 22 - 29 meq/L BUN 103 (H) 7 - 21 mg/dL Creatinine 2.59 (H)Comment: Specimen slightly hemolyzed 0.57 - 1.25 mg/dL Glucose 64 (L) 70 - 105 mg/dL Calcium 8.8 8.4 - 10.2 mg/dL AST 15Comment: Specimen slightly hemolyzed 5 - 34 U/L ALT 13Comment: Specimen slightly hemolyzed 6 - 55 U/L EGFR 25Comment: ESTIMATED GFR IS NOT ACCURATE mL/min/1.73 sq m CREATININE CLEARANCE IN PREDICTING GLOMERULAR FILTRATION RATE. ESTIMATED GFR IS NOT APPLICABLE FOR DIALYSIS PATIENTS. Specimen Performing Laboratory Blood [facility] [address] [place] [address] after 09/09/2016
[2017-09-10 15:57] LABS: Absolute Lymphocytes (CBC) 1.1 K/uL (0.7-4.9); Absolute Neutrophil 10.9 K/uL (1.8-8.0); Basophils % 0.5 % (0-1.3); Eosinophils % 1.2 % (0-4.4); Hematocrit 27.4 % (39.6-49.0); Lymphocytes % 8.4 % (15.3-44.8); MCH 29.3 pg (27.0-35.0); MCV 88.3 fL (80-100); MPV 7.7 fL (7.6-11.3); Monocytes % 7.4 % (3.3-12.3)
[2017-09-10 15:58] LABS: Urine Blood TRACE (NEG); Urine Glucose 1+ (NEG); Urine Protein 3+ (NEG); Urine pH 6.5 (5.0-7.0)
[2017-09-10 16:31] LABS: Albumin 2.6 g/dL (3.4-5.0); Bilirubin Total 0.3 mg/dL (0.2-1.0); Potassium 4.6 mmol/L (3.5-5.1); Protein, Total 7.6 g/dL (6.4-8.2)
--- NOTE | 2017-09-10 17:21 | EDPHYS ---
Physician Documentation [facility] Name: Fausto Bird Age: 66 yrs Sex: Male : 1950 Arrival Date: 09/10/2017 Time: 15:09 Bed 27 Private MD: ED Physician Ziggy Barclay HPI: 09/10 16:00 This 66 yrs old Male presents to ER via EMS with complaints of Abnormal labs. pm1 16:00 Patient does not have any complaints. No chest pain, fever, shortness of breath. He was pm1 sent here "due to worsening of kidney function and further observation" due to "chronic kidney disease stage 4" by Dr. Jolly. He is a patient of Dr. Randle. Patient's labs were drawn this morning and his BUN is 111, Cr 3.4, and GFR 18. He has an order to hold his Lasix.. Severity of symptoms: Pain is currently a 0 / 10. Historical: - Allergies: 15:16 bactrim-topical; rv 15:16 MUPIROCIN; rv - PMHx: 15:16 anemic; Atrial Fib; Cellulitis; Diabetes - IDDM; Hypertension; lymphedema; Myocardial rv infarction; - PSHx: 15:16 None; rv - Immunization history:: Adult Immunizations up to date. - Social history:: Smoking status: unknown. - Ebola Screening: : Patient negative for fever greater than or equal to 101.5 degrees Fahrenheit, and additional compatible Ebola Virus Disease symptoms Patient denies exposure to infectious person Patient denies travel to an Ebola-affected area in the 21 days before illness onset. ROS: 16:00 Constitutional: Negative for fever, chills, and weight loss, Eyes: Negative for injury, pm1 pain, redness, and discharge, ENT: Negative for injury, pain, and discharge, Neck: Negative for injury, pain, and swelling, Cardiovascular: Negative for chest pain, palpitations, and edema, Respiratory: Negative for shortness of breath, cough, wheezing, and pleuritic chest pain, Abdomen/GI: Negative for abdominal pain, nausea, vomiting, diarrhea, and constipation, Back: Negative for injury and pain, : Negative for injury, bleeding, discharge, and swelling, MS/Extremity: Negative for injury and deformity, Skin: Negative for injury, rash, and discoloration, Neuro: Negative for headache, weakness, numbness, tingling, and seizure. Exam: 16:00 Constitutional: This is a well developed, well nourished patient who is awake, alert, pm1 and in no acute distress. Head/Face: Normocephalic, atraumatic. Eyes: Pupils equal round and reactive to light, extra-ocular motions intact. Lids and lashes normal. Conjunctiva and sclera are non-icteric and not injected. Cornea within normal limits. Periorbital areas with no swelling, redness, or edema. ENT: Nares patent. No nasal discharge, no septal abnormalities noted. Tympanic membranes are normal and external auditory canals are clear. Oropharynx with no redness, swelling, or masses, exudates, or evidence of obstruction, uvula midline. Mucous membranes moist. Neck: Trachea midline, no thyromegaly or masses palpated, and no cervical lymphadenopathy. Supple, full range of motion without nuchal rigidity, or vertebral point tenderness. No Meningismus. Chest/axilla: Normal chest wall appearance and motion. Nontender with no deformity. No lesions are appreciated. Cardiovascular: Regular rate and rhythm with a normal S1 and S2. No gallops, murmurs, or rubs. No pulse deficits. Respiratory: Lungs have equal breath sounds bilaterally, clear to auscultation and percussion. No rales, rhonchi or wheezes noted. No increased work of breathing, no retractions or nasal flaring. Abdomen/GI: Soft, non-tender, with normal bowel sounds. No distension or tympany. No guarding or rebound. No evidence of tenderness throughout. Back: No spinal tenderness. No costovertebral tenderness. Full range of motion. Skin: Warm, dry with normal turgor. Normal color with no rashes, no lesions, and no evidence of cellulitis. MS/ Extremity: Pulses equal, no cyanosis. Neurovascular intact. Full, normal range of motion. 16:00 Neuro: Orientation: is normal, Motor: moves all fours. Vital Signs: 15:16 Pulse 80; Pulse Ox 96% on R/A; Weight 131.54 kg; Height 6 ft. 1 in. (185.42 cm) (R); rv 15:42 BP 169 / 74; rv 16:36 BP 145 / 71; Pulse 71; Pulse Ox 98% on R/A; rv 17:58 BP 175 / 74; rv 15:16 Body Mass Index 38.26 (131.54 kg, 185.42 cm) rv MDM: 15:18 Patient medically screened. pm1 16:00 Data reviewed: vital signs. pm1 17:10 Physician consultation: Robinson CARLTON Bety was called at 17:04, was contacted at 17:10, pm1 regarding patient's condition, Patient's labs reviewed from prior lab draws performed here and patient is within his baseline BUN, CR, GFR. Patient without any acute change, all chronic. Recommended follow up with nephrology on outpatient basis. Bijou will contact sewage reticulation drafting officer to setup appointment. 17:18 Counseling: I had a detailed discussion with the patient and/or guardian regarding: the pm1 historical points, exam findings, and any diagnostic results supporting the discharge/admit diagnosis, lab results, the need for outpatient follow up, to return to the emergency department if symptoms worsen or persist or if there are any questions or concerns that arise at home. 09/10 15:30 Order name: CBC with Diff; Complete Time: 16:14 pm1 09/10 15:30 Order name: CMP; Complete Time: 16:32 pm1 09/10 15:30 Order name: IV Saline Lock; Complete Time: 15:51 pm1 09/10 15:30 Order name: Urine Dipstick-Ancillary (obtain specimen); Complete Time: 15:51 pm1 09/10 15:55 Order name: Urine Dipstick--Ancillary (enter results); Complete Time: 16:14 ag Administered Medications: No medications were administered Disposition: 18:57 Co-signature as Attending Physician, Ziggy Barclay MD I agree with the assessment and kdr plan of care. Disposition: 09/10/17 17:20 Discharged to Home. Impression: Chronic kidney disease, stage 4 (severe). - Condition is Stable. - Discharge Instructions: Chronic Kidney Disease, Adult, [id number]. - Medication Reconciliation Form, Thank You Letter, SBAR form form. - Follow up: Emergency Department; When: As needed; Reason: Worsening of condition. Follow up: Private Physician; When: 2 - 3 days; Reason: Recheck today's complaints, Continuance of care, Re-evaluation by your physician. Follow up: Sheila Randle MD; When: 2 - 3 days; Reason: Recheck today's complaints, Continuance of care, Re-evaluation by your physician. - Problem is new. - Symptoms have improved. Signatures: Dispatcher [employer] EDMS Ziggy Barclay MD MD kdr Rojelio Holland MS SQL DEVELOPER MS SQL DEVELOPER pm1 Nick Rosario RN RN rv Corrections: (The following items were deleted from the chart) 17:26 17:20 09/10/2017 17:20 Discharged to Home. Impression: Chronic kidney disease, stage 4 pm1 (severe). Condition is Stable. Forms are Medication Reconciliation Form, Thank You Letter, Antibiotic Education, Prescription Opioid Use. Follow up: Emergency Department; When: As needed; Reason: Worsening of condition. Follow up: Private Physician; When: 2 - 3 days; Reason: Recheck today's complaints, Continuance of care, Re-evaluation by your physician. Problem is new. Symptoms have improved. pm1 18:17 17:26 09/10/2017 17:20 Discharged to Home. Impression: Chronic kidney disease, stage 4 rv (severe). Condition is Stable. Discharge Instructions: Chronic Kidney Disease, Adult, [id number]. Forms are Medication Reconciliation Form, Thank You Letter. Follow up: Emergency Department; When: As needed; Reason: Worsening of condition. Follow up: Private Physician; When: 2 - 3 days; Reason: Recheck today's complaints, Continuance of care, Re-evaluation by your physician. Follow up: Sheila Randle; When: 2 - 3 days; Reason: Recheck today's complaints, Continuance of care, Re-evaluation by your physician. Problem is new. Symptoms have improved. pm1
--- NOTE | 2017-09-10 17:21 | ER ---
Nurse's Notes [facility] Name: Fausto Bird Age: 66 yrs Sex: Male : 1950 Arrival Date: 09/10/2017 Time: 15:09 Bed 27 Private MD: Diagnosis: Chronic kidney disease, stage 4 (severe) Presentation: 09/10 15:14 Presenting complaint: EMS states: "RENAL FAILURE, ABNORMAL LAB RESULTS.". Transition of rv care: [facility]. Onset of symptoms was September 10, 2017 at 12:00. Risk Assessment: Do you want to hurt yourself or someone else? Patient reports no desire to harm self or others. Initial Sepsis Screen: Does the patient meet any 2 criteria? No. Patient's initial sepsis screen is negative. Does the patient have a suspected source of infection? No. Patient's initial sepsis screen is negative. Care prior to arrival: None. 15:14 Method Of Arrival: EMS: [facility] 15:14 Acuity: BLANCA 3 rv Historical: - Allergies: 15:16 bactrim-topical; rv 15:16 MUPIROCIN; rv - PMHx: 15:16 anemic; Atrial Fib; Cellulitis; Diabetes - IDDM; Hypertension; lymphedema; Myocardial rv infarction; - PSHx: 15:16 None; rv - Immunization history:: Adult Immunizations up to date. - Social history:: Smoking status: unknown. - Ebola Screening: : Patient negative for fever greater than or equal to 101.5 degrees Fahrenheit, and additional compatible Ebola Virus Disease symptoms Patient denies exposure to infectious person Patient denies travel to an Ebola-affected area in the 21 days before illness onset. Screenin:18 Abuse screen: Denies threats or abuse. Denies injuries from another. Nutritional rv screening: No deficits noted. Tuberculosis screening: No symptoms or risk factors identified. Fall Risk None identified. Assessment: 15:18 General: Appears in no apparent distress. comfortable, Behavior is calm, cooperative. rv Pain:. Neuro: Level of Consciousness is awake, alert, obeys commands, Oriented to person, place, time, situation. Cardiovascular: Capillary refill < 3 seconds. Respiratory: Airway is patent. GI: No signs and/or symptoms were reported involving the gastrointestinal system. : No signs and/or symptoms were reported regarding the genitourinary system. EENT: No signs and/or symptoms were reported regarding the EENT system. Derm: Skin is intact. 17:57 Reassessment: Patient appears in no apparent distress at this time. Patient and/or rv family updated on plan of care and expected duration. Pain level reassessed. Patient is alert, oriented x 3, equal unlabored respirations, skin warm/dry/pink. CALLED IN TO [facility] FOR TRANSPORT BACK. PATIENT IS FOR DISCHARGE. Vital Signs: 15:16 Pulse 80; Pulse Ox 96% on R/A; Weight 131.54 kg; Height 6 ft. 1 in. (185.42 cm) (R); rv 15:42 BP 169 / 74; rv 16:36 BP 145 / 71; Pulse 71; Pulse Ox 98% on R/A; rv 17:58 BP 175 / 74; rv 15:16 Body Mass Index 38.26 (131.54 kg, 185.42 cm) rv ED Course: 15:09 Patient arrived in ED. rv 15:15 Triage completed. rv 15:18 Rojelio Holland NP is PHCP. pm1 15:18 Ziggy Barclay MD is Attending Physician. pm1 15:19 Patient has correct armband on for positive identification. Placed in gown. Bed in low rv position. Call light in reach. Side rails up X2. Pulse ox on. NIBP on. 15:51 Inserted saline lock: 20 gauge in right antecubital area, using aseptic technique. rv 15:53 Urine collected: clean catch specimen, cloudy, joanne colored. jb1 17:25 Sheila Randle MD is Referral Physician. pm1 17:57 No provider procedures requiring assistance completed. IV discontinued, bleeding rv controlled, No redness/swelling at site. Pressure dressing applied. Administered Medications: No medications were administered Outcome: 17:20 Discharge ordered by . pm1 18:16 Discharged to [facility] rv 18:16 Condition: good 18:16 Discharge instructions given to patient, Instructed on discharge instructions, follow up and referral plans. 18:17 Patient left the ED. rv Signatures: Joshua Garrett jb1 Rojelio Holland NP CHANGE CONSULTANT pm1 Nick Rosario RN RN rv
[2017-09-10 18:30] VITALS: O2SAT 98
[2017-09-10 18:31] VITALS: BP 175/74
== END 2017-09-10 18:17 | disposition home or self-care (01) ==
LOC: ER 15:04
DX: I12.9 Hypertensive chronic kidney disease with stage 1 through stage 4 chronic kidney disease, or unspecified chronic kidney disease (principal); N18.4 Chronic kidney disease, stage 4 (severe); I25.2 Old myocardial infarction; Z88.1 Allergy status to other antibiotic agents
CPT/HCPCS: 36415; 80048; 80053; 81003; 84134; 85025; 99284

== ENCOUNTER 2017-10-24 09:22 | Emergency (ER) | payer OTHER ==
--- OUTSIDE RECORDS SUMMARY | 2017-10-24 09:25 | XMS REPORT ---
:1950 Author Organization [facility] Address [address] [place] [address] Care Team Providers Name Role Phone DAMIEN [...] (BEAKER) (test 261 mg/dL 70-110 TESTED AT [facility] [address] [facility] izle=[phone]) [facility] [address] POCT-GLUCOSE [id number] 11:33:00 Test Item Value Reference Range Comments POC-GLUCOSE METER (BEAKER) 198 mg/dL 70-110 TESTED AT [facility] [address] [facility] (test lqow=4191) [facility] [address] CBC W/PLT COUNT & AUTO [id number] 09:37:00 Test Item Value Reference Range Comments WHITE BLOOD CELL COUNT (BEAKER) (test dpbw=770) 11.7 K/ L 3.5-10.5 RED BLOOD CELL COUNT (BEAKER) (test kwxj=574) 2.99 M/ L 4.63-6.08 HEMOGLOBIN (BEAKER) (test enrd=648) 8.7 GM/DL 13.7-17.5 HEMATOCRIT (BEAKER) (test zdny=282) 27.5 % 40.1-51.0 MEAN CORPUSCULAR VOLUME (BEAKER) (test altj=724) 92.0 fL 79.0-92.2 MEAN CORPUSCULAR HEMOGLOBIN (BEAKER) (test 29.1 pg 25.7-32.2 cchb=795) MEAN CORPUSCULAR HEMOGLOBIN CONC (BEAKER) (test 31.6 GM/DL 32.3-36.5 pwiu=408) RED CELL DISTRIBUTION WIDTH (BEAKER) (test 16.0 % 11.6-14.4 jymw=746) PLATELET COUNT (BEAKER) (test ordb=480) 213 K/CU MM 150-450 MEAN PLATELET VOLUME (BEAKER) (test rcod=991) 10.7 fL 9.4-12.4 NUCLEATED RED BLOOD CELLS (BEAKER) (test 0 /100 WBC 0-0 pvvm=507) NEUTROPHILS RELATIVE PERCENT (BEAKER) (test 81 % hsuc=489) LYMPHOCYTES RELATIVE PERCENT (BEAKER) (test 6 % zcjk=240) MONOCYTES RELATIVE PERCENT (BEAKER) (test 10 % xjoh=808) EOSINOPHILS RELATIVE PERCENT (BEAKER) (test 2 % rphn=783) BASOPHILS RELATIVE PERCENT (BEAKER) (test 0 % jydh=704) NEUTROPHILS ABSOLUTE COUNT (BEAKER) (test 9.49 K/ L 1.78-5.38 zphv=889) LYMPHOCYTES ABSOLUTE COUNT (BEAKER) (test 0.73 K/ L 1.32-3.57 izet=631) MONOCYTES ABSOLUTE COUNT (BEAKER) (test 1.13 K/ L 0.30-0.82 xqwm=830) EOSINOPHILS ABSOLUTE COUNT (BEAKER) (test 0.19 K/ L 0.04-0.54 weiy=893) BASOPHILS ABSOLUTE COUNT (BEAKER) (test 0.03 K/ L 0.01-0.08 dvdc=195) IMMATURE GRANULOCYTES-RELATIVE PERCENT (BEAKER) 1 % 0-1 (test amfc=3449) POCT-GLUCOSE [id number] 07:52:00 Test Item Value Reference Range Comments POC-GLUCOSE METER (BEAKER) 126 mg/dL 70-110 TESTED AT [address] (test owrf=7672) [facility] [address] CALCIUM, [id number] 06:39:00 Test Item Value Reference Range Comments CALCIUM IONIZED (BEAKER) (test faid=125) 1.02 mmol/L 1.12-1.27 PH, BLOOD (BEAKER) (test xzcg=7538) 7.43 LIPID [id number] 05:57:00 Test Item Value Reference Range Comments TRIGLYCERIDES (BEAKER) (test boco=209) 54 mg/dL CHOLESTEROL (BEAKER) (test upwu=623) 96 mg/dL HDL CHOLESTEROL (BEAKER) (test wpgm=251) 29 mg/dL LDL CHOLESTEROL CALCULATED (BEAKER) (test fljx=920) 56 mg/dL Triglyceride Reference Range: Low Risk <150 Borderline 150- 199 High Risk 200-499 Very High Risk >=500Cholesterol Reference Range: Low Risk <200 Borderline 200-239 High Risk > 240HDL Cholesterol Reference Range: Low Risk >=60 High Risk <40LDL Cholesterol Reference Range: Optimal <100 Near Optimal 100-129 Borderline 130-159 High 160-189 Very High >=190BASIC METABOLIC [id number] 05:56:00 Test Item Value Reference Range Comments SODIUM (BEAKER) (test 135 meq/L 136-145 hlzp=575) POTASSIUM (BEAKER) (test 3.7 meq/L 3.5-5.1 knmd=997) CHLORIDE (BEAKER) (test 101 meq/L 98-107 dhdr=225) CO2 (BEAKER) (test 25 meq/L 22-29 kwvq=761) BLOOD UREA NITROGEN 92 mg/dL 7-21 (BEAKER) (test akjn=768) CREATININE (BEAKER) (test 2.52 mg/dL 0.57-1.25 tqiv=591) GLUCOSE RANDOM (BEAKER) 135 mg/dL 70-105 (test prgz=162) CALCIUM (BEAKER) (test 8.7 mg/dL 8.4-10.2 tnhb=816) EGFR (BEAKER) (test 26 mL/min/1.73 sq m ESTIMATED GFR IS NOT xvjs=1503) ACCURATE CREATININE CLEARANCE IN PREDICTING GLOMERULAR FILTRATION RATE. ESTIMATED GFR IS NOT APPLICABLE FOR DIALYSIS PATIENTS. [id number] 05:48:00 Test Item Value Reference Range Comments MAGNESIUM (BEAKER) (test lren=408) 1.6 mg/dL 1.6-2.6 HEPATIC FUNCTION [id number] 05:48:00 Test Item Value Reference Range Comments TOTAL PROTEIN (BEAKER) (test aytv=946) 6.3 gm/dL 6.0-8.3 ALBUMIN (BEAKER) (test pqkn=2222) 2.9 g/dL 3.5-5.0 BILIRUBIN TOTAL (BEAKER) (test ddxg=108) 0.4 mg/dL 0.2-1.2 BILIRUBIN DIRECT (BEAKER) (test yxxg=417) 0.3 mg/dL 0.1-0.5 ALKALINE PHOSPHATASE (BEAKER) (test luni=925) 136 U/L 40-150 AST (SGOT) (BEAKER) (test karc=055) 10 U/L 5-34 ALT (SGPT) (BEAKER) (test sexg=259) 9 U/L 6-55 PROTHROMBIN [id number] 05:37:00 Test Item Value Reference Range Comments PROTIME (BEAKER) (test vkam=646) 18.1 seconds 11.7-14.7 INR (BEAKER) (test xdpj=268) 1.5 <=5.9 RECOMMENDED COUMADIN/WARFARIN INR THERAPY RANGESSTANDARD DOSE: 2.0 - 3.0 Includes: PROPHYLAXIS forvenous thrombosis, systemic embolization; TREATMENT for venous thrombosis and/or pulmonary embolus.HIGH RISK: Target INR is 2.5-3.5 for patients with mechanical heart valves.POCT-GLUCOSE [id number] 21:34:00 Test Item Value Reference Range Comments POC-GLUCOSE METER (BEAKER) 260 mg/dL 70-110 TESTED AT [address] (test kyqw=1256) [facility] [address] POCT-GLUCOSE [id number] 17:13:00 Test Item Value Reference Range Comments POC-GLUCOSE METER (BEAKER) 202 mg/dL 70-110 TESTED AT [address] (test kywx=6992) [facility] [address] CBC W/PLT COUNT & AUTO [id number] 16:36:00 Test Item Value Reference Range Comments WHITE BLOOD CELL COUNT (BEAKER) (test vdzr=058) 10.3 K/ L 3.5-10.5 RED BLOOD CELL COUNT (BEAKER) (test obqv=704) 3.01 M/ L 4.63-6.08 HEMOGLOBIN (BEAKER) (test ucja=013) 8.5 GM/DL 13.7-17.5 HEMATOCRIT (BEAKER) (test pkjm=700) 27.0 % 40.1-51.0 MEAN CORPUSCULAR VOLUME (BEAKER) (test wwkl=369) 89.7 fL 79.0-92.2 MEAN CORPUSCULAR HEMOGLOBIN (BEAKER) (test 28.2 pg 25.7-32.2 axmj=530) MEAN CORPUSCULAR HEMOGLOBIN CONC (BEAKER) (test 31.5 GM/DL 32.3-36.5 oxfu=633) RED CELL DISTRIBUTION WIDTH (BEAKER) (test 15.8 % 11.6-14.4 mmhn=517) PLATELET COUNT (BEAKER) (test crij=830) 203 K/CU MM 150-450 MEAN PLATELET VOLUME (BEAKER) (test arzs=437) 10.5 fL 9.4-12.4 NUCLEATED RED BLOOD CELLS (BEAKER) (test 0 /100 WBC 0-0 exdt=180) NEUTROPHILS RELATIVE PERCENT (BEAKER) (test 83 % jmuf=365) LYMPHOCYTES RELATIVE PERCENT (BEAKER) (test 7 % oqbp=917) MONOCYTES RELATIVE PERCENT (BEAKER) (test 8 % oazv=538) EOSINOPHILS RELATIVE PERCENT (BEAKER) (test 1 % vhde=028) BASOPHILS RELATIVE PERCENT (BEAKER) (test 0 % zgmh=898) NEUTROPHILS ABSOLUTE COUNT (BEAKER) (test 8.57 K/ L 1.78-5.38 pjjg=460) LYMPHOCYTES ABSOLUTE COUNT (BEAKER) (test 0.71 K/ L 1.32-3.57 ujvp=021) MONOCYTES ABSOLUTE COUNT (BEAKER) (test 0.78 K/ L 0.30-0.82 ehxy=402) EOSINOPHILS ABSOLUTE COUNT (BEAKER) (test 0.09 K/ L 0.04-0.54 amcy=878) BASOPHILS ABSOLUTE COUNT (BEAKER) (test 0.04 K/ L 0.01-0.08 mdtf=435) IMMATURE GRANULOCYTES-RELATIVE PERCENT (BEAKER) 1 % 0-1 (test fjzv=3876) CBC (HEMOGRAM ONLY)2017-08-11 16:30:00 Test Item Value Reference Range Comments WHITE BLOOD CELL COUNT (BEAKER) (test lnsk=191) 10.3 K/ L 3.5-10.5 RED BLOOD CELL COUNT (BEAKER) (test mlok=738) 3.01 M/ L 4.63-6.08 HEMOGLOBIN (BEAKER) (test ifho=437) 8.5 GM/DL 13.7-17.5 HEMATOCRIT (BEAKER) (test yisj=424) 27.0 % 40.1-51.0 MEAN CORPUSCULAR VOLUME (BEAKER) (test kdqw=355) 89.7 fL 79.0-92.2 MEAN CORPUSCULAR HEMOGLOBIN (BEAKER) (test 28.2 pg 25.7-32.2 mrgg=021) MEAN CORPUSCULAR HEMOGLOBIN CONC (BEAKER) (test 31.5 GM/DL 32.3-36.5 jwvs=580) RED CELL DISTRIBUTION WIDTH (BEAKER) (test 15.8 % 11.6-14.4 yvkf=838) PLATELET COUNT (BEAKER) (test uvtf=789) 203 K/CU MM 150-450 MEAN PLATELET VOLUME (BEAKER) (test xruu=362) 10.5 fL 9.4-12.4 NUCLEATED RED BLOOD CELLS (BEAKER) (test 0 /100 WBC 0-0 wlgs=620) POCT-GLUCOSE [id number] 12:32:00 Test Item Value Reference Range Comments POC-GLUCOSE METER (BEAKER) 209 mg/dL 70-110 TESTED AT [address] (test ikfe=8845) [facility] [address] POCT-GLUCOSE [id number] 07:51:00 Test Item Value Reference Range Comments POC-GLUCOSE METER (BEAKER) 101 mg/dL 70-110 TESTED AT [address] (test rrqv=6039) [facility] [address] CALCIUM, [id number] 06:35:00 Test Item Value Reference Range Comments CALCIUM IONIZED (BEAKER) (test ifvr=466) 1.03 mmol/L 1.12-1.27 PH, BLOOD (BEAKER) (test yhvj=6034) 7.39 BASIC METABOLIC [id number] 05:22:00 Test Item Value Reference Range Comments SODIUM (BEAKER) (test 135 meq/L 136-145 dgms=807) POTASSIUM (BEAKER) (test 3.6 meq/L 3.5-5.1 unaj=454) CHLORIDE (BEAKER) (test 99 meq/L 98-107 kamb=991) CO2 (BEAKER) (test 25 meq/L 22-29 roba=678) BLOOD UREA NITROGEN 106 mg/dL 7-21 (BEAKER) (test wwcc=326) CREATININE (BEAKER) (test 2.58 mg/dL 0.57-1.25 jyrp=598) GLUCOSE RANDOM (BEAKER) 105 mg/dL 70-105 (test tajo=392) CALCIUM (BEAKER) (test 8.6 mg/dL 8.4-10.2 eiok=273) EGFR (BEAKER) (test 25 mL/min/1.73 sq m ESTIMATED GFR IS NOT vjqt=0759) ACCURATE CREATININE CLEARANCE IN PREDICTING GLOMERULAR FILTRATION RATE. ESTIMATED GFR IS NOT APPLICABLE FOR DIALYSIS PATIENTS. [id number] 05:20:00 Test Item Value Reference Range Comments MAGNESIUM (BEAKER) (test hypm=297) 1.5 mg/dL 1.6-2.6 LIPID [id number] 05:20:00 Test Item Value Reference Range Comments TRIGLYCERIDES (BEAKER) (test rdvw=919) 62 mg/dL CHOLESTEROL (BEAKER) (test ojmn=909) 87 mg/dL HDL CHOLESTEROL (BEAKER) (test iuox=337) 28 mg/dL LDL CHOLESTEROL CALCULATED (BEAKER) (test ejuv=223) 47 mg/dL Triglyceride Reference Range: Low Risk <150 Borderline 150- 199 High Risk 200-499 Very High Risk >=500Cholesterol Reference Range: Low Risk <200 Borderline 200-239 High Risk > 240HDL Cholesterol Reference Range: Low Risk >=60 High Risk <40LDL Cholesterol Reference Range: Optimal <100 Near Optimal 100-129 Borderline 130-159 High 160-189 Very High >=190HEPATIC FUNCTION [id number] 05:20:00 Test Item Value Reference Range Comments TOTAL PROTEIN (BEAKER) (test rqct=879) 6.3 gm/dL 6.0-8.3 ALBUMIN (BEAKER) (test matf=3326) 2.9 g/dL 3.5-5.0 BILIRUBIN TOTAL (BEAKER) (test bmpn=934) 0.4 mg/dL 0.2-1.2 BILIRUBIN DIRECT (BEAKER) (test bxwn=660) 0.2 mg/dL 0.1-0.5 ALKALINE PHOSPHATASE (BEAKER) (test erbk=243) 135 U/L 40-150 AST (SGOT) (BEAKER) (test nxdg=843) 10 U/L 5-34 ALT (SGPT) (BEAKER) (test lhwb=236) 9 U/L 6-55 PROTHROMBIN [id number] 04:45:00 Test Item Value Reference Range Comments PROTIME (BEAKER) (test blap=230) 19.6 seconds 11.7-14.7 INR (BEAKER) (test xyha=906) 1.7 <=5.9 RECOMMENDED COUMADIN/WARFARIN INR THERAPY RANGESSTANDARD DOSE: 2.0 - 3.0 Includes: PROPHYLAXIS forvenous thrombosis, systemic embolization; TREATMENT for venous thrombosis and/or pulmonary embolus.HIGH RISK: Target INR is 2.5-3.5 for patients with mechanical heart valves.CBC W/PLT COUNT & AUTO [id number] 04:41:00 Test Item Value Reference Range Comments WHITE BLOOD CELL COUNT 11.3 K/ L 3.5-10.5 (BEAKER) (test tbur=247) RED BLOOD CELL COUNT (BEAKER) 2.63 M/ L 4.63-6.08 (test hrmm=688) HEMOGLOBIN (BEAKER) (test 7.4 GM/DL 13.7-17.5 vmgq=809) HEMATOCRIT (BEAKER) (test 24.0 % 40.1-51.0 qome=275) MEAN CORPUSCULAR VOLUME 91.3 fL 79.0-92.2 (BEAKER) (test rgna=501) MEAN CORPUSCULAR HEMOGLOBIN 28.1 pg 25.7-32.2 (BEAKER) (test tdmj=062) MEAN CORPUSCULAR HEMOGLOBIN 30.8 GM/DL 32.3-36.5 CONC (BEAKER) (test jgux=685) RED CELL DISTRIBUTION WIDTH 16.1 % 11.6-14.4 (BEAKER) (test onpg=178) PLATELET COUNT (BEAKER) (test 202 K/CU MM 150-450 Discordant PLT result qwpg=187) compared to previous result; a clinical correlation required. MEAN PLATELET VOLUME (BEAKER) 10.0 fL 9.4-12.4 (test kpiv=589) NUCLEATED RED BLOOD CELLS 0 /100 WBC 0-0 (BEAKER) (test ohcu=332) NEUTROPHILS RELATIVE PERCENT 82 % (BEAKER) (test etzz=768) LYMPHOCYTES RELATIVE PERCENT 7 % (BEAKER) (test zwey=675) MONOCYTES RELATIVE PERCENT 8 % (BEAKER) (test czwr=717) EOSINOPHILS RELATIVE PERCENT 2 % (BEAKER) (test nkeh=017) BASOPHILS RELATIVE PERCENT 0 % (BEAKER) (test triy=071) NEUTROPHILS ABSOLUTE COUNT 9.28 K/ L 1.78-5.38 (BEAKER) (test jgen=908) LYMPHOCYTES ABSOLUTE COUNT 0.81 K/ L 1.32-3.57 (BEAKER) (test hbrb=709) MONOCYTES ABSOLUTE COUNT 0.85 K/ L 0.30-0.82 (BEAKER) (test lwgz=473) EOSINOPHILS ABSOLUTE COUNT 0.18 K/ L 0.04-0.54 (BEAKER) (test pakd=565) BASOPHILS ABSOLUTE COUNT 0.04 K/ L 0.01-0.08 (BEAKER) (test noma=012) IMMATURE 1 % 0-1 GRANULOCYTES-RELATIVE PERCENT (BEAKER) (test ovdq=8028) POCT-GLUCOSE [id number] 22:14:00 Test Item Value Reference Range Comments POC-GLUCOSE METER (BEAKER) 135 mg/dL 70-110 TESTED AT [facility] [address] [facility] (test cbby=7269) [facility] [address] COMPREHENSIVE METABOLIC [id number] 18:13:00 Test Item Value Reference Range Comments TOTAL PROTEIN (BEAKER) 6.5 gm/dL 6.0-8.3 Specimen slightly (test ysiu=564) hemolyzed ALBUMIN (BEAKER) (test 2.9 g/dL 3.5-5.0 Specimen slightly cpcy=0515) hemolyzed ALKALINE PHOSPHATASE 135 U/L 40-150 (BEAKER) (test lnlw=816) BILIRUBIN TOTAL (BEAKER) 0.5 mg/dL 0.2-1.2 Specimen slightly (test nxeg=546) hemolyzed SODIUM (BEAKER) (test 135 meq/L 136-145 hlpr=674) POTASSIUM (BEAKER) (test 3.7 meq/L 3.5-5.1 Specimen slightly qnmq=094) hemolyzed CHLORIDE (BEAKER) (test 98 meq/L 98-107 nvrw=362) CO2 (BEAKER) (test 26 meq/L 22-29 jthd=869) BLOOD UREA NITROGEN 103 mg/dL 7-21 (BEAKER) (test kmet=376) CREATININE (BEAKER) (test 2.59 mg/dL 0.57-1.25 Specimen slightly qfff=668) hemolyzed GLUCOSE RANDOM (BEAKER) 64 mg/dL 70-105 (test jovj=125) CALCIUM (BEAKER) (test 8.8 mg/dL 8.4-10.2 pmpx=223) AST (SGOT) (BEAKER) (test 15 U/L 5-34 Specimen slightly ollo=994) hemolyzed ALT (SGPT) (BEAKER) (test 13 U/L 6-55 Specimen slightly gltv=831) hemolyzed EGFR (BEAKER) (test 25 mL/min/1.73 sq m ESTIMATED GFR IS NOT hrhi=7706) ACCURATE CREATININE CLEARANCE IN PREDICTING GLOMERULAR FILTRATION RATE. ESTIMATED GFR IS NOT APPLICABLE FOR DIALYSIS PATIENTS. CBC W/PLT COUNT & AUTO [id number] 17:37:00 Test Item Value Reference Range Comments WHITE BLOOD CELL COUNT (BEAKER) (test agff=504) 11.7 K/ L 3.5-10.5 RED BLOOD CELL COUNT (BEAKER) (test iedu=538) 2.94 M/ L 4.63-6.08 HEMOGLOBIN (BEAKER) (test brzg=695) 8.4 GM/DL 13.7-17.5 HEMATOCRIT (BEAKER) (test fjnq=196) 26.2 % 40.1-51.0 MEAN CORPUSCULAR VOLUME (BEAKER) (test dgar=648) 89.1 fL 79.0-92.2 MEAN CORPUSCULAR HEMOGLOBIN (BEAKER) (test 28.6 pg 25.7-32.2 jdib=428) MEAN CORPUSCULAR HEMOGLOBIN CONC (BEAKER) (test 32.1 GM/DL 32.3-36.5 twxb=783) RED CELL DISTRIBUTION WIDTH (BEAKER) (test 16.8 % 11.6-14.4 hcae=136) PLATELET COUNT (BEAKER) (test hyjh=791) 313 K/CU MM 150-450 MEAN PLATELET VOLUME (BEAKER) (test pfmy=569) 12.1 fL 9.4-12.4 NUCLEATED RED BLOOD CELLS (BEAKER) (test 0 /100 WBC 0-0 sarc=358) NEUTROPHILS RELATIVE PERCENT (BEAKER) (test 80 % brrd=443) LYMPHOCYTES RELATIVE PERCENT (BEAKER) (test 10 % cikd=543) MONOCYTES RELATIVE PERCENT (BEAKER) (test 7 % egbx=854) EOSINOPHILS RELATIVE PERCENT (BEAKER) (test 1 % sbwq=910) BASOPHILS RELATIVE PERCENT (BEAKER) (test 0 % xrpz=849) NEUTROPHILS ABSOLUTE COUNT (BEAKER) (test 9.29 K/ L 1.78-5.38 okpj=366) LYMPHOCYTES ABSOLUTE COUNT (BEAKER) (test 1.18 K/ L 1.32-3.57 ipcq=899) MONOCYTES ABSOLUTE COUNT (BEAKER) (test 0.84 K/ L 0.30-0.82 dqfx=050) EOSINOPHILS ABSOLUTE COUNT (BEAKER) (test 0.14 K/ L 0.04-0.54 krjd=177) BASOPHILS ABSOLUTE COUNT (BEAKER) (test 0.03 K/ L 0.01-0.08 imqe=617) IMMATURE GRANULOCYTES-RELATIVE PERCENT (BEAKER) 2 % 0-1 (test qsgk=4244) POCT-GLUCOSE [id number] 15:37:00 Test Item Value Reference Range Comments POC-GLUCOSE METER (BEAKER) 83 mg/dL 70-110 TESTED AT [facility] [address] (test bofk=2774) [facility] [address]
--- OUTSIDE RECORDS SUMMARY | 2017-10-24 09:25 | XMS REPORT | Clinical Summary ---
:1950 Author Organization [facility] Address [address] [place] [address] Phone Care Team Providers Name Role Phone [...] Date Type Specialty Care Team Description 08/10/2017 [facility] Internal ChidiFarnaz Gastrointestinal - Encounter Medicine MD Elin hemorrhage, 08/12/2017 Cathleen, unspecified Yashash D gastrointestinal hemorrhage type;IDDM (insulin dependent diabetes mellitus) (HCC);Essential hypertension;Hyperlipi demia, unspecified hyperlipidemia type;Atrial fibrillation, unspecified type ([facility]) 08/10/2017 Telephone Gastroenterology Serenity Edward MD after 10/23/2016 Social History Tobacco Use Types Packs/Day Years [...] COMPATIBLE Unit ABO A Pos UNIT NUMBER [id number] Status TRANSFUSED Blood Bank Product RED BLOOD CELLS PRODUCT CODE [id number] Specimen Performing Laboratory Other [employer] [place] POC-Glucose meter (08/12/2017 4:49 PM)Only the most recent of9 resultswithin the time period is included. Component Value Ref Range POC-Glucose Meter 261 (H)Comment: TESTED AT [address] 70 - 110 mg/[place] [address] Specimen Performing Laboratory Blood [facility] [address] [address] CBC with platelet count + automated diff [...] Specimen Performing Laboratory Blood - Arm, Right [address] [address] CBC with platelet count + automated diff (08/12/2017 8:59 AM)Only the most recent of4 resultswithin the time period is included. Specimen Performing Laboratory Blood Narrative The following orders were created for panel order CBC with platelet count + automated diff. Procedure Abnormality Status --------- ------ CBC with platelet count ...[[id number]]AbnormalFinal result Please view results for these tests on the individual orders. Calcium, Ionized (08/12/2017 4:58 AM)Only the most recent of2 resultswithin the time period is included. Component Value Ref Range Calcium, Ion 1.02 (L) 1.12 - 1.27 mmol/L pH, Blood 7.43 Specimen Performing Laboratory Blood [address] [address] Prothrombin time/INR (08/12/2017 4:58 AM)Only the most recent of2 resultswithin the time period is included. Component Value Ref Range Protime 18.1 (H) 11.7 - 14.7 seconds INR 1.5 <=5.9 Specimen Performing Laboratory Blood [address] [address] Narrative RECOMMENDED COUMADIN/WARFARIN INR THERAPY RANGES STANDARD [...] - 2.6 mg/dL Specimen Performing Laboratory Blood [address] [address] Hepatic function panel (08/12/2017 4:58 AM)Only the [...] - 55 U/L Specimen Performing Laboratory Blood [address] [address] Lipid panel (08/12/2017 4:58 AM)Only the most recent of2 resultswithin the time period is included. Component Value Ref Range Triglycerides 54 mg/dL Cholesterol 96 mg/dL HDL 29 mg/dL LDL Calculated 56 mg/dL Specimen Performing Laboratory Blood [address] [address] Narrative Triglyceride Reference Range: Low Risk <150 Rnsuxywfhh025-896 High Risk 200-499 Very High Risk>=500 Cholesterol Reference Range: Low Risk <200 Lyexhgfehm335-970 High Risk>240 HDL Cholesterol Reference Range: Low Risk >=60 High Risk <40 LDL Cholesterol Reference Range: Optimal<100 Near Mlyftjn355-322 Okmveplgdg869-923 Ebbt182-034 Very High >=190 Basic metabolic panel (08/12/2017 [...] FOR DIALYSIS PATIENTS. Specimen Performing Laboratory Blood [address] [address] CBC (Hemogram only) (08/11/2017 4:09 PM) Component [...] Specimen Performing Laboratory Blood - Arm, Left [address] [address] Type and screen, automated (08/10/2017 5:01 PM) Component Value Ref Range ABO/RH AUTOMATED (BEAKER) A POSITIVE Ab Scrn NEGATIVE Specimen Performing Laboratory Blood [address] [address] Comprehensive metabolic panel (08/10/2017 5:01 PM) Component [...] DIALYSIS PATIENTS. Specimen Performing Laboratory Blood [facility] [address] [place] [address] after 10/23/2016
[2017-10-24] MEDS ORDERED: KETOROLAC 30 MG/ML INJ ONE (09:47)
[2017-10-24] MEDS ORDERED: LIDOCAINE VISCOUS 2% SOLN 15 ML UDC ONE (09:55)
[2017-10-24] MEDS ORDERED: FAMOTIDINE 20 MG/2 ML VIAL IV ONE (09:55)
[2017-10-24] MEDS ORDERED: MAGNE/ALUM HYDROXD 30 ML UCUP ONE (09:55)
[2017-10-24 10:03] LABS: Absolute Lymphocytes (CBC) 1.3 K/uL (0.7-4.9); Absolute Monocytes 1.3 K/uL (0.1-1.3); Absolute Neutrophil 8.8 K/uL (1.8-8.0); Basophils % 0.3 % (0-1.3); Eosinophils % 0.4 % (0-4.4); Hematocrit 30.5 % (39.6-49.0); Lymphocytes % 11.5 % (15.3-44.8); MCH 29.8 pg (27.0-35.0); MCV 91.6 fL (80-100); MPV 6.7 fL (7.6-11.3); Monocytes % 11.4 % (3.3-12.3); RBC Red Blood Cell Count 3.33 M/uL (4.33-5.43)
[2017-10-24 10:04] LABS: Albumin 2.6 g/dL (3.4-5.0); Bilirubin Direct 0.2 mg/dL (0-0.2); Bilirubin Total 0.3 mg/dL (0.2-1.0); Protein, Total 7.5 g/dL (6.4-8.2)
--- NOTE | 2017-10-24 10:24 | RAD REPORT ---
EXAM DESCRIPTION: CT - Abdomen Pelvis Wo Contrast - 10/24/2017 10:02 am CLINICAL HISTORY: Abdominal pain, nausea, diarrhea, history of diabetes COMPARISON: CT imaging June 2017 TECHNIQUE: Axial [address] imaging of the abdomen and pelvis was performed without IV contrast. No IV contrast was given because of allergy, abnormal renal function, patient refusal or physician re quest. Oral contrast was given. All CT scans are performed using dose optimization technique as appropriate and may include automated exposure control or mA/KV adjustment according to patient size. FINDINGS: No suspicious findings in the lung bases. No pericardial thickening or effusion. There is bilateral gynecomastia that is only partially imaged. No focal liver lesions seen on noncontrast imaging. There is a subtle nodularity to the liver capsule . Cholecystectomy clips are present. No biliary tree dilatation. Spleen and pancreas show no acute fi ndings. No hydronephrosis or suspicious renal mass. No significant adrenal finding. Isodense renal masses an d pyelonephritis cannot be excluded in the absence of IV contrast. Contracted urinary bladder shows n o suspicious finding. Prostate gland and seminal vesicles are normal range. No gastric dilatation or gastric wall thickening. Prominence of the fundus and body of the stomach be lieved to be the affects of no contrast or bowel content. Gastric wall mass is not suspected. No dila dariel large or small bowel. No appendicitis findings. Moderate stool volume present in the colon. No ac tive GI process seen. No free air, free fluid or inflammatory stranding. No mass or bulky lymphadenopathy. No omental thic kening. Patient has a very small fat only umbilical hernia. Small bilateral inguinal fat filled herni a is present. Patient has a prominent laxity of the abdominal wall particularly along the left side. No additional site of abdominal wall disruption seen. No suspicious bony findings. IMPRESSION: Non-contrast enhanced CT abdomen and pelvis imaging show no acute finding. Nodularity of the liver capsule is present similar to comparison. Patient may well have underlying he patic parenchymal disease. Nonacute findings are detailed in the body of the report. Full assessment is limited is the absence of IV contrast.
--- NOTE | 2017-10-24 10:52 | EDPHYS ---
Physician Documentation [facility] Name: Fausto Bird Age: 67 yrs Sex: Male : 1950 Arrival Date: 10/24/2017 Time: 09:29 Bed 5 Private MD: ED Physician Steve Pereira HPI: 10/24 09:36 This 67 yrs old Male presents to ER via EMS with complaints of Abd Pain > 50 ma2 y/o, Diarrhea. 09:36 The patient presents to the emergency department with nausea. Onset: The ma2 symptoms/episode began/occurred gradually, 5 day(s) ago. Possible causes: unknown. Associated signs and symptoms: Pertinent positives: abdominal pain, diarrhea, Pertinent negatives: anorexia, belching, constipation, diarrhea, dysuria, flatulence, hematuria, vomiting. Severity of symptoms: At their worst the symptoms were moderate in the emergency department the symptoms are unchanged. The patient has experienced similar episodes in the past. hx of CKD, here with abd pain x 5 days and had one episode of diarrhea 2 days ago, has hx of PUD, hx of GI bleed in past in the setting of taking xarelto, that was stopped, takes Eliquis now, no melena. Historical: - Allergies: 09:31 bactrim-topical; la1 09:31 MUPIROCIN; la1 - PMHx: 09:31 anemic; Atrial Fib; Cellulitis; Diabetes - IDDM; Hypertension; lymphedema; Myocardial la1 infarction; - PSHx: 09:31 Cholecystectomy; la1 - Immunization history:: Adult Immunizations up to date. - Social history:: Smoking status: Patient/guardian denies using tobacco, Patient/guardian denies using alcohol, street drugs, The patient lives with family. - Ebola Screening: : No symptoms or risks identified at this time. - Family history:: not pertinent. ROS: 09:36 Constitutional: Negative for fever, chills, and weight loss, Eyes: Negative for injury, ma2 pain, redness, and discharge. 09:36 Abdomen/GI: Positive for abdominal pain, diarrhea, Negative for anorexia, dysphagia. 09:36 All other systems are negative. Exam: 09:36 Constitutional: This is a well developed, well nourished patient who is awake, alert, ma2 and in no acute distress. Head/Face: Normocephalic, atraumatic. Chest/axilla: Normal chest wall appearance and motion. Nontender with no deformity. No lesions are appreciated. Cardiovascular: Regular rate and rhythm with a normal S1 and S2. No gallops, murmurs, or rubs. Normal PMI, no JVD. No pulse deficits. 09:36 MS/ Extremity: Pulses equal, no cyanosis. Neurovascular intact. Full, normal range of motion. Neuro: Awake and alert, GCS 15, oriented to person, place, time, and situation. Cranial nerves II-XII grossly intact. Motor strength 5/5 in all extremities. Sensory grossly intact. Cerebellar exam normal. Normal gait. 09:36 Abdomen/GI: Inspection: obese Palpation: abdomen is soft and non-tender, soft, no rebound or guarding , surgical scars dry in good order s/p lap cholecystectomy . Vital Signs: 09:31 BP 160 / 85; Pulse 74; Resp 16; Temp 98.9; Pulse Ox 100% on R/A; Weight 131.09 kg; la1 Height 6 ft. 0 in. (182.88 cm); 10:15 BP 153 / 94; Pulse 75; Resp 16; Pulse Ox 100% on R/A; aj 12:18 BP 167 / 89; Pulse 74; Resp 19; Pulse Ox 99% on R/A; aj 09:31 Body Mass Index 39.20 (131.09 kg, 182.88 cm) la1 MDM: 09:31 Patient medically screened. cp 09:36 Differential diagnosis: Nonspecific abd pain, gastritis, pancreatitis, appendicitis, ma2 viral gastroenteritis, gastroenteritis. 10:46 Data reviewed: vital signs, nurses notes, lab test result(s), radiologic studies. ma2 Counseling: I had a detailed discussion with the patient and/or guardian regarding: the historical points, exam findings, and any diagnostic results supporting the discharge/admit diagnosis, the presence of at least one elevated blood pressure reading (>120/80) during this emergency department visit, lab results, the need for outpatient follow up. Response to treatment: the patient's symptoms have resolved after treatment. 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 10/24 09:36 Order name: Amylase, Serum; Complete Time: 10:40 [facility] 10/24 09:36 Order name: Basic Metabolic Panel; Complete Time: 10:40 il10/24 09:36 Order name: CBC with Diff; Complete Time: 10:40 [facility] 10/24 09:36 Order name: Creatinine for Radiology [facility] 10/24 09:36 Order name: Hepatic Function; Complete Time: 10:40 il10/24 09:36 Order name: Lipase; Complete Time: 10:40 il10/24 09:36 Order name: IV Saline Lock; Complete Time: 09:38 il10/24 09:36 Order name: Labs collected and sent; Complete Time: 09:38 il10/24 09:36 Order name: CT Abd/Pelvis - Without Cont; Complete Time: 10:40 ma Administered Medications: 09:45 Drug: TORadol 30 mg Route: IVP; Site: right antecubital; la1 10:54 Follow up: Response: No adverse reaction; Pain is decreased aj 10:18 Drug: Pepcid 20 mg Route: IVP; Site: right antecubital; aj 10:55 Follow up: Response: No adverse reaction aj 10:18 Drug: GI Cocktail without - (Maalox Suspension 30 ml, Lidocaine Liquid 2 % 15 aj ml) Route: PO; 10:55 Follow up: Response: No adverse reaction aj Disposition: 10/24/17 10:51 Discharged to Home. Impression: Generalized abdominal pain. - Condition is Stable. - Discharge Instructions: Abdominal Pain, Adult. - Prescriptions for Nexium 20 mg Oral Capsule - take 1 capsule by ORAL route once daily; 20 capsule. - Medication Reconciliation Form, Thank You Letter, Antibiotic Education, Prescription Opioid Use form. - Follow up: Private Physician; When: Tomorrow; Reason: Continuance of care. - Problem is new. - Symptoms have improved. Signatures: Dispatcher [employer] EDOctavia Tobin RN RN aj Attema, Lee, RN RN la1 Mike Chapman PA PA cp Alzahri, Mohammad, MD MD ma2 Corrections: (The following items were deleted from the chart) 12:20 10:51 10/24/2017 10:51 Discharged to Home. Impression: Generalized abdominal pain. aj Condition is Stable. Forms are Medication Reconciliation Form, Thank You Letter, Antibiotic Education, Prescription Opioid Use. Follow up: Private Physician; When: Tomorrow; Reason: Continuance of care. Problem is new. Symptoms have improved. ma2
--- NOTE | 2017-10-24 10:52 | ER ---
Nurse's Notes [facility] Name: Fausto Bird Age: 67 yrs Sex: Male : 1950 Arrival Date: 10/24/2017 Time: 09:29 Bed 5 Private MD: Diagnosis: Generalized abdominal pain Presentation: 10/24 09:30 Presenting complaint: Patient states: Abdominal pain since Wednesday, worse today also la1 have been having nausea and diarrhea. Transition of care: patient was not received from another setting of care. Onset of symptoms was October 24, 2017. Risk Assessment: Do you want to hurt yourself or someone else? Patient reports no desire to harm self or others. Initial Sepsis Screen: Does the patient meet any 2 criteria? No. Patient's initial sepsis screen is negative. Does the patient have a suspected source of infection? No. Patient's initial sepsis screen is negative. Care prior to arrival: Medication(s) given: zofran 4 mg, IV initiated. 20 GA, in the right antecubital area, Glucose check: 141. 09:30 Method Of Arrival: EMS: [facility] la1 09:30 Acuity: BLANCA 3 la1 Historical: - Allergies: 09:31 bactrim-topical; la1 09:31 MUPIROCIN; la1 - PMHx: 09:31 anemic; Atrial Fib; Cellulitis; Diabetes - IDDM; Hypertension; lymphedema; Myocardial la1 infarction; - PSHx: 09:31 Cholecystectomy; la1 - Immunization history:: Adult Immunizations up to date. - Social history:: Smoking status: Patient/guardian denies using tobacco, Patient/guardian denies using alcohol, street drugs, The patient lives with family. - Ebola Screening: : No symptoms or risks identified at this time. - Family history:: not pertinent. Screenin:33 Abuse screen: Denies threats or abuse. Nutritional screening: No deficits noted. la1 Nutritional screening: No deficits noted. Tuberculosis screening: No symptoms or risk factors identified. Fall Risk None identified. Assessment: 09:32 General: Appears uncomfortable, Behavior is cooperative. Pain: Complains of pain in la1 right lower quadrant and left lower quadrant Pain currently is 8 out of 10 on a pain scale. Neuro: Level of Consciousness is awake, alert, obeys commands, Oriented to person, place, time, situation. Cardiovascular: Denies chest pain, shortness of breath, Heart tones S1 S2 present Capillary refill < 3 seconds Patient's skin is warm and dry. Respiratory: Airway is patent Respiratory effort is even, unlabored, Respiratory pattern is regular, symmetrical, Breath sounds are clear bilaterally. GI: Abdomen is obese, Bowel sounds present X 4 quads. Abd is soft X 4 quads Abdomen is tender to palpation in right lower quadrant Reports lower abdominal pain, nausea. : No signs and/or symptoms were reported regarding the genitourinary system. 10:15 General: Appears in no apparent distress. comfortable, obese, Behavior is calm, aj cooperative, appropriate for age. Pain: Complains of pain in left lower quadrant and right lower quadrant. Neuro: Level of Consciousness is awake, alert, obeys commands, Oriented to person, place, time, situation, Appropriate for age. Respiratory: Airway is patent Respiratory effort is even, unlabored, Respiratory pattern is regular, symmetrical. GI: Abdomen is obese, Reports lower abdominal pain. : Reports pain lower quadrant(s). Derm: Skin is intact, is thin, Skin is dry, Skin is pale, Skin temperature is warm. 11:55 Reassessment: Patient was able to contact a neighbor 5 minutes ago to come and pick him aj up. Patient estimates neighbor would be here in 45-50 minutes. 12:18 Reassessment: Neighbor arrived to take patient home. aj Vital Signs: 09:31 BP 160 / 85; Pulse 74; Resp 16; Temp 98.9; Pulse Ox 100% on R/A; Weight 131.09 kg; la1 Height 6 ft. 0 in. (182.88 cm); 10:15 BP 153 / 94; Pulse 75; Resp 16; Pulse Ox 100% on R/A; aj 12:18 BP 167 / 89; Pulse 74; Resp 19; Pulse Ox 99% on R/A; aj 09:31 Body Mass Index 39.20 (131.09 kg, 182.88 cm) la1 ED Course: 09:29 Patient arrived in ED. la1 09:30 Mike Chapman PA is PHCP. cp 09:30 Steve Pereira MD is Attending Physician. cp 09:31 Triage completed. la1 09:32 Arm band placed on left wrist. la1 09:33 Bed in low position. Call light in reach. Pulse ox on. NIBP on. la1 09:34 Maintain EMS IV. Dressing intact. Good blood return noted. Site clean \T\ dry. Gauge \T\ la 1 site: 20g RAC. 09:38 Louis Arenas, RN is Primary Nurse. la1 09:58 CT completed. Patient moved to [place] via stretcher. Patient moved back from CT. cw1 10:02 CT Abd/Pelvis - Without Cont In Process Unspecified. EDMS 10:18 Flushed right antecubital with 5 ml normal saline. aj 12:18 No provider procedures requiring assistance completed. IV discontinued, intact, aj bleeding controlled, No redness/swelling at site. Pressure dressing applied. Administered Medications: 09:45 Drug: TORadol 30 mg Route: IVP; Site: right antecubital; la1 10:54 Follow up: Response: No adverse reaction; Pain is decreased aj 10:18 Drug: Pepcid 20 mg Route: IVP; Site: right antecubital; aj 10:55 Follow up: Response: No adverse reaction aj 10:18 Drug: GI Cocktail without - (Maalox Suspension 30 ml, Lidocaine Liquid 2 % 15 aj ml) Route: PO; 10:55 Follow up: Response: No adverse reaction aj Outcome: 10:51 Discharge ordered by . ma2 12:18 Discharged to home via wheelchair, with friend. aj 12:18 Condition: good 12:18 Discharge instructions given to patient, Instructed on discharge instructions, follow up and referral plans. medication usage, Demonstrated understanding of instructions, follow-up care, medications, Prescriptions given X 1. 12:20 Patient left the ED. aj Signatures: Dispatcher [employer] EDOctavia Tobin, RN Gisele Staton cw1 Louis Arenas, RN RN la1 Mike Chapman PA PA Steve Ludwig MD MD ma2
[2017-10-24 12:26] VITALS: TEMP 98.9
[2017-10-24 12:28] VITALS: BP 167/89; O2SAT 99
== END 2017-10-24 12:20 | disposition home or self-care (01) ==
LOC: ER 09:22
DX: R10.84 Generalized abdominal pain (principal); I10 Essential (primary) hypertension; Z88.1 Allergy status to other antibiotic agents; Z88.8 Allergy status to other drugs, medicaments and biological substances
CPT/HCPCS: 36415; 74176; 80048; 80076; 82150; 83690; 85025; 96374; 96375; 99284

== ENCOUNTER 2018-05-17 11:59 | Inpatient (IN) | payer OTHER ==
--- OUTSIDE RECORDS SUMMARY | 2018-05-17 12:08 | XMS REPORT ---
:1950 [facility] Address [address] [place] [address] Care Team Providers Name Role Phone DAMIEN [...] 261 mg/dL 70-[address] [facility] [address] [facility] yqrz=[id number]) [facility] [address] POCT-GLUCOSE [id number] 11:33:00 Test Item Value Reference Range Comments POC-GLUCOSE METER (BEAKER) 198 mg/dL 70-[address] [facility] [address] [facility] (test pjzb=4259) [facility] [address] CBC W/PLT COUNT & AUTO [id number] 09:37:00 Test Item Value Reference Range Comments WHITE BLOOD CELL COUNT (BEAKER) (test alek=530) 11.7 K/ L 3.5-10.5 RED BLOOD CELL COUNT (BEAKER) (test adhv=718) 2.99 M/ L 4.63-6.08 HEMOGLOBIN (BEAKER) (test vlha=915) 8.7 GM/DL 13.7-17.5 HEMATOCRIT (BEAKER) (test nxnu=960) 27.5 % 40.1-51.0 MEAN CORPUSCULAR VOLUME (BEAKER) (test vtzt=782) 92.0 fL 79.0-92.2 MEAN CORPUSCULAR HEMOGLOBIN (BEAKER) (test 29.1 pg 25.7-32.2 welo=286) MEAN CORPUSCULAR HEMOGLOBIN CONC (BEAKER) (test 31.6 GM/DL 32.3-36.5 etsy=126) RED CELL DISTRIBUTION WIDTH (BEAKER) (test 16.0 % 11.6-14.4 csgp=302) PLATELET COUNT (BEAKER) (test fddi=410) 213 K/CU MM 150-450 MEAN PLATELET VOLUME (BEAKER) (test lmoo=169) 10.7 fL 9.4-12.4 NUCLEATED RED BLOOD CELLS (BEAKER) (test 0 /100 WBC 0-0 mtvi=588) NEUTROPHILS RELATIVE PERCENT (BEAKER) (test 81 % ceji=991) LYMPHOCYTES RELATIVE PERCENT (BEAKER) (test 6 % hyks=136) MONOCYTES RELATIVE PERCENT (BEAKER) (test 10 % qmyi=345) EOSINOPHILS RELATIVE PERCENT (BEAKER) (test 2 % jiae=288) BASOPHILS RELATIVE PERCENT (BEAKER) (test 0 % avuy=169) NEUTROPHILS ABSOLUTE COUNT (BEAKER) (test 9.49 K/ L 1.78-5.38 yiyc=710) LYMPHOCYTES ABSOLUTE COUNT (BEAKER) (test 0.73 K/ L 1.32-3.57 nvzg=680) MONOCYTES ABSOLUTE COUNT (BEAKER) (test 1.13 K/ L 0.30-0.82 zmjw=693) EOSINOPHILS ABSOLUTE COUNT (BEAKER) (test 0.19 K/ L 0.04-0.54 jmak=902) BASOPHILS ABSOLUTE COUNT (BEAKER) (test 0.03 K/ L 0.01-0.08 hihp=850) IMMATURE GRANULOCYTES-RELATIVE PERCENT (BEAKER) 1 % 0-1 (test zdmu=1998) POCT-GLUCOSE [id number] 07:52:00 Test Item Value Reference Range Comments POC-GLUCOSE METER (BEAKER) 126 mg/dL 70-110 TESTED AT [address] (test hxds=9366) [facility] [address] CALCIUM, [id number] 06:39:00 Test Item Value Reference Range Comments CALCIUM IONIZED (BEAKER) (test zbae=742) 1.02 mmol/L 1.12-1.27 PH, BLOOD (BEAKER) (test wlgs=6943) 7.43 LIPID [id number] 05:57:00 Test Item Value Reference Range Comments TRIGLYCERIDES (BEAKER) (test uyws=461) 54 mg/dL CHOLESTEROL (BEAKER) (test gsnu=458) 96 mg/dL HDL CHOLESTEROL (BEAKER) (test tiex=929) 29 mg/dL LDL CHOLESTEROL CALCULATED (BEAKER) (test degq=684) 56 mg/dL Triglyceride Reference Range: Low Risk <150 Borderline 150- 199 High Risk 200-499 Very High Risk >=500Cholesterol Reference Range: Low Risk <200 Borderline 200-239 High Risk > 240HDL Cholesterol Reference Range: Low Risk >=60 High Risk <40LDL Cholesterol Reference Range: Optimal <100 Near Optimal 100-129 Borderline 130-159 High 160-189 Very High >=190BASIC METABOLIC [id number] 05:56:00 Test Item Value Reference Range Comments SODIUM (BEAKER) (test 135 meq/L 136-145 bkwt=086) POTASSIUM (BEAKER) (test 3.7 meq/L 3.5-5.1 vpjz=964) CHLORIDE (BEAKER) (test 101 meq/L 98-107 quoi=537) CO2 (BEAKER) (test 25 meq/L 22-29 jlgs=757) BLOOD UREA NITROGEN 92 mg/dL 7-21 (BEAKER) (test hqvt=490) CREATININE (BEAKER) (test 2.52 mg/dL 0.57-1.25 twqq=012) GLUCOSE RANDOM (BEAKER) 135 mg/dL 70-105 (test ojzt=012) CALCIUM (BEAKER) (test 8.7 mg/dL 8.4-10.2 fabq=876) EGFR (BEAKER) (test 26 mL/min/1.73 sq m ESTIMATED GFR IS NOT imgf=8925) ACCURATE CREATININE CLEARANCE IN PREDICTING GLOMERULAR FILTRATION RATE. ESTIMATED GFR IS NOT APPLICABLE FOR DIALYSIS PATIENTS. [id number] 05:48:00 Test Item Value Reference Range Comments MAGNESIUM (BEAKER) (test msvo=849) 1.6 mg/dL 1.6-2.6 HEPATIC FUNCTION [id number] 05:48:00 Test Item Value Reference Range Comments TOTAL PROTEIN (BEAKER) (test zady=087) 6.3 gm/dL 6.0-8.3 ALBUMIN (BEAKER) (test ssbg=1798) 2.9 g/dL 3.5-5.0 BILIRUBIN TOTAL (BEAKER) (test ikte=665) 0.4 mg/dL 0.2-1.2 BILIRUBIN DIRECT (BEAKER) (test jedo=795) 0.3 mg/dL 0.1-0.5 ALKALINE PHOSPHATASE (BEAKER) (test cgxp=954) 136 U/L 40-150 AST (SGOT) (BEAKER) (test phwj=753) 10 U/L 5-34 ALT (SGPT) (BEAKER) (test cwzf=038) 9 U/L 6-55 PROTHROMBIN [id number] 05:37:00 Test Item Value Reference Range Comments PROTIME (BEAKER) (test brec=959) 18.1 seconds 11.7-14.7 INR (BEAKER) (test otsy=801) 1.5 <=5.9 RECOMMENDED COUMADIN/WARFARIN INR THERAPY RANGESSTANDARD DOSE: 2.0 - 3.0 Includes: PROPHYLAXIS forvenous thrombosis, systemic embolization; TREATMENT for venous thrombosis and/or pulmonary embolus.HIGH RISK: Target INR is 2.5-3.5 for patients with mechanical heart valves.POCT-GLUCOSE [id number] 21:34:00 Test Item Value Reference Range Comments POC-GLUCOSE METER (BEAKER) 260 mg/dL 70-110 TESTED AT [address] (test dadp=9970) [facility] [address] POCT-GLUCOSE [id number] 17:13:00 Test Item Value Reference Range Comments POC-GLUCOSE METER (BEAKER) 202 mg/dL 70-110 TESTED AT [address] (test oupu=8539) [facility] [address] CBC W/PLT COUNT & AUTO [id number] 16:36:00 Test Item Value Reference Range Comments WHITE BLOOD CELL COUNT (BEAKER) (test vogv=042) 10.3 K/ L 3.5-10.5 RED BLOOD CELL COUNT (BEAKER) (test lfws=781) 3.01 M/ L 4.63-6.08 HEMOGLOBIN (BEAKER) (test kowz=961) 8.5 GM/DL 13.7-17.5 HEMATOCRIT (BEAKER) (test jkgn=737) 27.0 % 40.1-51.0 MEAN CORPUSCULAR VOLUME (BEAKER) (test aukj=096) 89.7 fL 79.0-92.2 MEAN CORPUSCULAR HEMOGLOBIN (BEAKER) (test 28.2 pg 25.7-32.2 ghxc=229) MEAN CORPUSCULAR HEMOGLOBIN CONC (BEAKER) (test 31.5 GM/DL 32.3-36.5 luks=773) RED CELL DISTRIBUTION WIDTH (BEAKER) (test 15.8 % 11.6-14.4 lefd=803) PLATELET COUNT (BEAKER) (test rqme=470) 203 K/CU MM 150-450 MEAN PLATELET VOLUME (BEAKER) (test jslp=945) 10.5 fL 9.4-12.4 NUCLEATED RED BLOOD CELLS (BEAKER) (test 0 /100 WBC 0-0 edee=853) NEUTROPHILS RELATIVE PERCENT (BEAKER) (test 83 % wczg=909) LYMPHOCYTES RELATIVE PERCENT (BEAKER) (test 7 % ifgn=954) MONOCYTES RELATIVE PERCENT (BEAKER) (test 8 % zvsp=516) EOSINOPHILS RELATIVE PERCENT (BEAKER) (test 1 % iprn=716) BASOPHILS RELATIVE PERCENT (BEAKER) (test 0 % tftc=561) NEUTROPHILS ABSOLUTE COUNT (BEAKER) (test 8.57 K/ L 1.78-5.38 geln=165) LYMPHOCYTES ABSOLUTE COUNT (BEAKER) (test 0.71 K/ L 1.32-3.57 xdmt=736) MONOCYTES ABSOLUTE COUNT (BEAKER) (test 0.78 K/ L 0.30-0.82 yezq=154) EOSINOPHILS ABSOLUTE COUNT (BEAKER) (test 0.09 K/ L 0.04-0.54 uqqi=402) BASOPHILS ABSOLUTE COUNT (BEAKER) (test 0.04 K/ L 0.01-0.08 zmtj=390) IMMATURE GRANULOCYTES-RELATIVE PERCENT (BEAKER) 1 % 0-1 (test rvke=5513) CBC (HEMOGRAM ONLY)[id number] 16:30:00 Test Item Value Reference Range Comments WHITE BLOOD CELL COUNT (BEAKER) (test hsxn=312) 10.3 K/ L 3.5-10.5 RED BLOOD CELL COUNT (BEAKER) (test xmzh=495) 3.01 M/ L 4.63-6.08 HEMOGLOBIN (BEAKER) (test dpmn=757) 8.5 GM/DL 13.7-17.5 HEMATOCRIT (BEAKER) (test mlii=646) 27.0 % 40.1-51.0 MEAN CORPUSCULAR VOLUME (BEAKER) (test gemv=137) 89.7 fL 79.0-92.2 MEAN CORPUSCULAR HEMOGLOBIN (BEAKER) (test 28.2 pg 25.7-32.2 gdgy=237) MEAN CORPUSCULAR HEMOGLOBIN CONC (BEAKER) (test 31.5 GM/DL 32.3-36.5 aswp=124) RED CELL DISTRIBUTION WIDTH (BEAKER) (test 15.8 % 11.6-14.4 cahc=543) PLATELET COUNT (BEAKER) (test anyi=918) 203 K/CU MM 150-450 MEAN PLATELET VOLUME (BEAKER) (test bvzb=776) 10.5 fL 9.4-12.4 NUCLEATED RED BLOOD CELLS (BEAKER) (test 0 /100 WBC 0-0 trze=010) POCT-GLUCOSE [id number] 12:32:00 Test Item Value Reference Range Comments POC-GLUCOSE METER (BEAKER) 209 mg/dL 70-110 TESTED AT [address] (test aurh=9663) [facility] [address] POCT-GLUCOSE [id number] 07:51:00 Test Item Value Reference Range Comments POC-GLUCOSE METER (BEAKER) 101 mg/dL 70-110 TESTED AT [address] (test fesa=8926) [facility] [address] CALCIUM, [id number] 06:35:00 Test Item Value Reference Range Comments CALCIUM IONIZED (BEAKER) (test whfn=639) 1.03 mmol/L 1.12-1.27 PH, BLOOD (BEAKER) (test dwmq=1215) 7.39 BASIC METABOLIC [id number] 05:22:00 Test Item Value Reference Range Comments SODIUM (BEAKER) (test 135 meq/L 136-145 zmha=420) POTASSIUM (BEAKER) (test 3.6 meq/L 3.5-5.1 asqb=984) CHLORIDE (BEAKER) (test 99 meq/L 98-107 tddn=409) CO2 (BEAKER) (test 25 meq/L 22-29 uabm=062) BLOOD UREA NITROGEN 106 mg/dL 7-21 (BEAKER) (test jhgc=714) CREATININE (BEAKER) (test 2.58 mg/dL 0.57-1.25 xfmy=514) GLUCOSE RANDOM (BEAKER) 105 mg/dL 70-105 (test wqwz=108) CALCIUM (BEAKER) (test 8.6 mg/dL 8.4-10.2 fulh=846) EGFR (BEAKER) (test 25 mL/min/1.73 sq m ESTIMATED GFR IS NOT sqis=3956) ACCURATE CREATININE CLEARANCE IN PREDICTING GLOMERULAR FILTRATION RATE. ESTIMATED GFR IS NOT APPLICABLE FOR DIALYSIS PATIENTS. [id number] 05:20:00 Test Item Value Reference Range Comments MAGNESIUM (BEAKER) (test hpca=150) 1.5 mg/dL 1.6-2.6 LIPID [id number] 05:20:00 Test Item Value Reference Range Comments TRIGLYCERIDES (BEAKER) (test emuz=119) 62 mg/dL CHOLESTEROL (BEAKER) (test fxrt=172) 87 mg/dL HDL CHOLESTEROL (BEAKER) (test rqol=276) 28 mg/dL LDL CHOLESTEROL CALCULATED (BEAKER) (test mbjf=139) 47 mg/dL Triglyceride Reference Range: Low Risk <150 Borderline 150- 199 High Risk 200-499 Very High Risk >=500Cholesterol Reference Range: Low Risk <200 Borderline 200-239 High Risk > 240HDL Cholesterol Reference Range: Low Risk >=60 High Risk <40LDL Cholesterol Reference Range: Optimal <100 Near Optimal 100-129 Borderline 130-159 High 160-189 Very High >=190HEPATIC FUNCTION [id number] 05:20:00 Test Item Value Reference Range Comments TOTAL PROTEIN (BEAKER) (test qkpa=421) 6.3 gm/dL 6.0-8.3 ALBUMIN (BEAKER) (test gqdm=1612) 2.9 g/dL 3.5-5.0 BILIRUBIN TOTAL (BEAKER) (test frpu=974) 0.4 mg/dL 0.2-1.2 BILIRUBIN DIRECT (BEAKER) (test yldj=810) 0.2 mg/dL 0.1-0.5 ALKALINE PHOSPHATASE (BEAKER) (test aujx=933) 135 U/L 40-150 AST (SGOT) (BEAKER) (test gvuo=229) 10 U/L 5-34 ALT (SGPT) (BEAKER) (test yumy=106) 9 U/L 6-55 PROTHROMBIN [id number] 04:45:00 Test Item Value Reference Range Comments PROTIME (BEAKER) (test fsmq=238) 19.6 seconds 11.7-14.7 INR (BEAKER) (test wkgr=887) 1.7 <=5.9 RECOMMENDED COUMADIN/WARFARIN INR THERAPY RANGESSTANDARD DOSE: 2.0 - 3.0 Includes: PROPHYLAXIS forvenous thrombosis, systemic embolization; TREATMENT for venous thrombosis and/or pulmonary embolus.HIGH RISK: Target INR is 2.5-3.5 for patients with mechanical heart valves.CBC W/PLT COUNT & AUTO [id number] 04:41:00 Test Item Value Reference Range Comments WHITE BLOOD CELL COUNT 11.3 K/ L 3.5-10.5 (BEAKER) (test cjxv=956) RED BLOOD CELL COUNT (BEAKER) 2.63 M/ L 4.63-6.08 (test rbox=357) HEMOGLOBIN (BEAKER) (test 7.4 GM/DL 13.7-17.5 cvza=098) HEMATOCRIT (BEAKER) (test 24.0 % 40.1-51.0 enhg=552) MEAN CORPUSCULAR VOLUME 91.3 fL 79.0-92.2 (BEAKER) (test xoui=194) MEAN CORPUSCULAR HEMOGLOBIN 28.1 pg 25.7-32.2 (BEAKER) (test lawk=177) MEAN CORPUSCULAR HEMOGLOBIN 30.8 GM/DL 32.3-36.5 CONC (BEAKER) (test untm=399) RED CELL DISTRIBUTION WIDTH 16.1 % 11.6-14.4 (BEAKER) (test cpwd=680) PLATELET COUNT (BEAKER) (test 202 K/CU MM 150-450 Discordant PLT result mbwr=981) compared to previous result; a clinical correlation required. MEAN PLATELET VOLUME (BEAKER) 10.0 fL 9.4-12.4 (test aysg=673) NUCLEATED RED BLOOD CELLS 0 /100 WBC 0-0 (BEAKER) (test nzuf=640) NEUTROPHILS RELATIVE PERCENT 82 % (BEAKER) (test kdzu=482) LYMPHOCYTES RELATIVE PERCENT 7 % (BEAKER) (test doqq=150) MONOCYTES RELATIVE PERCENT 8 % (BEAKER) (test trot=495) EOSINOPHILS RELATIVE PERCENT 2 % (BEAKER) (test pkcn=947) BASOPHILS RELATIVE PERCENT 0 % (BEAKER) (test rtph=157) NEUTROPHILS ABSOLUTE COUNT 9.28 K/ L 1.78-5.38 (BEAKER) (test laou=702) LYMPHOCYTES ABSOLUTE COUNT 0.81 K/ L 1.32-3.57 (BEAKER) (test vrry=141) MONOCYTES ABSOLUTE COUNT 0.85 K/ L 0.30-0.82 (BEAKER) (test njms=127) EOSINOPHILS ABSOLUTE COUNT 0.18 K/ L 0.04-0.54 (BEAKER) (test paao=339) BASOPHILS ABSOLUTE COUNT 0.04 K/ L 0.01-0.08 (BEAKER) (test staj=888) IMMATURE 1 % 0-1 GRANULOCYTES-RELATIVE PERCENT (BEAKER) (test cewe=9808) POCT-GLUCOSE [id number] 22:14:00 Test Item Value Reference Range Comments POC-GLUCOSE METER (BEAKER) 135 mg/dL 70-[address] [facility] [address] [facility] (test eytb=7050) [facility] [address] COMPREHENSIVE METABOLIC [id number] 18:13:00 Test Item Value Reference Range Comments TOTAL PROTEIN (BEAKER) 6.5 gm/dL 6.0-8.3 Specimen slightly (test dyuz=044) hemolyzed ALBUMIN (BEAKER) (test 2.9 g/dL 3.5-5.0 Specimen slightly zmbh=7590) hemolyzed ALKALINE PHOSPHATASE 135 U/L 40-150 (BEAKER) (test ocvg=559) BILIRUBIN TOTAL (BEAKER) 0.5 mg/dL 0.2-1.2 Specimen slightly (test cdef=978) hemolyzed SODIUM (BEAKER) (test 135 meq/L 136-145 ohfc=804) POTASSIUM (BEAKER) (test 3.7 meq/L 3.5-5.1 Specimen slightly fxig=961) hemolyzed CHLORIDE (BEAKER) (test 98 meq/L 98-107 dwgn=910) CO2 (BEAKER) (test 26 meq/L 22-29 ialr=593) BLOOD UREA NITROGEN 103 mg/dL 7-21 (BEAKER) (test kgzv=736) CREATININE (BEAKER) (test 2.59 mg/dL 0.57-1.25 Specimen slightly jmwc=086) hemolyzed GLUCOSE RANDOM (BEAKER) 64 mg/dL 70-105 (test zylp=744) CALCIUM (BEAKER) (test 8.8 mg/dL 8.4-10.2 zcrl=720) AST (SGOT) (BEAKER) (test 15 U/L 5-34 Specimen slightly akbb=306) hemolyzed ALT (SGPT) (BEAKER) (test 13 U/L 6-55 Specimen slightly xald=142) hemolyzed EGFR (BEAKER) (test 25 mL/min/1.73 sq m ESTIMATED GFR IS NOT iufx=2078) ACCURATE CREATININE CLEARANCE IN PREDICTING GLOMERULAR FILTRATION RATE. ESTIMATED GFR IS NOT APPLICABLE FOR DIALYSIS PATIENTS. CBC W/PLT COUNT & AUTO [id number] 17:37:00 Test Item Value Reference Range Comments WHITE BLOOD CELL COUNT (BEAKER) (test obxc=413) 11.7 K/ L 3.5-10.5 RED BLOOD CELL COUNT (BEAKER) (test ermd=404) 2.94 M/ L 4.63-6.08 HEMOGLOBIN (BEAKER) (test kggj=422) 8.4 GM/DL 13.7-17.5 HEMATOCRIT (BEAKER) (test edvo=459) 26.2 % 40.1-51.0 MEAN CORPUSCULAR VOLUME (BEAKER) (test vqll=423) 89.1 fL 79.0-92.2 MEAN CORPUSCULAR HEMOGLOBIN (BEAKER) (test 28.6 pg 25.7-32.2 ttmx=700) MEAN CORPUSCULAR HEMOGLOBIN CONC (BEAKER) (test 32.1 GM/DL 32.3-36.5 hixg=614) RED CELL DISTRIBUTION WIDTH (BEAKER) (test 16.8 % 11.6-14.4 xuka=848) PLATELET COUNT (BEAKER) (test qzhe=634) 313 K/CU MM 150-450 MEAN PLATELET VOLUME (BEAKER) (test menu=456) 12.1 fL 9.4-12.4 NUCLEATED RED BLOOD CELLS (BEAKER) (test 0 /100 WBC 0-0 sgxh=467) NEUTROPHILS RELATIVE PERCENT (BEAKER) (test 80 % xiub=536) LYMPHOCYTES RELATIVE PERCENT (BEAKER) (test 10 % oewc=861) MONOCYTES RELATIVE PERCENT (BEAKER) (test 7 % wtgm=627) EOSINOPHILS RELATIVE PERCENT (BEAKER) (test 1 % evqx=346) BASOPHILS RELATIVE PERCENT (BEAKER) (test 0 % vpxw=224) NEUTROPHILS ABSOLUTE COUNT (BEAKER) (test 9.29 K/ L 1.78-5.38 fzsk=572) LYMPHOCYTES ABSOLUTE COUNT (BEAKER) (test 1.18 K/ L 1.32-3.57 slvx=506) MONOCYTES ABSOLUTE COUNT (BEAKER) (test 0.84 K/ L 0.30-0.82 ldnu=961) EOSINOPHILS ABSOLUTE COUNT (BEAKER) (test 0.14 K/ L 0.04-0.54 djbo=060) BASOPHILS ABSOLUTE COUNT (BEAKER) (test 0.03 K/ L 0.01-0.08 qiih=182) IMMATURE GRANULOCYTES-RELATIVE PERCENT (BEAKER) 2 % 0-1 (test qwus=9419) POCT-GLUCOSE [id number] 15:37:00 Test Item Value Reference Range Comments POC-GLUCOSE METER (BEAKER) 83 mg/dL 70-[address] [facility] [address] (test viqv=6622) [facility] [address]
--- OUTSIDE RECORDS SUMMARY | 2018-05-17 12:08 | XMS REPORT | Clinical Summary ---
:[address] [facility] Address [address] [place] [address] Care Team Providers Name Role Phone Martín Weaver Primary Care Provider Allergies No Known Allergies Medications Medication Sig Dispensed Refills Start End Date Status Date pantoprazole Take 1 tablet (40 0 Active (PROTONIX) 40 MG mg total) by mouth 8 tablet daily. metoprolol Take 1 tablet (25 0 08/12/19 Active (LOPRESSOR) 25 MG mg total) by mouth 8 19 tablet 2 (two) times daily. allopurinol Take 300 mg by 0 Active (ZYLOPRIM) 300 MG mouth daily. tablet digoxin (LANOXIN) Take 125 mcg by 0 Active 0.125 MG tablet mouth daily. multivitamins Take 1 tablet by 0 Active (FOLBIC) 2.5-25-2 mouth daily. mg tablet furosemide (LASIX) Take 40 mg by 0 Active 40 MG tablet mouth 3 (three) times daily. insulin glargine Inject 30 Units 0 Active (LANTUS) 100 subcutaneously unit/mL injection nightly Use as directed . iron fum,ps Take 1 capsule by 0 Active cmplx-vit C-niacin mouth daily. (INTEGRA) 125-40-3 mg Cap glipiZIDE Take 10 mg by 0 Active (GLUCOTROL) 10 MG mouth 2 (two) tablet times daily before meals. ferrous sulfate Take 325 mg by 0 Active (IRON) 325 (65 FE) mouth 3 (three) MG tablet times daily with meals. loratadine Take 10 mg by 0 Active (CLARITIN) 10 mg mouth daily. tablet metoprolol Take 25 mg by 0 Active (LOPRESSOR) 25 MG mouth 3 (three) tablet times daily. niacin 500 MG Take 500 mg by 0 Active tablet mouth 3 (three) times daily with meals. insulin regular Inject 0 Active (HUMULIN R,NOVOLIN subcutaneously as R) 100 unit/mL needed for High injection Blood Sugar Use as directed . omeprazole Take 40 mg by 0 Active (PRILOSEC) 40 MG mouth daily. capsule potassium chloride Take 10 mEq by 0 Active (KLOR-CON) 10 MEQ mouth daily. CR tablet simvastatin (ZOCOR) Take 40 mg by 0 Active 40 MG tablet mouth nightly. spironolactone Take 25 mg by 0 Active (ALDACTONE) 25 MG mouth 2 (two) tablet times daily. traMADol (ULTRAM) Take 50 mg by 0 Active 50 mg tablet mouth as needed for Pain. ascorbic acid, Take 500 mg by 0 Active vitamin C, mouth 2 (two) (ASCORBIC ACID WITH times daily. ALEJANDRO HIPS) 500 MG tablet cholecalciferol, Take 5,000 Units 0 Active vitamin D3, 5,000 by mouth daily. unit Tab traMADol (ULTRAM) Take 1 tablet (50 30 tablet 0 08/22/19 50 mg tablet mg total) by mouth 8 18 every 6 (six) hours as needed for up to 10 days. Max Daily Amount: 200 mg rivaroxaban Take by mouth 0 08/12/19 Discontinued (XARELTO) 15 mg Tab daily with dinner. 18 tablet Active Problems Problem Noted Date GI bleed 08/10/2017 Encounters Date Type Specialty Care Team Description 08/10/2017 [facility] [place] Gastrointestinal hemorrhage, unspecified gastrointestinal hemorrhage type; - Encounter Medicine MD Elin IDDM (insulin dependent diabetes mellitus) ([facility]); 08/12/2017 Cathleen, Essential hypertension; Yashash D Hyperlipidemia, unspecified hyperlipidemia type; Atrial fibrillation, unspecified type ([facility]) 08/10/2017 Telephone Gastroenterology Serenity Edward MD after 05/16/2017 Social History Tobacco Use Types Packs/Day Years Used Date Never Smoker Smokeless Tobacco: Never Used Alcohol Use Drinks/Week oz/Week Comments No Sex Assigned at Date Recorded Not on file Job Start Date Occupation Industry Not on file Not on file Not on file Travel History Travel Start Travel End No recent travel history available. 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 POCT-GLUCOSE METER Routine 08/12/2017 4:49 Results for this PM CDT procedure are in the results section. POCT-GLUCOSE METER Routine 08/12/2017 10:55 Results for this AM CDT procedure are in the results section. CBC W/PLT COUNT & AUTO STAT 08/12/2017 8:59 Results for this DIFFERENTIAL AM CDT procedure are in the results section. CBC W/PLT COUNT & AUTO STAT 08/12/2017 8:59 Results for this DIFFERENTIAL AM CDT procedure are in the results section. POCT-GLUCOSE METER Routine 08/12/2017 7:01 Results for this AM CDT procedure are in the results section. MAGNESIUM Routine 08/12/2017 4:58 Results for this AM CDT procedure are in the results section. LIPID PANEL Routine 08/12/2017 4:58 Results for this AM CDT procedure are in the results section. PROTHROMBIN TIME/INR Routine 08/12/2017 4:58 Results for this AM CDT procedure are in the results section. HEPATIC FUNCTION PANEL Routine 08/12/2017 4:58 Results for this AM CDT procedure are in the results section. CALCIUM, IONIZED Routine 08/12/2017 4:58 Results for this AM CDT procedure are in the results section. BASIC METABOLIC PANEL Routine 08/12/2017 4:58 Results for this (7) AM CDT procedure are in the results section. POCT-GLUCOSE METER Routine 08/11/2017 9:21 Results for this PM CDT procedure are in the results section. TRANSFUSION SERVICE 08/11/2017 6:02 REPORT - SCAN PM CDT POCT-GLUCOSE METER Routine 08/11/2017 4:51 Results for this PM CDT procedure are in the results section. CBC W/PLT COUNT & AUTO STAT 08/11/2017 4:09 Results for this DIFFERENTIAL PM CDT procedure are in the results section. CBC W/PLT COUNT & AUTO STAT 08/11/2017 4:09 Results for this DIFFERENTIAL PM CDT procedure are in the results section. CBC (HEMOGRAM ONLY) STAT 08/11/2017 4:09 Results for this PM CDT procedure are in the results section. POCT-GLUCOSE METER Routine 08/11/2017 11:48 Results for this AM CDT procedure are in the results section. POCT-GLUCOSE METER Routine 08/11/2017 7:01 Results for this AM CDT procedure are in the results section. CBC W/PLT COUNT & AUTO STAT 08/11/2017 4:15 Results for this DIFFERENTIAL AM CDT procedure are in the results section. MAGNESIUM Routine 08/11/2017 4:15 Results for this AM CDT procedure are in the results section. LIPID PANEL Routine 08/11/2017 4:15 Results for this AM CDT procedure are in the results section. HEPATIC FUNCTION PANEL Routine 08/11/2017 4:15 Results for this AM CDT procedure are in the results section. CALCIUM, IONIZED Routine 08/11/2017 4:15 Results for this AM CDT procedure are in the results section. BASIC METABOLIC PANEL Routine 08/11/2017 4:15 Results for this (7) AM CDT procedure are in the results section. PROTHROMBIN TIME/INR STAT 08/11/2017 4:15 Results for this AM CDT procedure are in the results section. CBC W/PLT COUNT & AUTO STAT 08/11/2017 4:15 Results for this DIFFERENTIAL AM CDT procedure are in the results section. POCT-GLUCOSE METER Routine 08/10/2017 10:08 Results for this PM CDT procedure are in the results section. CBC W/PLT COUNT & AUTO Routine 08/10/2017 5:23 Results for this DIFFERENTIAL PM CDT procedure are in the results section. CBC W/PLT COUNT & AUTO Routine 08/10/2017 5:23 Results for this DIFFERENTIAL PM CDT procedure are in the results section. TYPE AND SCREEN, Routine 08/10/2017 5:01 Results for this AUTOMATED PM CDT procedure are in the results section. COMPREHENSIVE STAT 08/10/2017 5:01 Results for this METABOLIC PANEL PM CDT procedure are in the results section. POCT-GLUCOSE METER Routine 08/10/2017 3:36 Results for this PM CDT procedure are in the results section. after 05/16/2017 Results Transfuse Leuko-Red RBC (03/17/2018 5:31 PM TANK TRUCK DRIVER)TRANSFUSION SERVICE REPORT - SCAN (08/13/2017 6:02 PM CDT)Only the most recent of2 resultswithin the time period is included. Narrative Performed At EKG-SCANNED (08/13/2017 2:01 PM CDT) Narrative Performed At RHYTHM STRIP - SCAN (08/13/2017 2:01 PM CDT) Narrative Performed At Prepare Leuko-Red RBC (08/12/2017 11:54 PM CDT) CROSSMATCH COMPATIBLE SAFETRACE TX Unit ABO A Pos SAFETRACE TX UNIT NUMBER [id number] SAFETRACE TX Status TRANSFUSED SAFETRACE TX Blood Bank Product RED BLOOD CELLS SAFETRACE TX PRODUCT CODE [id number] SAFETRACE TX Specimen Other Performing Organization Address City/[facility] Phone Number SAFETRACE TX POC-Glucose meter (08/12/2017 4:49 PM CDT)Only the most recent of9 resultswithin the time period is included. POC-Glucose Meter 261 (H)Comment: TESTED AT 70 - 110 mg/dL [address] [address] Specimen Blood Performing Organization Address City/[facility]/Zipcode Phone Number [address] [phone] CENTER CBC with platelet count + automated diff (08/12/2017 8:59 AM CDT)Only the most recent of4 resultswithin the time period is included. WBC 11.7 (H) 3.5 - 10.5 K/L [facility] RBC 2.99 (L) 4.63 - 6.08 M/L [facility] Hemoglobin 8.7 (L) 13.7 - 17.5 GM/DL [facility] Hematocrit 27.5 (L) 40.1 - 51.0 % [facility] MCV 92.0 79.0 - 92.2 fL [facility] MCH 29.1 25.7 - 32.2 pg [facility] MCHC 31.6 (L) 32.3 - 36.5 GM/DL [facility] RDW 16.0 (H) 11.6 - 14.4 % [facility] Platelets 213 150 - 450 K/CU MM [facility] MPV 10.7 9.4 - 12.4 fL [facility] nRBC 0 0 - 0 /100 WBC [facility] % Neutros 81 % [facility] % Lymphs 6 % [facility] % Monos 10 % [facility] % Eos 2 % [facility] % Baso 0 % [facility] # Neutros 9.49 (H) 1.78 - 5.38 K/L [facility] # Lymphs 0.73 (L) 1.32 - 3.57 K/L [facility] # Monos 1.13 (H) 0.30 - 0.82 K/L [facility] # Eos 0.19 0.04 - 0.54 K/L [facility] # Baso 0.03 0.01 - 0.08 K/L [facility] Immature Granulocytes-Relative 1 0 - 1 % [facility] Specimen Blood - Arm, Right Performing Organization Address City/State/Zipcode Phone Number [facility] [address] [place] [phone] CENTER Calcium, Ionized (08/12/2017 4:58 AM CDT)Only the most recent of2 resultswithin the time period is included. Calcium, Ion 1.02 (L) 1.12 - 1.27 mmol/L [facility] pH, Blood 7.43 [facility] Specimen Blood Performing Organization Address City/[facility] Phone Number [address] [address] [place] Prothrombin time/INR (08/12/2017 4:58 AM CDT)Only the most recent of2 resultswithin the time period is included. Protime 18.1 (H) 11.7 - 14.7 seconds [facility] INR 1.5 <=5.9 [facility] Specimen Blood Narrative Performed At [facility] RECOMMENDED COUMADIN/WARFARIN INR THERAPY RANGES STANDARD DOSE: 2.0 - 3.0 Includes: PROPHYLAXIS for venous thrombosis, systemic embolization; TREATMENT for venous thrombosis and/or pulmonary embolus. HIGH RISK: Target INR is 2.5-3.5 for patients with mechanical heart valves. Performing Organization Address [facility] Phone Number [address] [address] CENTER Magnesium (08/12/2017 4:58 AM CDT)Only the most recent of2 resultswithin the time period is included. Magnesium 1.6 1.6 - 2.6 mg/dL [facility] Specimen Blood Performing Organization Address City/[facility] Phone Number [address] [address] [place] Hepatic function panel (08/12/2017 4:58 AM CDT)Only the most recent of2 resultswithin the time period is included. Protein, Total 6.3 6.0 - 8.3 gm/dL [facility] Albumin 2.9 (L) 3.5 - 5.0 g/dL [facility] Total Bilirubin 0.4 0.2 - 1.2 mg/dL [facility] Bilirubin, Direct 0.3 0.1 - 0.5 mg/dL [facility] Alkaline Phosphatase 136 40 - 150 U/L [facility] AST 10 5 - 34 U/L [facility] ALT 9 6 - 55 U/L [facility] Specimen Blood Performing Organization Address [facility] Phone Number [address] [address] [place] Lipid panel (08/12/2017 4:58 AM CDT)Only the most recent of2 resultswithin the time period is included. Triglycerides 54 mg/dL [facility] Cholesterol 96 mg/dL [facility] HDL 29 mg/dL [facility] LDL Calculated 56 mg/dL [facility] Specimen Blood Narrative Performed At [facility] Triglyceride Reference Range: Low Risk <150 [id number] High Risk 200-499 Very High Risk>=500 Cholesterol Reference Range: Low Risk <200 [id number] High Risk>240 HDL Cholesterol Reference Range: Low Risk >=60 High Risk <40 LDL Cholesterol Reference Range: Optimal<100 Near [id number] [id number] Very High >=190 Performing Organization Address City/[facility] Phone Number [address] [address] [place] Basic metabolic panel (08/12/2017 4:58 AM CDT)Only the most recent of2 resultswithin the time period is included. Sodium 135 (L) 136 - 145 meq/L [facility] Potassium 3.7 3.5 - 5.1 meq/L [facility] Chloride 101 98 - 107 meq/L [facility] CO2 25 22 - 29 meq/L [facility] BUN 92 (H) 7 - 21 mg/dL [facility] Creatinine 2.52 (H) 0.57 - 1.25 mg/dL [facility] Glucose 135 (H) 70 - 105 mg/dL [facility] Calcium 8.7 8.4 - 10.2 mg/dL [facility] EGFR 26Comment: ESTIMATED GFR IS mL/min/1.73 sq m [facility] NOT ACCURATE [facility] CLEARANCE IN PREDICTING GLOMERULAR FILTRATION RATE. ESTIMATED GFR IS NOT APPLICABLE FOR DIALYSIS PATIENTS. Specimen Blood Performing Organization Address City/State/Zipcode Phone Number [facility] [address] [place] [address] [phone] CENTER CBC (Hemogram only) (08/11/2017 4:09 PM CDT) WBC 10.3 3.5 - 10.5 K/L [facility] RBC 3.01 (L) 4.63 - 6.08 M/L [facility] Hemoglobin 8.5 (L) 13.7 - 17.5 GM/DL [facility] Hematocrit 27.0 (L) 40.1 - 51.0 % [facility] MCV 89.7 79.0 - 92.2 fL [facility] MCH 28.2 25.7 - 32.2 pg [facility] MCHC 31.5 (L) 32.3 - 36.5 GM/DL [facility] RDW 15.8 (H) 11.6 - 14.4 % [facility] Platelets 203 150 - 450 K/CU MM [facility] MPV 10.5 9.4 - 12.4 fL [facility] nRBC 0 0 - 0 /100 WBC [facility] Specimen Blood - Arm, Left Performing Organization Address City/State/Zipcode Phone Number [facility] [address] [place] [address] CENTER Type and screen, automated (08/10/2017 5:01 PM CDT) ABO/RH AUTOMATED (BEAKER) A POSITIVE [facility] Ab Scrn NEGATIVE [facility] Specimen Blood Performing Organization Address City/[facility]/Zipcode Phone Number [facility] [address] [place] [address] Comprehensive metabolic panel (08/10/2017 5:01 PM CDT) Protein, Total 6.5Comment: Specimen 6.0 - 8.3 gm/dL slightly hemolyzed [facility] Albumin 2.9 (L)Comment: Specimen 3.5 - 5.0 g/dL slightly hemolyzed [facility] Alkaline Phosphatase 135 40 - 150 U/L [facility] Total Bilirubin 0.5Comment: Specimen 0.2 - 1.2 mg/dL slightly hemolyzed [facility] Sodium 135 (L) 136 - 145 meq/L [facility] Potassium 3.7Comment: Specimen 3.5 - 5.1 meq/L slightly hemolyzed [facility] Chloride 98 98 - 107 meq/L [facility] CO2 26 22 - 29 meq/L [facility] BUN 103 (H) 7 - 21 mg/dL [facility] Creatinine 2.59 (H)Comment: 0.57 - 1.25 mg/dL Specimen [facility] hemolyzed Glucose 64 (L) 70 - 105 mg/dL [facility] Calcium 8.8 8.4 - 10.2 mg/dL [facility] AST 15Comment: Specimen 5 - 34 U/L slightly hemolyzed [facility] ALT 13Comment: Specimen 6 - 55 U/L slightly hemolyzed [facility] EGFR 25Comment: ESTIMATED GFR mL/min/1.73 sq m IS NOT ACCURATE [facility] CREATININE CLEARANCE IN PREDICTING GLOMERULAR FILTRATION RATE. ESTIMATED GFR IS NOT APPLICABLE FOR DIALYSIS PATIENTS. Specimen Blood Performing Organization Address City/State/Zipcode Phone Number [facility] [address] [place], [place] [phone] CENTER after 05/16/2017 Insurance Payer Benefit Plan / Group Subscriber ID Type Phone Address MEDICARE MEDICARE A B xxxxxxxxxx Medicare Advance Directives For more information, please contact:[facility] [place], [place] [phone] Code Status Date Activated Date Inactivated Comments Full Code 08/10/2017 2:43 PM 08/12/2017 8:24 PM This code status was determined by: Patient
[2018-05-17 12:37] LABS: Absolute Lymphocytes (CBC) 0.8 K/uL (0.7-4.9); Absolute Neutrophil 13.4 K/uL (1.8-8.0); Basophils % 0.2 % (0-1.3); Eosinophils % 0.1 % (0-4.4); Hematocrit 22.3 % (39.6-49.0); Lymphocytes % 5.5 % (15.3-44.8); MPV 6.4 fL (7.6-11.3); Monocytes % 6.3 % (3.3-12.3); RBC Red Blood Cell Count 2.23 M/uL (4.33-5.43)
[2018-05-17 12:44] LABS: Protime INR 1.4
[2018-05-17 13:02] LABS: Ferritin 511.9 ng/mL (26-388); Potassium 4.3 mmol/L (3.5-5.1)
--- NOTE | 2018-05-17 13:21 | ER ---
Nurse's Notes [facility] Name: Fausto Bird Age: 67 yrs Sex: Male : 1950 Arrival Date: 05/17/2018 Time: 12:01 Bed 24 Private MD: Diagnosis: End stage renal disease;Anemia, unspecified Presentation: 05/17 12:01 Presenting complaint: EMS states: low hemoglobin count- 6.5 taken last Wednesday, complaints of being light headed; on blood thinner for Afib, been having bloody stools; BP 144/45; 100% RA;. Transition of care: patient was not received from another setting of care. Onset of symptoms was May 17, 2018. Risk Assessment: Do you want to hurt yourself or someone else? Patient reports no desire to harm self or others. Initial Sepsis Screen: Does the patient meet any 2 criteria? No. Patient's initial sepsis screen is negative. Does the patient have a suspected source of infection? No. Patient's initial sepsis screen is negative. Care prior to arrival: None. 12:01 Method Of Arrival: EMS: [facility] 12:01 Acuity: BLANCA 3 hj Triage Assessment: 12:01 General: Appears in no apparent distress. uncomfortable, Behavior is calm, cooperative, hj appropriate for age. Pain: Denies pain. Historical: - Allergies: 12:04 bactrim-topical; hj 12:04 MUPIROCIN; hj - PMHx: 12:04 anemic; Atrial Fib; Cellulitis; Diabetes - IDDM; Hypertension; lymphedema; Myocardial hj infarction; - PSHx: 12:04 Cholecystectomy; hj - Immunization history:: Adult Immunizations up to date. - Social history:: Smoking status: Patient/guardian denies using tobacco, Patient/guardian denies using alcohol. - Family history:: not pertinent. - Ebola Screening: : Patient negative for fever greater than or equal to 101.5 degrees Fahrenheit, and additional compatible Ebola Virus Disease symptoms Patient denies exposure to infectious person Patient denies travel to an Ebola-affected area in the 21 days before illness onset. - Hospitalizations: : No recent hospitalization is reported. Screenin:01 Abuse screen: Denies threats or abuse. Denies injuries from another. Nutritional hj screening: No deficits noted. Tuberculosis screening: No symptoms or risk factors identified. Fall Risk None identified. Assessment: 12:02 General: Appears in no apparent distress. uncomfortable, Behavior is calm, cooperative, hj appropriate for age. Pain: Denies pain. Neuro: Level of Consciousness is awake, alert, obeys commands, Oriented to person, place, time, situation, Appropriate for age. Cardiovascular: Capillary refill < 3 seconds Patient's skin is warm and dry. Respiratory: Airway is patent Respiratory effort is even, unlabored, Respiratory pattern is regular, symmetrical. GI: No signs and/or symptoms were reported involving the gastrointestinal system. : No signs and/or symptoms were reported regarding the genitourinary system. EENT: No signs and/or symptoms were reported regarding the EENT system. Derm: No signs and/or symptoms reported regarding the dermatologic system. 12:30 Reassessment: Patient and/or family updated on plan of care and expected duration. Pain hj level reassessed. Patient is alert, oriented x 3, equal unlabored respirations, skin warm/dry/pink. awaiting results and POC;. 13:24 Reassessment: Patient and/or family updated on plan of care and expected duration. Pain hj level reassessed. Patient is alert, oriented x 3, equal unlabored respirations, skin warm/dry/pink. pt for admit; awaiting room placement;. 14:40 Reassessment: report given to BEBO Presley. Vital Signs: 12:05 BP 149 / 59; Pulse 66; Resp 18; Temp 97.8(TE); Pulse Ox 100% on R/A; Weight 127.91 kg; hj Height 6 ft. 0 in. (182.88 cm); 13:24 BP 149 / 59; Pulse 68; Resp 18; Pulse Ox 99% on R/A; hj 12:05 Body Mass Index 38.25 (127.91 kg, 182.88 cm) ED Course: 12:01 Patient arrived in ED. hj 12:01 Amarjit Honeycutt MD is Attending Physician. rn 12:03 Triage completed. hj 12:09 EKG done, by cadd technician. reviewed by Amarjit Honeycutt MD. sm3 12:12 Arm band placed on left wrist. hj 12:12 Patient has correct armband on for positive identification. Placed in gown. Bed in low hj position. Call light in reach. Side rails up X2. 12:24 John Lopez, RN is Primary Nurse. hj 12:30 Inserted saline lock: 22 gauge in right antecubital area, using aseptic technique. kj1 12:30 Initial lab(s) drawn, by me, sent to lab. kj1 12:31 TRANSFERRIN SAT/IRON BINDING Sent. kj1 12:31 CBC with Diff Sent. kj1 12:31 Type And Screen Sent. kj1 12:31 Basic Metabolic Panel Sent. kj1 12:31 Iron Level Sent. kj1 12:32 Ptt, Activated Sent. kj1 12:32 PT-INR Sent. kj1 13:20 Martín Weaver MD is Hospitalizing Provider. rn Administered Medications: No medications were administered Outcome: 13:21 Decision to Hospitalize by Provider. rn 16:35 Patient left the ED. iw Signatures: Penelope Perez RN Amarjit Trinh MD MD rn Joaquin, Henry, RN RN hj Montes, Shakira 3 Brittny Zimmerman kj1
--- NOTE | 2018-05-17 13:21 | EDPHYS ---
Physician Documentation [facility] Name: Fausto Bird Age: 67 yrs Sex: Male : 1950 Arrival Date: 05/17/2018 Time: 12:01 Bed 24 Private MD: ED Physician Amarjit Honeycutt HPI: 05/17 12:02 This 67 yrs old Male presents to ER via Unassigned with complaints of low rn hemoglobin count. 12:02 REports sent by Richardson Weaver for blood transfusion,reports has 3 year long history of GI rn bleeding, has been told has small intestinal bleeding due to blood thinners for afib, reports recent diarrhea, and dark but takes iron. No vomiting. + gas but no abdominal pain.. Onset: The symptoms/episode began/occurred at an unknown time. Severity of symptoms: At their worst the symptoms were mild in the emergency department the symptoms are unchanged. The patient has experienced similar episodes in the past. The patient has not recently seen a physician. Historical: - Allergies: 12:04 bactrim-topical; hj 12:04 MUPIROCIN; hj - PMHx: 12:04 anemic; Atrial Fib; Cellulitis; Diabetes - IDDM; Hypertension; lymphedema; Myocardial hj infarction; - PSHx: 12:04 Cholecystectomy; hj - Immunization history:: Adult Immunizations up to date. - Social history:: Smoking status: Patient/guardian denies using tobacco, Patient/guardian denies using alcohol. - Family history:: not pertinent. - Ebola Screening: : Patient negative for fever greater than or equal to 101.5 degrees Fahrenheit, and additional compatible Ebola Virus Disease symptoms Patient denies exposure to infectious person Patient denies travel to an Ebola-affected area in the 21 days before illness onset. - Hospitalizations: : No recent hospitalization is reported. ROS: 12:02 Constitutional: Negative for fever, chills, and weight loss, Eyes: Negative for injury, rn pain, redness, and discharge, Neck: Negative for injury, pain, and swelling, Cardiovascular: Negative for chest pain, palpitations, and edema, Respiratory: Negative for shortness of breath, cough, wheezing, and pleuritic chest pain, Abdomen/GI: Negative for abdominal pain, nausea, vomiting, and constipation, MS/Extremity: Negative for injury and deformity, Skin: Negative for injury, rash, and discoloration, Neuro: Negative for headache, weakness, numbness, tingling, and seizure. Exam: 12:02 Constitutional: This is a well developed, well nourished patient who is awake, alert, rn and in no acute distress. Head/Face: Normocephalic, atraumatic. Eyes: pale conjunctivae ENT: MMM Cardiovascular: Irregular rate and rhythm, No pulse deficits. Respiratory: Lungs have equal breath sounds bilaterally, clear to auscultation Abdomen/GI: soft, non-tender MS/ Extremity: No cyanosis, + chronic lymphedema bilateral lower ext Neuro: Awake and alert, GCS 15, oriented to person, place, time, and situation. Cranial nerves II-XII grossly intact. Motor strength 5/5 in all extremities. Sensory grossly intact. Vital Signs: 12:05 BP 149 / 59; Pulse 66; Resp 18; Temp 97.8(TE); Pulse Ox 100% on R/A; Weight 127.91 kg; hj Height 6 ft. 0 in. (182.88 cm); 13:24 BP 149 / 59; Pulse 68; Resp 18; Pulse Ox 99% on R/A; hj 12:05 Body Mass Index 38.25 (127.91 kg, 182.88 cm) hj MDM: 12:01 Patient medically screened. rn 13:19 Differential Diagnosis anemia, kidney failure. Data reviewed: vital signs, nurses rn notes, lab test result(s), and as a result, I will admit patient. Counseling: I had a detailed discussion with the patient and/or guardian regarding: the historical points, exam findings, and any diagnostic results supporting the discharge/admit diagnosis, lab results, the need for further work-up and treatment in the hospital. Admission orders: after a detailed discussion of the patient's condition and case, the admit orders are written by me. ED course: Spoke with Richardson Weaver, states patient was supposed to be direct admit, faxed over orders, but patient called 911 because too weak to drive himself here. . 05/17 12: Order name: CBC with Diff; Complete Time: 12:52 rn 05/17 12: Order name: Basic Metabolic Panel; Complete Time: 13:14 rn 05/17 12: Order name: Type And Screen rn 05/17 12:01 Order name: PT-INR; Complete Time: 12:52 rn 05/17 12:01 Order name: Ptt, Activated; Complete Time: 12:52 rn 05/17 12:02 Order name: TRANSFERRIN SAT/IRON BINDING; Complete Time: 13:14 rn 05/17 12:01 Order name: IV Start; Complete Time: 12:31 rn 05/17 12:02 Order name: Iron Level; Complete Time: 13:14 rn 05/17 12:46 Order name: EKG Electrocardiogram; Complete Time: 12:48 EDMS 05/17 14:36 Order name: Urine Dipstick--Ancillary (enter results) bd 05/17 14:41 Order name: Urine Dipstick-Ancillary EDMS 05/17 16:15 Order name: RAD EDMS Administered Medications: No medications were administered Disposition: 05/17/18 13:21 Hospitalization ordered by Martín Weaver for Inpatient Admission. Preliminary diagnosis are End stage renal disease, Anemia, unspecified. - Bed requested for Telemetry/MedSurg (Inpatient). - Status is Inpatient Admission. iw - Condition is Stable. - Problem is an ongoing problem. - Symptoms are unchanged. UTI on Admission? No Signatures: Dispatcher [employer] EDOK Penelope Perez RN RN iw Amarjit Honeycutt MD MD rn Joaquin, Henry, RN RN hj Fitzgerald, Diane, RN RN df Corrections: (The following items were deleted from the chart) 12:10 12:02 Constitutional: This is a well developed, well nourished patient who is awake, rn alert, and in no acute distress. Head/Face: Normocephalic, atraumatic. Eyes: pale conjunctivae ENT: MMM Cardiovascular: Regular rate and rhythm, No pulse deficits. Respiratory: Lungs have equal breath sounds bilaterally, clear to auscultation Abdomen/GI: soft, non-tender MS/ Extremity: No cyanosis, + chronic lymphedema bilateral lower ext Neuro: Awake and alert, GCS 15, oriented to person, place, time, and situation. Cranial nerves II-XII grossly intact. Motor strength 5/5 in all extremities. Sensory grossly intact. rn 14:34 13:21 Hospitalization Ordered by Martín Weaver MD for Inpatient Admission. Preliminary iw diagnosis is End stage renal disease; Anemia, unspecified. Bed requested for Telemetry/MedSurg (Inpatient). Status is Inpatient Admission. Condition is Stable. Problem is an ongoing problem. Symptoms are unchanged. UTI on Admission? No. rn 15:41 14:34 05/17/2018 13:21 Hospitalization Ordered by Martín Weaver MD for Inpatient df Admission. Preliminary diagnosis is End stage renal disease; Anemia, unspecified. Bed requested for [facility] ER HOLD. Status is Inpatient Admission. Condition is Stable. Problem is an ongoing problem. Symptoms are unchanged. UTI on Admission? No. iw 16:35 15:41 05/17/2018 13:21 Hospitalization Ordered by Martín Weaver MD for Inpatient iw Admission. Preliminary diagnosis is End stage renal disease; Anemia, unspecified. Bed requested for Telemetry/MedSurg (Inpatient). Status is Inpatient Admission. Condition is Stable. Problem is an ongoing problem. Symptoms are unchanged. UTI on Admission? No. df
[2018-05-17 14:41] LABS: Urine Blood 1+ (NEG); Urine Glucose NEGATIVE (NEG); Urine Protein 3+ (NEG); Urine pH 5.5 (5.0-7.0)
[2018-05-17] MEDS ORDERED: NA CHLORIDE 0.9% 1,000 ML IV SCH (15:00)
[2018-05-17] MEDS ORDERED: NA CHLORIDE 0.9% 1,000 ML ONE (15:19)
[2018-05-17] MEDS: SOD FERRIC GLUC COMPLX/SUCROSE 250 MG in NA CHLORIDE 0.9% 250 ML IV SCH (16:00)
[2018-05-17] MEDS ORDERED: EPOETIN ALFA 10,000 UNIT/ML VIAL SQ SCH (16:00)
--- NOTE | 2018-05-17 16:13 | RAD REPORT ---
EXAM DESCRIPTION: RAD - Chest Single View - 05/17/2018 3:53 pm CLINICAL HISTORY: COPD, shortness of breath, anemia COMPARISON: August 2017 TECHNIQUE: AP portable chest image was obtained 1533 hours . FINDINGS: No focal mass or consolidation. Interstitial markings are prominent but not clearly differ ent. Vasculature is mildly prominent as well but not clearly different. Fullness of the right hilum i s not significantly different. Heart size is normal for shallow inspiration portable imaging. Trachea is midline. No measurable pleural effusion and no pneumothorax. No acute bony abnormality seen. No a cute aortic findings suspected. IMPRESSION: Chronic interstitial lung disease is evident with a mild vascular engorgement. These are stable from prior imaging.
--- NOTE | 2018-05-17 16:28 | EKG ---
Test Date: 2018-05-17 Test Time: 12:06:14 Flotation Tender Helper: IDALIA MEASUREMENT RESULTS: Intervals: Rate: 60 MA: QRSD: 142 QT: 416 QTc: 416 [place]: P: MA: QRS: -9 T: -62 INTERPRETIVE STATEMENTS: Atrial fibrillation Right bundle branch block Inferior infarct, age undetermined Abnormal ECG Compared to ECG 08/10/2017 09:26:20 Myocardial infarct finding now present T-wave abnormality no longer present Possible ischemia no longer present Electronically Signed On 05-17-18 16:27:28 CDT by Gabriel Gomes
[2018-05-17] MEDS ORDERED: D50W 25 GM/50 ML SYRINGE IV PRN ×2 (16:52→22:32)
[2018-05-17] MEDS: INSULIN -REGULAR HUMAN 50 UNIT/0.5 ML ML SQ SCH ×2 (16:52→21:40)
[2018-05-17] MEDS ORDERED: GLUCAGON 1 MG/VIAL IM PRN ×2 (16:52→22:32)
[2018-05-17] MEDS ORDERED: ONDANSETRON 4 MG/2 ML VIAL IV PRN (16:52)
--- NOTE | 2018-05-17 17:01 | CON ---
Date of Consultation: 05/17/2018 Reason For Consultation: Elevated BUN and creatinine, fluid management, hypertension. History Of Present Illness: This is a pleasant 67-year-old gentleman, well known to me from previous admission with significant past medical history of chronic kidney disease stage 4/5, baseline creati nine back in January,; GFR of 11. Follow up with Dr. Randle; hypertension, lymphedema, recurrent GI bleed, obstructive sleep apnea, diabetes. The patient last seen [address] Randle. According to the patient, he is supposed to see Dr. Randle again this week, but apparently could not make it, so he did the lab for Dr. Weaver. Labs show H and H 7/22.3, elevating creatinine up to 8 with a BUN 1 15. For that reason, the patient was directed to the emergency room. The patient denied any nausea, any vomiting. The patient still does not complain of any shortness of breath. No fever or chills. Lab workup show also decrease in iron saturation. We have been consulted for fluid management. The patient denied any change in his medication. No IV contrast. Not on steroids. Past Medical History: Include: 1.Congestive heart failure, diastolic dysfunction. 2.Chronic kidney disease, stage 5, his last creatinine 5, GFR of 11. 3.Iron deficiency anemia. 4.COPD. 5.Obstructive sleep apnea. 6.Diabetes. Past Surgical History: Includes parathyroidectomy. Allergies: BACTRIM. Family History: Positive for hypertension. Social History: Denies smoking. Denies drinking. Denies drugs abuse. Review of Systems: Head and Neck: No red eye. No ear pain. GI: Has black stool. : No polyuria. No dysuria. No hematuria. Packing Inspector: Not applicable. Respiratory: Has orthopnea. Endocrine: No polydipsia. Skin: No rash. Neuro: Has neuropathy. Musculoskeletal: Generalized fatigue. Cardiovascular: Has leg swelling. Physical Examination: Vital Signs: When I saw the patient, the patient in the emergency room with blood pressure of 167/89 , pulse of 74. Chest: Faint crackles on the base. Heart: S1, S2 systolic murmur. Abdomen: Soft, nontender. Extremities: Dressing both legs secondary to lymphedema. Neurological: Alert, oriented. No tremor. Laboratory Data: Sodium 136, potassium 4, bicarb 20, BUN 115, creatinine 8.2, calcium 7.9. T-sat 11 .5, ferritin of 511 from previous admission, the patient's SPEP was negative. Protein-creatinine 0.1 . PTH 143. Assessment And Plan: 1.Chronic kidney disease, stage 5, possible progression to end-stage renal disease with component of acute kidney injury secondary to prerenal, secondary to gastrointestinal loss. I am going to go ahe ad and start the patient on gentle hydration and start the patient on Epogen with IV iron, and we vandana l follow up the patient. I had long discussion with the patient if kidney function did not improve, the patient may need to be initiated on dialysis. The patient on agreement if it is needed. 2.Hypertension, uncontrolled. We will utilize the blood. We will add beta roel and start the pa tient on calcium channel roel and we will follow up. 3.Anemia, iron deficiency anemia as above. 4.Diabetes as by primary. 5.Secondary hyperparathyroidism. We will send for PTH. Thank you Dr. Weaver for allowing us to participate in the care of your patient. NEGRA Voice ID: [id number] Report ID: [id number]
[2018-05-17 18:58] LABS: Urine Appearance CLEAR; Urine Bilirubin NEGATIVE (NEG); Urine Blood 2+ (NEG); Urine Color YELLOW; Urine Glucose NEGATIVE (NEG); Urine Protein 3+ (NEG); Urine Urobilinogen 0.2 mg/dL (0.2-1.0); Urine pH 5.5 (5.0-7.0)
[2018-05-17 19:06] LABS: Urine Microscopic Reflex ORDER UMIC
[2018-05-17 19:16] LABS: Urine Protein/Creatinine Ratio 9.03 ratio (<0.15)
[2018-05-17 19:24] LABS: Urine Bacteria NONE SEEN /HPF (NONE SEEN); Urine Culture Reflex Order NOT NEEDED
--- NOTE | 2018-05-17 19:54 | RAD REPORT ---
EXAM DESCRIPTION: US - Renal Ultrasound-Complete - 05/17/2018 7:15 pm CLINICAL HISTORY: Renal failure COMPARISON: CT study October 2017 FINDINGS: The right kidney measures 13.6 x 7.0 x 6.9 cm. The left kidney measures 13.4 x 7.3 x 6.5 cm. Cortical thickness is normal for each kidney. Cortical echogenicity is present typical for medica l renal disease. No hydronephrosis or suspicious renal mass. Sub centimeter cysts are present in the upper pole right kidney and lateral margin of the lower pole. No bladder wall thickening or mass. No intraluminal stone or mass. IMPRESSION: Underlying medical renal disease is evident. No hydronephrosis or mass. No other significant findings.
[2018-05-17 20:24] LABS: Uric Acid 4.3 mg/dL (3.5-7.2)
[2018-05-17] MEDS: CARVEDILOL 6.25 MG TAB PO SCH (21:33)
[2018-05-18] MEDS ORDERED: NA CHLORIDE 0.9% 200 ML IV ONE (00:32)
[2018-05-18] MEDS: INSULIN -REGULAR HUMAN 50 UNIT/0.5 ML ML SQ SCH ×4 (07:30→21:34)
[2018-05-18 07:53] LABS: Absolute Lymphocytes (CBC) 1.5 K/uL (0.7-4.9); Absolute Monocytes 1.2 K/uL (0.1-1.3); Absolute Neutrophil 10.9 K/uL (1.8-8.0); Basophils % 0.2 % (0-1.3); Eosinophils % 0.3 % (0-4.4); Hematocrit 23.8 % (39.6-49.0); Lymphocytes % 10.8 % (15.3-44.8); MPV 6.8 fL (7.6-11.3); Monocytes % 9.1 % (3.3-12.3); RBC Red Blood Cell Count 2.45 M/uL (4.33-5.43)
[2018-05-18 08:17] LABS: BUN Blood Urea Nitrogen 110 mg/dL (7-18); Bicarbonate 20 mmol/L (21-32); Folic Acid, (Folate) > 20.0 ng/mL (3.1-17.5); Glucose Level 77 mg/dL (74-106); Phosphorus 7.5 mg/dL (2.5-4.9); Potassium 4.5 mmol/L (3.5-5.1); Sodium Level 138 mmol/L (136-145)
[2018-05-18] MEDS ORDERED: HYDRALAZINE HCL 25 MG TABLET PO SCH (09:00)
[2018-05-18] MEDS: AMLODIPINE 10 MG TAB PO SCH (09:53)
[2018-05-18] MEDS: PANTOPRAZOLE 40MG TABLET PO SCH (09:54)
[2018-05-18] MEDS: METOPROLOL TAR 25 MG TAB PO SCH ×3 (09:54→21:26)
[2018-05-18] MEDS: SPIRONOLACTONE 25 MG TABLET PO SCH ×2 (09:54→21:24)
[2018-05-18] MEDS: CARVEDILOL 6.25 MG TAB PO SCH ×2 (09:55→21:25)
[2018-05-18] MEDS: DIGOXIN 0.125 MG TABLET PO SCH (09:55)
[2018-05-18] MEDS: CALCITROL 0.25 MCG CAP PO SCH (10:01)
[2018-05-18] MEDS ORDERED: NA CHLORIDE 0.9% 50 ML ONE (11:28)
[2018-05-18] MEDS: CALCIUM CARBONATE CHEW 500MG TAB PO SCH ×2 (11:49→16:53)
[2018-05-18] MEDS: METOCLOPRAMIDE 10 MG/2mL INJ IV SCH ×2 (12:00→15:35)
[2018-05-18] MEDS ORDERED: GOLYTELY 4000 ML PO SCH (14:00)
[2018-05-18] MEDS: HYDRALAZINE HCL 25 MG TABLET PO SCH ×2 (14:57→21:24)
--- NOTE | 2018-05-18 14:58 | PN ---
Date of Progress Note: 05/18/2018 Subjective: The patient was admitted with symptomatic anemia, fatigue, weakness, found to have uremi a with BUN above 100. The patient received yesterday 2 units of blood transfusion. His blood count is still low. Blood pressure been maintained good. The patient still has good urine output. Physical Examination: Vital Signs: Blood pressure 159/69, pulse of 60. The patient had good urine output of 1200. Chest: Faint crackles in the base. Heart: S1 and S2, systolic murmur. Abdomen: Soft and nontender. Extremities: Bilateral lower extremity wrapped with compression dressing. Neurological: Alert and oriented. Mild tremor. Laboratory Data: WBC 13.7, H and H 7.4/23.8, platelet 202. Sodium 138, potassium 4.5, bicarb 20, BU N 110, creatinine 8.4, GFR of 6, calcium 7.6, phosphorus 7.5. Vitamin D still pending. PTH 269. Se rology still pending. Renal ultrasound showing normal sized kidney 13.6/13.4. Current Medications: The patient on its include: 1.IV iron. 2.Amlodipine 10 mg. 3.Carvedilol 6.25. 4.Digoxin. 5.Hydralazine 25 b.i.d. 6.Spironolactone. 7.Metoprolol. 8.Pantoprazole. 9.Zofran. 10.Calcitriol. Assessment And Plan: 1.Chronic kidney disease, stage 5, progression to end-stage renal disease. I had long discussion wi th the patient regarding the option of treatment. The patient agreed on starting renal replacement t herapy including dialysis. The patient prefer home hemodialysis or any modality at home. I am going to go ahead and start initiating dialysis. We will refer him to home program. If not qualified, we will proceed for center, then we will educate the patient regarding PD if he interested later on. 2.Symptomatic anemia, iron deficiency anemia, anemia of chronic kidney disease. No sufficient corre ction on the 2 units of blood transfusion. We will go ahead and give another unit. Continue IV iron and KVNG and we will follow up the patient. We will consider GI evaluation. 3.Hypertension, not controlled. I am going to go ahead and increase hydralazine to 3 times a day an d we will follow up the patient. We will consider RACHELLE inhibitor after starting the patient on dialys is. 4.Congestive heart failure, stable. Normal volume as by primary. DC IV fluid for the time being. 5.Chronic obstructive pulmonary disease. Continue CPAP. AIDAN/SOHAN Voice ID: [id number] Report ID: [id number]
[2018-05-18 17:31] LABS: Hematocrit 26.3 % (39.6-49.0)
--- NOTE | 2018-05-18 18:08 | CON ---
Date of Consultation: 05/18/2018 Brief History Of Present Illness: The patient is a 67-year-old male, who presents to the E R, sent by Dr. Weaver for blood transfusion. He has a history of possible GI bleeding. He takes bl ood thinners including Eliquis for atrial fibrillation, and reports diarrhea, which is dark. He does take iron. He was seen in the hospital and found to have evidence of worsening renal function. Dr. Ramos saw and evaluated the patient, is concerned about his renal function and as such has decide d to initiate hemodialysis and as such, I am consulted to place a tunneled hemodialysis catheter. Past Medical History: Significant for anemia, atrial fibrillation, cellulitis, diabetes, hypertensio n, lymphedema, myocardial infarction, as well as CHF with diastolic dysfunction, chronic kidney disea se stage 5, GFR 11; COPD, obstructive sleep apnea. Past Surgical History: Includes cholecystectomy, parathyroidectomy. Allergies: TO BACTRIM. HE IS ALSO ALLERGIC TO MUPIROCIN TOPICAL. Family History: Positive for hypertension. Social History: He denies smoking, alcohol, recreational drug use. Review of Systems: Other than HPI, currently denies. Home Medications: Include allopurinol, Eliquis, vitamin C, vitamin D3, Folbic, Lanoxin, Feosol, Lasi x, glipizide, Apresoline, Novolin, Lantus, Integra capsule, Claritin, Lopressor, niacin, Protonix, Kl or-Con, Aldactone, glipizide, Zaroxolyn, Ultram. Physical Examination: Vital signs: At the time of my examination, his BMI is 35.7. His vital signs were a blood pressure 159/69, pulse is 60, respiratory rate 16, temperature 97.4. General: He is awake, alert, oriented. Psychiatric: He is appropriate and conversive. HEENT: Normocephalic. His sclerae are anicteric. His mucous membrane is moist. His oropharynx luis angel ar. Neck: Supple. There is no JVD. He has evidence of a previous parathyroidectomy scar. Neck otherwi se is unremarkable. Chest: Normal expansion and excursion. Cardiovascular: Regular rate. Pulmonary: Good air expansion bilaterally. Abdomen: Obese, nontender. Extremities: There is clubbing. This is swelling in bilateral lower extremities with edematous blood ges. His legs, lower extremities, are wrapped for lymphedema apparently. Skin: Warm and dry, although he has hypervascularity to the superficial veins. Laboratory Data: His laboratory exam reveals a white blood cell count of 13.7, hemoglobin 7.4, hemat ocrit of 23.7, platelet count is 202, neutrophils are 79.6. His PT is 16.3, INR 1.4, PTT is 35.7. H is sodium 138, potassium 4.5, chloride 107, carbon dioxide 20, BUN 110, creatinine 8.4, glucose is 77 , his calcium is 7.6, phosphorus is 7.5, albumin 2.0, PTH 269. He had a chest x-ray performed on which is officially read as chronic interstitial lung disease evident with mild vascular engorgeme nt. These are stable from prior imaging. He additionally had a renal ultrasound performed on 05/17 which is officially read as underlying medical renal disease evident. No hydronephrosis, mass, and n o other significant findings. Assessment And Plan: 1.This is a 67-year-old male with anemia, who is currently being worked up for this. In addition, cynthia vazquez is on a blood thinner outpatient and is anemic as an inpatient. 2.Continue medical management for the above-stated problems. 3.I have been consulted to see the patient to place a tunneled hemodialysis catheter. I have explai anthony the risks, benefits, and alternatives of the above-stated plan including, but not limited to blee ding, infection, damage to surrounding tissues, pneumothorax which means collapsed lung, need for fur ther operation and procedures. The patient agrees to proceed as indicated. N.p.o. after midnight, a s the patient is currently eating. We will plan for surgery in the morning. Thank you for this interesting consult. KAYDEN/SOHAN Voice ID: [id number] Report ID: [id number]
[2018-05-18] MEDS: ATORVASTATIN 20 MG TAB PO SCH (21:24)
[2018-05-18] MEDS: JUVEN PACKET PO SCH (21:31)
[2018-05-18] MEDS: INSULIN GLARGINE 100 UNITS/ML SQ SCH (22:49)
[2018-05-19 05:25] LABS: Phosphorus 6.5 mg/dL (2.5-4.9); Potassium 4.4 mmol/L (3.5-5.1)
[2018-05-19] MEDS: CALCIUM CARBONATE CHEW 500MG TAB PO SCH ×3 (07:30→16:30)
[2018-05-19] MEDS: INSULIN -REGULAR HUMAN 50 UNIT/0.5 ML ML SQ SCH ×4 (07:30→20:43)
[2018-05-19] MEDS ORDERED: HEPARIN 5000 UNIT/ML 1 ML VIAL ONE (08:55)
[2018-05-19] MEDS ORDERED: NS 0.9% VIAL 30 ML ONE (08:56)
[2018-05-19] MEDS ORDERED: NA CHLORIDE 0.9% 500 ML ONE (08:58)
[2018-05-19] MEDS: DIGOXIN 0.125 MG TABLET PO SCH (09:00)
[2018-05-19] MEDS: JUVEN PACKET PO SCH ×2 (09:00→20:45)
[2018-05-19] MEDS: SPIRONOLACTONE 25 MG TABLET PO SCH ×3 (09:00→20:45)
[2018-05-19] MEDS: PANTOPRAZOLE 40MG TABLET PO SCH (09:00)
[2018-05-19] MEDS: METOPROLOL TAR 25 MG TAB PO SCH ×3 (09:00→20:44)
[2018-05-19] MEDS: AMLODIPINE 10 MG TAB PO SCH ×2 (09:00→11:51)
[2018-05-19] MEDS: CARVEDILOL 6.25 MG TAB PO SCH ×2 (09:00→20:45)
[2018-05-19] MEDS: HYDRALAZINE HCL 25 MG TABLET PO SCH ×4 (09:00→20:45)
[2018-05-19] MEDS ORDERED: BUPIVACA 0.25%/EPI 0.0005% MDV 50 ML VIAL ONE (09:42)
[2018-05-19] MEDS ORDERED: PROPOFOL 200 MG/20 ML VIAL IV ONE (09:44)
[2018-05-19] MEDS ORDERED: FENTANYL CITR 100 MCG/2 ML ONE ×2 (09:45→10:27)
[2018-05-19] MEDS ORDERED: LIDOCAINE 1% MPF 2 ML AMPULE ONE (09:47)
[2018-05-19] MEDS ORDERED: ONDANSETRON 4 MG/2 ML VIAL ONE (09:47)
--- NOTE | 2018-05-19 10:41 | P.OP ---
Preoperative diagnosis: End Stage Renal Disease Postoperative diagnosis: End Stage Renal Disease Primary procedure: Placement of RIGHT internal jugular tunnelled hemodialysis catheter Secondary procedure: Microintroducer / ultrasound / flouroscopy used Anesthesia: GETA + Local Estimated blood loss: < 10cc Specimen: None Findings: Dark, nonpusatile blood Complications: None Implants: 24 cm tunnelled hemodialysis catheter Transferred to: Recovery Room Condition: Good
--- NOTE | 2018-05-19 11:15 | RAD REPORT ---
EXAM DESCRIPTION: RAD - Fluoroscopy <1 Hour - 05/19/2018 10:56 am CLINICAL HISTORY: Venous catheter insertion. INSERTION OF A DAILYSIS CATHETER COMPARISON: No comparisons FINDINGS: Fluoroscopic imaging is submitted from placement of a venous catheter. Details of the pro cedure not available. Fluoroscopy time: 0.4 minutes
[2018-05-19] MEDS: HYDROMORPHONE HCL 1 MG/ML INJ ONE ×2 (11:22→11:27)
--- NOTE | 2018-05-19 11:26 | RAD REPORT ---
EXAM DESCRIPTION: RAD - Chest Single View - 05/19/2018 11:12 am CLINICAL HISTORY: Device placement central venous line placement COMPARISON: none FINDINGS: A central venous line has been inserted with its tip in the distal superior vena cava. Mild interstitial pulmonary edema is present. . The heart is mildly enlarged IMPRESSION: Central venous line with its tip in the distal superior vena cava. A pneumothorax is not present
[2018-05-19] MEDS ORDERED: MANNITOL 25% 12.5 GM/50 ML VIAL IV PRN (14:31)
[2018-05-19] MEDS ORDERED: NA CHLORIDE 0.9% 1,000 ML IV PRN (14:31)
[2018-05-19] MEDS: EPOETIN ALFA 10,000 UNIT/ML VIAL IV SCH (14:51)
[2018-05-19] MEDS ORDERED: ALBUMIN HUMAN 25% 50 ML IV SCH (15:00)
[2018-05-19] MEDS: HYDROCODONE/APAP 5/325 MG TAB PO PRN (20:44)
[2018-05-19] MEDS: INSULIN GLARGINE 100 UNITS/ML SQ SCH (20:44)
[2018-05-19] MEDS: ATORVASTATIN 20 MG TAB PO SCH (20:44)
--- NOTE | 2018-05-19 21:57 | OP ---
Date of Procedure: 05/19/2018 Surgeon: Lino Coley MD, Preoperative Diagnosis: End-stage renal disease. Postoperative Diagnosis: End-stage renal disease. Procedure Performed: Placement of right internal jugular hemodialysis catheter using microintroducer , ultrasound guidance, and fluoroscopy. Anesthesia: General endotracheal plus local with 0.25% Marcaine. Estimated Blood Loss: Less than 10 cc. Specimen: None. Findings: Dark red nonpulsatile blood was returned, and fluoroscopy and ultrasound confirmed appropr iate positioning. Complications: None. Implants: A 24 cm tunneled hemodialysis catheter, HemoSplit type. Disposition: Transferred to recovery room in good condition. Procedure In Detail: After informed consent was obtained, the patient was brought to the operating r oom, prepped and draped in the usual sterile fashion. After adequate anesthesia was achieved, the pa tient was placed in steep Trendelenburg. Using ultrasound guidance and a microintroducer, I anesthet ized the area of the right internal jugular vein, inserted the microintroducer needle on the first at tempt into the right internal jugular vein under direct visualization. Dark red nonpulsatile blood w as returned. The microwire was advanced. The microintroducer sheath was introduced at this time. T he position was once again verified with ultrasound and then verified it once again with fluoroscopy that the microwire was in the appropriate position. At this point, an area of the chest was appropri ately anesthetized, the entire tract was anesthetized as well with 0.25% Marcaine up to the insertion site. A small marva was made on the chest wall and the tunneling device used to pass a 24 cm HemoSpl it catheter out through the insertion site. Then, sequential dilatation was performed after the sharon dard wire was placed through the microintroducer sheath. Once again, position was verified with fluo roscopy at this time. Sequential dilatation after being completed was performed in a Seldinger techn ique over the wire. The introducer sheath for the HemoSplit catheter was then placed in. Once again , fluoroscopy was used to verify position at this time, and the catheter was placed in through this o nce a wire-out was called. Double wire-out was verified on the back table, and the catheter was plac ed in a good anatomic position. X-ray confirmed position of the HemoSplit catheter, and the introduc er sheath was removed completely. All skin incisions were then copiously irrigated and the ports wer e tested. They withdrew dark red nonpulsatile blood from both ports easily and flushed quite easily. They were both flushed with saline and then packed with heparin super flush, 2 cc per port, and a s terile dressing was placed over the top of the ports. The skin incisions were then closed with a 3-0 nylon suture in an interrupted fashion and the catheter was secured to the chest wall with same set 2-0 nylon. A sterile dressing was then placed over top of this and the patient tolerated the procedu re well without evidence of complication, taken out of Trendelenburg at this point, and all counts we re correct at the end of the case. JAY Voice ID: [id number] Report ID: [id number]
--- NOTE | 2018-05-19 22:24 | PN ---
Date of Progress Note: 05/19/2018 Subjective: The patient does feel somewhat better after his third unit of blood. The issues were di scussed with both Nephrology and Gastroenterology, who decided to postpone his colonoscopy for few da ys until he stabilizes. In the past, he has had similar issues with minimal positive findings on GI studies. The patient is starting his dialysis while in the hospital. HR/MODL Voice ID: [id number] Report ID: [id number]
[2018-05-20] MEDS: HYDROCODONE/APAP 5/325 MG TAB PO PRN ×4 (00:35→23:50)
--- NOTE | 2018-05-20 03:28 | PN ---
Date of Progress Note: 05/19/2018 Subjective: The patient was admitted with symptomatic anemia, found to have a progression of his dis ease to end-stage renal disease. The patient is status post PermCath placement, to be initiated on d ialysis today. Physical Examination: Vital Signs: Blood pressure 163/72, pulse of 75. Chest: Clear to auscultation. Heart: S1, S2. Systolic murmur. Abdomen: Soft, nontender. Extremities: Compression wrap bilateral. The patient is status post PermCath placement. Laboratory Data: H and H 8.2/26.3, that is after 3 units of blood transfusion. Sodium 139, potassiu m 4.4, bicarb 18, BUN 117, creatinine 8.5, calcium 7.5, phosphorus 6.5, albumin of 2. Current Medications: The patient is on include: 1.Epogen. 2.IV iron. 3.Atorvastatin. 4.Norvasc 5 mg. 5.Carvedilol 6.25. 6.Digoxin. 7.Calcium carbonate. 8.Hydralazine. 9.Insulin. Assessment And Plan: 1.Chronic kidney disease, stage 5, progression to end-stage renal disease, status post PermCath plac ement, to initiate dialysis today. We will dialyze the patient on a daily basis. [facility]. Unfortunately, the patient was not qualified for home hemodialysis. The azalea white is not a candidate for other modality, has difficulty learning and taking care of himself. 2.Hypertension, controlled, not optimal. We will utilize blood pressure for more ultrafiltration. 3.Anemia of chronic kidney disease. I agree with giving the Epogen at clinic and with the dialysis. The patient is status post transfusion. The patient to continue IV iron. 4.Chronic obstructive pulmonary disease. Will follow up with primary. 5.Congestive heart failure. We will try to establish better volume control. Thank you for allowing us to participate in the care of your patient. AIDAN/SOHAN Voice ID: [id number] Report ID: [id number]
[2018-05-20 06:33] LABS: Albumin 1.9 g/dL (3.4-5.0); Phosphorus 3.7 mg/dL (2.5-4.9)
[2018-05-20] MEDS: INSULIN -REGULAR HUMAN 50 UNIT/0.5 ML ML SQ SCH ×4 (07:30→20:37)
[2018-05-20] MEDS: PANTOPRAZOLE 40MG TABLET PO SCH (08:11)
[2018-05-20] MEDS: DIGOXIN 0.125 MG TABLET PO SCH (08:12)
[2018-05-20] MEDS: CARVEDILOL 6.25 MG TAB PO SCH ×2 (08:12→20:41)
[2018-05-20] MEDS: AMLODIPINE 10 MG TAB PO SCH (08:14)
[2018-05-20] MEDS: HYDRALAZINE HCL 25 MG TABLET PO SCH ×3 (08:15→20:39)
[2018-05-20] MEDS: SPIRONOLACTONE 25 MG TABLET PO SCH ×2 (08:15→20:39)
[2018-05-20] MEDS: METOPROLOL TAR 25 MG TAB PO SCH ×3 (08:16→20:38)
[2018-05-20] MEDS: JUVEN PACKET PO SCH ×2 (08:16→20:41)
[2018-05-20] MEDS: CALCITROL 0.25 MCG CAP PO SCH (09:05)
[2018-05-20] MEDS: CALCIUM CARBONATE CHEW 500MG TAB PO SCH ×3 (09:05→18:18)
--- NOTE | 2018-05-20 13:45 | P.PN ---
Subjective Date of Service: 05/20/18 Subjective: No new changes Pt with ESRD and symptomatic anemia initiated on HD waiting for dialysis arrangement as an OP Bp uncontrolled , will increase hydralazine S/P PRBC , cont to monitor CBC Physical Examination - Vital Signs Temperature: 98 F Blood Pressure: 160/60 Pulse: 76 Respirations: 18 Pulse Ox (%): 99 - Physical Exam General: In no apparent distress, Oriented x3 HEENT: Atraumatic Neck: Supple Respiratory: Clear to auscultation bilaterally, Normal air movement Cardiovascular: Normal S1 S2, No rubs, No murmurs, Edema, Irregular heart rate/ rhythm Gastrointestinal: Soft and benign Integumentary: No rashes Assessment And Plan - Current Problems (Diagnosis) (1) ESRD (end stage renal disease) Current Visit: Yes Status: Acute (2) Atrial fibrillation Onset Date: 01/08/16 Current Visit: No Status: Chronic Qualifiers: Atrial fibrillation type: chronic - Plan End-stage renal disease. initiated on HD this admission the patient was not qualified for home hemodialysis will send info to [facility] hep panel pending Anemia IV iron and KVNG transfuse to keep Hb >7.0 MBD corrected CA wnl cont binders Afib rate controlled AC as per cardiology HTN uncontrolled will increase hydralazine COPD CHF cont current meds HD
[2018-05-20] MEDS: EPOETIN ALFA 10,000 UNIT/ML VIAL IV SCH (17:10)
[2018-05-20] MEDS: SOD FERRIC GLUC COMPLX/SUCROSE 250 MG in NA CHLORIDE 0.9% 250 ML IV SCH (18:19)
[2018-05-20] MEDS: INSULIN GLARGINE 100 UNITS/ML SQ SCH (20:37)
[2018-05-20] MEDS: ATORVASTATIN 20 MG TAB PO SCH (20:39)
[2018-05-21 05:44] LABS: Albumin 1.9 g/dL (3.4-5.0); Phosphorus 2.9 mg/dL (2.5-4.9)
[2018-05-21] MEDS: INSULIN -REGULAR HUMAN 50 UNIT/0.5 ML ML SQ SCH ×4 (07:30→21:00)
[2018-05-21] MEDS: JUVEN PACKET PO SCH ×2 (09:00→21:00)
[2018-05-21] MEDS: METOPROLOL TAR 25 MG TAB PO SCH ×3 (10:15→22:28)
[2018-05-21] MEDS: DIGOXIN 0.125 MG TABLET PO SCH (10:15)
[2018-05-21] MEDS: HYDROCODONE/APAP 5/325 MG TAB PO PRN ×2 (10:15→22:29)
[2018-05-21] MEDS: HYDRALAZINE HCL 25 MG TABLET PO SCH ×3 (10:15→22:28)
[2018-05-21] MEDS: CALCIUM CARBONATE CHEW 500MG TAB PO SCH ×3 (10:15→17:55)
[2018-05-21] MEDS: PANTOPRAZOLE 40MG TABLET PO SCH (10:15)
[2018-05-21] MEDS: AMLODIPINE 10 MG TAB PO SCH (10:16)
[2018-05-21] MEDS: CARVEDILOL 6.25 MG TAB PO SCH ×2 (10:16→22:28)
[2018-05-21] MEDS: SPIRONOLACTONE 25 MG TABLET PO SCH ×2 (10:20→21:00)
[2018-05-21 10:50] LABS: Absolute Lymphocytes (CBC) 1.2 K/uL (0.7-4.9); Absolute Monocytes 2.2 K/uL (0.1-1.3); Absolute Neutrophil 11.5 K/uL (1.8-8.0); Basophils % 0.2 % (0-1.3); Eosinophils % 0.5 % (0-4.4); Hematocrit 25.2 % (39.6-49.0); Lymphocytes % 7.8 % (15.3-44.8); MPV 6.9 fL (7.6-11.3); Monocytes % 14.7 % (3.3-12.3); RBC Red Blood Cell Count 2.55 M/uL (4.33-5.43)
[2018-05-21 11:21] LABS: Albumin 1.9 g/dL (3.4-5.0); Bilirubin Total 0.3 mg/dL (0.2-1.0); Potassium 3.8 mmol/L (3.5-5.1); Protein, Total 6.4 g/dL (6.4-8.2)
[2018-05-21 12:43] LABS: Platelet Estimate ADEQ
[2018-05-21 12:44] LABS: Anisocytosis 1+; Blood Morphology Comment NOTED (NOT SEEN); Polychromasia 1+
--- NOTE | 2018-05-21 13:14 | P.PN ---
Subjective Date of Service: 05/21/18 Subjective: No C/O voiced, Tolerating diet, Improving, Working w/ PT, Doing well Review of Systems 10-point ROS is otherwise unremarkable Physical Examination - Vital Signs Temperature: 98.2 F Blood Pressure: 140/58 Pulse: 63 Respirations: 15 Pulse Ox (%): 96 - Physical Exam General: Alert, In no apparent distress, Oriented x3 HEENT: Atraumatic, PERRLA, EOMI Neck: Supple, JVD not distended Respiratory: Clear to auscultation bilaterally, Normal air movement Cardiovascular: Regular rate/rhythm, Normal S1 S2 Gastrointestinal: Normal bowel sounds, Tenderness Musculoskeletal: No tenderness Integumentary: No rashes Neurological: Normal speech, Normal tone, Normal affect Lymphatics: No axilla or inguinal lymphadenopathy - Studies Medications List Reviewed: Yes Assessment And Plan - Current Problems (Diagnosis) (1) Chronic renal disease Current Visit: No Status: Acute Plan: SKYLAR on CKD, Now on HD -Nephrology consulted. appreciated Reccs -Pt now on Dialysis. Doing well. -CM consulted for outpt Dialysis setup Qualifiers: Chronic kidney disease stage: on chronic dialysis Qualified Code(s): N18.6 - End stage renal disease; Z99.2 - Dependence on renal dialysis (2) Anemia Onset Date: 07/02/15 Current Visit: No Status: Chronic Plan: Anemia of Chronic Kidney disease -GI consulted for possible Procedure to r.o GI loss -S.P 3 Units of PRBC -Awaiting Improvement to proceed with Colonoscopy -H/H stable at this time -EPO during HD now Qualifiers: Anemia type: due to chronic kidney disease Chronic kidney disease stage: stage 5, not on chronic dialysis Qualified Code(s): N18.5 - Chronic kidney disease, stage 5; D63.1 - Anemia in chronic kidney disease (3) Atrial fibrillation Onset Date: 07/02/15 Current Visit: No Status: Chronic Qualifiers: Atrial fibrillation type: chronic Qualified Code(s): I48.2 - Chronic atrial fibrillation (4) Diabetes mellitus Onset Date: 01/08/16 Current Visit: No Status: Chronic Qualifiers: Diabetes mellitus type: type 2 Diabetes mellitus terminal supervisor insulin use: with shelter use Diabetes mellitus complication status: with kidney complications Diabetes mellitus complication detail: with chronic kidney disease Chronic kidney disease stage: stage 5, not on chronic dialysis Qualified Code(s): E11.22 - Type 2 diabetes mellitus with diabetic chronic kidney disease; N18.5 - Chronic kidney disease, stage 5; Z79.4 - [facility] ( current) use of insulin (5) GERD (gastroesophageal reflux disease) Current Visit: No Status: Chronic Qualifiers: Esophagitis presence: without esophagitis Qualified Code(s): K21.9 - Gastro -esophageal reflux disease without esophagitis (6) Hyperlipidemia Current Visit: No Status: Chronic Qualifiers: Hyperlipidemia type: unspecified Qualified Code(s): E78.5 - Hyperlipidemia , unspecified (7) Hypertension Current Visit: No Status: Chronic Qualifiers: Hypertension type: essential hypertension Qualified Code(s): I10 - Essential (primary) hypertension Discharge Plan: Home Plan to discharge in: Greater than 2 days
[2018-05-21 14:27] LABS: Hepatitis C Virus RNA (PCR)log <1.18 log IU/mL
--- NOTE | 2018-05-21 16:01 | PN ---
Date of Progress Note: 05/21/2018 Chief Complaint: End-stage renal disease, new onset. Subjective: The patient is initiated on dialysis. The patient was found to have severe anemia,, rec eived blood transfusion and the patient is on KVNG treatment for anemia due to chronic kidney disease. The patient has history of atrial fibrillation and is evaluated by starch and prosize mixer. Review of Systems: Denies fever or chills. Physical Examination: Lungs: Few crackles at bases. Heart: S1, S2. Abdomen: Soft, benign. Extremities: Slight edema. Laboratory Data: Hemoglobin 8.1, WBC 15.0, platelet count is 190,000. Chemistries shows sodium 139, potassium 4.0, chloride 104, CO2 24, BUN 58, creatinine 4.92, glucose 181, calcium 7.7, phosphorus 2 .9, albumin 1.9. Impression And Plan: 1.End-stage renal disease, new onset. Continue dialysis 3 times per week. 2.Hypoalbuminemia. Recommend to check for monoclonal gammopathy of unknown significance. Increase protein intake. 3.Renal osteodystrophy. Phosphorus level is in good control. Continue renal diet and adjust binder s accordingly. 4.Hypertension, uncontrolled. Blood pressure medications were adjusted. Hydralazine was increased. 5.Anemia, severe. The patient received blood transfusion. Continue KVNG. Evaluate iron study and a djust treatment accordingly. LANG/SOHAN Voice ID: [id number] Report ID: [id number]
[2018-05-21] MEDS: INSULIN GLARGINE 100 UNITS/ML SQ SCH (21:00)
[2018-05-21] MEDS: ATORVASTATIN 20 MG TAB PO SCH (22:28)
[2018-05-22] MEDS: HYDROCODONE/APAP 5/325 MG TAB PO PRN ×4 (03:27→22:03)
[2018-05-22 06:22] LABS: Albumin 1.8 g/dL (3.4-5.0); Phosphorus 3.2 mg/dL (2.5-4.9); Potassium 3.9 mmol/L (3.5-5.1)
[2018-05-22] MEDS: CARVEDILOL 6.25 MG TAB PO SCH ×2 (08:21→21:00)
[2018-05-22] MEDS: SPIRONOLACTONE 25 MG TABLET PO SCH ×2 (08:21→22:03)
[2018-05-22] MEDS: PANTOPRAZOLE 40MG TABLET PO SCH (08:22)
[2018-05-22] MEDS: AMLODIPINE 10 MG TAB PO SCH (08:22)
[2018-05-22] MEDS: DIGOXIN 0.125 MG TABLET PO SCH (08:24)
[2018-05-22] MEDS: CALCIUM CARBONATE CHEW 500MG TAB PO SCH ×3 (08:24→17:09)
[2018-05-22] MEDS: METOPROLOL TAR 25 MG TAB PO SCH ×3 (08:24→22:03)
[2018-05-22] MEDS: HYDRALAZINE HCL 25 MG TABLET PO SCH ×3 (08:25→22:04)
[2018-05-22] MEDS: INSULIN -REGULAR HUMAN 50 UNIT/0.5 ML ML SQ SCH ×4 (08:28→21:00)
[2018-05-22] MEDS: JUVEN PACKET PO SCH ×2 (08:29→21:00)
[2018-05-22] MEDS: CALCITROL 0.25 MCG CAP PO SCH (10:03)
--- NOTE | 2018-05-22 11:35 | P.PN ---
Subjective Subjective: No C/O voiced, Tolerating diet, Improving, Working w/ PT, Doing well Review of Systems 10-point ROS is otherwise unremarkable Physical Examination - Vital Signs Temperature: 96 F Blood Pressure: 140/54 Pulse: 56 Respirations: 20 Pulse Ox (%): 99 - Physical Exam General: Alert, In no apparent distress HEENT: Atraumatic, PERRLA, EOMI Neck: Supple, JVD not distended Respiratory: Clear to auscultation bilaterally, Normal air movement Cardiovascular: Regular rate/rhythm, Normal S1 S2 Gastrointestinal: Normal bowel sounds, No tenderness Musculoskeletal: No tenderness Integumentary: No rashes Neurological: Normal speech, Normal tone, Normal affect Lymphatics: No axilla or inguinal lymphadenopathy - Studies Medications List Reviewed: Yes Assessment And Plan - Current Problems (Diagnosis) (1) Chronic renal disease Current Visit: No Status: Acute Plan: SKYLAR on CKD, Now on HD -Nephrology consulted. appreciated Reccs -Pt now on Dialysis. Doing well. -CM consulted for outpt Dialysis setup Qualifiers: Chronic kidney disease stage: on chronic dialysis Qualified Code(s): N18.6 - End stage renal disease; Z99.2 - Dependence on renal dialysis (2) Anemia Onset Date: 07/02/15 Current Visit: No Status: Chronic Plan: Anemia of Chronic Kidney disease -GI consulted for possible Procedure to r.o GI loss -S.P 3 Units of PRBC -Awaiting Improvement to proceed with Colonoscopy -H/H stable at this time -EPO during HD now Qualifiers: Anemia type: due to chronic kidney disease Chronic kidney disease stage: stage 5, not on chronic dialysis Qualified Code(s): N18.5 - Chronic kidney disease, stage 5; D63.1 - Anemia in chronic kidney disease (3) Atrial fibrillation Onset Date: 07/02/15 Current Visit: No Status: Chronic Qualifiers: Atrial fibrillation type: chronic Qualified Code(s): I48.2 - Chronic atrial fibrillation (4) Diabetes mellitus Onset Date: 01/08/16 Current Visit: No Status: Chronic Qualifiers: Diabetes mellitus type: type 2 Diabetes mellitus mcc insulin use: with mcc use Diabetes mellitus complication status: with kidney complications Diabetes mellitus complication detail: with chronic kidney disease Chronic kidney disease stage: stage 5, not on chronic dialysis Qualified Code(s): E11.22 - Type 2 diabetes mellitus with diabetic chronic kidney disease; N18.5 - Chronic kidney disease, stage 5; Z79.4 - residential ( current) use of insulin (5) GERD (gastroesophageal reflux disease) Current Visit: No Status: Chronic Qualifiers: Esophagitis presence: without esophagitis Qualified Code(s): K21.9 - Gastro -esophageal reflux disease without esophagitis (6) Hyperlipidemia Current Visit: No Status: Chronic Qualifiers: Hyperlipidemia type: unspecified Qualified Code(s): E78.5 - Hyperlipidemia , unspecified (7) Hypertension Current Visit: No Status: Chronic Qualifiers: Hypertension type: essential hypertension Qualified Code(s): I10 - Essential (primary) hypertension Discharge Plan: Home Plan to discharge in: Greater than 2 days - Code Status/Comfort Care Code Status Assessed: Yes Critical Care: No
[2018-05-22] MEDS: INSULIN GLARGINE 100 UNITS/ML SQ SCH (21:00)
[2018-05-22] MEDS: ATORVASTATIN 20 MG TAB PO SCH (22:04)
[2018-05-23] MEDS: HYDROCODONE/APAP 5/325 MG TAB PO PRN ×2 (02:10→21:42)
[2018-05-23 03:00] LABS: HBsAG Nonreactive (Nonreactive)
[2018-05-23] MEDS: SPIRONOLACTONE 25 MG TABLET PO SCH ×2 (08:42→21:44)
[2018-05-23] MEDS: CALCIUM CARBONATE CHEW 500MG TAB PO SCH ×3 (08:43→16:47)
[2018-05-23] MEDS: PANTOPRAZOLE 40MG TABLET PO SCH (08:43)
[2018-05-23] MEDS: DIGOXIN 0.125 MG TABLET PO SCH (08:43)
[2018-05-23] MEDS: METOPROLOL TAR 25 MG TAB PO SCH ×3 (08:43→21:44)
[2018-05-23] MEDS: AMLODIPINE 10 MG TAB PO SCH (08:43)
[2018-05-23] MEDS: CARVEDILOL 6.25 MG TAB PO SCH ×2 (08:44→21:43)
[2018-05-23] MEDS: INSULIN -REGULAR HUMAN 50 UNIT/0.5 ML ML SQ SCH ×4 (08:44→21:00)
[2018-05-23] MEDS: JUVEN PACKET PO SCH ×2 (08:44→21:00)
[2018-05-23] MEDS: HYDRALAZINE HCL 25 MG TABLET PO SCH ×3 (08:49→21:43)
[2018-05-23] MEDS: EPOETIN ALFA 10,000 UNIT/ML VIAL IV SCH (13:33)
[2018-05-23] MEDS: SOD FERRIC GLUC COMPLX/SUCROSE 250 MG in NA CHLORIDE 0.9% 250 ML IV SCH (16:21)
--- NOTE | 2018-05-23 17:24 | RAD REPORT ---
EXAM DESCRIPTION: RAD - Shoulder Left 2 View - 05/23/2018 5:13 pm CLINICAL HISTORY: Left shoulder pain FINDINGS: No acute fracture or dislocation is seen. The bones are osteoporotic. Osteoarthritis involves the glenohumeral joint. Humeral head appears mildly flattened. This may indicate avascular necrosis. If clinically indicated further evaluation with MRI would be helpful
--- NOTE | 2018-05-23 17:25 | RAD REPORT ---
EXAM DESCRIPTION: RAD - Shoulder Right 2 View - 05/23/2018 5:14 pm CLINICAL HISTORY: Right shoulder pain FINDINGS: No fracture or dislocation is seen. Osteoarthritis involves the glenohumeral joint. Humeral head is sclerotic which could be secondary to avascular necrosis or subchondral sclerosis. If clinically indicated further evaluation MRI could be obtained Osteoporosis
--- NOTE | 2018-05-23 17:26 | RAD REPORT ---
EXAM DESCRIPTION: Markt Single View05/23/2018 5:13 pm CLINICAL HISTORY: Shortness of breath COMPARISON: May 19, 2018 FINDINGS: Mild pulmonary edema is suspected The heart is moderately enlarged. Central venous catheter in place
[2018-05-23] MEDS ORDERED: FLEET ENEMA ADULT PR ONE (18:24)
--- NOTE | 2018-05-23 18:52 | PN ---
Date of Progress Note: 05/23/2018 The patient states he is feeling somewhat better since the dialysis has proceeded. Been basically un eventful. His H and H seem stable. He prefers not to do the colonoscopy at this time and I see no r armando to do so. I will, therefore, restart his Eliquis and arrangements have to be made for his outp atient dialysis that is a concern, and [employer] Consultant will be involved in this. PT continues. Alyssa l signs are stable. HR/MODL Voice ID: [id number] Report ID: [id number]
[2018-05-23] MEDS ORDERED: GOLYTELY 4000 ML PO ONE (19:00)
[2018-05-23] MEDS ORDERED: APIXABAN 5 MG TABLET PO SCH (21:00)
[2018-05-23] MEDS: INSULIN GLARGINE 100 UNITS/ML SQ SCH (21:00)
[2018-05-23] MEDS: ATORVASTATIN 20 MG TAB PO SCH (21:44)
--- NOTE | 2018-05-24 04:09 | PN ---
Date of Progress Note: 05/22/2018 Chief Complaint: End-stage renal disease, new onset; mild fluid overload. The patient is on p.o. fl uid restriction. He has been dialyzed 3 times per week. Ultrafiltration was obtained to control vol emia. Anemia in CKD. Hemoglobin level has improved from 7.0 to 8.1. The patient will continue KVNG. Review of Systems: Denies fever, chills. Physical Examination: Lungs: Clear to auscultation bilaterally. Heart: S1, S2. Abdomen: Soft, benign. Extremities: Slight edema. Impression And Plan: 1.End-stage renal disease. 2.Dialysis tomorrow. 3.Hypertension. Blood pressure controlled. Continue ultrafiltration to obtain negative fluid arvind ce and control volemia. 4.Anemia in CKD. Hemoglobin level is improving. Continue current treatment. 5.Hypertension. Blood pressure controlled. 6.Renal osteodystrophy. Continue renal diet and binders. 7.Obstructive sleep apnea. Continue CPAP. LANG/MODL Voice ID: [id number] Report ID: [id number]
--- NOTE | 2018-05-24 04:09 | PN ---
Date of Progress Note: 05/23/2018 Chief Complaint: End-stage renal disease, new onset. Subjective: The patient is scheduled to have dialysis today. The patient is undergoing treatment with dialysis to obtain metabolic clearance and ultrafiltration. He has mild fluid overload. Review of Systems: The patient denies PND, orthopnea. He is complaining of both shoulder pain. Denies chest pain. Denies nausea, vomiting. Physical Examination: Lungs: Few crackles at bases. Heart: S1, S2. Abdomen: Soft, benign. Extremities: Slight edema. Laboratory Data: Sodium 139, potassium 4.0, chloride 104, CO2 24, BUN 58, creatinine 4.92, glucose 181, calcium 7.7, phosphorus 2.9, albumin 1.9. Impression And Plan: 1. End-stage renal disease, new onset. The patient is undergoing dialysis 3 times per week via the tunneled dialysis catheter. The patient is complaining of both shoulder pain and plan is to check C-spine x-ray and both shoulder x- ray. 2. Hypoalbuminemia. Continue high protein intake. Recommend to check for monoclonal gammopathy of unknown significance. 3. Renal osteodystrophy. Phosphorus level is in good control. Continue renal diet. Adjust binders accordingly. 4. Hypertension, uncontrolled. Blood pressure is improving and hydralazine was increased. 5. Anemia, severe. The patient received blood transfusion. Continue KVNG. Monitor iron study and adjust treatment accordingly. LANG/SOHAN Voice ID: [id number] Report ID: [id number] REJI
[2018-05-24 04:14] LABS: Absolute Monocytes 2.6 K/uL (0.1-1.3); Basophils % 0.2 % (0-1.3); Eosinophils % 0.3 % (0-4.4); Hematocrit 22.7 % (39.6-49.0); Lymphocytes % 5.8 % (15.3-44.8); MPV 7.8 fL (7.6-11.3); Monocytes % 14.6 % (3.3-12.3); RBC Red Blood Cell Count 2.31 M/uL (4.33-5.43)
[2018-05-24] MEDS: CALCIUM CARBONATE CHEW 500MG TAB PO SCH ×3 (07:30→16:30)
[2018-05-24] MEDS: INSULIN -REGULAR HUMAN 50 UNIT/0.5 ML ML SQ SCH ×4 (07:30→21:33)
[2018-05-24] MEDS: HYDRALAZINE HCL 25 MG TABLET PO SCH ×3 (09:00→21:00)
[2018-05-24] MEDS: JUVEN PACKET PO SCH ×2 (09:00→21:00)
[2018-05-24] MEDS: PANTOPRAZOLE 40MG TABLET PO SCH (09:00)
[2018-05-24] MEDS: METOPROLOL TAR 25 MG TAB PO SCH ×3 (09:00→21:32)
[2018-05-24] MEDS: DIGOXIN 0.125 MG TABLET PO SCH (09:00)
[2018-05-24] MEDS: FUROSEMIDE 40 MG TABLET PO SCH (09:00)
[2018-05-24] MEDS: SPIRONOLACTONE 25 MG TABLET PO SCH ×2 (09:00→21:00)
[2018-05-24] MEDS: CARVEDILOL 6.25 MG TAB PO SCH (09:00)
[2018-05-24] MEDS: AMLODIPINE 10 MG TAB PO SCH (09:00)
[2018-05-24] MEDS: CALCITROL 0.25 MCG CAP PO SCH (10:00)
[2018-05-24] MEDS ORDERED: NA CHLORIDE 0.9% 250 ML ONE (10:22)
--- NOTE | 2018-05-24 10:43 | P.PN ---
Subjective Date of Service: 05/24/18 Pt with ESRD and symptomatic anemia initiated on HD Hb dropped to 7.1, Eliquis on hold No active signs of bleeding EGD today ESRD tomorrow on coreg and metoprolol , will dc coreg will arrange for OP dialysis on discharge Physical Examination - Vital Signs Temperature: 97.8 F Blood Pressure: 128/47 Pulse: 50 Respirations: 20 Pulse Ox (%): 99 - Physical Exam General: In no apparent distress, Oriented x3 HEENT: Atraumatic Neck: Supple, Without JVD or thyroid abnormality Respiratory: Clear to auscultation bilaterally, Normal air movement Cardiovascular: No edema Gastrointestinal: Soft and benign Integumentary: No rashes - Studies Medications List Reviewed: Yes Assessment And Plan - Current Problems (Diagnosis) (1) ESRD (end stage renal disease) Current Visit: Yes Status: Acute (2) Atrial fibrillation Onset Date: 01/08/16 Current Visit: No Status: Chronic Qualifiers: Atrial fibrillation type: chronic - Plan End-stage renal disease. initiated on HD this admission will cont HD MWF Anemia of Chronic disease +/- GI bleeding Of Eliquis IV iron and KVNG transfuse to keep Hb >7.0 plan for EGD today MBD corrected CA wnl cont binders Afib rate controlled HTN controlled COPD BIPAP and inhalers CHF cont current meds HD MWF
[2018-05-24] MEDS ORDERED: NA CHLORIDE 0.9% 500 ML ONE (11:45)
[2018-05-24] MEDS ORDERED: PROPOFOL 200 MG/20 ML VIAL IV ONE (12:10)
[2018-05-24] MEDS ORDERED: EPHEDRINE SULF 50 MG/ML VIAL ONE (12:28)
--- NOTE | 2018-05-24 12:29 | ENDO RPT ---
[address], [address] EGD PROCEDURE REPORT EXAM DATE: 05/24/2018 PATIENT NAME: Fausto Bird MR#: [id number] BIRTHDATE: 1950 ATTENDING: Pedro Naidu Dr STATUS: inpatient - 7 KILN TENDER: Praveena Rios RN and Tori Camilo INDICATIONS: The patient is a 67 yr old Male here for an EGD due to anemia (drop of hgb from 8.1 to 7.1 with start of Eliquis) PROCEDURE PERFORMED: EGD with biopsy MEDICATIONS: Per Anesthesia. TOPICAL ANESTHETIC: none CONSENT: The patient understands the risks and benefits of the procedure and understands that these risks include, but are not limited to: sedation, allergic reaction, infection, perforation and/or bleeding. Alternative means of evaluation and treatment include, among others: physical exam, x-rays, and/or surgical intervention. The patient elects to proceed with this endoscopic procedure. DESCRIPTION OF PROCEDURE: During intra-op preparation period all mechanical medical equipment was checked for proper function. Hand hygiene and appropriate measures for infection prevention was taken. Procedure, possible complications, and alternatives including but not limited to the possibility of bleeding, perforation, tear, infection, sepsis, need for surgery, need for blood transfusion, and anesthesia related complications were explained to the patient. After the risks, benefits and alternatives of the procedure were thoroughly explained, Informed consent was verified, confirmed and timeout was successfully executed by the treatment team. The patient was placed in the left lateral position. The patient was anesthetized with topical anesthesia. Through the anesthetized oropharyngeal area, the scope was passed without any difficulty. The Pentax [id number] ([id number]) endoscope was introduced through the mouth and advanced to the second portion of the duodenum. Retroflexed views revealed a small hiatal hernia. The gastroscope was then slowly withdrawn and removed. A small hiatal hernia was found. Mild duodenitis with numerous black petechiae was found in the bulb of the duodenum. Multiple gastric biopsies were obtained and sent to pathology. ADVERSE EVENTS: There were no complications. IMPRESSIONS: 1. Small hiatal hernia 2. Mild duodenitis in the bulb of the duodenum, s/p gastric biopsies RECOMMENDATIONS: 1. await biopsy results 2. acid suppression therapy 3. colonoscopy REPEAT EXAM: Pedro Naidu Dr eSigned: Pedro Naidu Dr 05/24/2018 12:29 PM cc: Martín Weaver CPT CODES: ICD9 CODES: PATIENT NAME: Fausto BirdBijan MR#: [id number]
[2018-05-24] MEDS: HYDROCODONE/APAP 5/325 MG TAB PO PRN (13:43)
[2018-05-24] MEDS ORDERED: GOLYTELY 4000 ML PO SCH (14:00)
[2018-05-24] MEDS: METOCLOPRAMIDE 10 MG/2mL INJ IV SCH ×2 (14:30→21:31)
[2018-05-24 16:51] LABS: Hematocrit 27.4 % (39.6-49.0)
[2018-05-24] MEDS: ATORVASTATIN 20 MG TAB PO SCH (21:00)
[2018-05-24] MEDS: INSULIN GLARGINE 100 UNITS/ML SQ SCH (21:31)
[2018-05-25] MEDS: METOCLOPRAMIDE 10 MG/2mL INJ IV SCH (03:23)
[2018-05-25] MEDS: HYDROCODONE/APAP 5/325 MG TAB PO PRN (03:53)
[2018-05-25 04:22] LABS: Absolute Lymphocytes (CBC) 0.9 K/uL (0.7-4.9); Absolute Monocytes 3.1 K/uL (0.1-1.3); Absolute Neutrophil 21.5 K/uL (1.8-8.0); Basophils % 0.1 % (0-1.3); Eosinophils % 0.1 % (0-4.4); Hematocrit 24.9 % (39.6-49.0); Lymphocytes % 3.6 % (15.3-44.8); MPV 7.7 fL (7.6-11.3); RBC Red Blood Cell Count 2.59 M/uL (4.33-5.43)
[2018-05-25 04:57] LABS: Albumin 1.8 g/dL (3.4-5.0); Bilirubin Direct 0.2 mg/dL (0-0.2); Bilirubin Total 0.4 mg/dL (0.2-1.0); Potassium 4.2 mmol/L (3.5-5.1); Protein, Total 6.4 g/dL (6.4-8.2)
[2018-05-25 06:11] LABS: Blood Morphology Comment NOT SEEN (NOT SEEN); Platelet Estimate ADEQ
[2018-05-25] MEDS: CALCIUM CARBONATE CHEW 500MG TAB PO SCH ×3 (07:30→16:54)
[2018-05-25] MEDS: INSULIN -REGULAR HUMAN 50 UNIT/0.5 ML ML SQ SCH ×4 (07:30→21:00)
--- NOTE | 2018-05-25 08:29 | EKG ---
Test Date: 2018-05-25 Test Time: 07:30:46 Dinkey Locomotive Operator: BOOM MEASUREMENT RESULTS: Intervals: Rate: 50 [place]: 80 QRSD: 122 QT: 424 QTc: 386 [place]: P: -9 KY: 80 QRS: 8 T: -33 INTERPRETIVE STATEMENTS: Atrial fibrillation with slow ventricular response Right bundle branch block Cannot rule out Inferior infarct, age undetermined Anterolateral infarct, age undetermined Abnormal ECG Compared to ECG 05/17/2018 12:06:14 Myocardial infarct finding still present Electronically Signed On 05-25-18 08:29:00 CDT by Gabriel Gomes
[2018-05-25] MEDS: JUVEN PACKET PO SCH ×2 (09:00→21:00)
[2018-05-25] MEDS: DIGOXIN 0.125 MG TABLET PO SCH (09:00)
[2018-05-25] MEDS: SPIRONOLACTONE 25 MG TABLET PO SCH ×2 (09:00→20:46)
[2018-05-25] MEDS: PANTOPRAZOLE 40MG TABLET PO SCH (09:00)
[2018-05-25] MEDS: FUROSEMIDE 40 MG TABLET PO SCH (09:00)
[2018-05-25] MEDS: AMLODIPINE 10 MG TAB PO SCH (09:00)
[2018-05-25] MEDS: METOPROLOL TAR 25 MG TAB PO SCH ×2 (09:00→21:56)
[2018-05-25] MEDS ORDERED: HYDRALAZINE HCL 25 MG TABLET PO SCH (09:00)
--- NOTE | 2018-05-25 09:55 | RAD REPORT ---
EXAM DESCRIPTION: RAD - Chest Single View - 05/25/2018 9:36 am CLINICAL HISTORY: r/o infection Chest pain. COMPARISON: Chest Single View dated 05/23/2018; Chest Single View dated 05/19/2018; Chest Single View dated 05/17/2018; Chest Single View dated 08/10/2017 FINDINGS: Portable technique limits examination quality. Mild interstitial pulmonary edema seen. The heart is mildly enlarged in size. Right-sided dialysis ca theter is place, unchanged. IMPRESSION: Mild CHF versus volume overload pattern.
[2018-05-25] MEDS ORDERED: PROPOFOL 200 MG/20 ML VIAL IV ONE (12:33)
[2018-05-25] MEDS ORDERED: LIDOCAINE 1% MPF 2 ML AMPULE ONE (12:33)
[2018-05-25] MEDS ORDERED: EPHEDRINE SULF 50 MG/ML VIAL ONE (12:50)
--- NOTE | 2018-05-25 13:10 | ENDO RPT ---
[address], [address] COLONOSCOPY PROCEDURE REPORT EXAM DATE: 05/25/2018 PATIENT NAME: Fausto Bird MR #: [id number] BIRTHDATE: 1950 ATTENDING: Pedro Naidu Dr STATUS: inpatient EXTRUSION LINE OPERATOR: Praveena Rios RN and Tori Camilo INDICATIONS: The patient is a 67 yr old Male here for a colonoscopy due to anemia PROCEDURE PERFORMED: Colon w/ endoclip and Colonoscopy with directed submucosal injection(s) any substance MEDICATIONS: Per Anesthesia. ESTIMATED BLOOD LOSS: None CONSENT: The patient understands the risks and benefits of the procedure and understands that these risks include, but are not limited to: sedation, allergic reaction, infection, perforation and/or bleeding. Alternative means of evaluation and treatment include, among others: physical exam, x-rays, and/or surgical intervention. The patient elects to proceed with this endoscopic procedure. DESCRIPTION OF PROCEDURE: During intra-op preparation period all mechanical medical equipment was checked for proper function. Hand hygiene and appropriate measures for infection prevention was taken. Procedure, possible complications, alternatives including, but not limited to possibility of bleeding, perforation, tear, infection, sepsis, need for surgery, need for blood transfusion, were explained to the patient. After the risks, benefits and alternatives of the procedure were thoroughly explained, Informed consent was verified, confirmed and timeout was successfully executed by the treatment team. The patient was placed in the left lateral position. A digital rectal exam was performed and revealed no abnormalities of the rectum. After appropriate level of anesthesia, the scope was passed. The EC-[id number] ([id number]) and [id number] ([id number]) endoscope was introduced through the anus and advanced to the cecum, which was identified by both the appendix and ileocecal valve. The quality of the prep was fair. The instrument was then slowly withdrawn as the colon was fully examined. Scope withdrawal time was 8 minutes. COLON FINDINGS: An ulcerated pedunculated polyp measuring 6 mm in size was found at the hepatic flexure. Bleeding at the site was controlled using hemoclips. One (1) placement was made. Bleeding from the maneuver was treated with epinephrine. A polypoid shaped pedunculated polyp measuring 1 cm in size was found at the hepatic flexure. A polypoid shaped sessile polyp measuring 4 mm in size was found at the cecum. A smooth sessile polyp measuring 3 mm in size was found in the ascending colon. Diverticula was found throughout the entire examined colon. The opening was small. Moderate sized internal hemorrhoids were found. Retroflexed views revealed no abnormalities. The scope was then completely withdrawn from the patient and the procedure terminated. ADVERSE EVENTS: There were no complications. IMPRESSIONS: 1. 6 mm pedunculated polyp at the hepatic flexure with dark cc Epinephrine (1:10,000) injected 2. 1 cm pedunculated polyp at the hepatic flexure (not bleeding and not removed) 3. 4 mm sessile polyp in the cecum (not bleeding and not removed) 4. 3 mm sessile polyp in the ascending colon (not bleeding and not removed) 5. Diverticula scattered sparsely throughout the entire examined colon 6. Moderate sized internal hemorrhoids 7. Intubation to cecum 2. restart Eliquis 3. Small Bowel Follow Through 4. pillcam / capsule endoscopy RECALL: Return in 1 month(s) for Colonoscopy. Pedro Naidu Dr eSigned: Pedro Naidu Dr 05/25/2018 1:09 PM cc: Martín Weaver CPT CODES: ICD9 CODES: 211.3 Benign neoplasm of colon PATIENT NAME: Fausto Bird MR#: [id number]
[2018-05-25] MEDS ORDERED: EPINEPHRINE/PF 1 MG/ML AMP ONE (13:29)
[2018-05-25] MEDS ORDERED: VANCOMYCIN 1.5 GM in NA CHLORIDE 0.9% 500 ML IVPB SCH (15:00)
[2018-05-25 17:11] LABS: Urine Appearance TURBID; Urine Blood NEGATIVE (NEG); Urine Color YELLOW; Urine Glucose 1+ (NEG); Urine Protein 3+ (NEG); Urine Urobilinogen 0.2 mg/dL (0.2-1.0)
[2018-05-25 17:17] LABS: Urine Bilirubin 1+ (NEG); Urine Microscopic Reflex ORDER UMIC
--- NOTE | 2018-05-25 17:30 | PN ---
Date of Progress Note: 05/25/2018 Subjective: The patient is scheduled for EGD today. Physical Examination: Vital Signs: Blood pressure 122/48, pulse of 52, afebrile. Chest: Faint crackles in the bilateral base. Heart: S1, S2. Systolic murmur. Abdomen: Soft, nontender. Extremity: Bilateral edema, multiple gangrene on the tip of the toes. Neurologic: Alert and oriented. Nonfocal. Laboratory Data: WBC 25.6, H and H 8/24.9, platelet of 178. Sodium 132, potassium 4.2, bicarb 23, B UN 81, creatinine 5.6, calcium 8.2. PTH of 269. Current Medications: The patient on include; 1.IV iron. 2.Epogen. 3.calcium carbonate. 4.Amlodipine. 5.Hydralazine 50 b.i.d. 6.Metoprolol 25 b.i.d. 7.Spironolactone 25 daily. 8.Lasix 40 daily. 9.Zofran. 10.Pantoprazole. 11.Calcitriol. Assessment And Plan: 1.End-stage renal disease. We will continue the patient on dialysis. I am going to do dialysis adela orrow to make it up as patient mostly is going to be TTS and we will follow up the patient. We will do blood culture with the dialysis. We will follow up. 2.Anemia of chronic kidney disease with iron-deficiency anemia, continue IV iron. EGD going to be d one today. 3.Hypertension, currently blood pressure controlled well. I am going to go ahead and discontinue hy dralazine, discontinue Norvasc. We will try to challenge the patient to establish better volume cont rol. 4.Secondary hypoparathyroidism. Continue calcitriol and Tums. 5.Leukocytosis. I am going to go ahead and do blood culture today, chest x-ray and will do foot x-r ay. We will follow up the patient. 6.Iron deficiency anemia. Continue IV iron. 7.Lymphedema as by primary. AIDAN/SOHAN Voice ID: [id number] Report ID: [id number]
[2018-05-25 17:33] LABS: Urine Amorphous Sediment 3+ /HPF (NONE SEEN); Urine Bacteria <20 /HPF (NONE SEEN); Urine Culture Reflex Order NOT NEEDED; Urine Mucus 2+ /HPF (NONE SEEN); Urine RBC <5 /HPF (NONE SEEN)
--- NOTE | 2018-05-25 20:24 | CON ---
History Of Present Illness: This is a known patient to me from previous admission to [facility] and hospitalization when I saw the patient for lower extremity wounds. This is a 67-year-old male coming in this time with elevated leukocyte and was having GI bleed. The patient had a colonoscopy a nd EGD done and was found to have a polyp, which has been taken out. His white count went up to 25,0 00. Currently, he is on no antibiotic. The patient also has wounds to his hip region and lower extr emity. Denies any headache, nausea, vomiting, chest pain, abdominal pain, constipation, or diarrhea. Past Medical History: Includes morbid obesity, congestive heart failure, chronic renal disease, iron deficiency anemia, COPD, obstructive sleep apnea, diabetes mellitus. Surgical History: Includes parathyroidectomy. Allergies: BACTRIM. Medications: See MARS. Social History: Nonsmoker, nondrinker. Family History: Noncontributory. Review of Systems: Ten-point review was performed. Physical Examination: Vital Signs: Temperature 98, pulse 68, respirations 18, blood pressure 117/56. HEENT: Unremarkable. Neck: Supple. Lungs: Right base crackles, Evans catheter also noted. Abdomen: Soft, nontender. Bowel sounds present. Extremities: Trace edema. Laboratory Data: Shows WBC count 25,000, hemoglobin 8, platelets are 178. Chemistry shows sodium 13 2, potassium 4.2, chloride 96, bicarb 23, BUN 81, creatinine 5.6, glucose 112. Left hip wound noted. Lower extremity wounds noted. Micro data, blood cultures are pending. Assessment And Plan: Left hip abscess and wounds with possible reason for leukocytosis. Also, the p atient has gastrointestinal bleed, which can also increase his white blood cell count. We will recom mend to start the patient on vancomycin and the patient on Zosyn and vancomycin. Also recommend to a pply barrier cream to the wounds of the back and the hip region on a daily basis and q.shift. Pendin g culture results, we will continue empiric treatment at least 2-3 weeks and follow the patient as ne eded. Pharmacy to adjust vancomycin levels. NF/MODL Voice ID: [id number] Report ID: [id number]
[2018-05-25] MEDS: INSULIN GLARGINE 100 UNITS/ML SQ SCH (21:55)
[2018-05-25] MEDS: ACETAMINOPHEN 500 MG TAB PO PRN (21:56)
[2018-05-25] MEDS: ATORVASTATIN 20 MG TAB PO SCH (21:56)
[2018-05-25] MEDS: PIPER/TAZO/NS 2.25gm 2.25 GM/50 ML BAG IVPB SCH (21:59)
[2018-05-25 23:37] LABS: Vitamin D 1,25-Dihydroxy Total <8 pg/mL (18-72); Vitamin D,1,25-OH2, D2 <8 pg/mL
[2018-05-26] MEDS ORDERED: VANCOMYCIN 500 MG/VIAL ONE (00:07)
[2018-05-26] MEDS ORDERED: VANCOMYCIN 1 GM/VIAL ONE (00:08)
[2018-05-26] MEDS ORDERED: NA CHLORIDE 0.9% 500 ML ONE (00:09)
[2018-05-26] MEDS: EPOETIN ALFA 10,000 UNIT/ML VIAL IV SCH (02:13)
[2018-05-26] MEDS: PIPER/TAZO/NS 2.25gm 2.25 GM/50 ML BAG IVPB SCH ×3 (03:42→21:07)
[2018-05-26 05:48] LABS: Albumin 1.8 g/dL (3.4-5.0); Phosphorus 2.7 mg/dL (2.5-4.9); Potassium 3.4 mmol/L (3.5-5.1)
[2018-05-26 06:49] LABS: Absolute Lymphocytes (CBC) 0.7 K/uL (0.7-4.9); Absolute Monocytes 1.9 K/uL (0.1-1.3); Absolute Neutrophil 16.5 K/uL (1.8-8.0); Basophils % 0.3 % (0-1.3); Eosinophils % 0.4 % (0-4.4); Hematocrit 24.2 % (39.6-49.0); Lymphocytes % 3.5 % (15.3-44.8); MPV 8.1 fL (7.6-11.3); Monocytes % 10.1 % (3.3-12.3); RBC Red Blood Cell Count 2.54 M/uL (4.33-5.43)
[2018-05-26] MEDS: INSULIN -REGULAR HUMAN 50 UNIT/0.5 ML ML SQ SCH ×4 (07:30→21:06)
[2018-05-26] MEDS: CALCIUM CARBONATE CHEW 500MG TAB PO SCH ×3 (09:00→17:31)
[2018-05-26] MEDS: JUVEN PACKET PO SCH ×2 (09:00→21:00)
[2018-05-26] MEDS: FUROSEMIDE 40 MG TABLET PO SCH (09:00)
[2018-05-26] MEDS: METOPROLOL TAR 25 MG TAB PO SCH ×2 (10:00→21:05)
[2018-05-26] MEDS: DIGOXIN 0.125 MG TABLET PO SCH (10:00)
[2018-05-26] MEDS: CALCITROL 0.25 MCG CAP PO SCH (10:00)
[2018-05-26] MEDS: PANTOPRAZOLE 40MG TABLET PO SCH (10:00)
[2018-05-26] MEDS: SPIRONOLACTONE 25 MG TABLET PO SCH ×2 (10:00→21:05)
[2018-05-26] MEDS: ACETAMINOPHEN 500 MG TAB PO PRN ×2 (10:57→17:50)
--- NOTE | 2018-05-26 12:58 | P.PN ---
Subjective Date of Service: 05/26/18 Pt with ESRD and symptomatic anemia initiated on HD S/p EGD and colonoscopy , polyp bleeding BP controlled now Pt have Op chair time arranged MWF will cont HD MWF will transfuse 1 PRBC with Hd tomorrow Physical Examination - Vital Signs Temperature: 97.0 F Blood Pressure: 121/53 Pulse: 61 Respirations: 18 Pulse Ox (%): 95 - Physical Exam General: In no apparent distress, Oriented x3 HEENT: Atraumatic Neck: Supple, Without JVD or thyroid abnormality Respiratory: Clear to auscultation bilaterally, Normal air movement Cardiovascular: No edema, Regular rate/rhythm, Normal S1 S2, No rubs, No murmurs Gastrointestinal: Normal bowel sounds - Studies Medications List Reviewed: Yes Assessment And Plan - Current Problems (Diagnosis) (1) ESRD (end stage renal disease) Current Visit: Yes Status: Acute (2) Atrial fibrillation Onset Date: 01/08/16 Current Visit: No Status: Chronic Qualifiers: Atrial fibrillation type: chronic - Plan End-stage renal disease. initiated on HD this admission will cont HD MWF Anemia of Chronic disease +/- GI bleeding IV iron and KVNG transfuse to keep Hb >7.0 S/p EGD and colonoscopy: polyp bleeding MBD corrected CA wnl cont binders Afib rate controlled HTN controlled COPD BIPAP and inhalers CHF cont current meds HD MWF
[2018-05-26] MEDS: SOD FERRIC GLUC COMPLX/SUCROSE 250 MG in NA CHLORIDE 0.9% 250 ML IV SCH (17:30)
[2018-05-26] MEDS: ATORVASTATIN 20 MG TAB PO SCH (21:05)
[2018-05-26] MEDS: INSULIN GLARGINE 100 UNITS/ML SQ SCH (21:06)
[2018-05-27 06:50] LABS: Absolute Lymphocytes (CBC) 0.7 K/uL (0.7-4.9); Absolute Monocytes 2.5 K/uL (0.1-1.3); Absolute Neutrophil 15.6 K/uL (1.8-8.0); Basophils % 0.3 % (0-1.3); Eosinophils % 0.5 % (0-4.4); Hematocrit 24.7 % (39.6-49.0); Lymphocytes % 3.9 % (15.3-44.8); MPV 8.2 fL (7.6-11.3); Monocytes % 13.2 % (3.3-12.3); RBC Red Blood Cell Count 2.59 M/uL (4.33-5.43)
[2018-05-27 07:03] LABS: Albumin 1.8 g/dL (3.4-5.0); Phosphorus 3.1 mg/dL (2.5-4.9); Potassium 3.4 mmol/L (3.5-5.1)
[2018-05-27] MEDS: INSULIN -REGULAR HUMAN 50 UNIT/0.5 ML ML SQ SCH ×4 (07:30→22:47)
[2018-05-27] MEDS: METOPROLOL TAR 25 MG TAB PO SCH ×2 (09:09→22:51)
[2018-05-27] MEDS: CALCIUM CARBONATE CHEW 500MG TAB PO SCH ×3 (09:09→16:01)
[2018-05-27] MEDS: DIGOXIN 0.125 MG TABLET PO SCH (09:09)
[2018-05-27] MEDS: PANTOPRAZOLE 40MG TABLET PO SCH (09:10)
[2018-05-27] MEDS: SPIRONOLACTONE 25 MG TABLET PO SCH ×2 (09:10→22:51)
[2018-05-27] MEDS: FUROSEMIDE 40 MG TABLET PO SCH (09:10)
[2018-05-27] MEDS: PIPER/TAZO/NS 2.25gm 2.25 GM/50 ML BAG IVPB SCH ×2 (09:10→22:26)
[2018-05-27] MEDS: ACETAMINOPHEN 500 MG TAB PO PRN (09:23)
[2018-05-27 09:51] LABS: Anisocytosis 2+; Blood Morphology Comment NOTED (NOT SEEN); Platelet Estimate ADEQ; Poikilocytosis 1+; Polychromasia 1+; Urine White Blood Cell Casts OK
[2018-05-27] MEDS: JUVEN PACKET PO SCH ×2 (10:27→22:48)
--- NOTE | 2018-05-27 11:57 | P.PN ---
Subjective Date of Service: 05/27/18 Pt with ESRD and symptomatic anemia initiated on HD S/p EGD and colonoscopy , polyp bleeding BP controlled now will transfuse 1 PRBC with Hd today pending ID clearance and Abx choice can be discharged from nephrology point of view after ID clerance to resume HD as an OP on Wednesday Physical Examination - Vital Signs Temperature: 98.2 F Blood Pressure: 138/60 Pulse: 63 Respirations: 16 Pulse Ox (%): 97 - Physical Exam General: In no apparent distress, Oriented x3 HEENT: Atraumatic Neck: Supple, Without JVD or thyroid abnormality Respiratory: Clear to auscultation bilaterally Cardiovascular: Regular rate/rhythm, Normal S1 S2, Edema Gastrointestinal: Normal bowel sounds - Studies Medications List Reviewed: Yes Assessment And Plan - Current Problems (Diagnosis) (1) ESRD (end stage renal disease) Current Visit: Yes Status: Acute (2) Atrial fibrillation Onset Date: 01/08/16 Current Visit: No Status: Chronic Qualifiers: Atrial fibrillation type: chronic - Plan End-stage renal disease. initiated on HD this admission will cont HD MWF Anemia of Chronic disease +/- GI bleeding IV iron and KVNG S/p EGD and colonoscopy: polyp bleeding Hb stable now MBD corrected CA wnl cont binders Afib rate controlled HTN controlled COPD BIPAP and inhalers CHF cont current meds HD MWF sacral ulcer Cont Abx duration and Abx choice as per ID
[2018-05-27] MEDS ORDERED: NA CHLORIDE 0.9% 250 ML ONE ×2 (12:07→23:09)
[2018-05-27] MEDS: TRAMADOL HCL 50 MG TAB PO PRN ×2 (16:02→22:42)
--- NOTE | 2018-05-27 16:10 | PN ---
Subjective: The patient is lying in bed. No new complaints. Objective: Vital Signs: Temperature 98, pulse 63, respirations 16, blood pressure 138/68. Lungs: Basilar crackles. Heart: S1, S2. Regular. Abdomen: Soft, nontender. Bowel sounds present. Laboratory Data: Shows WBC 29856, hemoglobin 7.9, platelets are 185. Chemistry shows sodium 131, po tassium 3.4, chloride 99, bicarb 24, BUN 64, creatinine 4.7, glucose 109. Microdata blood cultures a re negative. Medications: The patient is currently on broad-spectrum vancomycin and Zosyn. Assessment And Plan: End-stage renal disease, left hip abscess and wound. Leukocytosis. Continue a ntibiotic and wound care. Continue supportive care. We will follow the patient as needed. NF/MODL Voice ID: [id number] Report ID: [id number]
[2018-05-27] MEDS: ATORVASTATIN 20 MG TAB PO SCH (22:39)
[2018-05-27] MEDS: EPOETIN ALFA 10,000 UNIT/ML VIAL IV SCH (22:39)
[2018-05-27] MEDS: INSULIN GLARGINE 100 UNITS/ML SQ SCH (22:47)
[2018-05-28] MEDS ORDERED: VANCOMYCIN 1 GM/VIAL ONE (03:15)
[2018-05-28] MEDS ORDERED: NA CHLORIDE 0.9% 500 ML ONE (03:16)
[2018-05-28] MEDS ORDERED: VANCOMYCIN 500 MG/VIAL ONE (03:16)
[2018-05-28 05:33] VITALS: BMI 40.6
[2018-05-28 06:30] LABS: Absolute Lymphocytes (CBC) 0.8 K/uL (0.7-4.9); Absolute Monocytes 2.4 K/uL (0.1-1.3); Absolute Neutrophil 14.1 K/uL (1.8-8.0); Basophils % 0.5 % (0-1.3); Eosinophils % 0.4 % (0-4.4); Hematocrit 26.2 % (39.6-49.0); Lymphocytes % 4.3 % (15.3-44.8); MPV 8.4 fL (7.6-11.3); Monocytes % 13.7 % (3.3-12.3); RBC Red Blood Cell Count 2.75 M/uL (4.33-5.43)
[2018-05-28 06:42] LABS: Albumin 1.7 g/dL (3.4-5.0); Phosphorus 2.6 mg/dL (2.5-4.9); Potassium 3.7 mmol/L (3.5-5.1)
--- NOTE | 2018-05-28 07:23 | PN ---
Date of Progress Note: 05/27/2018 Patient continues to improve physically and his chemistries have improved as well since he did the di alysis. Discussion of the case with Dr. Durán and Nephrology, the idea of having a vancomycin when he has dialysis is reasonable and the probability of him tolerating the Levaquin rather than starting another IV access is reasonable. His white count is still elevated, however, at 19. There has been no progress made on his transfer to a SNF. He will, therefore, remain in the hospital over the week end. Continue his IV antibiotics and re-evaluate on Wednesday for a transfer if stable. HR/MODL Voice ID: [id number] Report ID: [id number]
[2018-05-28] MEDS: TRAMADOL HCL 50 MG TAB PO PRN ×2 (07:39→19:37)
--- NOTE | 2018-05-28 07:56 | PN ---
Date of Progress Note: 05/26/2018 Patient is stable. He feels somewhat better. Physical therapy has gone rather well. He feels that he would like to go to a SNF and I concur with this, to continue with his dialysis. He is seen by [facility]. They suggested the use of vancomycin and Zosyn. HR/MODL Voice ID: [id number] Report ID: [id number]
[2018-05-28] MEDS: METOPROLOL TAR 25 MG TAB PO SCH ×2 (09:00→20:45)
[2018-05-28] MEDS: DIGOXIN 0.125 MG TABLET PO SCH (09:00)
[2018-05-28] MEDS: PANTOPRAZOLE 40MG TABLET PO SCH (09:02)
[2018-05-28] MEDS: SPIRONOLACTONE 25 MG TABLET PO SCH (09:02)
[2018-05-28] MEDS: FUROSEMIDE 40 MG TABLET PO SCH (09:03)
[2018-05-28] MEDS: CALCIUM CARBONATE CHEW 500MG TAB PO SCH ×3 (09:06→16:35)
[2018-05-28] MEDS: JUVEN PACKET PO SCH ×2 (09:07→20:45)
[2018-05-28] MEDS: PIPER/TAZO/NS 2.25gm 2.25 GM/50 ML BAG IVPB SCH (09:08)
[2018-05-28] MEDS: INSULIN -REGULAR HUMAN 50 UNIT/0.5 ML ML SQ SCH ×4 (09:08→20:44)
[2018-05-28] MEDS: CALCITROL 0.25 MCG CAP PO SCH (09:09)
--- NOTE | 2018-05-28 10:41 | P.PN ---
Subjective Date of Service: 05/28/18 Primary Care Provider: Dr. Weaver(I am covering for him) Subjective: Doing well Physical Examination - Vital Signs Temperature: 97.9 F Blood Pressure: 116/56 Pulse: 58 Respirations: 16 Pulse Ox (%): 97 - Physical Exam General: Alert, In no apparent distress, Oriented x3, Cooperative HEENT: Atraumatic Neck: Supple Respiratory: Clear to auscultation bilaterally, Normal air movement Cardiovascular: Irregular heart rate/rhythm (AFib rate controlled) Gastrointestinal: Normal bowel sounds, Non-distended, No masses, No rebound, No guarding Musculoskeletal: No tenderness, No warmth Integumentary: Other (Bandage to the lower extremities noted) Neurological: Normal speech, Normal strength at 5/5 x4 extr, Normal tone - Studies Medications List Reviewed: Yes Assessment & Plan Discharge Plan: Other (group home facility) Plan to discharge in: 48 Hours Physician Review Additional Text: Impression: Acute on chronic renal disease now end-stage renal disease on hemodialysis Acute on chronic anemia with noted colon polyp and iron deficiency anemia Left hip abscess and Chronic wounds to the lower extremity complicated with chronic lymphedema Chronic diastolic CHF Chronic atrial fibrillation on previous anti coagulation therapy Hypertension Diabetes mellitus Type 2, insulin dependent GERD Obstructive sleep apnea Obesity, BMI 40.6 Plan: Acute on chronic renal disease now end-stage renal disease on hemodialysis: Dialysis was initiated during the course of his stay. I am covering for Dr. Weaver this weekend. Will discuss with nephrology. Arrangements have been made for outpatient dialysis. Patient awaiting long term facility placement. This will likely occur on Wednesday. Acute on chronic anemia with noted colon polyp and iron deficiency anemia: Hemoglobin stable at this time. Patient had a colonoscopy during the stay to control bleeding from polyp. Patient with iron deficiency. Will start IV iron. Will monitor and adjust appropriately. Left hip abscess and Chronic wounds to the lower extremity complicated with chronic lymphedema: Patient remains on IV antibiotic therapy. Patient currently on vancomycin and Zosyn. Will discuss with infectious disease on plan of care. Will check to see if Zosyn can be changed to other oral medication along with IV vancomycin. WBC improved. Will continue to monitor. Awaiting acceptance to long term facility. Chronic diastolic CHF: Continue diuretic therapy. Will maintain sats above 90% . Chronic atrial fibrillation on previous anti coagulation therapy: Continue with digoxin. Patient previously on anti coagulation therapy. Will discuss with PCP and cardiology on when anti coagulation can be Re initiated. Hypertension: Continue with medication and adjust appropriately. Diabetes mellitus type 2, insulin dependent: Continue with insulin and adjust appropriately. GERD: Continue the medication. Obstructive sleep apnea: Continue with CPAP at night Obesity, BMI 40.6: Will continue to address lifestyle modification education. Fall precautions in place. Time Spent Managing Pts Care (In Minutes): 55
[2018-05-28] MEDS ORDERED: levoFLOXacin 750 MG TAB PO ONE (12:00)
--- NOTE | 2018-05-28 14:09 | P.PN ---
Subjective Date of Service: 05/28/18 Primary Care Provider: Dr. Weaver(I am covering for him) Subjective: Improving Pt with ESRD and symptomatic anemia initiated on HD S/p EGD and colonoscopy , polyp bleeding Bp borderline , will dc spirnolactone can be discharged from nephrology point of view after ID clearance Physical Examination - Vital Signs Temperature: 97.8 F Blood Pressure: 118/56 Pulse: 55 Respirations: 16 Pulse Ox (%): 96 - Physical Exam General: In no apparent distress, Oriented x3 HEENT: Atraumatic Neck: Supple, Without JVD or thyroid abnormality Respiratory: Normal air movement, Diminished Cardiovascular: Other (Lymphedema ), Edema Gastrointestinal: Normal bowel sounds, Soft and benign - Studies Medications List Reviewed: Yes Assessment And Plan - Current Problems (Diagnosis) (1) ESRD (end stage renal disease) Current Visit: Yes Status: Acute (2) Atrial fibrillation Onset Date: 01/08/16 Current Visit: No Status: Chronic Qualifiers: Atrial fibrillation type: chronic - Plan End-stage renal disease. initiated on HD this admission will cont HD MWF Anemia of Chronic disease +/- GI bleeding IV iron and KVGN S/p EGD and colonoscopy: polyp bleeding MBD corrected CA wnl cont binders Afib rate controlled HTN borderline will dc aldactone COPD BIPAP and inhalers CHF cont current meds HD MWF sacral ulcer Cont Abx duration and Abx choice as per ID
[2018-05-28] MEDS: INSULIN GLARGINE 100 UNITS/ML SQ SCH (20:45)
[2018-05-28] MEDS: ATORVASTATIN 20 MG TAB PO SCH (20:47)
[2018-05-28] MEDS: APIXABAN 2.5 MG TABLET PO SCH (20:48)
[2018-05-29] MEDS: TRAMADOL HCL 50 MG TAB PO PRN ×5 (01:14→20:53)
[2018-05-29 05:55] LABS: Absolute Neutrophil 12.5 K/uL (1.8-8.0); Basophils % 0.4 % (0-1.3); Eosinophils % 0.8 % (0-4.4); Hematocrit 27.1 % (39.6-49.0); Lymphocytes % 6.1 % (15.3-44.8); MPV 8.1 fL (7.6-11.3); Monocytes % 12.8 % (3.3-12.3); RBC Red Blood Cell Count 2.86 M/uL (4.33-5.43)
[2018-05-29 06:11] LABS: Albumin 1.8 g/dL (3.4-5.0); Magnesium 1.9 mg/dL (1.8-2.4); Potassium 3.6 mmol/L (3.5-5.1)
[2018-05-29] MEDS: INSULIN -REGULAR HUMAN 50 UNIT/0.5 ML ML SQ SCH ×4 (07:30→20:29)
[2018-05-29] MEDS: ALLOPURINOL 300 MG TAB PO SCH (08:52)
[2018-05-29] MEDS: DIGOXIN 0.125 MG TABLET PO SCH (08:52)
[2018-05-29] MEDS: CALCIUM CARBONATE CHEW 500MG TAB PO SCH ×3 (08:53→16:53)
[2018-05-29] MEDS: FUROSEMIDE 40 MG TABLET PO SCH (08:53)
[2018-05-29] MEDS: APIXABAN 2.5 MG TABLET PO SCH ×2 (08:53→20:32)
[2018-05-29] MEDS: METOPROLOL TAR 25 MG TAB PO SCH ×2 (08:55→20:31)
[2018-05-29] MEDS: JUVEN PACKET PO SCH ×2 (08:55→20:30)
[2018-05-29] MEDS: PANTOPRAZOLE 40MG TABLET PO SCH (08:55)
[2018-05-29] MEDS: SOD FERRIC GLUC COMPLX/SUCROSE 125 MG in NA CHLORIDE 0.9% 100 ML IV SCH (08:56)
--- NOTE | 2018-05-29 09:37 | P.PN ---
Subjective Date of Service: 05/29/18 Primary Care Provider: Dr. Weaver(I am covering for him) Chief Complaint: Worsening renal function Subjective: Improving, Doing well Physical Examination - Vital Signs Temperature: 98 F Blood Pressure: 132/51 Pulse: 58 Respirations: 16 Pulse Ox (%): 99 - Physical Exam General: Alert, In no apparent distress, Oriented x3, Cooperative HEENT: Atraumatic Neck: Supple Respiratory: Clear to auscultation bilaterally, Normal air movement Cardiovascular: Normal pulses, Regular rate/rhythm Gastrointestinal: Normal bowel sounds, Soft and benign, Non-distended, No masses , No rebound, No guarding Musculoskeletal: No tenderness, No warmth Integumentary: Other (No changes to the lower extremity.) Neurological: Normal speech, Normal strength at 5/5 x4 extr, Normal tone, Normal affect - Studies Medications List Reviewed: Yes Assessment & Plan Discharge Plan: Other (long-term facility) Plan to discharge in: 24 Hours Physician Review Additional Text: Impression: Acute on chronic renal disease now end-stage renal disease on hemodialysis Acute on chronic anemia with noted colon polyp and iron deficiency anemia Left hip abscess and Chronic wounds to the lower extremity complicated with chronic lymphedema Chronic diastolic CHF Chronic atrial fibrillation on previous anti coagulation therapy Hypertension Diabetes mellitus Type 2, insulin dependent GERD Obstructive sleep apnea Obesity, BMI 40.6 Plan: Acute on chronic renal disease now end-stage renal disease on hemodialysis: I am covering for Dr. Weaver this weekend. Patient continues with dialysis. Dialysis was initiated during the course of his stay. Arrangements have been made for outpatient dialysis. Patient awaiting shelter facility placement. This will occur tomorrow. Apparently patient has been approved. Patient will likely require dialysis tomorrow then discharge. Patient to continue with hemodialysis in the outpatient every Wednesday, Wednesdays and Wednesday. I will turn the service over to Dr. Weaver tomorrow. I will go over the plan of care with him. Acute on chronic anemia with noted colon polyp and iron deficiency anemia: Hemoglobin stable at this time. Patient had a colonoscopy during his stay to control bleeding from polyp. Patient with iron deficiency. Continue with IV iron. Patient will likely require iron supplementation at discharge. Will monitor and adjust appropriately. Left hip abscess and Chronic wounds to the lower extremity complicated with chronic lymphedema: Patient remains on antibiotic therapy. Case discussed at length with infectious disease yesterday. Patient to continue with vancomycin IV after each dialysis. Patient also on oral Levaquin 500 mg every 48 hr. Patient will require continued antibiotic therapy for 4 week duration. Patient to follow up with infectious disease at [facility] or at the skilled facility([facility] at [facility]). Antibiotics have been adjusted. White count continues to improve. Patient had reported diarrhea. This has resolved. C diff culture negative. Chronic diastolic CHF: Continue diuretic therapy-Lasix 80 mg daily. Will maintain sats above 90%. Continue wean off oxygen. Patient may continue with oxygen at discharge if required. Chronic atrial fibrillation on chronic anti coagulation therapy: Continue with digoxin/metoprolol for rate control. Anti coagulation therapy re-initiated. Patient currently on Eliquis 2.5 mg 1 pill twice daily. This will need to be monitored as the patient presented with acute on chronic anemia. Hypertension: Continue with medication-metoprolol and adjust appropriately. Diabetes mellitus type 2, insulin dependent: Continue with basal insulin and adjust appropriately. GERD: Continue the medication-Protonix. Obstructive sleep apnea: Continue with CPAP at night Obesity, BMI 40.6: Will continue to address lifestyle modification education. Fall precautions in place. Time Spent Managing Pts Care (In Minutes): 55
--- NOTE | 2018-05-29 11:06 | P.PN ---
Subjective Date of Service: 05/29/18 Primary Care Provider: Dr. Weaver(I am covering for him) Chief Complaint: Worsening renal function Subjective: Improving Pt with ESRD and symptomatic anemia initiated on HD S/p EGD and colonoscopy , polyp bleeding Bp better today plan for discharge to SNF HD tomorrow can be discharged from nephrology point of view after ID clearance Physical Examination - Vital Signs Temperature: 98 F Blood Pressure: 132/51 Pulse: 58 Respirations: 16 Pulse Ox (%): 99 - Physical Exam General: Alert, Oriented x3 HEENT: Atraumatic Neck: Supple, Without JVD or thyroid abnormality Respiratory: Normal air movement Cardiovascular: Regular rate/rhythm, Normal S1 S2, Edema (Chromic LE lymphedema ) Gastrointestinal: Normal bowel sounds, Soft and benign - Studies Medications List Reviewed: Yes Assessment And Plan - Current Problems (Diagnosis) (1) ESRD (end stage renal disease) Current Visit: Yes Status: Acute (2) Atrial fibrillation Onset Date: 01/08/16 Current Visit: No Status: Chronic Qualifiers: Atrial fibrillation type: chronic - Plan End-stage renal disease. initiated on HD this admission will cont HD MWF Anemia of Chronic disease +/- GI bleeding IV iron and KVNG S/p EGD and colonoscopy: polyp bleeding Hb stable now MBD corrected CA wnl cont binders Afib rate controlled HTN controlled now COPD BIPAP and inhalers CHF cont current meds HD MWF sacral ulcer Cont Abx duration and Abx choice as per ID
[2018-05-29] MEDS: INSULIN GLARGINE 100 UNITS/ML SQ SCH (20:29)
[2018-05-29] MEDS: ATORVASTATIN 20 MG TAB PO SCH (20:31)
[2018-05-30] MEDS: TRAMADOL HCL 50 MG TAB PO PRN (02:12)
[2018-05-30 06:28] LABS: Absolute Lymphocytes (CBC) 1.1 K/uL (0.7-4.9); Absolute Monocytes 1.9 K/uL (0.1-1.3); Absolute Neutrophil 11.3 K/uL (1.8-8.0); Basophils % 0.5 % (0-1.3); Eosinophils % 0.8 % (0-4.4); Hematocrit 26.6 % (39.6-49.0); Lymphocytes % 7.4 % (15.3-44.8); MPV 8.3 fL (7.6-11.3); Monocytes % 12.8 % (3.3-12.3)
[2018-05-30 06:45] LABS: Albumin 1.7 g/dL (3.4-5.0); Phosphorus 3.5 mg/dL (2.5-4.9); Potassium 4.1 mmol/L (3.5-5.1)
[2018-05-30 06:55] LABS: Blood Morphology Comment NOT SEEN (NOT SEEN); Platelet Estimate ADEQ; Urine White Blood Cell Casts OK
[2018-05-30] MEDS: INSULIN -REGULAR HUMAN 50 UNIT/0.5 ML ML SQ SCH ×3 (07:30→16:03)
[2018-05-30] MEDS: DIGOXIN 0.125 MG TABLET PO SCH (08:17)
[2018-05-30] MEDS: ALLOPURINOL 300 MG TAB PO SCH (08:17)
[2018-05-30] MEDS: CALCIUM CARBONATE CHEW 500MG TAB PO SCH ×3 (08:17→16:03)
[2018-05-30] MEDS: METOPROLOL TAR 25 MG TAB PO SCH (08:17)
[2018-05-30] MEDS: FUROSEMIDE 40 MG TABLET PO SCH (08:18)
[2018-05-30] MEDS: PANTOPRAZOLE 40MG TABLET PO SCH (08:18)
[2018-05-30] MEDS: APIXABAN 2.5 MG TABLET PO SCH (08:18)
[2018-05-30] MEDS: JUVEN PACKET PO SCH (08:23)
[2018-05-30] MEDS ORDERED: levoFLOXacin 500 MG TAB PO SCH (09:00)
[2018-05-30] MEDS: SOD FERRIC GLUC COMPLX/SUCROSE 125 MG in NA CHLORIDE 0.9% 100 ML IV SCH (09:46)
[2018-05-30] MEDS: CALCITROL 0.25 MCG CAP PO SCH (09:48)
--- NOTE | 2018-05-30 16:09 | PN ---
Date of Progress Note: 05/30/2018 Subjective: The patient is doing well. No nausea. No vomiting. Physical Examination: Vital Signs: Blood pressure 116/55 and pulse of 56. Chest: Clear to auscultation. Heart: S1 and S2. Regular. Systolic murmur. Abdomen: Soft and nontender. Extremities: Trace edema, dressing on the right leg and on the toe bilaterally. Laboratory Data: WBC 14.4, H and H 8.5/26.6, and platelets 250. Sodium 133, potassium 4.1, bicarb 2 5, BUN 91, creatinine 5.4, GFR of 11, calcium 8.2, phosphorus 3.5, magnesium of 2, albumin 1.7, and P TH of 269. Current Medications: Include Levaquin 500 every other day, vancomycin, IV iron, Eliquis, Epogen, miguel cium carbonate 1000 with each meal, atorvastatin, digoxin, metoprolol 25 b.i.d., Lasix, Zofran pantop razole, insulin, and allopurinol 300 daily. Assessment And Plan: 1.End-stage renal disease. We will continue the patient on dialysis Wednesday, Wednesday, Wednesday. The patient is scheduled for dialysis today. The patient already accepted at [facility]. The patient cleared from the renal standpoint for discharge planning. 2.Hypertension, controlled, optimal. Continue current treatment. 3.Sacral decubitus ulcer. Continue current antibiotic, dose appropriate. Followup vancomycin level . 4.Gout. No activity. Decrease allopurinol to 100. 5.Secondary hyperparathyroid. Continue calcium carbonate. 6.Anemia of chronic kidney disease. Continue IV iron and Epogen. AIDAN/SOHAN Voice ID: [id number] Report ID: [id number]
[2018-05-30] MEDS: EPOETIN ALFA 10,000 UNIT/ML VIAL IV SCH (17:00)
[2018-05-30 21:30] VITALS: BP 123/56; TEMP 99.1
--- NOTE | 2018-05-30 21:51 | PN ---
Subjective: The patient is lying in bed. No new acute event. Objective: Vital Signs: Temperature 98, pulse 55, respirations 16, and blood pressure 122/60. Lungs: Basilar crackles. Heart: S1 and S2, regular. Abdomen: Soft, nontender. Bowel sounds present. Extremities: Nonpitting edema under FarrowWrap. Laboratory Data: WBC 14,000, hemoglobin 8.5 and platelets are 250. Chemistry shows sodium 133, pota ssium 4.1, chloride 96, bicarb 25, BUN 91, and creatinine 5.4. Current Medications: Include Levaquin and vancomycin. Assessment And Plan: Left hip abscess. Leukocytosis, improving slowly. Continue antibiotic and wou nd care. We will follow the patient as needed. NF/MODL Voice ID: [id number] Report ID: [id number]
[2018-05-31 00:08] VITALS: O2SAT 93
--- NOTE | 2018-05-31 08:35 | CON ---
Date of Consultation: 05/24/2018 Reason For Consultation: Anemia with hemoglobin 7.4. History Of Present Illness: This patient is a 67-year-old white male with history of arth ritis, coronary artery disease, congestive heart failure, diabetes, gout, heart attack, hypertension, kidney stones, stomach ulcers. The patient presented to the hospital with recurrent anemia. Hemogl obin down to 7.4. He has had multiple EGDs, colonoscopies, small bowel series. It appears he has no t had a PillCam however for some reason that has been ordered in the past. The patient has refused i n the past to have that done and scheduled to have another one done in 2015, which he did not have it done. The patient now has sepsis that appears in hospital with elevated white count. He has renal failure and is on hemodialysis as well. Past Medical History: As stated above, has a history of diabetes, hypertension, coronary artery dise ase, congestive heart failure, arthritis, gout, myocardial infarction, kidney stones, chronic end-sta ge renal disease, on hemodialysis, and stomach ulcers. . Medications: At home have included allopurinol, digoxin, iron, folic acid, Lasix, glipizide, Lantus insulin, metoprolol, niacin, Protonix, Zocor, Aldactone, vitamin C, Xarelto. Allergies: NKDA. BACTRIM, LIKE IT APPEARS BY HOSPITAL CHART HE HAS AN ALLERGY TO BACTRIM. Past Medical History: Significant for COPD and obstructive sleep apnea and iron deficiency anemia. Past Surgical History: Includes parathyroidectomy. Social History: He is . No tobacco. He does drink alcohol socially, drinks per week, has caffeine. He is unemployed and has 1 child. Family History: Mother had breast cancer. Father of a cerebral aneurysm. Review of Systems: The patient has weakness, malaise, but he has not had any melena, hematochezia, masses, , c offee-grounds emesis, hematuria, dysuria, polyuria, polydipsia. No hemoptysis. The patient has not seen any blood. His hemoglobin is low, but he does have chronic renal disease and sepsis, which coul d be causing this. Physical Examination: Vital Signs: The patient is 6 foot, 299 pounds. BMI 41 kg/m2. General: Obese male, lying in bed, in no acute distress. HEENT: Normocephalic, atraumatic. Anicteric. Pupils equal, round, and reactive to light. Extraocu lar movements are intact. Oropharynx is clear. . Neck: Supple. No masses. Respirations: Clear to auscultation bilaterally. Cardiac: Regular. Gastrointestinal: Positive bowel sounds. Soft. No tenderness. No hepatosplenomegaly. Obese. Extremities: No clubbing, cyanosis. Positive lower extremity edema. Neuro: Alert and oriented x3. Able to move all extremities, though somewhat limited. Laboratory Data: The patient has a white count of 17.7 up from 15.0 yesterday, hemoglobin of 7.1, he matocrit 23, MCV of 98, platelet count of 464, polys 79%, lymphocytes 6%, monocytes 15%, eosinophils 0.3%, PT of 16.3, INR of 1.4, PTT 35.7 patient's sodium 135, potassium 3.9, chloride 100, bicarb 23; BUN 76, creatinine of 5.75, glucose 175, calcium 7.9, phosphorus 3.2, albumin 1.8. ____ show 2+ blood, 10-20 rbcs, 3+ protein, . Vancomycin troughs less at 8. Hepatitis B w as negative. Hepatitis C, PCR was negative. Hepatitis B surface antibody was negative. No immuniza tion for hepatitis B in the past . Imaging pretty much negative. Chest x-ray on revealed mild pulmonary edema. Heart is mildly to moderately enlarged. Central venous catheter is in place. Impression: 1.Anemia. Hemoglobin down to 7.1 today , MCV is 98. This could be due to his end-stage r enal disease, on hemodialysis and sepsis, the patient has a left hip abscess for which he is being tr eated. An elevated white count at 17.7 with 79% polys, which is elevated, indicating sepsis, which c an cause hemolysis. 2.End-stage renal disease. The patient on hemodialysis for his end-stage renal disease. 3.Sepsis with left hip abscess, on antibiotics and Infectious Disease is consulted and following pat ient. Recommendation: 1.Resuscitation. Nephrology care. Discussed with PCP needs 2-4 days resuscitation in hospital befo re he would be ready for procedures. 2.EGD, colonoscopy when stable. 3.Small bowel series PillCam. 4.Serial H and H, and transfuse p.r.n. 5.Check haptoglobin. 6.Continue IV antibiotics and Infectious Disease care for this patient with sepsis with left hip abs cess. LUIS/MODL Voice ID: [id number] Report ID: [id number]
[2018-05-31] MEDS ORDERED: ALLOPURINOL 100 MG TAB PO SCH (09:00)
== END 2018-05-30 20:45 | DRG 291 ==
LOC: ER 11:59 → ERHOLD 13:22 → 4TH 16:17
PROVIDERS: ADMIT Family Medicine; ATTEND Family Medicine
PROC: 30243N1 Transfusion of Nonautologous Red Blood Cells into Central Vein, Percutaneous Approach (ICD-10-PCS; principal; 2018-05-18)
PROC: 0JH63XZ Insertion of Tunneled Vascular Access Device into Chest Subcutaneous Tissue and Fascia, Percutaneous Approach (ICD-10-PCS; 2018-05-19)
PROC: 02HV33Z Insertion of Infusion Device into Superior Vena Cava, Percutaneous Approach (ICD-10-PCS; 2018-05-19)
PROC: B5181ZA Fluoroscopy of Superior Vena Cava using Low Osmolar Contrast, Guidance (ICD-10-PCS; 2018-05-19)
PROC: 5A1D70Z Performance of Urinary Filtration, Intermittent, Less than 6 Hours Per Day (ICD-10-PCS; 2018-05-19)
PROC: 0DB68ZX Excision of Stomach, Via Natural or Artificial Opening Endoscopic, Diagnostic (ICD-10-PCS; 2018-05-24)
PROC: 0W3P8ZZ Control Bleeding in Gastrointestinal Tract, Via Natural or Artificial Opening Endoscopic (ICD-10-PCS; 2018-05-25)
PROC: 0D5L8ZZ Destruction of Transverse Colon, Via Natural or Artificial Opening Endoscopic (ICD-10-PCS; 2018-05-25)
DX: I13.2 Hypertensive heart and chronic kidney disease with heart failure and with stage 5 chronic kidney disease, or end stage renal disease (principal); N18.6 End stage renal disease; N17.9 Acute kidney failure, unspecified; I50.32 Chronic diastolic (congestive) heart failure; Z68.41 Body mass index [BMI] 40.0-44.9, adult; K92.1 Melena; L02.416 Cutaneous abscess of left lower limb; E11.52 Type 2 diabetes mellitus with diabetic peripheral angiopathy with gangrene; I96 Gangrene, not elsewhere classified; D63.1 Anemia in chronic kidney disease; D50.9 Iron deficiency anemia, unspecified; E11.22 Type 2 diabetes mellitus with diabetic chronic kidney disease; I48.2 Chronic atrial fibrillation; L89.150 Pressure ulcer of sacral region, unstageable; K29.80 Duodenitis without bleeding; J44.9 Chronic obstructive pulmonary disease, unspecified; G47.33 Obstructive sleep apnea (adult) (pediatric); E11.40 Type 2 diabetes mellitus with diabetic neuropathy, unspecified; E88.09 Other disorders of plasma-protein metabolism, not elsewhere classified; N25.0 Renal osteodystrophy; K57.30 Diverticulosis of large intestine without perforation or abscess without bleeding; D12.2 Benign neoplasm of ascending colon; D12.0 Benign neoplasm of cecum; D12.3 Benign neoplasm of transverse colon; K64.8 Other hemorrhoids; E66.01 Morbid (severe) obesity due to excess calories; E78.5 Hyperlipidemia, unspecified; K21.9 Gastro-esophageal reflux disease without esophagitis; K44.9 Diaphragmatic hernia without obstruction or gangrene; M10.9 Gout, unspecified; I25.2 Old myocardial infarction; Z79.01 Long term (current) use of anticoagulants; Z79.4 Long term (current) use of insulin; Z88.1 Allergy status to other antibiotic agents
CPT/HCPCS: 36415; 36430; 71045; 76000; 76770; 80048; 80053; 80069; 80076; 80202; 81003; 81015; 82550; 82565; 82570; 82652; 82728; 82746; 82962; 83010; 83540; 83605; 83735; 83970; 84156; 84466; 84550; 85014; 85018; 85025; 85610; 85730; 86317; 86704; 86706; 86850; 86900; 86901; 87040; 87086; 87088; 87340; 87493; 87522; 88305; 88312; 90935; 93005; 97110; 97116; 97163; 97166; 97530; 99284; C1752; J0171; J1170; J1644; J2001; J2150; J2405; J2704; J2765; J2916; J3010; J7030; P9016; Q4081

== ENCOUNTER 2018-05-31 17:59 | Emergency (ER) | payer OTHER ==
--- OUTSIDE RECORDS SUMMARY | 2018-05-31 18:02 | XMS REPORT | Clinical Summary ---
:1950 Author Organization [facility] Address [address] [place] [address] Care Team Providers Name Role Phone Martín [...] Date Type Specialty Care Team Description 08/10/[address] [facility] Internal [place] Gastrointestinal hemorrhage, unspecified gastrointestinal hemorrhage type; - Encounter Medicine MD Elin IDDM (insulin dependent diabetes mellitus) ([facility]); 08/12/2017 Cathleen, Essential hypertension; Yashash D Hyperlipidemia, unspecified hyperlipidemia type; Atrial fibrillation, unspecified type ([facility]) 08/10/2017 Telephone Gastroenterology Serenity Edward MD after 05/30/2017 Social History Tobacco Use Types Packs/Day Years [...] TRANSFUSE STAT 03/17/2018 5:31 LEUKO-REDUCED RED PM [facility] AIDE BLOOD CELLS TRANSFUSION SERVICE 08/13/2017 6:02 REPORT [...] procedure are in the results section. after 05/30/2017 Results Transfuse Leuko-Red RBC (03/17/2018 5:31 PM [facility]UC[facility] CLASSROOM AIDE)TRANSFUSION SERVICE REPORT - SCAN (08/13/2017 6:02 PM CDT)Only the most recent of2 resultswithin the time period is included. Narrative Performed At EKG-SCANNED (08/13/2017 2:01 PM CDT) Narrative Performed At RHYTHM STRIP - SCAN (08/13/2017 2:01 PM CDT) Narrative Performed At Prepare Leuko-Red RBC (08/12/2017 11:54 PM CDT) CROSSMATCH COMPATIBLE SAFETRACE TX Unit ABO A Pos SAFETRACE TX UNIT NUMBER [id number] SAFETRACE TX Status TRANSFUSED SAFETRACE TX Blood Bank Product RED BLOOD CELLS SAFETRACE TX PRODUCT CODE [id number] SAFETRACE TX Specimen Other Performing Organization Address City/[facility] Phone Number SAFETRACE TX POC-Glucose meter (08/12/2017 4:49 PM CDT)Only the most recent of9 resultswithin the time period is included. POC-Glucose Meter 261 (H)Comment: TESTED AT 70 - 110 mg/dL [address] [address] Specimen Blood Performing Organization Address City/[facility]/Zipcode Phone Number [address] [phone] CENTER CBC with platelet count + automated diff (08/12/2017 8:59 AM CDT)Only the most recent of4 resultswithin the time period is included. WBC 11.7 (H) 3.5 - 10.5 K/L [facility] RBC 2.99 (L) 4.63 - 6.08 M/L [facility] Hemoglobin 8.7 (L) 13.7 - 17.5 GM/DL [facility] Hematocrit 27.5 (L) 40.1 - 51.0 % [facility] MCV 92.0 79.0 - 92.[address] [facility] MCH 29.1 25.7 - 32.[address] [facility] MCHC 31.6 (L) 32.3 - 36.5 GM/DL [facility] RDW 16.0 (H) 11.6 - 14.4 % [facility] Platelets 213 150 - 450 K/CU MM [facility] MPV 10.7 9.4 - 12.[address] [facility] nRBC 0 0 - 0 /[address] [facility] % Neutros 81 % [facility] % Lymphs 6 % [facility] % Monos 10 % [facility] % Eos 2 % [facility] % Baso 0 % [facility] # Neutros 9.49 (H) 1.78 - 5.38 K/L [facility] # Lymphs 0.73 (L) 1.32 - 3.57 K/L [facility] # Monos 1.13 (H) 0.30 - 0.82 K/L [facility] # Eos 0.19 0.04 - 0.54 K/L [facility] # Baso 0.03 0.01 - 0.08 K/L [facility] Immature Granulocytes-Relative 1 0 - 1 % [facility] Specimen Blood Performing Organization Address City/State/Zipcode Phone Number [facility] [address] [place] [address] CENTER Calcium, Ionized (08/12/2017 4:58 AM CDT)Only the most recent of2 resultswithin the time period is included. Calcium, Ion 1.02 (L) 1.12 - 1.27 mmol/L [facility] pH, Blood 7.43 [facility] Specimen Blood Performing Organization Address [facility] [place] [address] [phone] [place] Prothrombin time/INR (08/12/2017 4:58 AM CDT)Only the most recent of2 resultswithin the time period is included. Protime 18.1 (H) 11.7 - 14.[address] [facility] INR 1.5 <=5.9 [facility] Specimen Blood Narrative Performed At [facility] RECOMMENDED COUMADIN/WARFARIN INR THERAPY RANGES STANDARD DOSE: 2.0 - 3.0 Includes: PROPHYLAXIS for venous thrombosis, systemic embolization; TREATMENT for venous thrombosis and/or pulmonary embolus. HIGH RISK: Target INR is 2.5-3.5 for patients with mechanical heart valves. Performing Organization Address City/[facility] Phone Number [address] [address] CENTER Magnesium (08/12/2017 4:58 AM CDT)Only the most recent of2 resultswithin the time period is included. Magnesium 1.6 1.6 - 2.6 mg/dL [facility] Specimen Blood Performing Organization Address City/[facility] Phone Number [address] [address] [place] Hepatic function panel (08/12/2017 4:58 AM CDT)Only the most recent of2 resultswithin the time period is included. Protein, Total 6.3 6.0 - 8.3 gm/dL [facility] Albumin 2.9 (L) 3.5 - 5.0 g/dL [facility] Total Bilirubin 0.4 0.2 - 1.2 mg/dL [facility] Bilirubin, Direct 0.3 0.1 - 0.5 mg/dL [facility] Alkaline Phosphatase 136 40 - 150 U/L [facility] AST 10 5 - 34 U/L [facility] ALT 9 6 - 55 U/L [facility] Specimen Blood Performing Organization Address [facility] Phone Number [address] [address] [place] Lipid panel (08/12/2017 4:58 AM CDT)Only the most recent of2 resultswithin the time period is included. Triglycerides 54 mg/dL [facility] Cholesterol 96 mg/dL [facility] HDL 29 mg/dL [facility] LDL Calculated 56 mg/dL [facility] Specimen Blood Narrative Performed At [facility] Triglyceride Reference Range: Low Risk <150 [id number] High Risk 200-499 Very High Risk>=500 Cholesterol Reference Range: Low Risk <200 [id number] High Risk>240 HDL Cholesterol Reference Range: Low Risk >=60 High Risk <40 LDL Cholesterol Reference Range: Optimal<100 Near [id number] Very High >=190 Performing Organization Address City/[facility] Phone Number [facility] [address] [place] [phone] [place] Basic metabolic panel (08/12/2017 4:58 AM CDT)Only the most recent of2 resultswithin the time period is included. Sodium 135 (L) 136 - 145 meq/L [facility] Potassium 3.7 3.5 - 5.1 meq/L [facility] Chloride 101 98 - 107 meq/L [facility] CO2 25 22 - 29 meq/L [facility] BUN 92 (H) 7 - 21 mg/dL [facility] Creatinine 2.52 (H) 0.57 - 1.25 mg/dL [facility] Glucose 135 (H) 70 - 105 mg/dL [facility] Calcium 8.7 8.4 - 10.2 mg/dL [facility] EGFR 26Comment: ESTIMATED GFR IS mL/min/1.73 sq m [facility] NOT ACCURATE [facility] CLEARANCE IN PREDICTING GLOMERULAR FILTRATION RATE. ESTIMATED GFR IS NOT APPLICABLE FOR DIALYSIS PATIENTS. Specimen Blood Performing Organization Address City/State/Zipcode Phone Number [facility] [address] [place] [address] CENTER CBC (Hemogram only) (08/11/2017 4:09 PM CDT) WBC 10.3 3.5 - 10.5 K/L [facility] RBC 3.01 (L) 4.63 - 6.08 M/L [facility] Hemoglobin 8.5 (L) 13.7 - 17.5 GM/DL [facility] Hematocrit 27.0 (L) 40.1 - 51.0 % [facility] MCV 89.7 79.0 - 92.[address] [facility] MCH 28.2 25.7 - 32.[address] [facility] MCHC 31.5 (L) 32.3 - 36.5 GM/DL [facility] RDW 15.8 (H) 11.6 - 14.4 % [facility] Platelets 203 150 - 450 K/CU MM [facility] MPV 10.5 9.4 - 12.[address] [facility] nRBC 0 0 - 0 /[address] [facility] Specimen Blood Performing Organization Address City/State/Zipcode Phone Number [facility] [address] [place] [address] [phone] CENTER Type and screen, automated (08/10/2017 5:01 PM CDT) ABO/RH AUTOMATED (BEAKER) A POSITIVE [facility] Ab Scrn NEGATIVE [facility] Specimen Blood Performing Organization Address City/State/Zipcode Phone Number [facility] [address] [place] [address] Comprehensive metabolic panel (08/10/2017 5:01 PM CDT) Protein, Total 6.5Comment: Specimen 6.0 - 8.3 gm/dL [facility] slightly hemolyzed [facility] Albumin 2.9 (L)Comment: Specimen 3.5 - 5.0 g/dL [facility] slightly hemolyzed [facility] Alkaline Phosphatase 135 40 - 150 U/L [facility] Total Bilirubin 0.5Comment: Specimen 0.2 - 1.2 mg/dL [facility] slightly hemolyzed [facility] Sodium 135 (L) 136 - 145 meq/L [facility] Potassium 3.7Comment: Specimen 3.5 - 5.1 meq/L [facility] slightly hemolyzed [facility] Chloride 98 98 - 107 meq/L [facility] CO2 26 22 - 29 meq/L [facility] BUN 103 (H) 7 - 21 mg/dL [facility] Creatinine 2.59 (H)Comment: 0.57 - 1.25 mg/dL [facility] Specimen [facility] hemolyzed Glucose 64 (L) 70 - 105 mg/dL [facility] Calcium 8.8 8.4 - 10.2 mg/dL [facility] AST 15Comment: Specimen 5 - 34 U/L [facility] slightly hemolyzed [facility] ALT 13Comment: Specimen 6 - 55 U/L [facility] slightly hemolyzed [facility] EGFR 25Comment: ESTIMATED GFR mL/min/1.73 sq m [facility] IS NOT ACCURATE [facility] CREATININE CLEARANCE IN PREDICTING GLOMERULAR FILTRATION RATE. ESTIMATED GFR IS NOT APPLICABLE FOR DIALYSIS PATIENTS. Specimen Blood Performing Organization Address City/State/Zipcode Phone Number [facility] [address] [place] [address] CENTER after 05/30/2017 Insurance Payer Benefit Plan / Group Subscriber ID Type Phone Address MEDICARE MEDICARE A B xxxxxxxxxx Medicare Advance Directives For more information, please contact:[facility] [place], [place] [phone] Code Status Date Activated Date Inactivated Comments Full Code 08/10/2017 2:43 PM 08/12/2017 8:24 PM This code status was determined by: Patient
--- OUTSIDE RECORDS SUMMARY | 2018-05-31 18:03 | XMS REPORT ---
:1950 [facility] Address [address] [place] [address] Care Team Providers Name Role Phone DAMIEN [...] (BEAKER) (test 261 mg/dL 70-110 TESTED AT [facility] [address] [facility] fxhn=6042) [facility] [address] POCT-GLUCOSE [id number] 11:33:00 Test Item Value Reference Range Comments POC-GLUCOSE METER (BEAKER) 198 mg/dL 70-110 TESTED AT [facility] [address] (test xgpt=1736) [facility] [address] CBC W/PLT COUNT & AUTO [id number] 09:37:00 Test Item Value Reference Range Comments WHITE BLOOD CELL COUNT (BEAKER) (test bhsm=969) 11.7 K/ L 3.5-10.5 RED BLOOD CELL COUNT (BEAKER) (test jqsw=362) 2.99 M/ L 4.63-6.08 HEMOGLOBIN (BEAKER) (test dizz=836) 8.7 GM/DL 13.7-17.5 HEMATOCRIT (BEAKER) (test rpso=411) 27.5 % 40.1-51.0 MEAN CORPUSCULAR VOLUME (BEAKER) (test gxwv=152) 92.0 fL 79.0-92.2 MEAN CORPUSCULAR HEMOGLOBIN (BEAKER) (test 29.1 pg 25.7-32.2 miin=196) MEAN CORPUSCULAR HEMOGLOBIN CONC (BEAKER) (test 31.6 GM/DL 32.3-36.5 xiom=008) RED CELL DISTRIBUTION WIDTH (BEAKER) (test 16.0 % 11.6-14.4 wiak=932) PLATELET COUNT (BEAKER) (test ngsf=790) 213 K/CU MM 150-450 MEAN PLATELET VOLUME (BEAKER) (test wnzp=102) 10.7 fL 9.4-12.4 NUCLEATED RED BLOOD CELLS (BEAKER) (test 0 /100 WBC 0-0 wxdg=534) NEUTROPHILS RELATIVE PERCENT (BEAKER) (test 81 % brui=086) LYMPHOCYTES RELATIVE PERCENT (BEAKER) (test 6 % pihx=807) MONOCYTES RELATIVE PERCENT (BEAKER) (test 10 % hrdk=200) EOSINOPHILS RELATIVE PERCENT (BEAKER) (test 2 % dbvg=312) BASOPHILS RELATIVE PERCENT (BEAKER) (test 0 % ysea=940) NEUTROPHILS ABSOLUTE COUNT (BEAKER) (test 9.49 K/ L 1.78-5.38 roaf=475) LYMPHOCYTES ABSOLUTE COUNT (BEAKER) (test 0.73 K/ L 1.32-3.57 sbzx=089) MONOCYTES ABSOLUTE COUNT (BEAKER) (test 1.13 K/ L 0.30-0.82 qjlk=262) EOSINOPHILS ABSOLUTE COUNT (BEAKER) (test 0.19 K/ L 0.04-0.54 tpdi=165) BASOPHILS ABSOLUTE COUNT (BEAKER) (test 0.03 K/ L 0.01-0.08 hroj=051) IMMATURE GRANULOCYTES-RELATIVE PERCENT (BEAKER) 1 % 0-1 (test aftt=8483) POCT-GLUCOSE [id number] 07:52:00 Test Item Value Reference Range Comments POC-GLUCOSE METER (BEAKER) 126 mg/dL 70-110 TESTED AT [address] (test qaov=1501) [facility] [address] CALCIUM, [id number] 06:39:00 Test Item Value Reference Range Comments CALCIUM IONIZED (BEAKER) (test egje=066) 1.02 mmol/L 1.12-1.27 PH, BLOOD (BEAKER) (test vrvh=4713) 7.43 LIPID [id number] 05:57:00 Test Item Value Reference Range Comments TRIGLYCERIDES (BEAKER) (test ssat=098) 54 mg/dL CHOLESTEROL (BEAKER) (test hyqf=831) 96 mg/dL HDL CHOLESTEROL (BEAKER) (test quww=910) 29 mg/dL LDL CHOLESTEROL CALCULATED (BEAKER) (test otta=338) 56 mg/dL Triglyceride Reference Range: Low Risk <150 Borderline 150- 199 High Risk 200-499 Very High Risk >=500Cholesterol Reference Range: Low Risk <200 Borderline 200-239 High Risk > 240HDL Cholesterol Reference Range: Low Risk >=60 High Risk <40LDL Cholesterol Reference Range: Optimal <100 Near Optimal 100-129 Borderline 130-159 High 160-189 Very High >=190BASIC METABOLIC [id number] 05:56:00 Test Item Value Reference Range Comments SODIUM (BEAKER) (test 135 meq/L 136-145 wlny=062) POTASSIUM (BEAKER) (test 3.7 meq/L 3.5-5.1 blci=447) CHLORIDE (BEAKER) (test 101 meq/L 98-107 kwab=566) CO2 (BEAKER) (test 25 meq/L 22-29 syzh=277) BLOOD UREA NITROGEN 92 mg/dL 7-21 (BEAKER) (test fhky=368) CREATININE (BEAKER) (test 2.52 mg/dL 0.57-1.25 sxwd=274) GLUCOSE RANDOM (BEAKER) 135 mg/dL 70-105 (test zugl=634) CALCIUM (BEAKER) (test 8.7 mg/dL 8.4-10.2 npgi=909) EGFR (BEAKER) (test 26 mL/min/1.73 sq m ESTIMATED GFR IS NOT fbro=7547) ACCURATE CREATININE CLEARANCE IN PREDICTING GLOMERULAR FILTRATION RATE. ESTIMATED GFR IS NOT APPLICABLE FOR DIALYSIS PATIENTS. [id number] 05:48:00 Test Item Value Reference Range Comments MAGNESIUM (BEAKER) (test zokp=353) 1.6 mg/dL 1.6-2.6 HEPATIC FUNCTION [id number] 05:48:00 Test Item Value Reference Range Comments TOTAL PROTEIN (BEAKER) (test udzo=459) 6.3 gm/dL 6.0-8.3 ALBUMIN (BEAKER) (test cakd=2315) 2.9 g/dL 3.5-5.0 BILIRUBIN TOTAL (BEAKER) (test huog=692) 0.4 mg/dL 0.2-1.2 BILIRUBIN DIRECT (BEAKER) (test taul=810) 0.3 mg/dL 0.1-0.5 ALKALINE PHOSPHATASE (BEAKER) (test hsub=758) 136 U/L 40-150 AST (SGOT) (BEAKER) (test urlk=817) 10 U/L 5-34 ALT (SGPT) (BEAKER) (test kjww=077) 9 U/L 6-55 PROTHROMBIN [id number] 05:37:00 Test Item Value Reference Range Comments PROTIME (BEAKER) (test dhtj=622) 18.1 seconds 11.7-14.7 INR (BEAKER) (test sjzv=025) 1.5 <=5.9 RECOMMENDED COUMADIN/WARFARIN INR THERAPY RANGESSTANDARD DOSE: 2.0 - 3.0 Includes: PROPHYLAXIS forvenous thrombosis, systemic embolization; TREATMENT for venous thrombosis and/or pulmonary embolus.HIGH RISK: Target INR is 2.5-3.5 for patients with mechanical heart valves.POCT-GLUCOSE [id number] 21:34:00 Test Item Value Reference Range Comments POC-GLUCOSE METER (BEAKER) 260 mg/dL 70-110 TESTED AT [address] (test gfqh=7338) [facility] [address] POCT-GLUCOSE [id number] 17:13:00 Test Item Value Reference Range Comments POC-GLUCOSE METER (BEAKER) 202 mg/dL 70-110 TESTED AT [address] (test nkkl=0532) [facility] [address] CBC W/PLT COUNT & AUTO [id number] 16:36:00 Test Item Value Reference Range Comments WHITE BLOOD CELL COUNT (BEAKER) (test vedd=039) 10.3 K/ L 3.5-10.5 RED BLOOD CELL COUNT (BEAKER) (test ldhe=249) 3.01 M/ L 4.63-6.08 HEMOGLOBIN (BEAKER) (test pply=513) 8.5 GM/DL 13.7-17.5 HEMATOCRIT (BEAKER) (test rvpu=530) 27.0 % 40.1-51.0 MEAN CORPUSCULAR VOLUME (BEAKER) (test hlok=318) 89.7 fL 79.0-92.2 MEAN CORPUSCULAR HEMOGLOBIN (BEAKER) (test 28.2 pg 25.7-32.2 rrmc=621) MEAN CORPUSCULAR HEMOGLOBIN CONC (BEAKER) (test 31.5 GM/DL 32.3-36.5 ivdg=850) RED CELL DISTRIBUTION WIDTH (BEAKER) (test 15.8 % 11.6-14.4 zrgj=269) PLATELET COUNT (BEAKER) (test oavr=060) 203 K/CU MM 150-450 MEAN PLATELET VOLUME (BEAKER) (test phhv=198) 10.5 fL 9.4-12.4 NUCLEATED RED BLOOD CELLS (BEAKER) (test 0 /100 WBC 0-0 kvyj=627) NEUTROPHILS RELATIVE PERCENT (BEAKER) (test 83 % iein=408) LYMPHOCYTES RELATIVE PERCENT (BEAKER) (test 7 % illr=033) MONOCYTES RELATIVE PERCENT (BEAKER) (test 8 % jjis=458) EOSINOPHILS RELATIVE PERCENT (BEAKER) (test 1 % tcet=462) BASOPHILS RELATIVE PERCENT (BEAKER) (test 0 % gzlt=850) NEUTROPHILS ABSOLUTE COUNT (BEAKER) (test 8.57 K/ L 1.78-5.38 ghyj=325) LYMPHOCYTES ABSOLUTE COUNT (BEAKER) (test 0.71 K/ L 1.32-3.57 tjar=980) MONOCYTES ABSOLUTE COUNT (BEAKER) (test 0.78 K/ L 0.30-0.82 rwcp=866) EOSINOPHILS ABSOLUTE COUNT (BEAKER) (test 0.09 K/ L 0.04-0.54 tbxh=024) BASOPHILS ABSOLUTE COUNT (BEAKER) (test 0.04 K/ L 0.01-0.08 hrfe=271) IMMATURE GRANULOCYTES-RELATIVE PERCENT (BEAKER) 1 % 0-1 (test xbix=3323) CBC (HEMOGRAM ONLY)[id number] 16:30:00 Test Item Value Reference Range Comments WHITE BLOOD CELL COUNT (BEAKER) (test zaxb=038) 10.3 K/ L 3.5-10.5 RED BLOOD CELL COUNT (BEAKER) (test njzt=410) 3.01 M/ L 4.63-6.08 HEMOGLOBIN (BEAKER) (test bmku=548) 8.5 GM/DL 13.7-17.5 HEMATOCRIT (BEAKER) (test gioy=249) 27.0 % 40.1-51.0 MEAN CORPUSCULAR VOLUME (BEAKER) (test rspc=747) 89.7 fL 79.0-92.2 MEAN CORPUSCULAR HEMOGLOBIN (BEAKER) (test 28.2 pg 25.7-32.2 sjyq=351) MEAN CORPUSCULAR HEMOGLOBIN CONC (BEAKER) (test 31.5 GM/DL 32.3-36.5 fhuy=960) RED CELL DISTRIBUTION WIDTH (BEAKER) (test 15.8 % 11.6-14.4 ojax=918) PLATELET COUNT (BEAKER) (test fzjq=926) 203 K/CU MM 150-450 MEAN PLATELET VOLUME (BEAKER) (test nnsd=987) 10.5 fL 9.4-12.4 NUCLEATED RED BLOOD CELLS (BEAKER) (test 0 /100 WBC 0-0 piqo=521) POCT-GLUCOSE [id number] 12:32:00 Test Item Value Reference Range Comments POC-GLUCOSE METER (BEAKER) 209 mg/dL 70-110 TESTED AT [address] (test vnmn=7609) [facility] [address] POCT-GLUCOSE [id number] 07:51:00 Test Item Value Reference Range Comments POC-GLUCOSE METER (BEAKER) 101 mg/dL 70-110 TESTED AT [address] (test poud=5322) [facility] [address] CALCIUM, [id number] 06:35:00 Test Item Value Reference Range Comments CALCIUM IONIZED (BEAKER) (test xzzo=874) 1.03 mmol/L 1.12-1.27 PH, BLOOD (BEAKER) (test rxet=9479) 7.39 BASIC METABOLIC [id number] 05:22:00 Test Item Value Reference Range Comments SODIUM (BEAKER) (test 135 meq/L 136-145 mayg=249) POTASSIUM (BEAKER) (test 3.6 meq/L 3.5-5.1 jqzp=359) CHLORIDE (BEAKER) (test 99 meq/L 98-107 zvux=717) CO2 (BEAKER) (test 25 meq/L 22-29 kgqs=879) BLOOD UREA NITROGEN 106 mg/dL 7-21 (BEAKER) (test gbnd=695) CREATININE (BEAKER) (test 2.58 mg/dL 0.57-1.25 gicb=000) GLUCOSE RANDOM (BEAKER) 105 mg/dL 70-105 (test xbqn=709) CALCIUM (BEAKER) (test 8.6 mg/dL 8.4-10.2 snwz=066) EGFR (BEAKER) (test 25 mL/min/1.73 sq m ESTIMATED GFR IS NOT adku=9211) ACCURATE CREATININE CLEARANCE IN PREDICTING GLOMERULAR FILTRATION RATE. ESTIMATED GFR IS NOT APPLICABLE FOR DIALYSIS PATIENTS. [id number] 05:20:00 Test Item Value Reference Range Comments MAGNESIUM (BEAKER) (test qdrc=929) 1.5 mg/dL 1.6-2.6 LIPID [id number] 05:20:00 Test Item Value Reference Range Comments TRIGLYCERIDES (BEAKER) (test frli=814) 62 mg/dL CHOLESTEROL (BEAKER) (test xrrq=660) 87 mg/dL HDL CHOLESTEROL (BEAKER) (test vwna=204) 28 mg/dL LDL CHOLESTEROL CALCULATED (BEAKER) (test pcrz=777) 47 mg/dL Triglyceride Reference Range: Low Risk <150 Borderline 150- 199 High Risk 200-499 Very High Risk >=500Cholesterol Reference Range: Low Risk <200 Borderline 200-239 High Risk > 240HDL Cholesterol Reference Range: Low Risk >=60 High Risk <40LDL Cholesterol Reference Range: Optimal <100 Near Optimal 100-129 Borderline 130-159 High 160-189 Very High >=190HEPATIC FUNCTION [id number] 05:20:00 Test Item Value Reference Range Comments TOTAL PROTEIN (BEAKER) (test gmdo=285) 6.3 gm/dL 6.0-8.3 ALBUMIN (BEAKER) (test zcoh=0355) 2.9 g/dL 3.5-5.0 BILIRUBIN TOTAL (BEAKER) (test lgcz=389) 0.4 mg/dL 0.2-1.2 BILIRUBIN DIRECT (BEAKER) (test svvw=776) 0.2 mg/dL 0.1-0.5 ALKALINE PHOSPHATASE (BEAKER) (test ryzd=107) 135 U/L 40-150 AST (SGOT) (BEAKER) (test hact=855) 10 U/L 5-34 ALT (SGPT) (BEAKER) (test xqdf=668) 9 U/L 6-55 PROTHROMBIN [id number] 04:45:00 Test Item Value Reference Range Comments PROTIME (BEAKER) (test fins=424) 19.6 seconds 11.7-14.7 INR (BEAKER) (test nowa=078) 1.7 <=5.9 RECOMMENDED COUMADIN/WARFARIN INR THERAPY RANGESSTANDARD DOSE: 2.0 - 3.0 Includes: PROPHYLAXIS forvenous thrombosis, systemic embolization; TREATMENT for venous thrombosis and/or pulmonary embolus.HIGH RISK: Target INR is 2.5-3.5 for patients with mechanical heart valves.CBC W/PLT COUNT & AUTO [id number] 04:41:00 Test Item Value Reference Range Comments WHITE BLOOD CELL COUNT 11.3 K/ L 3.5-10.5 (BEAKER) (test nyoj=055) RED BLOOD CELL COUNT (BEAKER) 2.63 M/ L 4.63-6.08 (test tupl=895) HEMOGLOBIN (BEAKER) (test 7.4 GM/DL 13.7-17.5 nkhc=956) HEMATOCRIT (BEAKER) (test 24.0 % 40.1-51.0 uiir=566) MEAN CORPUSCULAR VOLUME 91.3 fL 79.0-92.2 (BEAKER) (test exey=794) MEAN CORPUSCULAR HEMOGLOBIN 28.1 pg 25.7-32.2 (BEAKER) (test zivl=470) MEAN CORPUSCULAR HEMOGLOBIN 30.8 GM/DL 32.3-36.5 CONC (BEAKER) (test fewn=156) RED CELL DISTRIBUTION WIDTH 16.1 % 11.6-14.4 (BEAKER) (test llsm=656) PLATELET COUNT (BEAKER) (test 202 K/CU MM 150-450 Discordant PLT result eocl=860) compared to previous result; a clinical correlation required. MEAN PLATELET VOLUME (BEAKER) 10.0 fL 9.4-12.4 (test gdjk=753) NUCLEATED RED BLOOD CELLS 0 /100 WBC 0-0 (BEAKER) (test khpf=914) NEUTROPHILS RELATIVE PERCENT 82 % (BEAKER) (test iwyc=015) LYMPHOCYTES RELATIVE PERCENT 7 % (BEAKER) (test zddy=288) MONOCYTES RELATIVE PERCENT 8 % (BEAKER) (test vjjt=109) EOSINOPHILS RELATIVE PERCENT 2 % (BEAKER) (test gnjy=700) BASOPHILS RELATIVE PERCENT 0 % (BEAKER) (test oikn=071) NEUTROPHILS ABSOLUTE COUNT 9.28 K/ L 1.78-5.38 (BEAKER) (test rkhp=092) LYMPHOCYTES ABSOLUTE COUNT 0.81 K/ L 1.32-3.57 (BEAKER) (test ftzg=352) MONOCYTES ABSOLUTE COUNT 0.85 K/ L 0.30-0.82 (BEAKER) (test pphw=827) EOSINOPHILS ABSOLUTE COUNT 0.18 K/ L 0.04-0.54 (BEAKER) (test vhji=110) BASOPHILS ABSOLUTE COUNT 0.04 K/ L 0.01-0.08 (BEAKER) (test mfyh=527) IMMATURE 1 % 0-1 GRANULOCYTES-RELATIVE PERCENT (BEAKER) (test wxis=7273) POCT-GLUCOSE [id number] 22:14:00 Test Item Value Reference Range Comments POC-GLUCOSE METER (BEAKER) 135 mg/dL 70-110 TESTED AT [facility] [address] [facility] (test pvto=1346) [facility] [address] COMPREHENSIVE METABOLIC [id number] 18:13:00 Test Item Value Reference Range Comments TOTAL PROTEIN (BEAKER) 6.5 gm/dL 6.0-8.3 Specimen slightly (test ofwr=397) hemolyzed ALBUMIN (BEAKER) (test 2.9 g/dL 3.5-5.0 Specimen slightly diuw=4547) hemolyzed ALKALINE PHOSPHATASE 135 U/L 40-150 (BEAKER) (test kwlg=257) BILIRUBIN TOTAL (BEAKER) 0.5 mg/dL 0.2-1.2 Specimen slightly (test wtty=079) hemolyzed SODIUM (BEAKER) (test 135 meq/L 136-145 ppzs=528) POTASSIUM (BEAKER) (test 3.7 meq/L 3.5-5.1 Specimen slightly avfn=154) hemolyzed CHLORIDE (BEAKER) (test 98 meq/L 98-107 vncf=776) CO2 (BEAKER) (test 26 meq/L 22-29 qwrk=963) BLOOD UREA NITROGEN 103 mg/dL 7-21 (BEAKER) (test peel=032) CREATININE (BEAKER) (test 2.59 mg/dL 0.57-1.25 Specimen slightly wodx=853) hemolyzed GLUCOSE RANDOM (BEAKER) 64 mg/dL 70-105 (test yvqk=930) CALCIUM (BEAKER) (test 8.8 mg/dL 8.4-10.2 rjqm=662) AST (SGOT) (BEAKER) (test 15 U/L 5-34 Specimen slightly ojzg=340) hemolyzed ALT (SGPT) (BEAKER) (test 13 U/L 6-55 Specimen slightly ijiw=311) hemolyzed EGFR (BEAKER) (test 25 mL/min/1.73 sq m ESTIMATED GFR IS NOT gmvn=4645) ACCURATE CREATININE CLEARANCE IN PREDICTING GLOMERULAR FILTRATION RATE. ESTIMATED GFR IS NOT APPLICABLE FOR DIALYSIS PATIENTS. CBC W/PLT COUNT & AUTO [id number] 17:37:00 Test Item Value Reference Range Comments WHITE BLOOD CELL COUNT (BEAKER) (test fawr=110) 11.7 K/ L 3.5-10.5 RED BLOOD CELL COUNT (BEAKER) (test kmxl=663) 2.94 M/ L 4.63-6.08 HEMOGLOBIN (BEAKER) (test lrye=561) 8.4 GM/DL 13.7-17.5 HEMATOCRIT (BEAKER) (test xjxw=903) 26.2 % 40.1-51.0 MEAN CORPUSCULAR VOLUME (BEAKER) (test rvwj=571) 89.1 fL 79.0-92.2 MEAN CORPUSCULAR HEMOGLOBIN (BEAKER) (test 28.6 pg 25.7-32.2 gvsw=188) MEAN CORPUSCULAR HEMOGLOBIN CONC (BEAKER) (test 32.1 GM/DL 32.3-36.5 qklx=579) RED CELL DISTRIBUTION WIDTH (BEAKER) (test 16.8 % 11.6-14.4 fqzy=439) PLATELET COUNT (BEAKER) (test pxan=351) 313 K/CU MM 150-450 MEAN PLATELET VOLUME (BEAKER) (test zepw=597) 12.1 fL 9.4-12.4 NUCLEATED RED BLOOD CELLS (BEAKER) (test 0 /100 WBC 0-0 rafd=083) NEUTROPHILS RELATIVE PERCENT (BEAKER) (test 80 % nsaa=403) LYMPHOCYTES RELATIVE PERCENT (BEAKER) (test 10 % rzqf=837) MONOCYTES RELATIVE PERCENT (BEAKER) (test 7 % jamy=612) EOSINOPHILS RELATIVE PERCENT (BEAKER) (test 1 % pgvx=420) BASOPHILS RELATIVE PERCENT (BEAKER) (test 0 % nxuy=418) NEUTROPHILS ABSOLUTE COUNT (BEAKER) (test 9.29 K/ L 1.78-5.38 uwhm=158) LYMPHOCYTES ABSOLUTE COUNT (BEAKER) (test 1.18 K/ L 1.32-3.57 bjsn=918) MONOCYTES ABSOLUTE COUNT (BEAKER) (test 0.84 K/ L 0.30-0.82 wyty=170) EOSINOPHILS ABSOLUTE COUNT (BEAKER) (test 0.14 K/ L 0.04-0.54 rfym=231) BASOPHILS ABSOLUTE COUNT (BEAKER) (test 0.03 K/ L 0.01-0.08 gmlg=101) IMMATURE GRANULOCYTES-RELATIVE PERCENT (BEAKER) 2 % 0-1 (test ylls=2316) POCT-GLUCOSE [id number] 15:37:00 Test Item Value Reference Range Comments POC-GLUCOSE METER (BEAKER) 83 mg/dL 70-110 TESTED AT [facility] [address] (test dfsp=5697) [facility] [address]
[2018-05-31] MEDS ORDERED: HYDROCODONE/APAP 7.5/325 MG TAB ONE (18:38)
--- NOTE | 2018-05-31 19:11 | RAD REPORT ---
EXAM DESCRIPTION: RAD - Humerus Right - 05/31/2018 6:56 pm CLINICAL HISTORY: Shoulder pain, trauma COMPARISON: None. FINDINGS: Transverse fracture is present at the right humeral surgical neck. There is significant an gulation deformity. Pathologic changes to the bone are not identifiable. No dislocation of the don l head. No significant AC joint finding. No foreign body or other soft tissue abnormality. IMPRESSION: Transverse fracture near the surgical neck right humerus. Significant angulation deformi ty is present.
--- NOTE | 2018-05-31 19:23 | ER ---
Nurse's Notes [facility] Name: Fausto Bird Age: 67 yrs Sex: Male : 1950 Arrival Date: 05/31/2018 Time: 18:03 Bed 28 Private MD: Martín Weaver Diagnosis: Unspecified displaced fracture of surgical neck of right humerus Presentation: 05/31 18:09 Presenting complaint: EMS states: patient was trying to stand up from a wheelchair with mg2 the help of 4 people for his rehab when he suddenly hear a pop on his right shoulder. just recently discharge for weakness yesterday from this hospital. Transition of care: patient was not received from another setting of care. Onset of symptoms was May 31, 2018 at 11:00. Risk Assessment: Do you want to hurt yourself or someone else? Patient reports no desire to harm self or others. Initial Sepsis Screen: Does the patient meet any 2 criteria? No. Patient's initial sepsis screen is negative. Does the patient have a suspected source of infection? No. Patient's initial sepsis screen is negative. Care prior to arrival: None. 18:09 Method Of Arrival: EMS: [facility] mg2 18:09 Acuity: BLANCA 4 mg2 Historical: - Allergies: 18:13 bactrim-topical; mg2 18:13 MUPIROCIN; mg2 - PMHx: 18:13 anemic; Atrial Fib; Cellulitis; Diabetes - IDDM; Hypertension; lymphedema; Myocardial mg2 infarction; - PSHx: 18:13 Cholecystectomy; parathyroidectomy; mg2 - Immunization history:: Flu vaccine is up to date. - Social history:: Smoking status: Patient/guardian denies using tobacco, Patient/guardian denies using alcohol, street drugs, IV drugs. - Ebola Screening: : No symptoms or risks identified at this time. Screenin:14 Abuse screen: Denies threats or abuse. Denies injuries from another. Nutritional mg2 screening: No deficits noted. Tuberculosis screening: No symptoms or risk factors identified. Fall Risk Secondary diagnosis (15 points) weakness. Ambulatory Aid- None/Bed Rest/Nurse Assist (0 pts). Assessment: 18:50 General: Appears in no apparent distress. comfortable, Behavior is calm, cooperative. mg2 Pain: Complains of pain in right arm and right bicep Pain does not radiate. Pain currently is 8 out of 10 on a pain scale. Quality of pain is described as aching, Pain began gradually, Is intermittent, Alleviated by medications, rest, repositioning. Neuro: Level of Consciousness is awake, alert, obeys commands, Oriented to person, place, time, situation. Cardiovascular: Capillary refill < 3 seconds Patient's skin is warm and dry. Respiratory: Airway is patent Respiratory effort is even, unlabored, Respiratory pattern is regular, symmetrical. GI: No signs and/or symptoms were reported involving the gastrointestinal system. : No signs and/or symptoms were reported regarding the genitourinary system. EENT: No signs and/or symptoms were reported regarding the EENT system. Derm: Skin is intact, is healthy with good turgor, Skin is pink, warm \T\ dry. normal. Musculoskeletal: Circulation, motion, and sensation intact. Capillary refill < 3 seconds, Reports pain in right arm and right bicep since 11 am. Pain is 8 out of 10 on a pain scale. 20:01 Reassessment: [facility] Nurse Alessia was called about the transportation. mg2 she will call me back. 20:12 Reassessment: [facility] will come and pick him up at 2130H. mg2 21:53 Reassessment: [facility] was called and said they will be here not later than mg2 2230H. Patient made aware. 22:51 Reassessment: patient picked up by [facility]. patient in good condition. mg2 Vital Signs: 18:12 BP 138 / 52; Pulse 91; Resp 18; Temp 98.1(O); Pulse Ox 98% on R/A; Weight 136.98 kg; mg2 Height 6 ft. 0 in. (182.88 cm); Pain 8/10; 19:30 BP 123 / 78; Pulse 89; Resp 18; Pulse Ox 100% on R/A; Pain 2/10; mg2 20:30 BP 133 / 78; Pulse 89; Resp 18; Pulse Ox 100% on R/A; Pain 1/10; mg2 22:51 BP 135 / 78; Pulse 80; Resp 18; Pulse Ox 100% on R/A; Pain 0/10; mg2 18:12 Body Mass Index 40.96 (136.98 kg, 182.88 cm) mg2 ED Course: 18:03 Patient arrived in ED. mg2 18:09 Irma, Patsy, DEPUT[facility]IFF[facility] snw 18:09 Mike Lin MD is Attending Physician. snw 18:12 Triage completed. mg2 18:13 Arm band placed on. mg2 18:25 Joss Charles, RN is Primary Nurse. mg2 18:53 Patient has correct armband on for positive identification. Pulse ox on. NIBP on. Door mg2 closed. Noise minimized. Lights dimmed. Warm blanket given. Head of bed elevated. Elevated. 18:53 No provider procedures requiring assistance completed. Patient did not have IV access mg2 during this emergency room visit. 18:55 Humerus Right XRAY In Process Unspecified. EDMS 19:55 Sling \T\ swathe to right arm. mg2 21:48 Martín Weaver MD is Private Physician. ds1 Administered Medications: 18:30 Drug: [place] (7.5 mg-325 mg) 1 tabs Route: PO; mg2 19:23 Follow up: Response: No adverse reaction; Marked relief of symptoms mg2 20:11 Drug: fentaNYL (PF) 25 mcg Route: IM; Site: left deltoid; mg2 21:08 Follow up: Response: No adverse reaction; Marked relief of symptoms mg2 21:58 Drug: Tylenol 650 mg Route: PO; mg2 22:51 Follow up: Response: No adverse reaction; Marked relief of symptoms mg2 Outcome: 19:22 Discharge ordered by . snw 22:52 Discharged to senior care. Report called to [facility] [place] mg2 22:52 Condition: stable 22:52 Discharge instructions given to patient, EMS, Instructed on discharge instructions, follow up and referral plans. Demonstrated understanding of instructions, follow-up care. 22:52 Patient left the ED. mg2 Signatures: Dispatcher [employer] EDMS Patsy Solis FNP-C DEPUTY BAILIFF-[facility] Robison Hollie ds1 Joss Charles RN RN mg2
--- NOTE | 2018-05-31 19:23 | EDPHYS ---
Physician Documentation [facility] Name: Fausto Bird Age: 67 yrs Sex: Male : 1950 Arrival Date: 05/31/2018 Time: 18:03 Bed 28 Private MD: Martín Weaver ED Physician Mike Lin HPI: 05/31 18:33 This 67 yrs old Male presents to ER via EMS with complaints of broken right snw arm. 18:33 The patient or guardian complains of decreased range of motion, injury, pain, that is snw acute. The complaints affect the right bicep. Context: The problem was sustained at a jail or assisted living facility, resulted from healthcare providers attempting to help pt stand. Right arm "popped". Onset: The symptoms/episode began/occurred suddenly, at 12:00. Treatment prior to arrival includes: x-rays performed. Associated signs and symptoms: The patient has no apparent associated signs or symptoms. Severity of symptoms: At their worst the symptoms were moderate, in the emergency department the symptoms are unchanged. It is unknown whether or not the patient has had similar symptoms in the past. Historical: - Allergies: 18:13 bactrim-topical; mg2 18:13 MUPIROCIN; mg2 - PMHx: 18:13 anemic; Atrial Fib; Cellulitis; Diabetes - IDDM; Hypertension; lymphedema; Myocardial mg2 infarction; - PSHx: 18:13 Cholecystectomy; parathyroidectomy; mg2 - Immunization history:: Flu vaccine is up to date. - Social history:: Smoking status: Patient/guardian denies using tobacco, Patient/guardian denies using alcohol, street drugs, IV drugs. - Ebola Screening: : No symptoms or risks identified at this time. ROS: 18:33 Constitutional: Negative for fever, chills, and weight loss, Eyes: Negative for injury, snw pain, redness, and discharge, ENT: Negative for injury, pain, and discharge, Neck: Negative for injury, pain, and swelling, Cardiovascular: Negative for chest pain, palpitations, and edema, Respiratory: Negative for shortness of breath, cough, wheezing, and pleuritic chest pain, Abdomen/GI: Negative for abdominal pain, nausea, vomiting, diarrhea, and constipation, Back: Negative for injury and pain, : Negative for injury, bleeding, discharge, and swelling, Skin: Negative for injury, rash, and discoloration, Neuro: Negative for headache, weakness, numbness, tingling, and seizure. 18:33 MS/extremity: Positive for injury or acute deformity, decreased range of motion, pain, of the right bicep. Exam: 18:31 Constitutional: This is a well developed, well nourished patient who is awake, alert, snw and in no acute distress. Head/Face: Normocephalic, atraumatic. Eyes: Pupils equal round and reactive to light, extra-ocular motions intact. Lids and lashes normal. Conjunctiva and sclera are non-icteric and not injected. Cornea within normal limits. Periorbital areas with no swelling, redness, or edema. ENT: Nares patent. No nasal discharge, no septal abnormalities noted. Tympanic membranes are normal and external auditory canals are clear. Oropharynx with no redness, swelling, or masses, exudates, or evidence of obstruction, uvula midline. Mucous membranes moist. Neck: Trachea midline, no thyromegaly or masses palpated, and no cervical lymphadenopathy. Supple, full range of motion without nuchal rigidity, or vertebral point tenderness. No Meningismus. Chest/axilla: Normal chest wall appearance and motion. Nontender with no deformity. No lesions are appreciated. Cardiovascular: Regular rate and rhythm with a normal S1 and S2. No gallops, murmurs, or rubs. Normal PMI, no JVD. No pulse deficits. Respiratory: Lungs have equal breath sounds bilaterally, clear to auscultation and percussion. No rales, rhonchi or wheezes noted. No increased work of breathing, no retractions or nasal flaring. Abdomen/GI: Soft, non-tender, with normal bowel sounds. No distension or tympany. No guarding or rebound. No evidence of tenderness throughout. Back: No spinal tenderness. No costovertebral tenderness. Full range of motion. 18:31 Neuro: Awake and alert, GCS 15, oriented to person, place, time, and situation. Cranial nerves II-XII grossly intact. Motor strength 5/5 in all extremities. Sensory grossly intact. Cerebellar exam normal. Normal gait. 18:31 Musculoskeletal/extremity: Extremities: grossly normal except: noted in the right bicep: decreased ROM, pain, tenderness. 18:31 Skin: Appearance: Color: pale. Vital Signs: 18:12 BP 138 / 52; Pulse 91; Resp 18; Temp 98.1(O); Pulse Ox 98% on R/A; Weight 136.98 kg; mg2 Height 6 ft. 0 in. (182.88 cm); Pain 8/10; 19:30 BP 123 / 78; Pulse 89; Resp 18; Pulse Ox 100% on R/A; Pain 2/10; mg2 20:30 BP 133 / 78; Pulse 89; Resp 18; Pulse Ox 100% on R/A; Pain 1/10; mg2 22:51 BP 135 / 78; Pulse 80; Resp 18; Pulse Ox 100% on R/A; Pain 0/10; mg2 18:12 Body Mass Index 40.96 (136.98 kg, 182.88 cm) mg2 MDM: 18:10 Patient medically screened. snw 19:23 Data reviewed: vital signs, nurses notes. Data interpreted: Pulse oximetry: on room air snw is 98 %. Interpretation: normal. Counseling: I had a detailed discussion with the patient and/or guardian regarding: the historical points, exam findings, and any diagnostic results supporting the discharge/admit diagnosis, radiology results, the need for outpatient follow up, to return to the emergency department if symptoms worsen or persist or if there are any questions or concerns that arise at home. Special discussion: Based on the history and exam findings, there is no indication for further emergent testing or inpatient evaluation. I discussed with the patient/guardian the need to see the orthopedic surgeon for further evaluation of the symptoms. 05/31 18:21 Order name: Humerus Right XRAY; Complete Time: 19:13 snw 05/31 19:17 Order name: Sling: and swathe; Complete Time: 19:52 snw Administered Medications: 18:30 Drug: [place] (7.5 mg-325 mg) 1 tabs Route: PO; mg2 19:23 Follow up: Response: No adverse reaction; Marked relief of symptoms mg2 20:11 Drug: fentaNYL (PF) 25 mcg Route: IM; Site: left deltoid; mg2 21:08 Follow up: Response: No adverse reaction; Marked relief of symptoms mg2 21:58 Drug: Tylenol 650 mg Route: PO; mg2 22:51 Follow up: Response: No adverse reaction; Marked relief of symptoms mg2 Disposition: 06/01 12:12 Co-signature as Attending Physician, Mike Lin MD I agree with the assessment and daria plan of care. Disposition: 05/31/18 19:22 Discharged to Home. Impression: Unspecified displaced fracture of surgical neck of right humerus. - Condition is Stable. - Discharge Instructions: Humerus Fracture Treated With Immobilization, How to Use a Sling. - Medication Reconciliation Form, Thank You Letter, Antibiotic Education, Prescription Opioid Use form. - Follow up: Private Physician; When: Tomorrow; Reason: Recheck today's complaints, Continuance of care, Re-evaluation by your physician. Follow up: Emergency Department; When: As needed; Reason: Worsening of condition. Signatures: Dispatcher [employer] EDMS Mike Lin MD MD cha Therrien, Shelly, AGENT CONTRACT CLERK-C AGENT CONTRACT CLERK-Csnw Joss Charles, RN RN mg2 Corrections: (The following items were deleted from the chart) 05/31 22:52 19:22 05/31/2018 19:22 Discharged to Home. Impression: Unspecified displaced fracture mg2 of surgical neck of right humerus. Condition is Stable. Forms are Medication Reconciliation Form, Thank You Letter, Antibiotic Education, Prescription Opioid Use. Follow up: Private Physician; When: Tomorrow; Reason: Recheck today's complaints, Continuance of care, Re-evaluation by your physician. Follow up: Emergency Department; When: As needed; Reason: Worsening of condition. snw
[2018-05-31] MEDS ORDERED: FENTANYL CITR 100 MCG/2 ML ONE (20:17)
[2018-05-31] MEDS ORDERED: ACETAMINOPHEN 325 MG TABLET ONE (22:08)
[2018-05-31 23:30] VITALS: TEMP 98.1
[2018-05-31 23:31] VITALS: O2SAT 100
[2018-05-31 23:34] VITALS: BP 135/78
== END 2018-05-31 22:52 | disposition home or self-care (01) ==
LOC: ER 17:59
DX: S42.211A Unspecified displaced fracture of surgical neck of right humerus, initial encounter for closed fracture (principal); D64.9 Anemia, unspecified; I48.91 Unspecified atrial fibrillation; E11.9 Type 2 diabetes mellitus without complications; I10 Essential (primary) hypertension; I25.2 Old myocardial infarction; Z79.4 Long term (current) use of insulin; Z88.1 Allergy status to other antibiotic agents
CPT/HCPCS: 73060; 96372; 99284; J3010

== ENCOUNTER 2018-06-03 10:11 | Emergency (ER) | payer OTHER ==
--- OUTSIDE RECORDS SUMMARY | 2018-06-03 10:26 | XMS REPORT | Clinical Summary ---
:1950 Author Organization [facility] Address [address] [place] [address] Care Team Providers Name Role Phone Martín [...] Date Type Specialty Care Team Description 08/10/2017 [facility] Internal [place] Gastrointestinal hemorrhage, unspecified gastrointestinal hemorrhage type; - Encounter Medicine MD Elin IDDM (insulin dependent diabetes mellitus) ([facility]); 08/12/2017 Cathleen, Essential hypertension; Yashash D Hyperlipidemia, unspecified hyperlipidemia type; Atrial fibrillation, unspecified type ([facility]) 08/10/2017 Telephone Gastroenterology Serenity Edward MD after 06/02/2017 Social History Tobacco Use Types Packs/Day Years [...] TRANSFUSE STAT 03/17/2018 5:31 LEUKO-REDUCED RED PM TUNA PURSE SEINER BLOOD CELLS TRANSFUSION SERVICE 08/13/2017 6:02 REPORT [...] procedure are in the results section. after 06/02/2017 Results Transfuse Leuko-Red RBC (03/17/2018 5:31 PM [facility] PURSE SEINER)TRANSFUSION SERVICE REPORT - SCAN (08/13/2017 6:02 PM CDT)Only the most recent of2 resultswithin the time period is included. Narrative Performed At EKG-SCANNED (08/13/2017 2:01 PM CDT) Narrative Performed At RHYTHM STRIP - SCAN (08/13/2017 2:01 PM CDT) Narrative Performed At Prepare Leuko-Red RBC (08/12/2017 11:54 PM CDT) CROSSMATCH COMPATIBLE SAFETRACE TX Unit ABO A Pos SAFETRACE TX UNIT NUMBER [id number] SAFETRACE TX Status TRANSFUSED SAFETRACE TX Blood Bank Product RED BLOOD CELLS SAFETRACE TX PRODUCT CODE [id number] SAFETRACE [place] Specimen Other Performing Organization Address City/[facility] Phone Number SAFETRACE TX POC-Glucose meter (08/12/2017 4:49 PM CDT)Only the most recent of9 resultswithin the time period is included. POC-Glucose Meter 261 (H)Comment: TESTED AT 70 - 110 mg/dL [address] [address] Specimen Blood Performing Organization Address City/[facility]/Zipcode Phone Number [address] [phone] CENTER CBC with platelet count + automated diff (08/12/2017 8:59 AM CDT)Only the most recent of4 resultswithin the time period is included. WBC 11.7 (H) 3.5 - 10.5 K/L [facility] RBC 2.99 (L) 4.63 - 6.08 M/L [facility] Hemoglobin 8.7 (L) 13.7 - 17.5 GM/DL [facility] Hematocrit 27.5 (L) 40.1 - 51.0 % [facility] MCV 92.0 79.0 - 92.2 fL [facility] MCH 29.1 25.7 - 32.2 pg [facility] MCHC 31.6 (L) 32.3 - 36.5 GM/DL [facility] RDW 16.0 (H) 11.6 - 14.4 % [facility] Platelets 213 150 - 450 K/CU MM [facility] MPV 10.7 9.4 - 12.4 fL [facility] nRBC 0 0 - 0 /100 WBC [facility] % Neutros 81 % [facility] % Lymphs 6 % [facility] % Monos 10 % [facility] % Eos 2 % [facility] % Baso 0 % [facility] # Neutros 9.49 (H) 1.78 - 5.38 K/L [facility] # Lymphs 0.73 (L) 1.32 - 3.57 K/L [facility] # Monos 1.13 (H) 0.30 - 0.82 K/L [facility] # Eos 0.19 0.04 - 0.54 K/L [facility] # Baso 0.03 0.01 - 0.08 K/L [facility] Immature Granulocytes-Relative 1 0 - 1 % [facility] Specimen Blood Performing Organization Address City/State/Zipcode Phone Number [facility] [address] [place] [address] CENTER Calcium, Ionized (08/12/2017 4:58 AM CDT)Only the most recent of2 resultswithin the time period is included. Calcium, Ion 1.02 (L) 1.12 - 1.27 mmol/L [facility] pH, Blood 7.43 [facility] Specimen Blood Performing Organization Address [facility] [place] [address] [phone] [place] Prothrombin time/INR (08/12/2017 4:58 AM CDT)Only the most recent of2 resultswithin the time period is included. Protime 18.1 (H) 11.7 - 14.7 seconds [facility] INR 1.5 <=5.9 [facility] Specimen Blood Narrative Performed At [facility] RECOMMENDED COUMADIN/WARFARIN INR THERAPY RANGES STANDARD DOSE: 2.0 - 3.0 Includes: PROPHYLAXIS for venous thrombosis, systemic embolization; TREATMENT for venous thrombosis and/or pulmonary embolus. HIGH RISK: Target INR is 2.5-3.5 for patients with mechanical heart valves. Performing Organization Address City/[facility] Phone Number [address] [address] CENTER Magnesium (08/12/2017 4:58 AM CDT)Only the most recent of2 resultswithin the time period is included. Magnesium 1.6 1.6 - 2.6 mg/dL [facility] Specimen Blood Performing Organization Address City/[facility] Phone Number [address] [address] [place] Hepatic function panel (08/12/2017 4:58 AM CDT)Only the most recent of2 resultswithin the time period is included. Protein, Total 6.3 6.0 - 8.3 gm/dL [facility] Albumin 2.9 (L) 3.5 - 5.0 g/dL [facility] Total Bilirubin 0.4 0.2 - 1.2 mg/dL [facility] Bilirubin, Direct 0.3 0.1 - 0.5 mg/dL [facility] Alkaline Phosphatase 136 40 - 150 U/L [facility] AST 10 5 - 34 U/L [facility] ALT 9 6 - 55 U/L [facility] Specimen Blood Performing Organization Address [facility] Centerconm Phone Number [address] [address] [phone] [place] Lipid panel (08/12/2017 4:58 AM CDT)Only the most recent of2 resultswithin the time period is included. Triglycerides 54 mg/dL [facility] Cholesterol 96 mg/dL [facility] HDL 29 mg/dL [facility] LDL Calculated 56 mg/dL [facility] Specimen Blood Narrative Performed At [facility] Triglyceride Reference Range: Low Risk <150 [id number] High Risk 200-499 Very High Risk>=500 Cholesterol Reference Range: Low Risk <200 [id number] High Risk>240 HDL Cholesterol Reference Range: Low Risk >=60 High Risk <40 LDL Cholesterol Reference Range: Optimal<100 Near [id number] Very High >=190 Performing Organization Address City/[facility] Cent[facility]ode Phone Number [facility] [address] [place] [phone] [place] Basic metabolic panel (08/12/2017 4:58 AM CDT)Only the most recent of2 resultswithin the time period is included. Sodium 135 (L) 136 - 145 meq/L [facility] Potassium 3.7 3.5 - 5.1 meq/L [facility] Chloride 101 98 - 107 meq/L [facility] CO2 25 22 - 29 meq/L [facility] BUN 92 (H) 7 - 21 mg/dL [facility] Creatinine 2.52 (H) 0.57 - 1.25 mg/dL [facility] Glucose 135 (H) 70 - 105 mg/dL [facility] Calcium 8.7 8.4 - 10.2 mg/dL [facility] EGFR 26Comment: ESTIMATED GFR IS mL/min/1.73 sq m [facility] NOT ACCURATE [facility] CLEARANCE IN PREDICTING GLOMERULAR FILTRATION RATE. ESTIMATED GFR IS NOT APPLICABLE FOR DIALYSIS PATIENTS. Specimen Blood Performing Organization Address City/State/Zipcode Phone Number [facility] [address] [place] [address] [phone] CENTER CBC (Hemogram only) (08/11/2017 4:09 PM CDT) WBC 10.3 3.5 - 10.5 K/L [facility] RBC 3.01 (L) 4.63 - 6.08 M/L [facility] Hemoglobin 8.5 (L) 13.7 - 17.5 GM/DL [facility] Hematocrit 27.0 (L) 40.1 - 51.0 % [facility] MCV 89.7 79.0 - 92.2 fL [facility] MCH 28.2 25.7 - 32.2 pg [facility] MCHC 31.5 (L) 32.3 - 36.5 GM/DL [facility] RDW 15.8 (H) 11.6 - 14.4 % [facility] Platelets 203 150 - 450 K/CU MM [facility] MPV 10.5 9.4 - 12.4 fL [facility] nRBC 0 0 - 0 /100 WBC [facility] Specimen Blood Performing Organization Address City/State/Zipcode Phone Number [facility] [address] [place] [address] [phone] CENTER Type and screen, automated (08/10/2017 5:01 PM CDT) ABO/RH AUTOMATED (BEAKER) A POSITIVE [facility] Ab Scrn NEGATIVE [facility] Specimen Blood Performing Organization Address City/State/Zipcode Phone Number [facility] [address] [place] [address] Comprehensive metabolic panel (08/10/2017 5:01 PM CDT) Protein, Total 6.5Comment: Specimen 6.0 - 8.3 gm/dL [facility] slightly hemolyzed [facility] Albumin 2.9 (L)Comment: Specimen 3.5 - 5.0 g/dL [facility] slightly hemolyzed [facility] Alkaline Phosphatase 135 40 - 150 U/L [facility] Total Bilirubin 0.5Comment: Specimen 0.2 - 1.2 mg/dL [facility] slightly hemolyzed [facility] Sodium 135 (L) 136 - 145 meq/L [facility] Potassium 3.7Comment: Specimen 3.5 - 5.1 meq/L [facility] slightly hemolyzed [facility] Chloride 98 98 - 107 meq/L [facility] CO2 26 22 - 29 meq/L [facility] BUN 103 (H) 7 - 21 mg/dL [facility] Creatinine 2.59 (H)Comment: 0.57 - 1.25 mg/dL [facility] Specimen [facility] hemolyzed Glucose 64 (L) 70 - 105 mg/dL [facility] Calcium 8.8 8.4 - 10.2 mg/dL [facility] AST 15Comment: Specimen 5 - 34 U/L [facility] slightly hemolyzed [facility] ALT 13Comment: Specimen 6 - 55 U/L [facility] slightly hemolyzed [facility] EGFR 25Comment: ESTIMATED GFR mL/min/1.73 sq m [facility] IS NOT ACCURATE [facility] CREATININE CLEARANCE IN PREDICTING GLOMERULAR FILTRATION RATE. ESTIMATED GFR IS NOT APPLICABLE FOR DIALYSIS PATIENTS. Specimen Blood Performing Organization Address City/State/Zipcode Phone Number [facility] [address] [place] [address] CENTER after 06/02/2017 Insurance Payer Benefit Plan / Group Subscriber ID Type Phone Address MEDICARE MEDICARE A B xxxxxxxxxx Medicare Advance Directives For more information, please contact:[facility] [place], [place] [phone] Code Status Date Activated Date Inactivated Comments Full Code 08/10/2017 2:43 PM 08/12/2017 8:24 PM This code status was determined by: Patient
--- OUTSIDE RECORDS SUMMARY | 2018-06-03 10:26 | XMS REPORT ---
:1950 [facility] Address [address] [place] [address] Care Team Providers Name Role Phone DAMIEN [...] (BEAKER) (test 261 mg/dL 70-110 TESTED AT [facility] [address] utpj=[id number]) [facility] [address] POCT-GLUCOSE [id number] 11:33:00 Test Item Value Reference Range Comments POC-GLUCOSE METER (BEAKER) 198 mg/dL 70-110 TESTED AT [facility] [address] (test iiip=6182) [facility] [address] CBC W/PLT COUNT & AUTO [id number] 09:37:00 Test Item Value Reference Range Comments WHITE BLOOD CELL COUNT (BEAKER) (test ijhk=141) 11.7 K/ L 3.5-10.5 RED BLOOD CELL COUNT (BEAKER) (test aewg=005) 2.99 M/ L 4.63-6.08 HEMOGLOBIN (BEAKER) (test smvq=889) 8.7 GM/DL 13.7-17.5 HEMATOCRIT (BEAKER) (test lpbb=277) 27.5 % 40.1-51.0 MEAN CORPUSCULAR VOLUME (BEAKER) (test ztoq=949) 92.0 fL 79.0-92.2 MEAN CORPUSCULAR HEMOGLOBIN (BEAKER) (test 29.1 pg 25.7-32.2 munm=198) MEAN CORPUSCULAR HEMOGLOBIN CONC (BEAKER) (test 31.6 GM/DL 32.3-36.5 yfsb=499) RED CELL DISTRIBUTION WIDTH (BEAKER) (test 16.0 % 11.6-14.4 rqry=230) PLATELET COUNT (BEAKER) (test witc=204) 213 K/CU MM 150-450 MEAN PLATELET VOLUME (BEAKER) (test segl=531) 10.7 fL 9.4-12.4 NUCLEATED RED BLOOD CELLS (BEAKER) (test 0 /100 WBC 0-0 cpyc=555) NEUTROPHILS RELATIVE PERCENT (BEAKER) (test 81 % bodj=908) LYMPHOCYTES RELATIVE PERCENT (BEAKER) (test 6 % yulb=510) MONOCYTES RELATIVE PERCENT (BEAKER) (test 10 % qqgx=218) EOSINOPHILS RELATIVE PERCENT (BEAKER) (test 2 % ziit=064) BASOPHILS RELATIVE PERCENT (BEAKER) (test 0 % rmcg=179) NEUTROPHILS ABSOLUTE COUNT (BEAKER) (test 9.49 K/ L 1.78-5.38 nquu=724) LYMPHOCYTES ABSOLUTE COUNT (BEAKER) (test 0.73 K/ L 1.32-3.57 dkeg=329) MONOCYTES ABSOLUTE COUNT (BEAKER) (test 1.13 K/ L 0.30-0.82 ggol=572) EOSINOPHILS ABSOLUTE COUNT (BEAKER) (test 0.19 K/ L 0.04-0.54 dbyu=671) BASOPHILS ABSOLUTE COUNT (BEAKER) (test 0.03 K/ L 0.01-0.08 evmi=326) IMMATURE GRANULOCYTES-RELATIVE PERCENT (BEAKER) 1 % 0-1 (test jibp=2067) POCT-GLUCOSE [id number] 07:52:00 Test Item Value Reference Range Comments POC-GLUCOSE METER (BEAKER) 126 mg/dL 70-110 TESTED AT [address] (test nlyu=4570) [facility] [address] CALCIUM, [id number] 06:39:00 Test Item Value Reference Range Comments CALCIUM IONIZED (BEAKER) (test cmub=055) 1.02 mmol/L 1.12-1.27 PH, BLOOD (BEAKER) (test vtia=4711) 7.43 LIPID [id number] 05:57:00 Test Item Value Reference Range Comments TRIGLYCERIDES (BEAKER) (test wqds=978) 54 mg/dL CHOLESTEROL (BEAKER) (test negn=770) 96 mg/dL HDL CHOLESTEROL (BEAKER) (test icxt=327) 29 mg/dL LDL CHOLESTEROL CALCULATED (BEAKER) (test gapq=506) 56 mg/dL Triglyceride Reference Range: Low Risk <150 Borderline 150- 199 High Risk 200-499 Very High Risk >=500Cholesterol Reference Range: Low Risk <200 Borderline 200-239 High Risk > 240HDL Cholesterol Reference Range: Low Risk >=60 High Risk <40LDL Cholesterol Reference Range: Optimal <100 Near Optimal 100-129 Borderline 130-159 High 160-189 Very High >=190BASIC METABOLIC [id number] 05:56:00 Test Item Value Reference Range Comments SODIUM (BEAKER) (test 135 meq/L 136-145 rwja=335) POTASSIUM (BEAKER) (test 3.7 meq/L 3.5-5.1 rmle=024) CHLORIDE (BEAKER) (test 101 meq/L 98-107 corw=411) CO2 (BEAKER) (test 25 meq/L 22-29 xmne=312) BLOOD UREA NITROGEN 92 mg/dL 7-21 (BEAKER) (test yszg=813) CREATININE (BEAKER) (test 2.52 mg/dL 0.57-1.25 bsvx=099) GLUCOSE RANDOM (BEAKER) 135 mg/dL 70-105 (test epqb=181) CALCIUM (BEAKER) (test 8.7 mg/dL 8.4-10.2 zygw=715) EGFR (BEAKER) (test 26 mL/min/1.73 sq m ESTIMATED GFR IS NOT zohg=4596) ACCURATE CREATININE CLEARANCE IN PREDICTING GLOMERULAR FILTRATION RATE. ESTIMATED GFR IS NOT APPLICABLE FOR DIALYSIS PATIENTS. [id number] 05:48:00 Test Item Value Reference Range Comments MAGNESIUM (BEAKER) (test dzhk=085) 1.6 mg/dL 1.6-2.6 HEPATIC FUNCTION [id number] 05:48:00 Test Item Value Reference Range Comments TOTAL PROTEIN (BEAKER) (test pgeq=151) 6.3 gm/dL 6.0-8.3 ALBUMIN (BEAKER) (test yrrh=3681) 2.9 g/dL 3.5-5.0 BILIRUBIN TOTAL (BEAKER) (test cdwe=292) 0.4 mg/dL 0.2-1.2 BILIRUBIN DIRECT (BEAKER) (test rzju=275) 0.3 mg/dL 0.1-0.5 ALKALINE PHOSPHATASE (BEAKER) (test bkca=306) 136 U/L 40-150 AST (SGOT) (BEAKER) (test chlx=636) 10 U/L 5-34 ALT (SGPT) (BEAKER) (test odoz=765) 9 U/L 6-55 PROTHROMBIN [id number] 05:37:00 Test Item Value Reference Range Comments PROTIME (BEAKER) (test kmtl=105) 18.1 seconds 11.7-14.7 INR (BEAKER) (test xeul=165) 1.5 <=5.9 RECOMMENDED COUMADIN/WARFARIN INR THERAPY RANGESSTANDARD DOSE: 2.0 - 3.0 Includes: PROPHYLAXIS forvenous thrombosis, systemic embolization; TREATMENT for venous thrombosis and/or pulmonary embolus.HIGH RISK: Target INR is 2.5-3.5 for patients with mechanical heart valves.POCT-GLUCOSE [id number] 21:34:00 Test Item Value Reference Range Comments POC-GLUCOSE METER (BEAKER) 260 mg/dL 70-110 TESTED AT [address] (test hupd=4610) [facility] [address] POCT-GLUCOSE [id number] 17:13:00 Test Item Value Reference Range Comments POC-GLUCOSE METER (BEAKER) 202 mg/dL 70-110 TESTED AT [address] (test pdon=0504) [facility] [address] CBC W/PLT COUNT & AUTO [id number] 16:36:00 Test Item Value Reference Range Comments WHITE BLOOD CELL COUNT (BEAKER) (test nina=016) 10.3 K/ L 3.5-10.5 RED BLOOD CELL COUNT (BEAKER) (test npgy=126) 3.01 M/ L 4.63-6.08 HEMOGLOBIN (BEAKER) (test qsmw=641) 8.5 GM/DL 13.7-17.5 HEMATOCRIT (BEAKER) (test niox=816) 27.0 % 40.1-51.0 MEAN CORPUSCULAR VOLUME (BEAKER) (test teex=766) 89.7 fL 79.0-92.2 MEAN CORPUSCULAR HEMOGLOBIN (BEAKER) (test 28.2 pg 25.7-32.2 ryri=542) MEAN CORPUSCULAR HEMOGLOBIN CONC (BEAKER) (test 31.5 GM/DL 32.3-36.5 sojg=003) RED CELL DISTRIBUTION WIDTH (BEAKER) (test 15.8 % 11.6-14.4 vhxa=233) PLATELET COUNT (BEAKER) (test onjl=622) 203 K/CU MM 150-450 MEAN PLATELET VOLUME (BEAKER) (test pdyl=851) 10.5 fL 9.4-12.4 NUCLEATED RED BLOOD CELLS (BEAKER) (test 0 /100 WBC 0-0 satj=851) NEUTROPHILS RELATIVE PERCENT (BEAKER) (test 83 % pivp=445) LYMPHOCYTES RELATIVE PERCENT (BEAKER) (test 7 % rmym=404) MONOCYTES RELATIVE PERCENT (BEAKER) (test 8 % yvkv=379) EOSINOPHILS RELATIVE PERCENT (BEAKER) (test 1 % bwpi=714) BASOPHILS RELATIVE PERCENT (BEAKER) (test 0 % fpgw=160) NEUTROPHILS ABSOLUTE COUNT (BEAKER) (test 8.57 K/ L 1.78-5.38 hdww=571) LYMPHOCYTES ABSOLUTE COUNT (BEAKER) (test 0.71 K/ L 1.32-3.57 riqn=903) MONOCYTES ABSOLUTE COUNT (BEAKER) (test 0.78 K/ L 0.30-0.82 jbqi=197) EOSINOPHILS ABSOLUTE COUNT (BEAKER) (test 0.09 K/ L 0.04-0.54 sstl=799) BASOPHILS ABSOLUTE COUNT (BEAKER) (test 0.04 K/ L 0.01-0.08 ezmm=728) IMMATURE GRANULOCYTES-RELATIVE PERCENT (BEAKER) 1 % 0-1 (test mvae=4140) CBC (HEMOGRAM ONLY)[id number] 16:30:00 Test Item Value Reference Range Comments WHITE BLOOD CELL COUNT (BEAKER) (test jufo=031) 10.3 K/ L 3.5-10.5 RED BLOOD CELL COUNT (BEAKER) (test ulrt=289) 3.01 M/ L 4.63-6.08 HEMOGLOBIN (BEAKER) (test szml=664) 8.5 GM/DL 13.7-17.5 HEMATOCRIT (BEAKER) (test fstl=050) 27.0 % 40.1-51.0 MEAN CORPUSCULAR VOLUME (BEAKER) (test sxam=232) 89.7 fL 79.0-92.2 MEAN CORPUSCULAR HEMOGLOBIN (BEAKER) (test 28.2 pg 25.7-32.2 htbf=887) MEAN CORPUSCULAR HEMOGLOBIN CONC (BEAKER) (test 31.5 GM/DL 32.3-36.5 akgh=341) RED CELL DISTRIBUTION WIDTH (BEAKER) (test 15.8 % 11.6-14.4 agob=727) PLATELET COUNT (BEAKER) (test mixi=766) 203 K/CU MM 150-450 MEAN PLATELET VOLUME (BEAKER) (test mxzy=923) 10.5 fL 9.4-12.4 NUCLEATED RED BLOOD CELLS (BEAKER) (test 0 /100 WBC 0-0 icbu=530) POCT-GLUCOSE [id number] 12:32:00 Test Item Value Reference Range Comments POC-GLUCOSE METER (BEAKER) 209 mg/dL 70-110 TESTED AT [address] (test pekd=2592) [facility] [address] POCT-GLUCOSE [id number] 07:51:00 Test Item Value Reference Range Comments POC-GLUCOSE METER (BEAKER) 101 mg/dL 70-110 TESTED AT [address] (test hfhs=6430) [facility] [address] CALCIUM, [id number] 06:35:00 Test Item Value Reference Range Comments CALCIUM IONIZED (BEAKER) (test ilmo=544) 1.03 mmol/L 1.12-1.27 PH, BLOOD (BEAKER) (test zzlm=9579) 7.39 BASIC METABOLIC [id number] 05:22:00 Test Item Value Reference Range Comments SODIUM (BEAKER) (test 135 meq/L 136-145 tspw=731) POTASSIUM (BEAKER) (test 3.6 meq/L 3.5-5.1 sgbj=372) CHLORIDE (BEAKER) (test 99 meq/L 98-107 scnc=830) CO2 (BEAKER) (test 25 meq/L 22-29 wxhy=363) BLOOD UREA NITROGEN 106 mg/dL 7-21 (BEAKER) (test ihhq=581) CREATININE (BEAKER) (test 2.58 mg/dL 0.57-1.25 bnut=132) GLUCOSE RANDOM (BEAKER) 105 mg/dL 70-105 (test nzgq=898) CALCIUM (BEAKER) (test 8.6 mg/dL 8.4-10.2 zwlp=072) EGFR (BEAKER) (test 25 mL/min/1.73 sq m ESTIMATED GFR IS NOT atzu=8660) ACCURATE CREATININE CLEARANCE IN PREDICTING GLOMERULAR FILTRATION RATE. ESTIMATED GFR IS NOT APPLICABLE FOR DIALYSIS PATIENTS. [id number] 05:20:00 Test Item Value Reference Range Comments MAGNESIUM (BEAKER) (test uigl=806) 1.5 mg/dL 1.6-2.6 LIPID [id number] 05:20:00 Test Item Value Reference Range Comments TRIGLYCERIDES (BEAKER) (test eglf=901) 62 mg/dL CHOLESTEROL (BEAKER) (test fjde=829) 87 mg/dL HDL CHOLESTEROL (BEAKER) (test oeyo=368) 28 mg/dL LDL CHOLESTEROL CALCULATED (BEAKER) (test nykp=133) 47 mg/dL Triglyceride Reference Range: Low Risk <150 Borderline 150- 199 High Risk 200-499 Very High Risk >=500Cholesterol Reference Range: Low Risk <200 Borderline 200-239 High Risk > 240HDL Cholesterol Reference Range: Low Risk >=60 High Risk <40LDL Cholesterol Reference Range: Optimal <100 Near Optimal 100-129 Borderline 130-159 High 160-189 Very High >=190HEPATIC FUNCTION [id number] 05:20:00 Test Item Value Reference Range Comments TOTAL PROTEIN (BEAKER) (test cdwg=969) 6.3 gm/dL 6.0-8.3 ALBUMIN (BEAKER) (test gjzc=1545) 2.9 g/dL 3.5-5.0 BILIRUBIN TOTAL (BEAKER) (test uljh=192) 0.4 mg/dL 0.2-1.2 BILIRUBIN DIRECT (BEAKER) (test ugcr=144) 0.2 mg/dL 0.1-0.5 ALKALINE PHOSPHATASE (BEAKER) (test einn=385) 135 U/L 40-150 AST (SGOT) (BEAKER) (test wtxc=166) 10 U/L 5-34 ALT (SGPT) (BEAKER) (test ofhr=668) 9 U/L 6-55 PROTHROMBIN [id number] 04:45:00 Test Item Value Reference Range Comments PROTIME (BEAKER) (test kgaj=296) 19.6 seconds 11.7-14.7 INR (BEAKER) (test ovjl=156) 1.7 <=5.9 RECOMMENDED COUMADIN/WARFARIN INR THERAPY RANGESSTANDARD DOSE: 2.0 - 3.0 Includes: PROPHYLAXIS forvenous thrombosis, systemic embolization; TREATMENT for venous thrombosis and/or pulmonary embolus.HIGH RISK: Target INR is 2.5-3.5 for patients with mechanical heart valves.CBC W/PLT COUNT & AUTO [id number] 04:41:00 Test Item Value Reference Range Comments WHITE BLOOD CELL COUNT 11.3 K/ L 3.5-10.5 (BEAKER) (test fyio=981) RED BLOOD CELL COUNT (BEAKER) 2.63 M/ L 4.63-6.08 (test luwx=803) HEMOGLOBIN (BEAKER) (test 7.4 GM/DL 13.7-17.5 xuwi=495) HEMATOCRIT (BEAKER) (test 24.0 % 40.1-51.0 rkcw=674) MEAN CORPUSCULAR VOLUME 91.3 fL 79.0-92.2 (BEAKER) (test rmel=915) MEAN CORPUSCULAR HEMOGLOBIN 28.1 pg 25.7-32.2 (BEAKER) (test dmsd=752) MEAN CORPUSCULAR HEMOGLOBIN 30.8 GM/DL 32.3-36.5 CONC (BEAKER) (test nqmf=688) RED CELL DISTRIBUTION WIDTH 16.1 % 11.6-14.4 (BEAKER) (test znfy=816) PLATELET COUNT (BEAKER) (test 202 K/CU MM 150-450 Discordant PLT result lccz=778) compared to previous result; a clinical correlation required. MEAN PLATELET VOLUME (BEAKER) 10.0 fL 9.4-12.4 (test dsiy=822) NUCLEATED RED BLOOD CELLS 0 /100 WBC 0-0 (BEAKER) (test xyie=373) NEUTROPHILS RELATIVE PERCENT 82 % (BEAKER) (test abnu=788) LYMPHOCYTES RELATIVE PERCENT 7 % (BEAKER) (test syrk=057) MONOCYTES RELATIVE PERCENT 8 % (BEAKER) (test chau=201) EOSINOPHILS RELATIVE PERCENT 2 % (BEAKER) (test lbsq=983) BASOPHILS RELATIVE PERCENT 0 % (BEAKER) (test aduk=680) NEUTROPHILS ABSOLUTE COUNT 9.28 K/ L 1.78-5.38 (BEAKER) (test lyqv=011) LYMPHOCYTES ABSOLUTE COUNT 0.81 K/ L 1.32-3.57 (BEAKER) (test bgex=548) MONOCYTES ABSOLUTE COUNT 0.85 K/ L 0.30-0.82 (BEAKER) (test bygo=659) EOSINOPHILS ABSOLUTE COUNT 0.18 K/ L 0.04-0.54 (BEAKER) (test taqh=971) BASOPHILS ABSOLUTE COUNT 0.04 K/ L 0.01-0.08 (BEAKER) (test dmvb=825) IMMATURE 1 % 0-1 GRANULOCYTES-RELATIVE PERCENT (BEAKER) (test jggb=3127) POCT-GLUCOSE [id number] 22:14:00 Test Item Value Reference Range Comments POC-GLUCOSE METER (BEAKER) 135 mg/dL 70-110 TESTED AT [facility] [address] (test ejqe=1293) [facility] [address] COMPREHENSIVE METABOLIC [id number] 18:13:00 Test Item Value Reference Range Comments TOTAL PROTEIN (BEAKER) 6.5 gm/dL 6.0-8.3 Specimen slightly (test nnzg=762) hemolyzed ALBUMIN (BEAKER) (test 2.9 g/dL 3.5-5.0 Specimen slightly tgbz=1726) hemolyzed ALKALINE PHOSPHATASE 135 U/L 40-150 (BEAKER) (test urvs=149) BILIRUBIN TOTAL (BEAKER) 0.5 mg/dL 0.2-1.2 Specimen slightly (test ltzl=151) hemolyzed SODIUM (BEAKER) (test 135 meq/L 136-145 vzhd=419) POTASSIUM (BEAKER) (test 3.7 meq/L 3.5-5.1 Specimen slightly dfca=521) hemolyzed CHLORIDE (BEAKER) (test 98 meq/L 98-107 syjf=016) CO2 (BEAKER) (test 26 meq/L 22-29 lmdo=868) BLOOD UREA NITROGEN 103 mg/dL 7-21 (BEAKER) (test fhdh=088) CREATININE (BEAKER) (test 2.59 mg/dL 0.57-1.25 Specimen slightly xzss=370) hemolyzed GLUCOSE RANDOM (BEAKER) 64 mg/dL 70-105 (test vwqd=063) CALCIUM (BEAKER) (test 8.8 mg/dL 8.4-10.2 zhga=813) AST (SGOT) (BEAKER) (test 15 U/L 5-34 Specimen slightly tqze=014) hemolyzed ALT (SGPT) (BEAKER) (test 13 U/L 6-55 Specimen slightly qjfx=881) hemolyzed EGFR (BEAKER) (test 25 mL/min/1.73 sq m ESTIMATED GFR IS NOT ucpl=9193) ACCURATE CREATININE CLEARANCE IN PREDICTING GLOMERULAR FILTRATION RATE. ESTIMATED GFR IS NOT APPLICABLE FOR DIALYSIS PATIENTS. CBC W/PLT COUNT & AUTO [id number] 17:37:00 Test Item Value Reference Range Comments WHITE BLOOD CELL COUNT (BEAKER) (test ipyd=686) 11.7 K/ L 3.5-10.5 RED BLOOD CELL COUNT (BEAKER) (test nslm=600) 2.94 M/ L 4.63-6.08 HEMOGLOBIN (BEAKER) (test afia=766) 8.4 GM/DL 13.7-17.5 HEMATOCRIT (BEAKER) (test ront=083) 26.2 % 40.1-51.0 MEAN CORPUSCULAR VOLUME (BEAKER) (test fynf=919) 89.1 fL 79.0-92.2 MEAN CORPUSCULAR HEMOGLOBIN (BEAKER) (test 28.6 pg 25.7-32.2 pphc=013) MEAN CORPUSCULAR HEMOGLOBIN CONC (BEAKER) (test 32.1 GM/DL 32.3-36.5 misw=902) RED CELL DISTRIBUTION WIDTH (BEAKER) (test 16.8 % 11.6-14.4 bory=976) PLATELET COUNT (BEAKER) (test rbrn=396) 313 K/CU MM 150-450 MEAN PLATELET VOLUME (BEAKER) (test hqkg=809) 12.1 fL 9.4-12.4 NUCLEATED RED BLOOD CELLS (BEAKER) (test 0 /100 WBC 0-0 fqdm=668) NEUTROPHILS RELATIVE PERCENT (BEAKER) (test 80 % yipp=846) LYMPHOCYTES RELATIVE PERCENT (BEAKER) (test 10 % klqk=965) MONOCYTES RELATIVE PERCENT (BEAKER) (test 7 % cmti=334) EOSINOPHILS RELATIVE PERCENT (BEAKER) (test 1 % qbrr=046) BASOPHILS RELATIVE PERCENT (BEAKER) (test 0 % qogl=000) NEUTROPHILS ABSOLUTE COUNT (BEAKER) (test 9.29 K/ L 1.78-5.38 gplf=783) LYMPHOCYTES ABSOLUTE COUNT (BEAKER) (test 1.18 K/ L 1.32-3.57 dwoa=912) MONOCYTES ABSOLUTE COUNT (BEAKER) (test 0.84 K/ L 0.30-0.82 norw=955) EOSINOPHILS ABSOLUTE COUNT (BEAKER) (test 0.14 K/ L 0.04-0.54 ldnw=738) BASOPHILS ABSOLUTE COUNT (BEAKER) (test 0.03 K/ L 0.01-0.08 eoye=822) IMMATURE GRANULOCYTES-RELATIVE PERCENT (BEAKER) 2 % 0-1 (test boeo=1290) POCT-GLUCOSE [id number] 15:37:00 Test Item Value Reference Range Comments POC-GLUCOSE METER (BEAKER) 83 mg/dL 70-110 TESTED AT [facility] [address] (test mggg=9920) [facility] [address]
[2018-06-03 10:46] LABS: Absolute Monocytes 1.6 K/uL (0.1-1.3); Basophils % 0.9 % (0-1.3); Eosinophils % 0.7 % (0-4.4); Hematocrit 29.2 % (39.6-49.0); Lymphocytes % 6.7 % (15.3-44.8); MPV 8.2 fL (7.6-11.3); Monocytes % 10.9 % (3.3-12.3); RBC Red Blood Cell Count 3.06 M/uL (4.33-5.43)
[2018-06-03 10:47] LABS: Protime INR 1.78
[2018-06-03] MEDS ORDERED: ONDANSETRON 4 MG/2 ML VIAL ONE (11:01)
[2018-06-03] MEDS ORDERED: FENTANYL CITR 100 MCG/2 ML ONE (11:01)
[2018-06-03 11:05] LABS: Albumin 1.9 g/dL (3.4-5.0); Bilirubin Direct 0.2 mg/dL (0-0.2); Bilirubin Total 0.4 mg/dL (0.2-1.0); Potassium 4.5 mmol/L (3.5-5.1); Protein, Total 6.4 g/dL (6.4-8.2)
--- NOTE | 2018-06-03 11:52 | ER ---
Nurse's Notes [facility] Name: Fausto Bird Age: 67 yrs Sex: Male : 1950 Arrival Date: 06/03/2018 Time: 10:16 Bed 4 Private MD: Diagnosis: Anasarca Presentation: 06/03 10:22 Presenting complaint: EMS states: SCROTAL SWELLING AND PAIN x5 DAYS. Transition of bp care: patient was received from another setting of care (long-term [facility]. Onset of symptoms is unknown. Risk Assessment: Do you want to hurt yourself or someone else? Patient reports no desire to harm self or others. Initial Sepsis Screen: Does the patient meet any 2 criteria? No. Patient's initial sepsis screen is negative. Does the patient have a suspected source of infection? No. Patient's initial sepsis screen is negative. Care prior to arrival: None. 10:22 Method Of Arrival: EMS: [facility] bp 10:22 Acuity: BLANCA 3 bp Triage Assessment: 10:26 General: Appears in no apparent distress. uncomfortable, obese, Behavior is calm, bp cooperative, appropriate for age. Pain: Complains of pain in groin. EENT: No deficits noted. Neuro: Level of Consciousness is awake, alert, obeys commands, Oriented to person, place, time, situation, Appropriate for age. Cardiovascular: No deficits noted. Respiratory: Airway is patent Respiratory effort is even, unlabored, Respiratory pattern is regular, symmetrical. GI: Abdomen is distended, obese, Abd is soft X 4 quads. : Swelling noted. Derm: No deficits noted. Musculoskeletal: Circulation, motion, and sensation intact. Historical: - Allergies: 10:32 bactrim-topical; bp 10:32 MUPIROCIN; bp - Home Meds: 11:32 Glipizide Oral [Active]; Insulin Glargine Sub-Q [Active]; Tylenol #4 Oral [Active]; bp Simvastatin Oral [Active]; Metoprolol Tartrate Oral [Active]; metolazone oral oral [Active]; Klor-Con M20 Oral [Active]; Furosemide Oral [Active]; Digoxin Oral [Active]; Allopurinol Oral [Active]; Hydralazine Oral [Active]; - PMHx: 11:27 CHOLECYSTITIS; bp 11:32 Atrial Fib; CHF; Hypertension; Hyperlipidemia; Diabetes - IDDM; ESRD; COPD; anemic; bp Cellulitis; lymphedema; Myocardial infarction; - Immunization history:: Adult Immunizations up to date. - Social history:: Smoking status: Patient/guardian denies using tobacco. - Ebola Screening: : Patient negative for fever greater than or equal to 101.5 degrees Fahrenheit, and additional compatible Ebola Virus Disease symptoms Patient denies exposure to infectious person Patient denies travel to an Ebola-affected area in the 21 days before illness onset No symptoms or risks identified at this time. Screenin:28 Abuse screen: Denies threats or abuse. Denies injuries from another. Nutritional bp screening: No deficits noted. Tuberculosis screening: No symptoms or risk factors identified. Fall Risk None identified. Assessment: 10:28 General: SEE TRIAGE NOTE. bp 11:14 Reassessment: UNABLE TO PASS HAYLEE SANON AT B/S. bp 12:23 Reassessment: Pt is resting at this time, eyes closed. Respirations remain even and ss unlabored. 12:45 Reassessment: Report called to nurse Mindy at [facility]. Patient reports that his ss pain is much better. Awaiting transportation from [facility]. 13:20 Reassessment: Pt c/o feeling tired. Recheck bgl which was 48. Pt drinking juice and ss eating peanut butter with jose crackers. Diet tray ordered. Klaus Leary notified immediately, 0.5 amp D50 ordered and administered. Pt is awake, alert. Respirations remain even and unlabored. No signs of distress noted. Call light remains within reach. 14:24 Reassessment: Pt has no complaints at this time. Called nurse Mindy at [facility] who ss states that she just got off the phone with [facility] for transportation to arrange transport. She spoke with Mery, with [facility] who states that they do not know when transportation will be available, but will come as soon as they can. 15:24 Reassessment: Called [facility], ETA is 1600 or 1615. iw 15:48 Reassessment: Assisted patient with use of urinal. Cleaned patient of small amount of ss bowel incontinence. Small Stage II decubitus ulcers noted to sacrum and below bilateral buttocks. Patient reports that he has been receiving treatment for these for the past since his previous admission. Patient repositioned with total assist onto L side. 15:54 Reassessment: awaiting transportation to arrive. ss Vital Signs: 10:24 BP 130 / 43; Pulse 52; Resp 16; Temp 98; Pulse Ox 100% ; Weight 139.25 kg; Height 6 ft. bp (182.88 cm); 11:14 BP 139 / 50; Pulse 70; Resp 19; Pulse Ox 99% ; bp 12:45 BP 106 / 58; Pulse 55; Resp 18; Pulse Ox 97% on R/A; ss 13:22 BP 107 / 53; Pulse 61; Resp 17; Pulse Ox 99% ; bp 15:48 BP 130 / 53; Pulse 65; Resp 16; Pulse Ox 98% on R/A; Pain 2/10; ss 10:24 Body Mass Index 41.64 (139.25 kg, 182.88 cm) bp ED Course: 10:16 Patient arrived in ED. jr8 10:20 Klaus Leary PA is PHCP. jr8 10:20 Steve Pereira MD is Attending Physician. jr8 10:22 Keny King, BEBO is Primary Nurse. bp 10:24 Triage completed. bp 10:26 Arm band placed on. bp 10:28 Patient has correct armband on for positive identification. Placed in gown. Bed in low bp position. Call light in reach. Side rails up X2. 10:44 Initial lab(s) drawn, by co, sent to lab. Inserted saline lock: 20 gauge in left wrist, ms using aseptic technique. Blood collected. 11:26 EKG done, by wheel alignment technician. reviewed by Klaus CARLTON. at1 11:51 Gypsy Ramos MD is Referral Physician. jr8 16:19 No provider procedures requiring assistance completed. IV discontinued, intact, ss bleeding controlled, No redness/swelling at site. Pressure dressing applied. Administered Medications: 10:53 Drug: Zofran 4 mg Route: IVP; Site: left wrist; ss 12:23 Follow up: Response: No adverse reaction ss 10:58 Drug: fentaNYL (PF) 75 mcg Route: IVP; Site: left wrist; ss 11:55 Follow up: Response: No adverse reaction; Pain is decreased ss 12:10 Drug: Lasix 80 mg Route: IVP; Site: left forearm; bp 12:39 Follow up: Response: No adverse reaction bp 13:17 Drug: D50W 25 ml Route: IVP; Site: left wrist; ss 13:53 Follow up: Response: Blood sugar is elevated bp Point of Care Testing: Blood Glucose: 13:18 Blood Glucose: 48 mg/dL; ss 13:45 Blood Glucose: 126 mg/dL; Ranges: Outcome: 11:51 Discharge ordered by MD. dumont 16:19 Discharged to [facility]. Report called to MINDY hours ago ss 16:19 Condition: good 16:19 Discharge instructions given to patient, [facility], EMS, Instructed on discharge instructions, follow up and referral plans. medication usage, Demonstrated understanding of instructions, follow-up care, medications, wound care, Prescriptions given X 1. 16:21 Patient left the ED. ss Signatures: Penelope Perez, RN RN Trish Norman ms, Shelby, RN RN Klaus Leary PA PA jr8 Octavia Akbar, chief technologist EKG Tat1 Keny King RN RN bp Corrections: (The following items were deleted from the chart) 13:42 13:22 BP 107 / 53; Pulse 61bpm; bp
--- NOTE | 2018-06-03 11:52 | EDPHYS ---
Physician Documentation [facility] Name: Fausto Bird Age: 67 yrs Sex: Male : 1950 Arrival Date: 06/03/2018 Time: 10:16 Bed 4 Private MD: ED Physician Steve Pereira HPI: 06/03 11:16 This 67 yrs old Male presents to ER via EMS with complaints of Scrotal jr8 swelling and pain. 11:16 Patient stated that for the past 2-3 days or so he has had increased swelling and pain jr8 to scrotum. Noticed increase in abdominal size and lower extremity swelling . Severity of symptoms: At their worst the symptoms were moderate in the emergency department the symptoms are unchanged. The patient has experienced a previous episode. The patient has not recently seen a physician. Historical: - Allergies: 10:32 bactrim-topical; bp 10:32 MUPIROCIN; bp - Home Meds: 11:32 Glipizide Oral [Active]; Insulin Glargine Sub-Q [Active]; Tylenol #4 Oral [Active]; bp Simvastatin Oral [Active]; Metoprolol Tartrate Oral [Active]; metolazone oral oral [Active]; Klor-Con M20 Oral [Active]; Furosemide Oral [Active]; Digoxin Oral [Active]; Allopurinol Oral [Active]; Hydralazine Oral [Active]; - PMHx: 11:27 CHOLECYSTITIS; bp 11:32 Atrial Fib; CHF; Hypertension; Hyperlipidemia; Diabetes - IDDM; ESRD; COPD; anemic; bp Cellulitis; lymphedema; Myocardial infarction; - Immunization history:: Adult Immunizations up to date. - Social history:: Smoking status: Patient/guardian denies using tobacco. - Ebola Screening: : Patient negative for fever greater than or equal to 101.5 degrees Fahrenheit, and additional compatible Ebola Virus Disease symptoms Patient denies exposure to infectious person Patient denies travel to an Ebola-affected area in the 21 days before illness onset No symptoms or risks identified at this time. ROS: 11:16 Eyes: Negative for injury, pain, redness, and discharge, ENT: Negative for injury, jr8 pain, and discharge, Neck: Negative for injury, pain, and swelling, Respiratory: Negative for shortness of breath, cough, wheezing, and pleuritic chest pain, Abdomen/GI: Negative for abdominal pain, nausea, vomiting, diarrhea, and constipation, Back: Negative for injury and pain, MS/Extremity: Negative for injury and deformity, Skin: Negative for injury, rash, and discoloration, Neuro: Negative for headache, weakness, numbness, tingling, and seizure. 11:16 Cardiovascular: Positive for edema. 11:16 : Positive for testicular pain Exam: 11:16 Eyes: Pupils equal round and reactive to light, extra-ocular motions intact. Lids and jr8 lashes normal. Conjunctiva and sclera are non-icteric and not injected. Cornea within normal limits. Periorbital areas with no swelling, redness, or edema. ENT: Nares patent. No nasal discharge, no septal abnormalities noted. Tympanic membranes are normal and external auditory canals are clear. Oropharynx with no redness, swelling, or masses, exudates, or evidence of obstruction, uvula midline. Mucous membranes moist. Neck: Trachea midline, no thyromegaly or masses palpated, and no cervical lymphadenopathy. Supple, full range of motion without nuchal rigidity, or vertebral point tenderness. No Meningismus. Respiratory: Lungs have equal breath sounds bilaterally, clear to auscultation and percussion. No rales, rhonchi or wheezes noted. No increased work of breathing, no retractions or nasal flaring. Abdomen/GI: Soft, non-tender, with normal bowel sounds. No distension or tympany. No guarding or rebound. No evidence of tenderness throughout. Back: No spinal tenderness. No costovertebral tenderness. Full range of motion. Skin: Warm, dry with normal turgor. Normal color with no rashes, no lesions, and no evidence of cellulitis. MS/ Extremity: Pulses equal, no cyanosis. Neurovascular intact. Full, normal range of motion. Neuro: Awake and alert, GCS 15, oriented to person, place, time, and situation. Cranial nerves II-XII grossly intact. Motor strength 5/5 in all extremities. Sensory grossly intact. Cerebellar exam normal. Normal gait. 11:16 Cardiovascular: Rate: bradycardic, Rhythm: irregularly irregular, Pulses: Pulses are 2+ in right radial artery and left radial artery. Heart sounds: normal, normal S1and S2, no S3 or S4, no murmur, no rub, no gallop, Edema: 3+ edema to level of waist, pubic area, left upper thigh, left lower thigh, left knee, left midcalf, left ankle, left foot, left toes, right upper thigh, right lower thigh, right knee, right midcalf, right ankle, right foot and right toes. 11:52 ECG was reviewed by the Attending Physician. jr8 Vital Signs: 10:24 BP 130 / 43; Pulse 52; Resp 16; Temp 98; Pulse Ox 100% ; Weight 139.25 kg; Height 6 ft. bp (182.88 cm); 11:14 BP 139 / 50; Pulse 70; Resp 19; Pulse Ox 99% ; bp 12:45 BP 106 / 58; Pulse 55; Resp 18; Pulse Ox 97% on R/A; ss 13:22 BP 107 / 53; Pulse 61; Resp 17; Pulse Ox 99% ; bp 15:48 BP 130 / 53; Pulse 65; Resp 16; Pulse Ox 98% on R/A; Pain 2/10; ss 10:24 Body Mass Index 41.64 (139.25 kg, 182.88 cm) bp MDM: 10:20 Patient medically screened. jr8 11:16 Data reviewed: vital signs, nurses notes, lab test result(s). Data interpreted: Pulse jr8 oximetry: on room air is 99 %. Interpretation: normal. Counseling: I had a detailed discussion with the patient and/or guardian regarding: the historical points, exam findings, and any diagnostic results supporting the discharge/admit diagnosis, the need for further work-up and treatment in the hospital. Physician consultation: Gypsy Ramos MD was called at 11:18, was contacted at 11:50, regarding consult, would like medications started, Lasix, . 11:50 ED course: Dr. Richard khan with having him worked up more out patient castillo. Will julia increase his dialysis and add lasix 80 QD . 06/03 10:20 Order name: Basic Metabolic Panel; Complete Time: 11:13 8 06/03 10:20 Order name: CBC with Diff; Complete Time: 13:00 8 06/03 10:20 Order name: LFT's; Complete Time: 11:8 06/03 10:20 Order name: Magnesium; Complete Time: 11:8 06/03 10:20 Order name: NT PRO-BNP; Complete Time: 11:13 06/03 10:20 Order name: PT-INR; Complete Time: 10:51 06/03 10:20 Order name: EKG; Complete Time: 10:21 06/03 10:50 Order name: CBC Smear Scan EDFL 06/03 12:58 Order name: Manual Differential; Complete Time: 13:00 EDFL 06/03 13:19 Order name: Glucose, Ancillary Testing; Complete Time: 13:31 EDFL 06/03 10:20 Order name: Cardiac monitoring; Complete Time: :06/03 10:20 Order name: EKG - Nurse/Tech; Complete Time: 11:15 06/03 10:20 Order name: IV Saline Lock; Complete Time: 06/03 10:20 Order name: Labs collected and sent; Complete Time: 06/03 10:20 Order name: O2 Per Protocol; Complete Time: 06/03 10:20 Order name: O2 Sat Monitoring; Complete Time: 06/03 13:09 Order name: Diet Ada 1800 Martin; Complete Time: 13:10 eb EC:52 Rate is 60 beats/min. Rhythm is irregularly irregular, A fib. QRS [place] is Normal. QRS jr8 interval is prolonged at 132 msec. QT interval is normal at 418 msec. Q waves are Present in lead III. T waves are Inverted. No ST changes noted. Clinical impression: Atrial Fibrillation. Interpreted by me. Reviewed by me. Administered Medications: 10:53 Drug: Zofran 4 mg Route: IVP; Site: left wrist; ss 12:23 Follow up: Response: No adverse reaction ss 10:58 Drug: fentaNYL (PF) 75 mcg Route: IVP; Site: left wrist; ss 11:55 Follow up: Response: No adverse reaction; Pain is decreased ss 12:10 Drug: Lasix 80 mg Route: IVP; Site: left forearm; bp 12:39 Follow up: Response: No adverse reaction bp 13:17 Drug: D50W 25 ml Route: IVP; Site: left wrist; ss 13:53 Follow up: Response: Blood sugar is elevated bp Point of Care Testing: Blood Glucose: 13:18 Blood Glucose: 48 mg/dL; ss 13:45 Blood Glucose: 126 mg/dL; iw Ranges: Critical Glucose Levels:Adult <50 mg/dl or >400 mg/dl <40 mg/dl or >180 mg/dl Disposition: 17:12 Co-signature as Attending Physician, Steve Pereira MD. ma2 Disposition: 06/03/18 11:51 Discharged to Home. Impression: Anasarca. - Condition is Stable. - Discharge Instructions: Edema. - Medication Reconciliation Form, Thank You Letter, Antibiotic Education, Prescription Opioid Use form. - Follow up: Gypsy Ramos MD; When: 2 - 3 days; Reason: Recheck today's complaints, Continuance of care, Re-evaluation by your physician. - Problem is new. - Symptoms have improved. Signatures: Dispatcher [employer] EDMS Latisha Flowers RN RN Klaus Leary PA PA jr8 Keny King RN RN Steve Pereira MD MD ma2 Corrections: (The following items were deleted from the chart) 11:17 11:16 The patient has not experienced similar symptoms in the past, jr8 jr8 11:51 11:16 Physician consultation: Gypsy Ramos MD was called at 11:18, regarding consult, jr8 awaiting call back , jr8 12:43 11:16 Patient stated that for the past week or so he has had increased swelling and jr8 pain to scrotum. Noticed increase in abdominal size and lower extremity swelling . jr8 16:21 11:51 06/03/2018 11:51 Discharged to Home. Impression: Anasarca. Condition is Stable. ss Forms are Medication Reconciliation Form, Thank You Letter, Antibiotic Education, Prescription Opioid Use. Follow up: Gypsy Ramos; When: 2 - 3 days; Reason: Recheck today's complaints, Continuance of care, Re-evaluation by your physician. Problem is new. Symptoms have improved. jr8
[2018-06-03] MEDS ORDERED: FUROSEMIDE 100 MG/10 ML VIAL IV ONE (12:48)
[2018-06-03 12:57] LABS: Urine White Blood Cell Casts 0
[2018-06-03 12:58] LABS: Anisocytosis 2+; Blood Morphology Comment NOTED (NOT SEEN); Platelet Estimate ADEQ; Toxic Granulation 1+
[2018-06-03] MEDS ORDERED: D50W 25 GM/50 ML SYRINGE IV ONE (13:27)
[2018-06-03 16:46] VITALS: TEMP 98
[2018-06-03 16:51] VITALS: BP 130/53; O2SAT 98
--- NOTE | 2018-06-04 10:31 | EKG ---
Test Date: 2018-06-03 Test Time: 11:18:29 Puller Through: BOOM MEASUREMENT RESULTS: Intervals: Rate: 60 MO: QRSD: 132 QT: 418 QTc: 418 [place]: P: MO: QRS: 11 T: -27 INTERPRETIVE STATEMENTS: Atrial fibrillation with premature ventricular or aberrantly conducted complexes Right bundle branch block T wave abnormality, consider inferior ischemia or digitalis effect Abnormal ECG Compared to ECG 05/25/2018 07:30:46 Ventricular premature complex(es) now present T-wave abnormality now present Possible ischemia now present Myocardial infarct finding no longer present Electronically Signed On 06-04-18 10:28:33 CDT by Yannick Degroot
== END 2018-06-03 16:21 | disposition home or self-care (01) ==
LOC: ER 10:11
DX: R60.1 Generalized edema (principal); I10 Essential (primary) hypertension; I50.9 Heart failure, unspecified; N18.6 End stage renal disease; E11.8 Type 2 diabetes mellitus with unspecified complications; Z79.4 Long term (current) use of insulin; Z88.6 Allergy status to analgesic agent
CPT/HCPCS: 93005; 85025; 80048; 36415; 83735; 85610; 82962 ×2; 80076; 83880; 99284; J3010; J2405

== ENCOUNTER 2018-06-16 10:51 | Emergency (ER) | payer OTHER ==
--- OUTSIDE RECORDS SUMMARY | 2018-06-16 10:55 | XMS REPORT | Clinical Summary ---
:1950 Author Organization [facility] Address [address] [place] [address] Care Team Providers Name Role Phone Martín [...] Date Type Specialty Care Team Description 08/10/2017 [facility] Internal [place] Gastrointestinal hemorrhage, unspecified gastrointestinal hemorrhage type; - Encounter Medicine MD Elin IDDM (insulin dependent diabetes mellitus) ([facility]); 08/12/2017 Cathleen, Essential hypertension; Yashash D Hyperlipidemia, unspecified hyperlipidemia type; Atrial fibrillation, unspecified type ([facility]) 08/10/2017 Telephone Gastroenterology Serenity Edward MD after 06/15/2017 Social History Tobacco Use Types Packs/Day Years [...] TRANSFUSE STAT 03/17/2018 5:31 LEUKO-REDUCED RED PM FINANCIAL AID BLOOD CELLS TRANSFUSION SERVICE 08/13/2017 6:02 REPORT [...] procedure are in the results section. after 06/15/2017 Results Transfuse Leuko-Red RBC (03/17/2018 5:31 PM FINANCIAL AID)TRANSFUSION SERVICE REPORT - SCAN (08/13/2017 6:02 PM CDT)Only the most recent of2 resultswithin the time period is included. Narrative Performed At EKG-SCANNED (08/13/2017 2:01 PM CDT) Narrative Performed At RHYTHM STRIP - SCAN (08/13/2017 2:01 PM CDT) Narrative Performed At Prepare Leuko-Red RBC (08/12/2017 11:54 PM CDT) CROSSMATCH COMPATIBLE SAFETRACE TX Unit ABO A Pos SAFETRACE TX UNIT NUMBER [id number] SAFETRACE TX Status TRANSFUSED SAFETRACE TX Blood Bank Product RED BLOOD CELLS SAFETRACE TX PRODUCT CODE [id number] SAFETRACE TX Specimen Other Performing Organization Address City/[facility] Phone Number SAFETRACE TX POC-Glucose meter (08/12/2017 4:49 PM CDT)Only the most recent of9 resultswithin the time period is included. POC-Glucose Meter 261 (H)Comment: TESTED AT 70 - 110 mg/dL [address] [address] Specimen Blood Performing Organization Address City/[facility]/Zipcode Phone Number [address] [id number] [phone] CENTER CBC with platelet count + automated diff (08/12/2017 8:59 AM CDT)Only the most recent of4 resultswithin the time period is included. WBC 11.7 (H) 3.5 - 10.5 K/L [facility] RBC 2.99 (L) 4.63 - 6.08 M/L [facility] Hemoglobin 8.7 (L) 13.7 - 17.5 GM/DL [facility] Hematocrit 27.5 (L) 40.1 - 51.0 % [facility] MCV 92.0 79.0 - 92.2 fL [facility] MCH 29.1 25.7 - 32.2 pg [facility] MCHC 31.6 (L) 32.3 - 36.5 GM/DL [facility] RDW 16.0 (H) 11.6 - 14.4 % [facility] Platelets 213 150 - 450 K/CU MM [facility] MPV 10.7 9.4 - 12.4 fL [facility] nRBC 0 0 - 0 /100 WBC [facility] % Neutros 81 % [facility] % Lymphs 6 % [facility] % Monos 10 % [facility] % Eos 2 % [facility] % Baso 0 % [facility] # Neutros 9.49 (H) 1.78 - 5.38 K/L [facility] # Lymphs 0.73 (L) 1.32 - 3.57 K/L [facility] # Monos 1.13 (H) 0.30 - 0.82 K/L [facility] # Eos 0.19 0.04 - 0.54 K/L [facility] # Baso 0.03 0.01 - 0.08 K/L [facility] Immature Granulocytes-Relative 1 0 - 1 % [facility] Specimen Blood Performing Organization Address City/State/Zipcode Phone Number [facility] [address] [place] [address] [phone] CENTER Calcium, Ionized (08/12/2017 4:58 AM CDT)Only the most recent of2 resultswithin the time period is included. Calcium, Ion 1.02 (L) 1.12 - 1.27 mmol/L [facility] pH, Blood 7.43 [facility] Specimen Blood Performing Organization Address [facility] [place] [address] [place] Prothrombin time/INR (08/12/2017 4:58 AM CDT)Only the most recent of2 resultswithin the time period is included. Protime 18.1 (H) 11.7 - 14.7 seconds [facility] INR 1.5 <=5.9 [facility] Specimen Blood Narrative Performed At [facility] RECOMMENDED COUMADIN/WARFARIN INR THERAPY RANGES STANDARD DOSE: 2.0 - 3.0 Includes: PROPHYLAXIS for venous thrombosis, systemic embolization; TREATMENT for venous thrombosis and/or pulmonary embolus. HIGH RISK: Target INR is 2.5-3.5 for patients with mechanical heart valves. Performing Organization Address City/[facility] Phone Number [address] [address] CENTER Magnesium (08/12/2017 4:58 AM CDT)Only the most recent of2 resultswithin the time period is included. Magnesium 1.6 1.6 - 2.6 mg/dL [facility] Specimen Blood Performing Organization Address City/[facility] Phone Number [address] [address] [place] Hepatic function panel (08/12/2017 4:58 AM CDT)Only the most recent of2 resultswithin the time period is included. Protein, Total 6.3 6.0 - 8.3 gm/dL [facility] Albumin 2.9 (L) 3.5 - 5.0 g/dL [facility] Total Bilirubin 0.4 0.2 - 1.2 mg/dL [facility] Bilirubin, Direct 0.3 0.1 - 0.5 mg/dL [facility] Alkaline Phosphatase 136 40 - 150 U/L [facility] AST 10 5 - 34 U/L [facility] ALT 9 6 - 55 U/L [facility] Specimen Blood Performing Organization Address [facility] Phone Number [address] [address] [phone] [place] Lipid panel (08/12/2017 4:58 AM CDT)Only the most recent of2 resultswithin the time period is included. Triglycerides 54 mg/dL [facility] Cholesterol 96 mg/dL [facility] HDL 29 mg/dL [facility] LDL Calculated 56 mg/dL [facility] Specimen Blood Narrative Performed At [facility] Triglyceride Reference Range: Low Risk <150 [id number] High Risk 200-499 Very High Risk>=500 Cholesterol Reference Range: Low Risk <200 [id number] High Risk>240 HDL Cholesterol Reference Range: Low Risk >=60 High Risk <40 LDL Cholesterol Reference Range: Optimal<100 Near [id number] Very High >=190 Performing Organization Address City/[facility] Phone Number [facility] [address] [place] [address] [phone] [place] Basic metabolic panel (08/12/2017 4:58 AM CDT)Only the most recent of2 resultswithin the time period is included. Sodium 135 (L) 136 - 145 meq/L [facility] Potassium 3.7 3.5 - 5.1 meq/L [facility] Chloride 101 98 - 107 meq/L [facility] CO2 25 22 - 29 meq/L [facility] BUN 92 (H) 7 - 21 mg/dL [facility] Creatinine 2.52 (H) 0.57 - 1.25 mg/dL [facility] Glucose 135 (H) 70 - 105 mg/dL [facility] Calcium 8.7 8.4 - 10.2 mg/dL [facility] EGFR 26Comment: ESTIMATED GFR IS mL/min/1.73 sq m [facility] NOT ACCURATE [facility] CLEARANCE IN PREDICTING GLOMERULAR FILTRATION RATE. ESTIMATED GFR IS NOT APPLICABLE FOR DIALYSIS PATIENTS. Specimen Blood Performing Organization Address City/State/Zipcode Phone Number [facility] [address] [place] [address] CENTER CBC (Hemogram only) (08/11/2017 4:09 PM CDT) WBC 10.3 3.5 - 10.5 K/L [facility] RBC 3.01 (L) 4.63 - 6.08 M/L [facility] Hemoglobin 8.5 (L) 13.7 - 17.5 GM/DL [facility] Hematocrit 27.0 (L) 40.1 - 51.0 % [facility] MCV 89.7 79.0 - 92.2 fL [facility] MCH 28.2 25.7 - 32.2 pg [facility] MCHC 31.5 (L) 32.3 - 36.5 GM/DL [facility] RDW 15.8 (H) 11.6 - 14.4 % [facility] Platelets 203 150 - 450 K/CU MM [facility] MPV 10.5 9.4 - 12.4 fL [facility] nRBC 0 0 - 0 /100 WBC [facility] Specimen Blood Performing Organization Address City/State/Zipcode Phone Number [facility] [address] [place] [address] [phone] CENTER Type and screen, automated (08/10/2017 5:01 PM CDT) ABO/RH AUTOMATED (BEAKER) A POSITIVE [facility] Ab Scrn NEGATIVE [facility] Specimen Blood Performing Organization Address City/State/Zipcode Phone Number [facility] [address] [place] [address] Comprehensive metabolic panel (08/10/2017 5:01 PM CDT) Protein, Total 6.5Comment: Specimen 6.0 - 8.3 gm/dL slightly hemolyzed [facility] Albumin 2.9 (L)Comment: Specimen 3.5 - 5.0 g/dL slightly hemolyzed [facility] Alkaline Phosphatase 135 40 - 150 U/L [facility] Total Bilirubin 0.5Comment: Specimen 0.2 - 1.2 mg/dL slightly hemolyzed [facility] Sodium 135 (L) 136 - 145 meq/L [facility] Potassium 3.7Comment: Specimen 3.5 - 5.1 meq/L slightly hemolyzed [facility] Chloride 98 98 - 107 meq/L [facility] CO2 26 22 - 29 meq/L [facility] BUN 103 (H) 7 - 21 mg/dL [facility] Creatinine 2.59 (H)Comment: 0.57 - 1.25 mg/dL Specimen [facility] hemolyzed Glucose 64 (L) 70 - 105 mg/dL [facility] Calcium 8.8 8.4 - 10.2 mg/dL [facility] AST 15Comment: Specimen 5 - 34 U/L slightly hemolyzed [facility] ALT 13Comment: Specimen 6 - 55 U/L slightly hemolyzed [facility] EGFR 25Comment: ESTIMATED GFR mL/min/1.73 sq m IS NOT ACCURATE [facility] CREATININE CLEARANCE IN PREDICTING GLOMERULAR FILTRATION RATE. ESTIMATED GFR IS NOT APPLICABLE FOR DIALYSIS PATIENTS. Specimen Blood Performing Organization Address City/State/Zipcode Phone Number [facility] [address] [place] [address] [phone] CENTER after 06/15/2017 Insurance Payer Benefit Plan / Group Subscriber ID Type Phone Address MEDICARE MEDICARE A B xxxxxxxxxx Medicare Advance Directives For more information, please contact:[facility] [place], [place] [phone] Code Status Date Activated Date Inactivated Comments Full Code 08/10/2017 2:43 PM 08/12/2017 8:24 PM This code status was determined by: Patient
--- OUTSIDE RECORDS SUMMARY | 2018-06-16 10:56 | XMS REPORT ---
:1950 [facility] [address] [place] [address] Care Team Providers Name Role Phone DAMIEN [...] 261 mg/dL 70-[address] [facility] [address] [facility] dict=[phone]) [facility] [address] POCT-GLUCOSE [id number] 11:33:00 Test Item Value Reference Range Comments POC-GLUCOSE METER (BEAKER) 198 mg/dL 70-[address] [facility] [address] [facility] (test syja=5319) [facility] [address] CBC W/PLT COUNT & AUTO [id number] 09:37:00 Test Item Value Reference Range Comments WHITE BLOOD CELL COUNT (BEAKER) (test elfq=520) 11.7 K/ L 3.5-10.5 RED BLOOD CELL COUNT (BEAKER) (test njef=017) 2.99 M/ L 4.63-6.08 HEMOGLOBIN (BEAKER) (test sppt=218) 8.7 GM/DL 13.7-17.5 HEMATOCRIT (BEAKER) (test rpkv=272) 27.5 % 40.1-51.0 MEAN CORPUSCULAR VOLUME (BEAKER) (test cstb=021) 92.0 fL 79.0-92.2 MEAN CORPUSCULAR HEMOGLOBIN (BEAKER) (test 29.1 pg 25.7-32.2 oldh=689) MEAN CORPUSCULAR HEMOGLOBIN CONC (BEAKER) (test 31.6 GM/DL 32.3-36.5 cjep=853) RED CELL DISTRIBUTION WIDTH (BEAKER) (test 16.0 % 11.6-14.4 fepg=328) PLATELET COUNT (BEAKER) (test jcsm=237) 213 K/CU MM 150-450 MEAN PLATELET VOLUME (BEAKER) (test onmc=744) 10.7 fL 9.4-12.4 NUCLEATED RED BLOOD CELLS (BEAKER) (test 0 /100 WBC 0-0 zsro=306) NEUTROPHILS RELATIVE PERCENT (BEAKER) (test 81 % ptie=631) LYMPHOCYTES RELATIVE PERCENT (BEAKER) (test 6 % ukxe=767) MONOCYTES RELATIVE PERCENT (BEAKER) (test 10 % uila=248) EOSINOPHILS RELATIVE PERCENT (BEAKER) (test 2 % ukgt=915) BASOPHILS RELATIVE PERCENT (BEAKER) (test 0 % tgkb=839) NEUTROPHILS ABSOLUTE COUNT (BEAKER) (test 9.49 K/ L 1.78-5.38 zrmi=913) LYMPHOCYTES ABSOLUTE COUNT (BEAKER) (test 0.73 K/ L 1.32-3.57 qamr=646) MONOCYTES ABSOLUTE COUNT (BEAKER) (test 1.13 K/ L 0.30-0.82 djsq=340) EOSINOPHILS ABSOLUTE COUNT (BEAKER) (test 0.19 K/ L 0.04-0.54 rfdl=133) BASOPHILS ABSOLUTE COUNT (BEAKER) (test 0.03 K/ L 0.01-0.08 kouv=781) IMMATURE GRANULOCYTES-RELATIVE PERCENT (BEAKER) 1 % 0-1 (test qbth=0732) POCT-GLUCOSE [id number] 07:52:00 Test Item Value Reference Range Comments POC-GLUCOSE METER (BEAKER) 126 mg/dL 70-110 TESTED AT [address] (test ngsv=5855) [facility] [address] CALCIUM, [id number] 06:39:00 Test Item Value Reference Range Comments CALCIUM IONIZED (BEAKER) (test fafj=315) 1.02 mmol/L 1.12-1.27 PH, BLOOD (BEAKER) (test ccmz=6290) 7.43 LIPID [id number] 05:57:00 Test Item Value Reference Range Comments TRIGLYCERIDES (BEAKER) (test mizf=496) 54 mg/dL CHOLESTEROL (BEAKER) (test pxkv=840) 96 mg/dL HDL CHOLESTEROL (BEAKER) (test voay=505) 29 mg/dL LDL CHOLESTEROL CALCULATED (BEAKER) (test tedq=420) 56 mg/dL Triglyceride Reference Range: Low Risk <150 Borderline 150- 199 High Risk 200-499 Very High Risk >=500Cholesterol Reference Range: Low Risk <200 Borderline 200-239 High Risk > 240HDL Cholesterol Reference Range: Low Risk >=60 High Risk <40LDL Cholesterol Reference Range: Optimal <100 Near Optimal 100-129 Borderline 130-159 High 160-189 Very High >=190BASIC METABOLIC [id number] 05:56:00 Test Item Value Reference Range Comments SODIUM (BEAKER) (test 135 meq/L 136-145 cogo=441) POTASSIUM (BEAKER) (test 3.7 meq/L 3.5-5.1 cnql=685) CHLORIDE (BEAKER) (test 101 meq/L 98-107 twrh=048) CO2 (BEAKER) (test 25 meq/L 22-29 kkhs=348) BLOOD UREA NITROGEN 92 mg/dL 7-21 (BEAKER) (test ilrd=361) CREATININE (BEAKER) (test 2.52 mg/dL 0.57-1.25 qqfc=520) GLUCOSE RANDOM (BEAKER) 135 mg/dL 70-105 (test vohw=610) CALCIUM (BEAKER) (test 8.7 mg/dL 8.4-10.2 emsp=764) EGFR (BEAKER) (test 26 mL/min/1.73 sq m ESTIMATED GFR IS NOT btyc=7253) ACCURATE CREATININE CLEARANCE IN PREDICTING GLOMERULAR FILTRATION RATE. ESTIMATED GFR IS NOT APPLICABLE FOR DIALYSIS PATIENTS. [id number] 05:48:00 Test Item Value Reference Range Comments MAGNESIUM (BEAKER) (test sokp=948) 1.6 mg/dL 1.6-2.6 HEPATIC FUNCTION [id number] 05:48:00 Test Item Value Reference Range Comments TOTAL PROTEIN (BEAKER) (test ppgu=479) 6.3 gm/dL 6.0-8.3 ALBUMIN (BEAKER) (test risr=8016) 2.9 g/dL 3.5-5.0 BILIRUBIN TOTAL (BEAKER) (test ojcy=063) 0.4 mg/dL 0.2-1.2 BILIRUBIN DIRECT (BEAKER) (test iljb=713) 0.3 mg/dL 0.1-0.5 ALKALINE PHOSPHATASE (BEAKER) (test qimd=854) 136 U/L 40-150 AST (SGOT) (BEAKER) (test skwj=548) 10 U/L 5-34 ALT (SGPT) (BEAKER) (test tahf=067) 9 U/L 6-55 PROTHROMBIN [id number] 05:37:00 Test Item Value Reference Range Comments PROTIME (BEAKER) (test rdzw=982) 18.1 seconds 11.7-14.7 INR (BEAKER) (test knpo=434) 1.5 <=5.9 RECOMMENDED COUMADIN/WARFARIN INR THERAPY RANGESSTANDARD DOSE: 2.0 - 3.0 Includes: PROPHYLAXIS forvenous thrombosis, systemic embolization; TREATMENT for venous thrombosis and/or pulmonary embolus.HIGH RISK: Target INR is 2.5-3.5 for patients with mechanical heart valves.POCT-GLUCOSE [id number] 21:34:00 Test Item Value Reference Range Comments POC-GLUCOSE METER (BEAKER) 260 mg/dL 70-110 TESTED AT [address] (test mnrg=4796) [facility] [address] POCT-GLUCOSE [id number] 17:13:00 Test Item Value Reference Range Comments POC-GLUCOSE METER (BEAKER) 202 mg/dL 70-110 TESTED AT [address] (test yxkp=3657) [facility] [address] CBC W/PLT COUNT & AUTO [id number] 16:36:00 Test Item Value Reference Range Comments WHITE BLOOD CELL COUNT (BEAKER) (test mwow=746) 10.3 K/ L 3.5-10.5 RED BLOOD CELL COUNT (BEAKER) (test dwkt=661) 3.01 M/ L 4.63-6.08 HEMOGLOBIN (BEAKER) (test tfji=578) 8.5 GM/DL 13.7-17.5 HEMATOCRIT (BEAKER) (test qquh=935) 27.0 % 40.1-51.0 MEAN CORPUSCULAR VOLUME (BEAKER) (test jvtg=952) 89.7 fL 79.0-92.2 MEAN CORPUSCULAR HEMOGLOBIN (BEAKER) (test 28.2 pg 25.7-32.2 frwj=990) MEAN CORPUSCULAR HEMOGLOBIN CONC (BEAKER) (test 31.5 GM/DL 32.3-36.5 upuw=752) RED CELL DISTRIBUTION WIDTH (BEAKER) (test 15.8 % 11.6-14.4 ehci=752) PLATELET COUNT (BEAKER) (test edqf=508) 203 K/CU MM 150-450 MEAN PLATELET VOLUME (BEAKER) (test poto=260) 10.5 fL 9.4-12.4 NUCLEATED RED BLOOD CELLS (BEAKER) (test 0 /100 WBC 0-0 nelr=477) NEUTROPHILS RELATIVE PERCENT (BEAKER) (test 83 % djfv=143) LYMPHOCYTES RELATIVE PERCENT (BEAKER) (test 7 % xwny=144) MONOCYTES RELATIVE PERCENT (BEAKER) (test 8 % hqnc=115) EOSINOPHILS RELATIVE PERCENT (BEAKER) (test 1 % rvgy=935) BASOPHILS RELATIVE PERCENT (BEAKER) (test 0 % mnkm=740) NEUTROPHILS ABSOLUTE COUNT (BEAKER) (test 8.57 K/ L 1.78-5.38 mzqf=670) LYMPHOCYTES ABSOLUTE COUNT (BEAKER) (test 0.71 K/ L 1.32-3.57 zsor=840) MONOCYTES ABSOLUTE COUNT (BEAKER) (test 0.78 K/ L 0.30-0.82 rodb=737) EOSINOPHILS ABSOLUTE COUNT (BEAKER) (test 0.09 K/ L 0.04-0.54 osiv=974) BASOPHILS ABSOLUTE COUNT (BEAKER) (test 0.04 K/ L 0.01-0.08 grwe=939) IMMATURE GRANULOCYTES-RELATIVE PERCENT (BEAKER) 1 % 0-1 (test yxbd=0022) CBC (HEMOGRAM ONLY)[id number] 16:30:00 Test Item Value Reference Range Comments WHITE BLOOD CELL COUNT (BEAKER) (test msfk=277) 10.3 K/ L 3.5-10.5 RED BLOOD CELL COUNT (BEAKER) (test lgte=055) 3.01 M/ L 4.63-6.08 HEMOGLOBIN (BEAKER) (test yqpp=047) 8.5 GM/DL 13.7-17.5 HEMATOCRIT (BEAKER) (test kane=261) 27.0 % 40.1-51.0 MEAN CORPUSCULAR VOLUME (BEAKER) (test yxeh=360) 89.7 fL 79.0-92.2 MEAN CORPUSCULAR HEMOGLOBIN (BEAKER) (test 28.2 pg 25.7-32.2 dlph=226) MEAN CORPUSCULAR HEMOGLOBIN CONC (BEAKER) (test 31.5 GM/DL 32.3-36.5 etlw=016) RED CELL DISTRIBUTION WIDTH (BEAKER) (test 15.8 % 11.6-14.4 pdwf=881) PLATELET COUNT (BEAKER) (test wovg=809) 203 K/CU MM 150-450 MEAN PLATELET VOLUME (BEAKER) (test dgsd=997) 10.5 fL 9.4-12.4 NUCLEATED RED BLOOD CELLS (BEAKER) (test 0 /100 WBC 0-0 giry=244) POCT-GLUCOSE [id number] 12:32:00 Test Item Value Reference Range Comments POC-GLUCOSE METER (BEAKER) 209 mg/dL 70-110 TESTED AT [address] (test govu=5174) [facility] [address] POCT-GLUCOSE [id number] 07:51:00 Test Item Value Reference Range Comments POC-GLUCOSE METER (BEAKER) 101 mg/dL 70-110 TESTED AT [address] (test adyy=1637) [facility] [address] CALCIUM, [id number] 06:35:00 Test Item Value Reference Range Comments CALCIUM IONIZED (BEAKER) (test cjlp=621) 1.03 mmol/L 1.12-1.27 PH, BLOOD (BEAKER) (test xrpt=4028) 7.39 BASIC METABOLIC [id number] 05:22:00 Test Item Value Reference Range Comments SODIUM (BEAKER) (test 135 meq/L 136-145 ohhs=550) POTASSIUM (BEAKER) (test 3.6 meq/L 3.5-5.1 gsnk=838) CHLORIDE (BEAKER) (test 99 meq/L 98-107 jifg=549) CO2 (BEAKER) (test 25 meq/L 22-29 fjrt=695) BLOOD UREA NITROGEN 106 mg/dL 7-21 (BEAKER) (test titz=934) CREATININE (BEAKER) (test 2.58 mg/dL 0.57-1.25 hcff=743) GLUCOSE RANDOM (BEAKER) 105 mg/dL 70-105 (test svev=569) CALCIUM (BEAKER) (test 8.6 mg/dL 8.4-10.2 atqc=301) EGFR (BEAKER) (test 25 mL/min/1.73 sq m ESTIMATED GFR IS NOT qrwc=5959) ACCURATE CREATININE CLEARANCE IN PREDICTING GLOMERULAR FILTRATION RATE. ESTIMATED GFR IS NOT APPLICABLE FOR DIALYSIS PATIENTS. [id number] 05:20:00 Test Item Value Reference Range Comments MAGNESIUM (BEAKER) (test txou=520) 1.5 mg/dL 1.6-2.6 LIPID [id number] 05:20:00 Test Item Value Reference Range Comments TRIGLYCERIDES (BEAKER) (test ntyw=462) 62 mg/dL CHOLESTEROL (BEAKER) (test vcdb=545) 87 mg/dL HDL CHOLESTEROL (BEAKER) (test hepl=980) 28 mg/dL LDL CHOLESTEROL CALCULATED (BEAKER) (test ghmg=742) 47 mg/dL Triglyceride Reference Range: Low Risk <150 Borderline 150- 199 High Risk 200-499 Very High Risk >=500Cholesterol Reference Range: Low Risk <200 Borderline 200-239 High Risk > 240HDL Cholesterol Reference Range: Low Risk >=60 High Risk <40LDL Cholesterol Reference Range: Optimal <100 Near Optimal 100-129 Borderline 130-159 High 160-189 Very High >=190HEPATIC FUNCTION [id number] 05:20:00 Test Item Value Reference Range Comments TOTAL PROTEIN (BEAKER) (test fdys=869) 6.3 gm/dL 6.0-8.3 ALBUMIN (BEAKER) (test jkfw=6187) 2.9 g/dL 3.5-5.0 BILIRUBIN TOTAL (BEAKER) (test rwzp=492) 0.4 mg/dL 0.2-1.2 BILIRUBIN DIRECT (BEAKER) (test wpwl=996) 0.2 mg/dL 0.1-0.5 ALKALINE PHOSPHATASE (BEAKER) (test gcuh=933) 135 U/L 40-150 AST (SGOT) (BEAKER) (test yhgp=997) 10 U/L 5-34 ALT (SGPT) (BEAKER) (test mhts=977) 9 U/L 6-55 PROTHROMBIN [id number] 04:45:00 Test Item Value Reference Range Comments PROTIME (BEAKER) (test exyh=405) 19.6 seconds 11.7-14.7 INR (BEAKER) (test aehz=030) 1.7 <=5.9 RECOMMENDED COUMADIN/WARFARIN INR THERAPY RANGESSTANDARD DOSE: 2.0 - 3.0 Includes: PROPHYLAXIS forvenous thrombosis, systemic embolization; TREATMENT for venous thrombosis and/or pulmonary embolus.HIGH RISK: Target INR is 2.5-3.5 for patients with mechanical heart valves.CBC W/PLT COUNT & AUTO [id number] 04:41:00 Test Item Value Reference Range Comments WHITE BLOOD CELL COUNT 11.3 K/ L 3.5-10.5 (BEAKER) (test rkwp=031) RED BLOOD CELL COUNT (BEAKER) 2.63 M/ L 4.63-6.08 (test qwma=863) HEMOGLOBIN (BEAKER) (test 7.4 GM/DL 13.7-17.5 ljyf=684) HEMATOCRIT (BEAKER) (test 24.0 % 40.1-51.0 yyvn=237) MEAN CORPUSCULAR VOLUME 91.3 fL 79.0-92.2 (BEAKER) (test fhme=637) MEAN CORPUSCULAR HEMOGLOBIN 28.1 pg 25.7-32.2 (BEAKER) (test fleu=387) MEAN CORPUSCULAR HEMOGLOBIN 30.8 GM/DL 32.3-36.5 CONC (BEAKER) (test dgrv=094) RED CELL DISTRIBUTION WIDTH 16.1 % 11.6-14.4 (BEAKER) (test aoxq=946) PLATELET COUNT (BEAKER) (test 202 K/CU MM 150-450 Discordant PLT result miuk=765) compared to previous result; a clinical correlation required. MEAN PLATELET VOLUME (BEAKER) 10.0 fL 9.4-12.4 (test ceht=348) NUCLEATED RED BLOOD CELLS 0 /100 WBC 0-0 (BEAKER) (test xrdb=258) NEUTROPHILS RELATIVE PERCENT 82 % (BEAKER) (test vijw=740) LYMPHOCYTES RELATIVE PERCENT 7 % (BEAKER) (test ludf=805) MONOCYTES RELATIVE PERCENT 8 % (BEAKER) (test ojyk=256) EOSINOPHILS RELATIVE PERCENT 2 % (BEAKER) (test rofn=675) BASOPHILS RELATIVE PERCENT 0 % (BEAKER) (test fndx=155) NEUTROPHILS ABSOLUTE COUNT 9.28 K/ L 1.78-5.38 (BEAKER) (test bflm=680) LYMPHOCYTES ABSOLUTE COUNT 0.81 K/ L 1.32-3.57 (BEAKER) (test sbgy=287) MONOCYTES ABSOLUTE COUNT 0.85 K/ L 0.30-0.82 (BEAKER) (test paac=587) EOSINOPHILS ABSOLUTE COUNT 0.18 K/ L 0.04-0.54 (BEAKER) (test agpi=042) BASOPHILS ABSOLUTE COUNT 0.04 K/ L 0.01-0.08 (BEAKER) (test hmgu=837) IMMATURE 1 % 0-1 GRANULOCYTES-RELATIVE PERCENT (BEAKER) (test jkwh=5856) POCT-GLUCOSE [id number] 22:14:00 Test Item Value Reference Range Comments POC-GLUCOSE METER (BEAKER) 135 mg/dL 70-[address] [facility] [address] [facility] (test httj=9380) [facility] [address] COMPREHENSIVE METABOLIC [id number] 18:13:00 Test Item Value Reference Range Comments TOTAL PROTEIN (BEAKER) 6.5 gm/dL 6.0-8.3 Specimen slightly (test dngt=758) hemolyzed ALBUMIN (BEAKER) (test 2.9 g/dL 3.5-5.0 Specimen slightly rtlm=0254) hemolyzed ALKALINE PHOSPHATASE 135 U/L 40-150 (BEAKER) (test hccj=358) BILIRUBIN TOTAL (BEAKER) 0.5 mg/dL 0.2-1.2 Specimen slightly (test sztn=501) hemolyzed SODIUM (BEAKER) (test 135 meq/L 136-145 dfvg=454) POTASSIUM (BEAKER) (test 3.7 meq/L 3.5-5.1 Specimen slightly tuxi=978) hemolyzed CHLORIDE (BEAKER) (test 98 meq/L 98-107 adjg=624) CO2 (BEAKER) (test 26 meq/L 22-29 rxaw=529) BLOOD UREA NITROGEN 103 mg/dL 7-21 (BEAKER) (test spbo=335) CREATININE (BEAKER) (test 2.59 mg/dL 0.57-1.25 Specimen slightly igah=720) hemolyzed GLUCOSE RANDOM (BEAKER) 64 mg/dL 70-105 (test ynsf=159) CALCIUM (BEAKER) (test 8.8 mg/dL 8.4-10.2 gvnd=139) AST (SGOT) (BEAKER) (test 15 U/L 5-34 Specimen slightly tyct=407) hemolyzed ALT (SGPT) (BEAKER) (test 13 U/L 6-55 Specimen slightly luph=212) hemolyzed EGFR (BEAKER) (test 25 mL/min/1.73 sq m ESTIMATED GFR IS NOT iazd=7047) ACCURATE CREATININE CLEARANCE IN PREDICTING GLOMERULAR FILTRATION RATE. ESTIMATED GFR IS NOT APPLICABLE FOR DIALYSIS PATIENTS. CBC W/PLT COUNT & AUTO [id number] 17:37:00 Test Item Value Reference Range Comments WHITE BLOOD CELL COUNT (BEAKER) (test qyyq=226) 11.7 K/ L 3.5-10.5 RED BLOOD CELL COUNT (BEAKER) (test qkmm=155) 2.94 M/ L 4.63-6.08 HEMOGLOBIN (BEAKER) (test jygv=082) 8.4 GM/DL 13.7-17.5 HEMATOCRIT (BEAKER) (test wfqe=839) 26.2 % 40.1-51.0 MEAN CORPUSCULAR VOLUME (BEAKER) (test clqd=844) 89.1 fL 79.0-92.2 MEAN CORPUSCULAR HEMOGLOBIN (BEAKER) (test 28.6 pg 25.7-32.2 gweh=163) MEAN CORPUSCULAR HEMOGLOBIN CONC (BEAKER) (test 32.1 GM/DL 32.3-36.5 fobs=512) RED CELL DISTRIBUTION WIDTH (BEAKER) (test 16.8 % 11.6-14.4 icud=333) PLATELET COUNT (BEAKER) (test fdlf=950) 313 K/CU MM 150-450 MEAN PLATELET VOLUME (BEAKER) (test xvzy=796) 12.1 fL 9.4-12.4 NUCLEATED RED BLOOD CELLS (BEAKER) (test 0 /100 WBC 0-0 xdyd=079) NEUTROPHILS RELATIVE PERCENT (BEAKER) (test 80 % ztnn=476) LYMPHOCYTES RELATIVE PERCENT (BEAKER) (test 10 % bdtc=110) MONOCYTES RELATIVE PERCENT (BEAKER) (test 7 % hjml=552) EOSINOPHILS RELATIVE PERCENT (BEAKER) (test 1 % lgez=461) BASOPHILS RELATIVE PERCENT (BEAKER) (test 0 % ucgx=580) NEUTROPHILS ABSOLUTE COUNT (BEAKER) (test 9.29 K/ L 1.78-5.38 rqgq=469) LYMPHOCYTES ABSOLUTE COUNT (BEAKER) (test 1.18 K/ L 1.32-3.57 gmjl=742) MONOCYTES ABSOLUTE COUNT (BEAKER) (test 0.84 K/ L 0.30-0.82 gnqq=245) EOSINOPHILS ABSOLUTE COUNT (BEAKER) (test 0.14 K/ L 0.04-0.54 elsq=959) BASOPHILS ABSOLUTE COUNT (BEAKER) (test 0.03 K/ L 0.01-0.08 ckzd=048) IMMATURE GRANULOCYTES-RELATIVE PERCENT (BEAKER) 2 % 0-1 (test efuu=0194) POCT-GLUCOSE [id number] 15:37:00 Test Item Value Reference Range Comments POC-GLUCOSE METER (BEAKER) 83 mg/dL 70-[address] [facility] [address] (test zfbx=3885) [facility] [address]
[2018-06-16 11:55] LABS: Protime INR 1.65
[2018-06-16 12:09] LABS: Absolute Monocytes 1.7 K/uL (0.1-1.3); Absolute Neutrophil 11.7 K/uL (1.8-8.0); Basophils % 0.2 % (0-1.3); Lymphocytes % 6.7 % (15.3-44.8); MPV 7.3 fL (7.6-11.3); Monocytes % 11.9 % (3.3-12.3); RBC Red Blood Cell Count 2.58 M/uL (4.33-5.43)
[2018-06-16 12:19] LABS: Bilirubin Total 0.6 mg/dL (0.2-1.0); Ferritin 1949.1 ng/mL (26-388); Potassium 3.4 mmol/L (3.5-5.1); Protein, Total 7.3 g/dL (6.4-8.2)
[2018-06-16 12:34] LABS: Blood Morphology Comment NOT SEEN (NOT SEEN); Platelet Estimate ADEQ
--- NOTE | 2018-06-16 12:41 | RAD REPORT ---
EXAM DESCRIPTION: RAD - Chest Single View - 06/16/2018 12:21 pm CLINICAL HISTORY: anemia Chest pain. COMPARISON: Chest Single View dated 05/25/2018; Chest Single View dated 05/23/2018; Chest Single View dated 05/19/2018; Chest Single View dated 05/17/2018 FINDINGS: Portable technique limits examination quality. The lungs are grossly clear. The heart is moderately enlarged in size with a right-sided venous raulito ter in place. IMPRESSION: Moderate cardiomegaly.
[2018-06-16] MEDS ORDERED: NA CHLORIDE 0.9% 500 ML ONE (14:37)
[2018-06-16] MEDS ORDERED: ONDANSETRON 4 MG/2 ML VIAL ONE (15:51)
[2018-06-16] MEDS ORDERED: MORPHINE 4 MG/ML SYR ONE (15:51)
--- NOTE | 2018-06-16 18:00 | EDPHYS ---
Physician Documentation [facility] Name: Fausto Bird Age: 67 yrs Sex: Male : 1950 Arrival Date: 06/16/2018 Time: 10:59 Bed 2 Private MD: ED Physician Ziggy Barclay HPI: 06/16 11:25 This 67 yrs old Male presents to ER via EMS with complaints of Abnormal Lab pm1 Results. 11:25 Associated signs and symptoms: Pertinent negatives: abdominal pain, chest pain, cough, pm1 dysuria, fever, shortness of breath, vomiting. Modifying factors: The patient symptoms are alleviated by nothing, the patient symptoms are aggravated by nothing. The patient has experienced similar episodes in the past, multiple times. The patient has been recently seen by a physician: Had full dialysis treatment today. Patient with labs drawn at dialysis center two days ago. Labs results returned today with Hgb of 6.7. Patient without any chest pain or shortness of breath. Patient reports some generalized weakness. Historical: - Allergies: 11:08 bactrim-topical; ph 11:08 MUPIROCIN; ph - Home Meds: 11:08 Allopurinol Oral [Active]; Digoxin Oral [Active]; Furosemide Oral [Active]; Glipizide ph Oral [Active]; Hydralazine Oral [Active]; Insulin Glargine Sub-Q [Active]; Klor-Con M20 Oral [Active]; metolazone Oral [Active]; Metoprolol Tartrate Oral [Active]; Simvastatin Oral [Active]; Tylenol #4 Oral [Active]; - PMHx: 11:08 anemic; Atrial Fib; Cellulitis; CHF; Cholecystitis; COPD; Diabetes - IDDM; ESRD; ph Hyperlipidemia; Hypertension; lymphedema; Myocardial infarction; GI Bleed; - Immunization history:: Adult Immunizations unknown. - Social history:: Smoking status: Patient/guardian denies using tobacco. - Ebola Screening: : No symptoms or risks identified at this time. ROS: 11:25 Constitutional: Negative for fever, chills, and weight loss, Eyes: Negative for injury, pm1 pain, redness, and discharge, ENT: Negative for injury, pain, and discharge, Neck: Negative for injury, pain, and swelling, Cardiovascular: Negative for chest pain, palpitations, and edema, Respiratory: Negative for shortness of breath, cough, wheezing, and pleuritic chest pain, Abdomen/GI: Negative for abdominal pain, nausea, vomiting, diarrhea, and constipation, Back: Negative for injury and pain, : Negative for injury, bleeding, discharge, and swelling, MS/Extremity: Negative for injury and deformity. 11:25 Skin: Positive for chronic decubitus. 11:25 Neuro: Positive for generalized weakness. Exam: 11:25 Constitutional: This is a well developed, well nourished patient who is awake, alert, pm1 and in no acute distress. Head/Face: Normocephalic, atraumatic. Eyes: Pupils equal round and reactive to light, extra-ocular motions intact. Lids and lashes normal. Conjunctiva and sclera are non-icteric and not injected. Cornea within normal limits. Periorbital areas with no swelling, redness, or edema. ENT: Nares patent. No nasal discharge, no septal abnormalities noted. Tympanic membranes are normal and external auditory canals are clear. Oropharynx with no redness, swelling, or masses, exudates, or evidence of obstruction, uvula midline. Mucous membranes moist. Neck: Trachea midline, no thyromegaly or masses palpated, and no cervical lymphadenopathy. Supple, full range of motion without nuchal rigidity, or vertebral point tenderness. No Meningismus. Chest/axilla: Normal chest wall appearance and motion. Nontender with no deformity. No lesions are appreciated. Cardiovascular: Regular rate and rhythm with a normal S1 and S2. No gallops, murmurs, or rubs. Normal PMI, no JVD. No pulse deficits. Respiratory: Lungs have equal breath sounds bilaterally, clear to auscultation and percussion. No rales, rhonchi or wheezes noted. No increased work of breathing, no retractions or nasal flaring. Abdomen/GI: Soft, non-tender, with normal bowel sounds. No distension or tympany. No guarding or rebound. No evidence of tenderness throughout. Back: No spinal tenderness. No costovertebral tenderness. Full range of motion. Skin: Warm, dry with normal turgor. Normal color with no rashes, no lesions, and no evidence of cellulitis. MS/ Extremity: Pulses equal, no cyanosis. Neurovascular intact. Full, normal range of motion. 11:25 Neuro: Orientation: is normal. 11:40 ECG: Atrial fibrillation with PVC, 89 BPM pm1 Vital Signs: 11:03 BP 109 / 80; Pulse 92; Resp 18; Temp 97.8; Pulse Ox 97% on R/A; Weight 136.08 kg; ph Height 6 ft. 0 in. (182.88 cm); 11:44 BP 107 / 59; Pulse 89; Resp 20; Pulse Ox 98% on R/A; ph 12:25 BP 122 / 56; Pulse 78; Resp 18; Temp 98.4(O); Pulse Ox 100% on R/A; mh5 14:13 BP 112 / 67; Pulse 87; Resp 20; Temp 98.0(O); Pulse Ox 100% on R/A; mh5 15:00 BP 119 / 80; Pulse 87; Resp 18; Temp 97.7(O); Pulse Ox 99% on R/A; mh5 16:50 BP 115 / 51; Pulse 78; Resp 20; Temp 99.4(O); Pulse Ox 99% on R/A; mh5 17:58 BP 120 / 72; Pulse 87; Resp 18; Temp 98.4(O); Pulse Ox 98% on R/A; mh5 19:00 BP 127 / 72; Pulse 84; Resp 18; Temp 98.1; Pulse Ox 99% on R/A; ph 11:03 Body Mass Index 40.69 (136.08 kg, 182.88 cm) ph MDM: 11:13 Patient medically screened. pm1 12:30 ED course: Mindy LAGUNAS contacted Latisha LAGUNAS to communicate that Dr Durán does not want the pm1 patient to be admitted here to the hospital. [facility] in the process of transferring the patient to [facility]. 12:40 Physician consultation: Gypsy Ramos MD was contacted at 12:40, regarding consult, pm1 patient's condition, in the emergency department to see patient at 12:39, Recommends 1 unit of PRBC transfused. 17:39 Data reviewed: vital signs. Data interpreted: Pulse oximetry: on room air is 99 %. pm1 Interpretation: normal. 17:58 Counseling: I had a detailed discussion with the patient and/or guardian regarding: the pm1 historical points, exam findings, and any diagnostic results supporting the discharge/admit diagnosis, lab results, radiology results, the need for outpatient follow up, Updated the patient on the plans of Dr. Durán and Lilo Price to facilitate the transfer of the patient to [facility], to return to the emergency department if symptoms worsen or persist or if there are any questions or concerns that arise at home. 18:33 Physician consultation: Yves Durán MD was called at 18:33, regarding regarding pm1 transfer, [facility] Message left with answering service. 06/16 11:24 Order name: Type And Screen pm1 06/16 11:24 Order name: CBC with Diff; Complete Time: 12:45 pm06/16 11:24 Order name: PT-INR; Complete Time: 12:04 pm06/16 11:24 Order name: CMP; Complete Time: 12:29 pm06/16 11:24 Order name: Iron Level; Complete Time: 12:29 pm06/16 11:24 Order name: TRANSFERRIN SAT/IRON BINDING; Complete Time: 12:29 pm06/16 11:24 Order name: IV Saline Lock; Complete Time: 11:45 pm06/16 11:24 Order name: Chest Single View XRAY; Complete Time: 12:45 pm06/16 11:24 Order name: EKG; Complete Time: 11:25 pm06/16 11:24 Order name: EKG - Nurse/Tech; Complete Time: 11:45 pm06/16 12:37 Order name: Manual Differential EDTX 06/16 13:15 Order name: Packed RBC Leukored -1 EDTX 06/16 11:24 Order name: Urine Dipstick-Ancillary (obtain specimen); Complete Time: 11:45 pm06/16 13:02 Order name: Transfuse; Complete Time: 15:20 pm1 Administered Medications: 15:48 Drug: Zofran 4 mg Route: IVP; Site: left antecubital; ph 20:16 Follow up: Response: No adverse reaction ph 15:52 Drug: morphine 4 mg Route: IVP; Site: left antecubital; ph 16:30 Follow up: Response: No adverse reaction; Pain is decreased ph Disposition: 06/17 07:05 Co-signature as Attending Physician, Ziggy Barclay MD I agree with the assessment and kdr plan of care. Disposition: 06/16/18 17:59 Discharged to Home. Impression: Anemia in chronic kidney disease, End stage renal disease. - Condition is Stable. - Discharge Instructions: Anemia, Nonspecific, Blood Transfusion, Adult. - Medication Reconciliation Form, Thank You Letter, Antibiotic Education, Prescription Opioid Use form. - Follow up: Emergency Department; When: As needed; Reason: Worsening of condition. Follow up: Private Physician; When: 2 - 3 days; Reason: Recheck today's complaints, Continuance of care, Re-evaluation by your physician. - Problem is new. - Symptoms have improved. Signatures: Dispatcher [employer] EDMS Ziggy Barclay MD MD [facility] Praveena Singleton RN RN ph Rojelio Holland, JUAN HOURLY ASSOCIATE pm1 Corrections: (The following items were deleted from the chart) 06/16 18:02 17:59 06/16/2018 17:59 Discharged to Home. Impression: Anemia in chronic kidney pm1 disease. Condition is Stable. Forms are Medication Reconciliation Form, Thank You Letter, Antibiotic Education, Prescription Opioid Use. Follow up: Emergency Department; When: As needed; Reason: Worsening of condition. Follow up: Private Physician; When: 2 - 3 days; Reason: Recheck today's complaints, Continuance of care, Re-evaluation by your physician. Problem is new. Symptoms have improved. pm1 20:17 18:02 06/16/2018 17:59 Discharged to Home. Impression: Anemia in chronic kidney ph disease; End stage renal disease. Condition is Stable. Discharge Instructions: Anemia, Nonspecific, Blood Transfusion, Adult. Forms are Medication Reconciliation Form, Thank You Letter, Antibiotic Education, Prescription Opioid Use. Follow up: Emergency Department; When: As needed; Reason: Worsening of condition. Follow up: Private Physician; When: 2 - 3 days; Reason: Recheck today's complaints, Continuance of care, Re-evaluation by your physician. Problem is new. Symptoms have improved. pm1
--- NOTE | 2018-06-16 18:00 | ER ---
Nurse's Notes [facility] Name: Fausto Bird Age: 67 yrs Sex: Male : 1950 Arrival Date: 06/16/2018 Time: 10:59 Bed 2 Private MD: Diagnosis: Anemia in chronic kidney disease;End stage renal disease Presentation: 06/16 10:59 Presenting complaint: EMS states: Pt sent from dialysis for low hemoglobin, 6.7 and Hct ph 20.1, drawn on 06/14, pt hx of GI bleed, appears pale and reports fatigue and dark stools, hx of multiple blood transfusions, resident [facility]. Transition of care: [facility]. Onset of symptoms was June 16, 2018. Risk Assessment: Do you want to hurt yourself or someone else? Patient reports no desire to harm self or others. Initial Sepsis Screen: Does the patient meet any 2 criteria? No. Patient's initial sepsis screen is negative. Does the patient have a suspected source of infection? No. Patient's initial sepsis screen is negative. Care prior to arrival: None. 10:59 Method Of Arrival: EMS: [facility] ph 10:59 Acuity: BLANCA 2 ph Historical: - Allergies: 11:08 bactrim-topical; ph 11:08 MUPIROCIN; ph - Home Meds: 11:08 Allopurinol Oral [Active]; Digoxin Oral [Active]; Furosemide Oral [Active]; Glipizide ph Oral [Active]; Hydralazine Oral [Active]; Insulin Glargine Sub-Q [Active]; Klor-Con M20 Oral [Active]; metolazone Oral [Active]; Metoprolol Tartrate Oral [Active]; Simvastatin Oral [Active]; Tylenol #4 Oral [Active]; - PMHx: 11:08 anemic; Atrial Fib; Cellulitis; CHF; Cholecystitis; COPD; Diabetes - IDDM; ESRD; ph Hyperlipidemia; Hypertension; lymphedema; Myocardial infarction; GI Bleed; - Immunization history:: Adult Immunizations unknown. - Social history:: Smoking status: Patient/guardian denies using tobacco. - Ebola Screening: : No symptoms or risks identified at this time. Screenin:08 Abuse screen: Denies threats or abuse. Denies injuries from another. Nutritional ph screening: No deficits noted. Tuberculosis screening: No symptoms or risk factors identified. Fall Risk Fall in past 12 months (25 points). Secondary diagnosis (15 points) impaired mobility, IV access (20 points). Ambulatory Aid- None/Bed Rest/Nurse Assist (0 pts). Gait- Weak (10 pts.). Mental Status- Oriented to own ability (0 pts). Total Umaña Fall Scale indicates High Risk Score (45 or more points). Fall prevention measures have been instituted. Side Rails Up X 2 Placed Close to Nursing Station Frequent Obs/Assessments Occuring As available patient and family educated on Fall Prevention Program and Strategies. Assessment: 11:42 General: Appears in no apparent distress. uncomfortable, obese, Behavior is calm, ph cooperative, appropriate for age, Reports fatigue for >3 days, Denies fever. Pain: Complains of pain in right arm and "all over". Neuro: Level of Consciousness is awake, alert, obeys commands, Oriented to person, place, time, situation, Reports weakness "all over". Cardiovascular: Reports fatigue, lightheadedness, Denies chest pain, nausea, shortness of breath, vomiting, Capillary refill < 3 seconds in bilateral fingers Patient's skin is warm and dry. Rhythm is atrial fibrillation. Respiratory: Airway is patent Respiratory effort is even, unlabored, Respiratory pattern is regular, symmetrical. GI: Abdomen is non-distended, obese, Reports diarrhea, "dark stools" Patient currently denies abdominal pain, nausea, vomiting. : No signs and/or symptoms were reported regarding the genitourinary system. Derm: Skin is fragile, is thin, Skin is pale. Musculoskeletal: Circulation, motion, and sensation intact. 13:30 Reassessment: Patient appears in no apparent distress at this time. Patient and/or ph family updated on plan of care and expected duration. Pain level reassessed. Patient is alert, oriented x 3, equal unlabored respirations, skin warm/dry/pink. Pt resting quietly, assisted in repositioning onto side w/ pillow under L hip. 15:00 Reassessment: Patient appears in no apparent distress at this time. No changes from ph previously documented assessment. Patient and/or family updated on plan of care and expected duration. Pain level reassessed. Pt resting quietly, VSS, blood products administered will remain at bedside to monitor pt for 15 min per protocol. 16:00 Reassessment: Patient appears in no apparent distress at this time. Patient and/or ph family updated on plan of care and expected duration. Pain level reassessed. Patient is alert, oriented x 3, equal unlabored respirations, skin warm/dry/pink. Pt resting quietly, assisted in repositioning, VSS, blood infusing, tolerating well. 17:30 Reassessment: Patient appears in no apparent distress at this time. Patient and/or ph family updated on plan of care and expected duration. Pain level reassessed. Patient is alert, oriented x 3, equal unlabored respirations, skin warm/dry/pink. Pt resting quietly, d/c pending completion of blood products. 18:30 Reassessment: Patient appears in no apparent distress at this time. Patient and/or ph family updated on plan of care and expected duration. Pain level reassessed. Patient is alert, oriented x 3, equal unlabored respirations, skin warm/dry/pink. blood products complete, attempted to call report to [facility], Mariam LAGUNAS stated that is to be admitted to [facility] and will transported there. 18:43 Reassessment: [facility] reports that their dispatch told them that patient is ss scheduled to go to [facility] rather than [facility]. 19:37 Reassessment: Spoke with nurse at [facility] who stated that she is unaware ss of all the details of the transfer to [facility], but knows that patient is to go straight there after discharge from ER. Patient is upset because he was unaware that this was to take place. Patient reports that this has been talked about in the past, but did not know when it would take place. Spoke with patient and patient's son over the phone who also did not know about transfer to [facility]. Patient and son have multiple items at [facility] that they do not feel comfortable leaving which includes medical supplies that patient needs during the night. 19:37 Reassessment: awaiting for patient's son to call back after speaking with [facility]. ss 20:10 Reassessment: Patient appears in no apparent distress at this time. Patient and/or ph family updated on plan of care and expected duration. Pain level reassessed. Patient is alert, oriented x 3, equal unlabored respirations, skin warm/dry/pink. After son spoke w/ nurse from [facility] the decision was made that the pt would leave ED, go to [facility] to collect some of his belongings and then be transferred to [facility]. Pt agrees to plan, pt left w/ [facility]. Vital Signs: 11:03 BP 109 / 80; Pulse 92; Resp 18; Temp 97.8; Pulse Ox 97% on R/A; Weight 136.08 kg; ph Height 6 ft. 0 in. (182.88 cm); 11:44 BP 107 / 59; Pulse 89; Resp 20; Pulse Ox 98% on R/A; ph 12:25 BP 122 / 56; Pulse 78; Resp 18; Temp 98.4(O); Pulse Ox 100% on R/A; mh5 14:13 BP 112 / 67; Pulse 87; Resp 20; Temp 98.0(O); Pulse Ox 100% on R/A; mh5 15:00 BP 119 / 80; Pulse 87; Resp 18; Temp 97.7(O); Pulse Ox 99% on R/A; mh5 16:50 BP 115 / 51; Pulse 78; Resp 20; Temp 99.4(O); Pulse Ox 99% on R/A; mh5 17:58 BP 120 / 72; Pulse 87; Resp 18; Temp 98.4(O); Pulse Ox 98% on R/A; mh5 19:00 BP 127 / 72; Pulse 84; Resp 18; Temp 98.1; Pulse Ox 99% on R/A; ph 11:03 Body Mass Index 40.69 (136.08 kg, 182.88 cm) ph ED Course: 10:59 Patient arrived in ED. ph 11:02 Triage completed. ph 11:03 Rojelio Holland NP is PHCP. pm1 11:03 Ziggy Barclay MD is Attending Physician. pm1 11:08 Arm band placed on Patient placed in an exam room, on a stretcher, on equipment monitor phototypesetting, ph on pulse oximetry. 11:09 Patient has correct armband on for positive identification. Placed in gown. Bed in low ph position. Call light in reach. Side rails up X2. monitoring manager on. Pulse ox on. NIBP on. Door closed. Noise minimized. Warm blanket given. Pillow given. 11:30 Initial lab(s) drawn, by me, sent to lab. T\\T\\S collected, blood band applied to patient. ph Inserted saline lock: 20 gauge in left antecubital area, using aseptic technique. Blood collected. 11:31 EKG done, by nuclear medicine technician. reviewed by Rojelio Holland NP. at1 11:41 Praveena Singleton RN is Primary Nurse. ph 12:18 X-ray completed. Portable x-ray completed in exam room. Patient tolerated procedure sw well. 12:20 Chest Single View XRAY In Process Unspecified. EDMS 18:48 No provider procedures requiring assistance completed. IV discontinued, intact, ph bleeding controlled, No redness/swelling at site. Pressure dressing applied. Administered Medications: 15:48 Drug: Zofran 4 mg Route: IVP; Site: left antecubital; ph 20:16 Follow up: Response: No adverse reaction ph 15:52 Drug: morphine 4 mg Route: IVP; Site: left antecubital; ph 16:30 Follow up: Response: No adverse reaction; Pain is decreased ph Medication: 15:00 Blood products: PRBCs X 1 unit given. See transfusion record. ph Outcome: 17:59 Discharge ordered by . pm1 20:15 Transferred by ground EMS [facility]. Note: pt to be taken to [facility], then to [facility] 20:15 Condition: stable 20:15 Instructed on the need for transfer. 20:17 Patient left the ED. ph Signatures: Dispatcher [employer] EDMS Latisha Flowers RN RN Octavia Akbar, refinery operator coking EKG Tat1 Praveena Singleton RN RN [facility] Rojelio Holland NP AFFILIATE MARKETING COORDINATOR pm1 Trish Gonzalez [facility] Corrections: (The following items were deleted from the chart) 11:42 11:03 BP 109 / 80; Pulse 92bpm; Resp 18bpm; Pulse Ox 97% RA; Temp 97.8F; ph ph
[2018-06-16 20:54] VITALS: BP 127/72; TEMP 98.1; O2SAT 99
--- NOTE | 2018-06-17 07:15 | EKG ---
Test Date: 2018-06-16 Test Time: 11:31:05 [address] [employer]: BOOM MEASUREMENT RESULTS: Intervals: Rate: 89 NE: QRSD: 136 QT: 394 QTc: 479 [place]: P: NE: QRS: 14 T: 255 INTERPRETIVE STATEMENTS: Atrial fibrillation with premature ventricular or aberrantly conducted complexes Right bundle branch block T wave abnormality, consider inferolateral ischemia Abnormal ECG Compared to ECG 06/03/2018 11:18:29 No significant changes Electronically Signed On 06-17-18 07:11:44 CDT by Yannick Degroot
== END 2018-06-16 20:17 | disposition home or self-care (01) ==
LOC: ER 10:51
DX: D63.1 Anemia in chronic kidney disease (principal); E11.22 Type 2 diabetes mellitus with diabetic chronic kidney disease; I13.2 Hypertensive heart and chronic kidney disease with heart failure and with stage 5 chronic kidney disease, or end stage renal disease; I50.9 Heart failure, unspecified; N18.6 End stage renal disease; Z99.2 Dependence on renal dialysis; I51.7 Cardiomegaly; Z79.4 Long term (current) use of insulin; E78.5 Hyperlipidemia, unspecified; I25.2 Old myocardial infarction
CPT/HCPCS: 93005; 85025; 36415; 86900; 86850; 85610; 86901; 82728; 83540; 80053; 84466; 71045; 36430; 96375; 96374; 99285; P9016; J2405

== ENCOUNTER 2019-05-12 19:23 | Inpatient (IN) | payer OTHER ==
--- OUTSIDE RECORDS SUMMARY | 2019-05-12 19:26 | XMS REPORT ---
:1950 [facility] Address [address] [place] [address] Care Team Providers Name Role Phone DAMIEN [...] (BEAKER) (test 261 mg/dL 70-110 TESTED AT [facility] [address] [facility] muvi=[id number]) [facility] [address] POCT-GLUCOSE [id number] 11:33:00 Test Item Value Reference Range Comments POC-GLUCOSE METER (BEAKER) 198 mg/dL 70-110 TESTED AT [facility] [address] [facility] (test mnki=4200) [facility] [address] CBC W/PLT COUNT & AUTO [id number] 09:37:00 Test Item Value Reference Range Comments WHITE BLOOD CELL COUNT (BEAKER) (test iwzx=578) 11.7 K/ L 3.5-10.5 RED BLOOD CELL COUNT (BEAKER) (test vrwy=465) 2.99 M/ L 4.63-6.08 HEMOGLOBIN (BEAKER) (test bddl=264) 8.7 GM/DL 13.7-17.5 HEMATOCRIT (BEAKER) (test qset=344) 27.5 % 40.1-51.0 MEAN CORPUSCULAR VOLUME (BEAKER) (test yxxm=235) 92.0 fL 79.0-92.2 MEAN CORPUSCULAR HEMOGLOBIN (BEAKER) (test 29.1 pg 25.7-32.2 grbn=299) MEAN CORPUSCULAR HEMOGLOBIN CONC (BEAKER) (test 31.6 GM/DL 32.3-36.5 kgse=715) RED CELL DISTRIBUTION WIDTH (BEAKER) (test 16.0 % 11.6-14.4 fjxz=178) PLATELET COUNT (BEAKER) (test oscc=990) 213 K/CU MM 150-450 MEAN PLATELET VOLUME (BEAKER) (test fjms=541) 10.7 fL 9.4-12.4 NUCLEATED RED BLOOD CELLS (BEAKER) (test 0 /100 WBC 0-0 ktiq=555) NEUTROPHILS RELATIVE PERCENT (BEAKER) (test 81 % snpa=927) LYMPHOCYTES RELATIVE PERCENT (BEAKER) (test 6 % uuhd=736) MONOCYTES RELATIVE PERCENT (BEAKER) (test 10 % bgxr=542) EOSINOPHILS RELATIVE PERCENT (BEAKER) (test 2 % wrge=443) BASOPHILS RELATIVE PERCENT (BEAKER) (test 0 % xgkx=356) NEUTROPHILS ABSOLUTE COUNT (BEAKER) (test 9.49 K/ L 1.78-5.38 uyuk=130) LYMPHOCYTES ABSOLUTE COUNT (BEAKER) (test 0.73 K/ L 1.32-3.57 gora=255) MONOCYTES ABSOLUTE COUNT (BEAKER) (test 1.13 K/ L 0.30-0.82 dxyd=204) EOSINOPHILS ABSOLUTE COUNT (BEAKER) (test 0.19 K/ L 0.04-0.54 wntc=830) BASOPHILS ABSOLUTE COUNT (BEAKER) (test 0.03 K/ L 0.01-0.08 gqvz=860) IMMATURE GRANULOCYTES-RELATIVE PERCENT (BEAKER) 1 % 0-1 (test nrbw=7090) POCT-GLUCOSE [id number] 07:52:00 Test Item Value Reference Range Comments POC-GLUCOSE METER (BEAKER) 126 mg/dL 70-110 TESTED AT [address] (test afoa=9020) [facility] [address] CALCIUM, [id number] 06:39:00 Test Item Value Reference Range Comments CALCIUM IONIZED (BEAKER) (test jvdt=556) 1.02 mmol/L 1.12-1.27 PH, BLOOD (BEAKER) (test euaq=8904) 7.43 LIPID [id number] 05:57:00 Test Item Value Reference Range Comments TRIGLYCERIDES (BEAKER) (test yvde=871) 54 mg/dL CHOLESTEROL (BEAKER) (test cyoe=759) 96 mg/dL HDL CHOLESTEROL (BEAKER) (test brxo=852) 29 mg/dL LDL CHOLESTEROL CALCULATED (BEAKER) (test rjna=518) 56 mg/dL Triglyceride Reference Range: Low Risk <150 Borderline 150- 199 High Risk 200-499 Very High Risk >=500Cholesterol Reference Range: Low Risk <200 Borderline 200-239 High Risk > 240HDL Cholesterol Reference Range: Low Risk >=60 High Risk <40LDL Cholesterol Reference Range: Optimal <100 Near Optimal 100-129 Borderline 130-159 High 160-189 Very High >=190BASIC METABOLIC [id number] 05:56:00 Test Item Value Reference Range Comments SODIUM (BEAKER) (test 135 meq/L 136-145 onzs=431) POTASSIUM (BEAKER) (test 3.7 meq/L 3.5-5.1 rkcj=087) CHLORIDE (BEAKER) (test 101 meq/L 98-107 sdha=597) CO2 (BEAKER) (test 25 meq/L 22-29 yvmy=438) BLOOD UREA NITROGEN 92 mg/dL 7-21 (BEAKER) (test bdru=000) CREATININE (BEAKER) (test 2.52 mg/dL 0.57-1.25 bhwk=047) GLUCOSE RANDOM (BEAKER) 135 mg/dL 70-105 (test vmgc=372) CALCIUM (BEAKER) (test 8.7 mg/dL 8.4-10.2 gyya=674) EGFR (BEAKER) (test 26 mL/min/1.73 sq m ESTIMATED GFR IS NOT cdww=6030) ACCURATE CREATININE CLEARANCE IN PREDICTING GLOMERULAR FILTRATION RATE. ESTIMATED GFR IS NOT APPLICABLE FOR DIALYSIS PATIENTS. [id number] 05:48:00 Test Item Value Reference Range Comments MAGNESIUM (BEAKER) (test ozpk=365) 1.6 mg/dL 1.6-2.6 HEPATIC FUNCTION [id number] 05:48:00 Test Item Value Reference Range Comments TOTAL PROTEIN (BEAKER) (test vapc=350) 6.3 gm/dL 6.0-8.3 ALBUMIN (BEAKER) (test zlxq=9316) 2.9 g/dL 3.5-5.0 BILIRUBIN TOTAL (BEAKER) (test lvsm=210) 0.4 mg/dL 0.2-1.2 BILIRUBIN DIRECT (BEAKER) (test fkjz=479) 0.3 mg/dL 0.1-0.5 ALKALINE PHOSPHATASE (BEAKER) (test qrpq=073) 136 U/L 40-150 AST (SGOT) (BEAKER) (test tegn=887) 10 U/L 5-34 ALT (SGPT) (BEAKER) (test lfcx=899) 9 U/L 6-55 PROTHROMBIN [id number] 05:37:00 Test Item Value Reference Range Comments PROTIME (BEAKER) (test qxkn=615) 18.1 seconds 11.7-14.7 INR (BEAKER) (test qwpp=282) 1.5 <=5.9 RECOMMENDED COUMADIN/WARFARIN INR THERAPY RANGESSTANDARD DOSE: 2.0 - 3.0 Includes: PROPHYLAXIS forvenous thrombosis, systemic embolization; TREATMENT for venous thrombosis and/or pulmonary embolus.HIGH RISK: Target INR is 2.5-3.5 for patients with mechanical heart valves.POCT-GLUCOSE [id number] 21:34:00 Test Item Value Reference Range Comments POC-GLUCOSE METER (BEAKER) 260 mg/dL 70-110 TESTED AT [address] (test uupp=0195) [facility] [address] POCT-GLUCOSE [id number] 17:13:00 Test Item Value Reference Range Comments POC-GLUCOSE METER (BEAKER) 202 mg/dL 70-110 TESTED AT [address] (test rllo=6079) [facility] [address] CBC W/PLT COUNT & AUTO [id number] 16:36:00 Test Item Value Reference Range Comments WHITE BLOOD CELL COUNT (BEAKER) (test lexg=343) 10.3 K/ L 3.5-10.5 RED BLOOD CELL COUNT (BEAKER) (test unwp=635) 3.01 M/ L 4.63-6.08 HEMOGLOBIN (BEAKER) (test wkef=471) 8.5 GM/DL 13.7-17.5 HEMATOCRIT (BEAKER) (test pqxf=313) 27.0 % 40.1-51.0 MEAN CORPUSCULAR VOLUME (BEAKER) (test ffam=271) 89.7 fL 79.0-92.2 MEAN CORPUSCULAR HEMOGLOBIN (BEAKER) (test 28.2 pg 25.7-32.2 nlzz=893) MEAN CORPUSCULAR HEMOGLOBIN CONC (BEAKER) (test 31.5 GM/DL 32.3-36.5 powi=360) RED CELL DISTRIBUTION WIDTH (BEAKER) (test 15.8 % 11.6-14.4 apup=396) PLATELET COUNT (BEAKER) (test qyrd=901) 203 K/CU MM 150-450 MEAN PLATELET VOLUME (BEAKER) (test ljch=755) 10.5 fL 9.4-12.4 NUCLEATED RED BLOOD CELLS (BEAKER) (test 0 /100 WBC 0-0 chce=042) NEUTROPHILS RELATIVE PERCENT (BEAKER) (test 83 % gjxe=385) LYMPHOCYTES RELATIVE PERCENT (BEAKER) (test 7 % kzfj=363) MONOCYTES RELATIVE PERCENT (BEAKER) (test 8 % hjnl=379) EOSINOPHILS RELATIVE PERCENT (BEAKER) (test 1 % fixp=194) BASOPHILS RELATIVE PERCENT (BEAKER) (test 0 % jfur=555) NEUTROPHILS ABSOLUTE COUNT (BEAKER) (test 8.57 K/ L 1.78-5.38 yltp=894) LYMPHOCYTES ABSOLUTE COUNT (BEAKER) (test 0.71 K/ L 1.32-3.57 gxfo=238) MONOCYTES ABSOLUTE COUNT (BEAKER) (test 0.78 K/ L 0.30-0.82 alaw=371) EOSINOPHILS ABSOLUTE COUNT (BEAKER) (test 0.09 K/ L 0.04-0.54 xjiu=087) BASOPHILS ABSOLUTE COUNT (BEAKER) (test 0.04 K/ L 0.01-0.08 enli=753) IMMATURE GRANULOCYTES-RELATIVE PERCENT (BEAKER) 1 % 0-1 (test wyva=0097) CBC (HEMOGRAM ONLY)[id number] 16:30:00 Test Item Value Reference Range Comments WHITE BLOOD CELL COUNT (BEAKER) (test jhpk=334) 10.3 K/ L 3.5-10.5 RED BLOOD CELL COUNT (BEAKER) (test hnaf=768) 3.01 M/ L 4.63-6.08 HEMOGLOBIN (BEAKER) (test jffo=094) 8.5 GM/DL 13.7-17.5 HEMATOCRIT (BEAKER) (test kefe=876) 27.0 % 40.1-51.0 MEAN CORPUSCULAR VOLUME (BEAKER) (test zxhb=528) 89.7 fL 79.0-92.2 MEAN CORPUSCULAR HEMOGLOBIN (BEAKER) (test 28.2 pg 25.7-32.2 bvxx=425) MEAN CORPUSCULAR HEMOGLOBIN CONC (BEAKER) (test 31.5 GM/DL 32.3-36.5 ktvu=186) RED CELL DISTRIBUTION WIDTH (BEAKER) (test 15.8 % 11.6-14.4 gger=365) PLATELET COUNT (BEAKER) (test pxik=059) 203 K/CU MM 150-450 MEAN PLATELET VOLUME (BEAKER) (test qhdw=617) 10.5 fL 9.4-12.4 NUCLEATED RED BLOOD CELLS (BEAKER) (test 0 /100 WBC 0-0 dohe=971) POCT-GLUCOSE [id number] 12:32:00 Test Item Value Reference Range Comments POC-GLUCOSE METER (BEAKER) 209 mg/dL 70-110 TESTED AT [address] (test icuq=5178) [facility] [address] POCT-GLUCOSE [id number] 07:51:00 Test Item Value Reference Range Comments POC-GLUCOSE METER (BEAKER) 101 mg/dL 70-110 TESTED AT [address] (test mesf=8826) [facility] [address] CALCIUM, [id number] 06:35:00 Test Item Value Reference Range Comments CALCIUM IONIZED (BEAKER) (test vfba=572) 1.03 mmol/L 1.12-1.27 PH, BLOOD (BEAKER) (test mtgl=5155) 7.39 BASIC METABOLIC [id number] 05:22:00 Test Item Value Reference Range Comments SODIUM (BEAKER) (test 135 meq/L 136-145 qpkz=187) POTASSIUM (BEAKER) (test 3.6 meq/L 3.5-5.1 lpsu=691) CHLORIDE (BEAKER) (test 99 meq/L 98-107 iqrd=240) CO2 (BEAKER) (test 25 meq/L 22-29 cwnj=768) BLOOD UREA NITROGEN 106 mg/dL 7-21 (BEAKER) (test mpwx=052) CREATININE (BEAKER) (test 2.58 mg/dL 0.57-1.25 rhoj=505) GLUCOSE RANDOM (BEAKER) 105 mg/dL 70-105 (test ppew=657) CALCIUM (BEAKER) (test 8.6 mg/dL 8.4-10.2 wilt=778) EGFR (BEAKER) (test 25 mL/min/1.73 sq m ESTIMATED GFR IS NOT kdkv=9259) ACCURATE CREATININE CLEARANCE IN PREDICTING GLOMERULAR FILTRATION RATE. ESTIMATED GFR IS NOT APPLICABLE FOR DIALYSIS PATIENTS. [id number] 05:20:00 Test Item Value Reference Range Comments MAGNESIUM (BEAKER) (test ahmq=305) 1.5 mg/dL 1.6-2.6 LIPID [id number] 05:20:00 Test Item Value Reference Range Comments TRIGLYCERIDES (BEAKER) (test eaum=327) 62 mg/dL CHOLESTEROL (BEAKER) (test cajz=702) 87 mg/dL HDL CHOLESTEROL (BEAKER) (test skdt=114) 28 mg/dL LDL CHOLESTEROL CALCULATED (BEAKER) (test qxuq=188) 47 mg/dL Triglyceride Reference Range: Low Risk <150 Borderline 150- 199 High Risk 200-499 Very High Risk >=500Cholesterol Reference Range: Low Risk <200 Borderline 200-239 High Risk > 240HDL Cholesterol Reference Range: Low Risk >=60 High Risk <40LDL Cholesterol Reference Range: Optimal <100 Near Optimal 100-129 Borderline 130-159 High 160-189 Very High >=190HEPATIC FUNCTION [id number] 05:20:00 Test Item Value Reference Range Comments TOTAL PROTEIN (BEAKER) (test zdgy=366) 6.3 gm/dL 6.0-8.3 ALBUMIN (BEAKER) (test gnvj=4683) 2.9 g/dL 3.5-5.0 BILIRUBIN TOTAL (BEAKER) (test vivq=380) 0.4 mg/dL 0.2-1.2 BILIRUBIN DIRECT (BEAKER) (test dmnw=070) 0.2 mg/dL 0.1-0.5 ALKALINE PHOSPHATASE (BEAKER) (test yiwz=902) 135 U/L 40-150 AST (SGOT) (BEAKER) (test wwjl=712) 10 U/L 5-34 ALT (SGPT) (BEAKER) (test fgvd=430) 9 U/L 6-55 PROTHROMBIN [id number] 04:45:00 Test Item Value Reference Range Comments PROTIME (BEAKER) (test yacy=841) 19.6 seconds 11.7-14.7 INR (BEAKER) (test vlks=048) 1.7 <=5.9 RECOMMENDED COUMADIN/WARFARIN INR THERAPY RANGESSTANDARD DOSE: 2.0 - 3.0 Includes: PROPHYLAXIS forvenous thrombosis, systemic embolization; TREATMENT for venous thrombosis and/or pulmonary embolus.HIGH RISK: Target INR is 2.5-3.5 for patients with mechanical heart valves.CBC W/PLT COUNT & AUTO [id number] 04:41:00 Test Item Value Reference Range Comments WHITE BLOOD CELL COUNT 11.3 K/ L 3.5-10.5 (BEAKER) (test gtgu=364) RED BLOOD CELL COUNT (BEAKER) 2.63 M/ L 4.63-6.08 (test bdwn=865) HEMOGLOBIN (BEAKER) (test 7.4 GM/DL 13.7-17.5 rugt=739) HEMATOCRIT (BEAKER) (test 24.0 % 40.1-51.0 nlol=013) MEAN CORPUSCULAR VOLUME 91.3 fL 79.0-92.2 (BEAKER) (test urql=164) MEAN CORPUSCULAR HEMOGLOBIN 28.1 pg 25.7-32.2 (BEAKER) (test kcuk=686) MEAN CORPUSCULAR HEMOGLOBIN 30.8 GM/DL 32.3-36.5 CONC (BEAKER) (test tnbq=858) RED CELL DISTRIBUTION WIDTH 16.1 % 11.6-14.4 (BEAKER) (test rwjw=906) PLATELET COUNT (BEAKER) (test 202 K/CU MM 150-450 Discordant PLT result fbna=126) compared to previous result; a clinical correlation required. MEAN PLATELET VOLUME (BEAKER) 10.0 fL 9.4-12.4 (test oclf=932) NUCLEATED RED BLOOD CELLS 0 /100 WBC 0-0 (BEAKER) (test jtoy=084) NEUTROPHILS RELATIVE PERCENT 82 % (BEAKER) (test esix=170) LYMPHOCYTES RELATIVE PERCENT 7 % (BEAKER) (test dmtw=157) MONOCYTES RELATIVE PERCENT 8 % (BEAKER) (test ywpb=715) EOSINOPHILS RELATIVE PERCENT 2 % (BEAKER) (test fpxs=787) BASOPHILS RELATIVE PERCENT 0 % (BEAKER) (test khcs=719) NEUTROPHILS ABSOLUTE COUNT 9.28 K/ L 1.78-5.38 (BEAKER) (test zjhr=954) LYMPHOCYTES ABSOLUTE COUNT 0.81 K/ L 1.32-3.57 (BEAKER) (test jstt=839) MONOCYTES ABSOLUTE COUNT 0.85 K/ L 0.30-0.82 (BEAKER) (test wbiy=030) EOSINOPHILS ABSOLUTE COUNT 0.18 K/ L 0.04-0.54 (BEAKER) (test zwga=325) BASOPHILS ABSOLUTE COUNT 0.04 K/ L 0.01-0.08 (BEAKER) (test pccs=819) IMMATURE 1 % 0-1 GRANULOCYTES-RELATIVE PERCENT (BEAKER) (test yuyz=7344) POCT-GLUCOSE [id number] 22:14:00 Test Item Value Reference Range Comments POC-GLUCOSE METER (BEAKER) 135 mg/dL 70-110 TESTED AT [facility] [address] [facility] (test uswn=1689) [facility] [address] COMPREHENSIVE METABOLIC [id number] 18:13:00 Test Item Value Reference Range Comments TOTAL PROTEIN (BEAKER) 6.5 gm/dL 6.0-8.3 Specimen slightly (test legh=861) hemolyzed ALBUMIN (BEAKER) (test 2.9 g/dL 3.5-5.0 Specimen slightly qdwe=2469) hemolyzed ALKALINE PHOSPHATASE 135 U/L 40-150 (BEAKER) (test mjfv=277) BILIRUBIN TOTAL (BEAKER) 0.5 mg/dL 0.2-1.2 Specimen slightly (test glnd=240) hemolyzed SODIUM (BEAKER) (test 135 meq/L 136-145 jecs=969) POTASSIUM (BEAKER) (test 3.7 meq/L 3.5-5.1 Specimen slightly axzn=739) hemolyzed CHLORIDE (BEAKER) (test 98 meq/L 98-107 yyyp=797) CO2 (BEAKER) (test 26 meq/L 22-29 krqu=217) BLOOD UREA NITROGEN 103 mg/dL 7-21 (BEAKER) (test hsbd=964) CREATININE (BEAKER) (test 2.59 mg/dL 0.57-1.25 Specimen slightly zqmr=436) hemolyzed GLUCOSE RANDOM (BEAKER) 64 mg/dL 70-105 (test vohe=703) CALCIUM (BEAKER) (test 8.8 mg/dL 8.4-10.2 pirs=946) AST (SGOT) (BEAKER) (test 15 U/L 5-34 Specimen slightly gsxn=043) hemolyzed ALT (SGPT) (BEAKER) (test 13 U/L 6-55 Specimen slightly xpmz=368) hemolyzed EGFR (BEAKER) (test 25 mL/min/1.73 sq m ESTIMATED GFR IS NOT kqlt=7358) ACCURATE CREATININE CLEARANCE IN PREDICTING GLOMERULAR FILTRATION RATE. ESTIMATED GFR IS NOT APPLICABLE FOR DIALYSIS PATIENTS. CBC W/PLT COUNT & AUTO [id number] 17:37:00 Test Item Value Reference Range Comments WHITE BLOOD CELL COUNT (BEAKER) (test gxnb=820) 11.7 K/ L 3.5-10.5 RED BLOOD CELL COUNT (BEAKER) (test owmu=967) 2.94 M/ L 4.63-6.08 HEMOGLOBIN (BEAKER) (test gefx=432) 8.4 GM/DL 13.7-17.5 HEMATOCRIT (BEAKER) (test ojxz=572) 26.2 % 40.1-51.0 MEAN CORPUSCULAR VOLUME (BEAKER) (test cpfw=141) 89.1 fL 79.0-92.2 MEAN CORPUSCULAR HEMOGLOBIN (BEAKER) (test 28.6 pg 25.7-32.2 lrnj=601) MEAN CORPUSCULAR HEMOGLOBIN CONC (BEAKER) (test 32.1 GM/DL 32.3-36.5 grlv=899) RED CELL DISTRIBUTION WIDTH (BEAKER) (test 16.8 % 11.6-14.4 ztad=830) PLATELET COUNT (BEAKER) (test myye=625) 313 K/CU MM 150-450 MEAN PLATELET VOLUME (BEAKER) (test qrkh=537) 12.1 fL 9.4-12.4 NUCLEATED RED BLOOD CELLS (BEAKER) (test 0 /100 WBC 0-0 ipfm=816) NEUTROPHILS RELATIVE PERCENT (BEAKER) (test 80 % ntwr=947) LYMPHOCYTES RELATIVE PERCENT (BEAKER) (test 10 % mier=867) MONOCYTES RELATIVE PERCENT (BEAKER) (test 7 % yqrr=476) EOSINOPHILS RELATIVE PERCENT (BEAKER) (test 1 % ipqh=748) BASOPHILS RELATIVE PERCENT (BEAKER) (test 0 % epal=490) NEUTROPHILS ABSOLUTE COUNT (BEAKER) (test 9.29 K/ L 1.78-5.38 amqy=244) LYMPHOCYTES ABSOLUTE COUNT (BEAKER) (test 1.18 K/ L 1.32-3.57 feoz=766) MONOCYTES ABSOLUTE COUNT (BEAKER) (test 0.84 K/ L 0.30-0.82 uqcv=807) EOSINOPHILS ABSOLUTE COUNT (BEAKER) (test 0.14 K/ L 0.04-0.54 xddy=549) BASOPHILS ABSOLUTE COUNT (BEAKER) (test 0.03 K/ L 0.01-0.08 gqqe=540) IMMATURE GRANULOCYTES-RELATIVE PERCENT (BEAKER) 2 % 0-1 (test qylx=9655) POCT-GLUCOSE [id number] 15:37:00 Test Item Value Reference Range Comments POC-GLUCOSE METER (BEAKER) 83 mg/dL 70-110 TESTED AT [facility] [address] (test aayd=4507) [facility] [address]
--- OUTSIDE RECORDS SUMMARY | 2019-05-12 19:27 | XMS REPORT | Summary of Care ---
:1950 Author Organization [facility] [place] Address [address] [place] [address] Care Team Providers Name Role Phone Martín Weaver Primary Care Provider Reason for Visit Reason Comments Pre-Transplant Appointment Encounter Details Date Type Department Care Team Description 02/22/2019 Telephone [facility] [place] Feroz Ellis Pre-Transplant; Transplant-[place] MD Karl App[facility] [address] [facility] [address] [place] [id number] Allergies Not on Filedocumented as of this encounter (statuses as of 02/22/2019) Medications Not on filedocumented as of this encounter (statuses as of 02/22/2019) Active Problems Not on filedocumented as of this encounter (statuses as of 02/22/2019) Social History Tobacco Use Types Packs/Day Years Used Date Never Assessed Sex Assigned at Date Recorded Not on file Job Start Date Occupation Industry Not on file Not on file Not on file Travel History Travel Start Travel End No recent travel history available. documented as of this encounter Last Filed Vital Signs Not on filedocumented in this encounter Plan of Treatment Health Maintenance Due Date Last Done Comments HEPATITIS C (HCV) SCREEN 1950 DTaP,Tdap,and Td Vaccines (1 - Tdap) 10/19/1963 COLONOSCOPY 2002 Zoster Recombinant Vaccine (SHINGRIX) (1 of 2) 2002 Medicare Wellness Visit 2017 PNEUMOCOCCAL VACCINES 65+ (1 of 2 - PCV13) 2017 INFLUENZA VACCINE (#1) 2018 documented as of this encounter Results Not on filedocumented in this encounter Insurance Payer Benefit Plan / Subscriber ID Effective Phone Address Type Group Dates MEDICARE MEDICARE PART xxxxxxxxxxx 2008-Pre [phone] Medicare A & B sent [id number] [place] [id number] COMMERCIAL COMMERCIAL [id number] 2017-Pre HMO/PPO/POS NON-CONTRACT NON-CONTRACT sent GENERIC GENERIC documented as of this encounter
--- OUTSIDE RECORDS SUMMARY | 2019-05-12 19:27 | XMS REPORT | Summary of Care ---
:[address] [facility] Address [address] [place] [id number] Care Team Providers Name Role Phone Martín Weaver Primary Care Provider Reason for Visit Reason Comments Pre-Transplant Appointment Encounter Details Date Type Department Care Team Description 02/22/[address] [facility] [place] Feroz Ellis Pre-Transplant; Transplant-[place] MD Karl Appointment [facility] [address] [facility] [address] [place] [phone] Allergies Not on Filedocumented as of this encounter (statuses as of 02/23/2019) Medications Not on filedocumented as of this encounter (statuses as of 02/23/2019) Active Problems Not on filedocumented as of this encounter (statuses as of 02/23/2019) Social History Tobacco Use Types Packs/Day Years [...] BOX Medicare A & B sent [id number] [place] [phone] COMMERCIAL COMMERCIAL [id number] 2017-Pre HMO/PPO/POS NON-CONTRACT NON-CONTRACT sent GENERIC GENERIC documented as of this encounter
[2019-05-12] MEDS ORDERED: ONDANSETRON 4 MG/2 ML VIAL IV PRN (20:20)
[2019-05-12] MEDS ORDERED: ALBUTEROL 2.5 MG/3 ML NEB SOL NEB PRN (20:20)
[2019-05-12] MEDS ORDERED: ACETAMINOPHEN 500 MG TAB PO PRN (20:20)
[2019-05-12] MEDS ORDERED: HYDRALAZINE HCL 20 MG/ML VIAL IV PRN (20:25)
[2019-05-12] MEDS ORDERED: VANCOMYCIN/NS 1 gm 1 GM/250 ML BAG IVPB SCH (20:30)
--- NOTE | 2019-05-12 20:39 | P.HP ---
Certification for Inpatient With expected LOS: >2 Midnights Patient will require the following post-hospital care: Care Home Practitioner: I am a practitioner with admitting privileges, knowledge of patient current condition, hospital course, and medical plan of care. Services: Services provided to patient in accordance with Admission requirements found in Title 42 Section 412.3 of the Code of Federal Regulations Patient History Date of Service: 05/12/19 Reason for admission: Left Buttocks ulcer History of Present Illness: 68-year-old male with past medical history of hypertension, diabetes mellitus, bilateral shoulder osteoarthritis, diabetic neuropathy, a fever on chronic anticoagulation with Eliquis, CAD status post PCI, ESRD on HD TTS at [facility], senior living resident since the last 1 year with difficulty with performing a DL due to bilateral osteoarthritis noted at the senior living to have a worsening left sacral ulcer. He was evaluated by Wound Care-Dr. Young today and decided to be transferred to the hospital for surgical debridement. Patient denies any fever. No documented hypertension. His last dialysis was yesterday. He is complaining of intense 8/10 pain over the left Botox making him feel uncomfortable. He had a temporary bedside debridement 3 days ago with no significant improvement. Allergies mupirocin [From Bactroban] Allergy (Intermediate, Verified 05/17/18 13:49) Hives/Rash bactrim-topical Allergy (Uncoded 05/17/18 13:49) Unknown Home Medications: Digoxin [Lanoxin] 1 tab PO DAILY 07/01/15 Loratadine [Claritin*] 1 tab PO DAILY PRN 07/01/15 Potassium Chloride [Klor-Con 10] 1 tab PO DAILY 07/01/15 glipiZIDE [Glipizide] 1 tab PO BID 07/01/15 Hydralazine [Apresoline*] 25 mg PO BID 07/06/17 Insulin -Regular Human [Novolin -R*] See Protocol SQ ACHS 07/06/17 metOLazone [Zaroxolyn*] 2.5 mg PO DAILY 07/06/17 traMADol HCL [Ultram*] 50 mg PO QIDP PRN 07/06/17 Apixaban [Eliquis] 5 mg PO BID 05/17/18 Ascorbic Acid [Vitamin C] 500 mg PO BID 05/17/18 Cholecalciferol (Vitamin D3) [Vitamin D 5,000 Iu Cap] 5,000 unit PO DAILY Cyanoco/FA/Pyri [Folbic] 1 tab PO DAILY 05/17/18 Ferrous Sulfate [Feosol] 325 mg PO TID 05/17/18 Furosemide [Lasix*] 40 mg PO DAILY 05/17/18 Glipizide [Glipizide ER] 10 mg PO BID 05/17/18 Insulin Glargine Human [Lantus] 30 unit SQ BEDTIME 05/17/18 Insulin Glargine Human [Lantus] 50 unit SQ DAILY 05/17/18 Iron Fum & Ps Cmp/Vit C & B [Integra Capsule] 1 each PO BID 05/17/18 Metoprolol Tartrate [Lopressor] 25 mg PO TID 05/17/18 Niacin 500 mg PO BID 05/17/18 Pantoprazole Sodium [Protonix] 20 mg PO ACB 05/17/18 Simvastatin 40 mg PO BEDTIME 05/17/18 Spironolactone [Aldactone] 25 mg PO BID 05/17/18 allopurinoL [Zyloprim] 300 mg PO DAILY 05/17/18 Vancomycin/Water For Inj (Peg) [Vancomycin 1.5 Gram/300 ml Bag] 1.5 gm IV SEECOM #14 piggyback 05/30/18 levoFLOXacin [Levofloxacin] 500 mg PO DAILY #14 tablet 05/30/18 - Past Medical/Surgical History Diabetic: Yes -: IDDM ,diabetic neuropathy -: sleep apnea - CPAP -: Afib -: osteoarthritis -: gout -: GA ,CAD -: lymphadema BLE -: HTN -: high cholesterol -: SKYLAR -: anemia -: GERD -: parathyroid nodule removed -: lap luis -: biopsy(benign breast tissue) - Family History Mother -: Cancer Sister -: Cancer Father -: Heart disease Brother -: Hypertension - Social History Alcohol use: No CD- Drugs: No Caffeine use: Yes Review of Systems 10-point ROS is otherwise unremarkable Physical Examination - Physical Exam General: Alert, Oriented x3, Mild distress (PAIN DISTRESS), Obese HEENT: Atraumatic, Normocephalic, PERRLA, Mucous membr. moist/pink Neck: 2+ carotid pulse no bruit, JVD not distended Respiratory: Clear to auscultation bilaterally, Normal air movement Cardiovascular: Normal pulses, Regular rate/rhythm, Normal S1 S2, Other (Left AVF fistula insitu) Gastrointestinal: Normal bowel sounds, Soft and benign, Non-distended, No ascites, No tenderness Musculoskeletal: Erythema, Other (Large 6x10cm circular ulcer over left mid buttock , dark eschar with granulating deep to subcut area , second inferior buttock margin subcutaneous collection with surface abrasion , I obtain a partial surface culture today ) Rectal: Other (as above ) Assessment and Plan - Problems (Diagnosis) (1) Sacral decubitus ulcer, stage IV Current Visit: Yes Status: Acute (2) ESRD (end stage renal disease) Current Visit: No Status: Acute (3) Atrial fibrillation Onset Date: 01/08/16 Current Visit: No Status: Chronic Qualifiers: Atrial fibrillation type: chronic (4) Diabetes mellitus Onset Date: 01/08/16 Current Visit: No Status: Chronic Qualifiers: Diabetes mellitus type: 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 mcc use Diabetes mellitus complication status: with kidney complications Diabetes mellitus complication detail: with chronic kidney disease Chronic kidney disease stage: stage 5, not on chronic dialysis Qualified Code(s): E11.22 - Type 2 diabetes mellitus with diabetic chronic kidney disease; N18.5 - Chronic kidney disease, stage 5; Z79.4 - FDC ( current) use of insulin (5) Hypertension Current Visit: No Status: Chronic Qualifiers: Hypertension type: essential hypertension Qualified Code(s): I10 - Essential (primary) hypertension (6) Morbid obesity Onset Date: 01/08/16 Current Visit: No Status: Chronic - Advance Directives Does patient have a Living Will: Yes Does patient have a Durable POA for Healthcare: Yes Physician Review: Patient Assessed, Agree with Above Assessment and Plan Physician Review Additional Text: # left Buttock sacral decubitus ulcer-nonhealing with stage IV, culture obtained and sent -will also obtain blood culture x2. -we start patient on vancomycin post dialysis as well as Zosyn Q 12th -continue pain management as we add p.r.n. morphine and [place] to regimen -will consult surgery- for wound debridement in a.m. -keep NPO tonight is plan for surgery in a.m. # chronic anticoagulation-hold Eliquis for now # Diabetes mellitus-start Accu-Cheks with insulin sliding scale can resume home regimen in a.m. if no plan for surgery # Hypertension-follow blood pressure, restart home regimen # ESRD-continue HD in a.m./TTS, Dr. Lyle consulted Critical Care: No Time Spent Managing Pts Care (In Minutes): 70
[2019-05-12 20:46] VITALS: BMI 37.2
[2019-05-12] MEDS ORDERED: PIPERACIL/TAZO 3.375 GM VIAL IV ONE (20:55)
[2019-05-12] MEDS ORDERED: NA CHLORIDE 0.9% 100 ML ONE (20:57)
[2019-05-12] MEDS: Oxycodone HCl/Acetaminophen 1 TAB TAB PO PRN (21:06)
[2019-05-12] MEDS: PIPER/TAZO/NS 2.25gm 2.25 GM/50 ML BAG IV SCH (22:00)
[2019-05-12] MEDS ORDERED: PIPERACIL/TAZO 2.25 GM VIAL IV ONE (22:21)
[2019-05-12] MEDS: INSULIN -REGULAR HUMAN 50 UNIT/0.5 ML ML SQ SCH (22:22)
[2019-05-12] MEDS ORDERED: NA CHLORIDE 0.9% 50 ML ONE (22:24)
[2019-05-12] MEDS: FAMOTIDINE 20 MG TAB PO SCH (22:25)
[2019-05-13] MEDS: MORPHINE 2 MG/ML SYR IV PRN ×3 (01:26→22:50)
[2019-05-13] MEDS ORDERED: PIPERACIL/TAZO 2.25 GM VIAL IV ONE (05:13)
[2019-05-13] MEDS ORDERED: NA CHLORIDE 0.9% 50 ML ONE (05:20)
[2019-05-13] MEDS: PIPER/TAZO/NS 2.25gm 2.25 GM/50 ML BAG IV SCH ×3 (05:45→22:50)
[2019-05-13 06:23] LABS: Absolute Lymphocytes (CBC) 1.5 K/uL (0.7-4.9); Basophils % 0.6 % (0-1.3); Hematocrit 27.5 % (39.6-49.0); Lymphocytes % 14.2 % (15.3-44.8); MPV 7.6 fL (7.6-11.3); RBC Red Blood Cell Count 2.69 M/uL (4.33-5.43)
[2019-05-13 07:15] LABS: Albumin 2.3 g/dL (3.4-5.0); Bilirubin Total 0.4 mg/dL (0.2-1.0); Potassium 4.9 mmol/L (3.5-5.1); Protein, Total 7.8 g/dL (6.4-8.2)
[2019-05-13] MEDS ORDERED: ACETAMINOPHEN 325 MG TABLET PO PRN (07:16)
[2019-05-13] MEDS ORDERED: LOPERAMIDE HCL 2 MG CAPSULE PO PRN (07:16)
[2019-05-13] MEDS ORDERED: HOME MED 1 EA UNK (Acetaminophen With Codeine [Tylenol With Codeine #4 Tablet] 1 TAB) PO PRN (07:16)
[2019-05-13] MEDS: INSULIN -REGULAR HUMAN 50 UNIT/0.5 ML ML SQ SCH ×4 (07:30→21:00)
[2019-05-13] MEDS: SEVELAMER CARBONATE 800 MG TABLET PO SCH ×4 (08:00→20:46)
[2019-05-13] MEDS: DOCUSATE NA 100 MG CAP PO SCH (08:47)
[2019-05-13] MEDS: PANTOPRAZOLE 40MG TABLET PO SCH (08:47)
[2019-05-13] MEDS: ASCORBIC ACID 500 MG TABLET PO SCH ×2 (08:47→20:48)
[2019-05-13] MEDS: HOME MED 1 EA UNK (Cetirizine Hcl [Zyrtec] 10 MG) PO SCH (08:47)
[2019-05-13] MEDS: MULTIVITAMIN TAB PO SCH ×2 (08:47→20:46)
[2019-05-13] MEDS: ZINC SULFATE 220 MG CAP PO SCH (08:48)
[2019-05-13] MEDS: VITAMIN D 5,000 UNIT CAP PO SCH (08:48)
[2019-05-13] MEDS: NEPRO SHAKE 237 ML CAN PO SCH ×2 (09:00→20:49)
[2019-05-13] MEDS: Oxycodone HCl/Acetaminophen 1 TAB TAB PO PRN ×2 (09:00→17:10)
[2019-05-13] MEDS: METOPROLOL TAR 25 MG TAB PO SCH ×2 (09:00→21:00)
[2019-05-13] MEDS ORDERED: MONTELUKAST 10 MG PO SCH (09:00)
[2019-05-13] MEDS ORDERED: NA CHLORIDE 0.9% 1,000 ML IV PRN (09:19)
[2019-05-13] MEDS ORDERED: MANNITOL 25% 12.5 GM/50 ML VIAL IV PRN (09:19)
[2019-05-13] MEDS ORDERED: ALBUMIN HUMAN 25% 50 ML IV SCH (10:00)
--- NOTE | 2019-05-13 12:23 | P.PN ---
Subjective Date of Service: 05/13/19 Primary Care Provider: Dr. Weaver Chief Complaint: Left Buttocks ulcer Subjective: No new changes Patient seen and examined chart reviewed and case discussed with RN and Dr. Gonzalez. Patient is still NPO for possible debridement this morning. Complains of pain asking for pain pill Review of Systems 10-point ROS is otherwise unremarkable Integumentary: As per HPI Physical Examination - Vital Signs Temperature: 97.0 F Blood Pressure: 86/49 Pulse: 70 Respirations: 21 Pulse Ox (%): 98 - Physical Exam General: Alert, Oriented x3, Mild distress, Obese, Other (Elderly ill-appearing male) HEENT: Atraumatic, PERRLA, EOMI Neck: Supple, JVD not distended Respiratory: Clear to auscultation bilaterally, Normal air movement Cardiovascular: Normal S1 S2, Edema, Irregular heart rate/rhythm Gastrointestinal: Normal bowel sounds, Soft and benign, Non-distended, No tenderness Musculoskeletal: No tenderness Integumentary: Pressure ulcer (Left buttock stage IV) Neurological: Normal speech, Normal tone, Cranial nerves 3-12 intact, Normal affect - Studies Laboratory Data (last 24 hrs) 05/13/19 05:41: Sodium 133 L, Potassium 4.9, BUN 71 H, Creatinine 5.60 H*, Glucose 124 H, Total Bilirubin 0.4, AST 13 L, ALT 14, Alkaline Phosphatase 180 H 05/13/19 05:41: WBC 10.2, Hgb 9.0 L, Hct 27.5 L, Plt Count 169 Medications List Reviewed: Yes Assessment And Plan Discharge Plan: [facility] Plan to discharge in: 48 Hours - Code Status/Comfort Care Code Status Assessed: Yes Physician Review Additional Text: 68-year-old male with # left Buttock sacral decubitus ulcer-nonhealing with stage IV, -follow up on blood culture and wound culture -continue vancomycin post dialysis as well as Zosyn -continue pain management as we add p.r.n. morphine and [place] to regimen -Dr. Gonzalez with general surgery consulted possible wound debridement today patient is NPO # atrial fibrillation chronic permanent chronic anticoagulation-hold Eliquis for now. Continue rate control # Diabetes mellitus type 2 with incision disease on hemodialysis-continue Accu- Cheks with insulin sliding scale. Hold long-acting insulin as patient is NPO # Hypertension-follow blood pressure, restart home regimen # ESRD-continue HD in a.m./TTS, Dr. Lyle consulted. # obesity BMI 37 counseled # obstructive sleep apnea continue CPAP # coronary artery disease zuni artery zuni heart without angina. Continue home medications DVT prophylaxis SCDs no chemical anticoagulation due to surgery Disposition discharge back to nursing facility in the next 24-48 hr depending on clinical improvement and once debridement has been completed
--- NOTE | 2019-05-13 12:29 | P.CNS ---
Date of Consult: 05/13/19 Reason for Consult: ESRD Requesting Physician: Aminata Naylor Chief Complaint: Left Buttocks ulcer History of Present Illness: 68 yo WM CKD, DM, HTN presented to the hospital with a moderate, progressive left sacral ulcer with associated pain, worse with movement. He was admitted for surgical debridement. He gets his dialysis at [facility]. 68-year-old male with past medical history of hypertension, diabetes mellitus, bilateral shoulder osteoarthritis, diabetic neuropathy, a fever on chronic anticoagulation with Eliquis, CAD status post PCI, ESRD on HD TTS at [facility], residential resident since the last 1 year with difficulty with performing a DL due to bilateral osteoarthritis noted at the residential to have a worsening left sacral ulcer. He was evaluated by Wound Care-Dr. Young today and decided to be transferred to the hospital for surgical debridement. Patient denies any fever. No documented hypertension. His last dialysis was yesterday. He is complaining of intense 8/10 pain over the left Botox making him feel uncomfortable. He had a temporary bedside debridement 3 days ago with no significant improvement. Allergies mupirocin [From Bactroban] Allergy (Intermediate, Verified 05/12/19 21:08) Hives/Rash bactrim-topical Allergy (Uncoded 05/12/19 21:08) Unknown Home medications list reviewed: Yes Home Medications: Insulin -Regular Human [Novolin -R*] See Protocol SQ [facility] 07/06/17 Apixaban [Eliquis] 5 mg PO BID 05/17/18 Ascorbic Acid [Vitamin C] 500 mg PO BID 05/17/18 Metoprolol Tartrate [Lopressor] 25 mg PO BID 05/17/18 allopurinoL [Zyloprim] 300 mg PO DAILY 05/17/18 Acetaminophen [Tylenol Arthritis] 650 mg PO Q8HP PRN 05/13/19 Acetaminophen with Codeine [Tylenol with Codeine #4 Tablet] 1 tab PO Q8HP PRN Atorvastatin Calcium 20 mg PO BEDTIME 05/13/19 Cetirizine HCl [Zyrtec] 10 mg PO DAILY 05/13/19 Cholecalciferol (Vitamin D3) [Vitamin D 5,000 IU Cap*] 5,000 units PO DAILY 05/28 Collagenase [Santyl Ointment*] 1 laly TOP DAILY 05/13/19 Docusate Sodium 100 mg PO DAILY 05/13/19 Famotidine/Ca Carb/Mag Hydrox [Tums Dual Action Tablet Chew] 2 tab PO TIDWM 05/28 Insulin Detemir [Levemir] 30 units SQ BEDTIME 05/13/19 Insulin Detemir [Levemir] 40 units SQ DAILY 05/13/19 Lactulose 30 ml PO DAILYPRN PRN 05/13/19 Loperamide [Imodium*] 2 mg PO Q8HP PRN 05/13/19 Montelukast [Singulair*] 10 mg PO DAILY 05/13/19 Multivitamin [Multiple Vitamins] 1 tab PO BID 05/13/19 Nepro Shake [Nepro*] 1 can PO BID 05/13/19 Ondansetron [Zofran (Odt)*] 4 mg PO Q8HP 05/13/19 Pantoprazole [Protonix Tab*] 40 mg PO DAILY 05/13/19 Sevelamer Carbonate 1,600 mg PO TIDWM 05/13/19 Zinc Sulfate [Zinc Sulfate*] 220 mg PO DAILY 05/13/19 clindamycin HCL [Clindamycin HCl] 300 mg PO Q8HR 05/13/19 levoFLOXacin [Levaquin*] 250 mg PO Q48H 05/13/19 - Past Medical/Surgical History Diabetic: Yes -: IDDM ,diabetic neuropathy -: sleep apnea - CPAP -: Afib -: osteoarthritis -: gout -: PA ,CAD -: lymphadema BLE -: HTN -: high cholesterol -: SKYLAR -: anemia -: GERD -: parathyroid nodule removed -: lap luis -: biopsy(benign breast tissue) - Family History Mother Medical History: Cancer Sister Medical History: Cancer Father Medical History: Heart disease Brother Medical History: Hypertension - Social History Smoking Status: Unknown if ever smoked Alcohol use: No CD- Drugs: No Caffeine use: Yes Place of Residence: [place] Review of Systems 10-point ROS is otherwise unremarkable General: Weakness, Malaise Respiratory: SOB with Excertion Integumentary: Lesions Neurological: Weakness Physical Examination Temp Pulse Resp BP Pulse Ox 97.0 F 70 21 H 86/49 L 98 05/13/19 12:00 05/13/19 12:00 05/13/19 12:00 05/13/19 12:00 05/13/19 12:00 General: Oriented x3, Cooperative HEENT: Atraumatic Neck: Supple, JVD distended Respiratory: Diminished Cardiovascular: Regular rate/rhythm, Edema Gastrointestinal: Soft and benign, Non-distended, No guarding Musculoskeletal: No clubbing, No contractures Integumentary: No rashes, No cyanosis Neurological: Normal speech Laboratory Data (last 24 hrs) 05/13/19 05:41: Sodium 133 L, Potassium 4.9, BUN 71 H, Creatinine 5.60 H*, Glucose 124 H, Total Bilirubin 0.4, AST 13 L, ALT 14, Alkaline Phosphatase 180 H 05/13/19 05:41: WBC 10.2, Hgb 9.0 L, Hct 27.5 L, Plt Count 169 Conclusions/Impression: A/ ESRD on HD. Hyponatremia Diastolic CHF, chronic. HTN with CKD/ CHF. KENROY Anemia in CKD. NICOLAS/ Secondary HyperPTH Gout DM II with CKD. Moderate malnutrition. Left sacral decubitus ulcer. P/ Continue current POC and Medications. Arrange for acute HD today. Restart home medications as indicated. Wound care as ordered. Follow up with surgery. Continue abx. Monitor vanco level. Follow up cultures. Give Retacrit. No NSAIDs. AM labs. Daily weight. Thank you kindly for the consultation.
[2019-05-13] MEDS ORDERED: MIDODRINE HCL 5 MG TABLET PO SCH (13:00)
[2019-05-13 13:36] LABS: Protime INR 1.43
--- NOTE | 2019-05-13 15:00 | CON ---
Date of Consultation: 05/13/2019 Diagnosis: Infected sacral decubitus ulcer. History Of Present Illness: This is a case of a 68-year-old patient with multiple medical problems. He has been for the last few months ago in and out of the hospital, last he was in [place], he was a t [facility], now in [facility] with a decubitus ulcer which is just getting worse and tender. He states he has been under the care of Dr. Durán at the [facility] and they are trying to do debride ment not too long ago, but patient stated it got worse. Patient is mainly bedridden. He can move, b ut is a little bit on the morbid obesity side. He also has history of fractures in the arm, so it is hard for him to get the strength. He even went to [facility] to get strength, but he stated he di d not improve that much. Allergies: BACTROBAN AND BACTRIM. Medications: Insulin, also blood thinners. Past Medical History: [place], CAD, lymphedema, hypertension, high cholesterol, parathyroid surgery. Als o has Afib, sleep apnea, once again insulin-dependent diabetes. Family History: Heart disease, hypertension. Social History: He does not smoke. He does not drink alcohol. Review of Systems: 10 points otherwise unremarkable. Physical Examination: General: Patient is awake and alert. HEENT: Pupils are equal and reactive, anicteric. Neck: Supple. Chest: Clear. Abdomen: Soft and depressible, nontender, nondistended. Extremities: Good capillary refill. Back: Patient has a large sacral decubitus ulcer with necrotic tissue present. Tender. It will nee d debridement. Laboratory Data: Blood work shows WBC count 10.2, hemoglobin of 9.9. INR of 1.43. Creatinine is 5. 6. Assessment: This is a 68-year-old patient with extensive medical history. He also has a sacral decu bitus ulcer, atrial fibrillation, anticoagulation. Morbid obesity and sleep apnea. He also has a hi story of myocardial infarction. I proposed to him to do this procedure at bedside, but he tried that before. He stated he hurt a lot. He wants to be under some anesthetic. He was explained the risks of anesthesia at this moment, although he is not going to let me clean this without the anesthetic. In that case, I am going to discuss this with the OR the best chance available to take him to surger y. We might need now to get a cardiac clearance. He is in anticoagulation and I am going to ask the doctor to hold that anticoagulation if possible if Cardiology allows me to do so. At this time. He understands the national emergency and the coronavirus issues going around, the risks he also posed for himself, but at the same time, I understand he is not going to let me do this under local anesthe tic. If that is the case, I am going to plan in the next few hours the best way after we have a jeffery natalie from a body bumper. CAYDEN/SOHAN Voice ID: [id number] Report ID: [id number]
[2019-05-13] MEDS: EPOETIN ALFA-EPBX 10,000 UNIT/ML VIAL SQ SCH (17:09)
[2019-05-13] MEDS ORDERED: VANCOMYCIN 2 GM in NA CHLORIDE 0.9% 500 ML IVPB ONE (20:00)
[2019-05-13] MEDS: FAMOTIDINE 20 MG TAB PO SCH (20:47)
[2019-05-13] MEDS: ATORVASTATIN 20 MG TAB PO SCH (20:47)
[2019-05-14] MEDS: Oxycodone HCl/Acetaminophen 1 TAB TAB PO PRN ×4 (04:16→21:42)
[2019-05-14] MEDS: DOCUSATE NA 100 MG CAP PO SCH (04:16)
[2019-05-14 06:40] LABS: Absolute Lymphocytes (CBC) 0.6 K/uL (0.7-4.9); Basophils % 0.3 % (0-1.3); Hematocrit 27.8 % (39.6-49.0); Lymphocytes % 6.5 % (15.3-44.8); MPV 7.3 fL (7.6-11.3); RBC Red Blood Cell Count 2.73 M/uL (4.33-5.43)
[2019-05-14 06:57] LABS: Albumin 2.1 g/dL (3.4-5.0); Bilirubin Total 0.4 mg/dL (0.2-1.0); Magnesium 2.3 mg/dL (1.8-2.4); Phosphorus 3.7 mg/dL (2.5-4.9); Potassium 4.4 mmol/L (3.5-5.1); Protein, Total 7.5 g/dL (6.4-8.2); Uric Acid 3.1 mg/dL (3.5-7.2)
--- NOTE | 2019-05-14 07:33 | P.PN ---
Subjective Date of Service: 05/14/19 Primary Care Provider: Dr. Weaver Chief Complaint: Left Buttocks ulcer Subjective: No new changes Patient seen and examined chart reviewed and case discussed with RN and Dr. King. Patient to be evaluated by Cardiology for cardiac clearance prior to surgery. Currently off of his anti coagulation. Will be going for dialysis today. still reports pain in his Wound Review of Systems 10-point ROS is otherwise unremarkable (Who) Integumentary: As per HPI Physical Examination - Vital Signs Temperature: 97.5 F Blood Pressure: 129/74 Pulse: 80 Respirations: 17 Pulse Ox (%): 99 - Physical Exam General: Alert, Oriented x3, Mild distress, Obese, Other (Elderly ill-appearing male) HEENT: Atraumatic, PERRLA, EOMI Neck: Supple, JVD not distended Respiratory: Clear to auscultation bilaterally, Normal air movement Cardiovascular: Normal S1 S2, Edema, Irregular heart rate/rhythm Gastrointestinal: Normal bowel sounds, Soft and benign, Non-distended, No tenderness Musculoskeletal: No tenderness Integumentary: Pressure ulcer (Left-sided stage IV ulcer buttock.) Neurological: Normal speech, Normal strength at 5/5 x4 extr, Normal tone, Normal affect - Studies Laboratory Data (last 24 hrs) 05/14/19 06:22: Sodium 134 L, Potassium 4.4, BUN 46 H D, Creatinine 4.28 H D, Glucose 260 H, Uric Acid 3.1 L, Phosphorus 3.7, Magnesium 2.3, Total Bilirubin 0.4, AST 16, ALT 18, Alkaline Phosphatase 184 H 05/14/19 06:22: WBC 9.8, Hgb 9.1 L, Hct 27.8 L, Plt Count 163 05/13/19 13:14: PT 16.8 H, INR 1.43 Microbiology Data (last 24 hrs): 05/12/19 20:30 Wound - Left Buttock Gram Stain - Final Medications List Reviewed: Yes Assessment And Plan Physician Review: Patient Assessed, Agree with Above Assessment and Plan Physician Review Additional Text: 68-year-old male with # left Buttock sacral decubitus ulcer-nonhealing with stage IV, -follow up on blood culture and wound culture. no growth to date -continue vancomycin post dialysis as well as Zosyn -continue pain management. add p.r.n. morphine and [place] to regimen -Dr. Gonzalez with general surgery consulted.cardiac clearance prior to wound debridement # atrial fibrillation chronic permanent chronic anticoagulation-hold Eliquis for now. Continue rate control. If no surgery today may need to bridge with heparin or Lovenox. Will discuss with cardiology. 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 Adjust long-acting insulin. # Hypertension-follow blood pressure, continue home regimen # ESRD-continue HD in a.m./TTS, Dr. Lyle consulted. # obesity BMI 37 counseled # obstructive sleep apnea continue CPAP # coronary artery disease rosebud artery rosebud heart without angina. Continue home medications DVT prophylaxis SCDs no chemical anticoagulation due to surgery Disposition discharge back to nursing facility in the next 24-48 hr depending on clinical improvement and once debridement has been completed
[2019-05-14] MEDS: INSULIN -REGULAR HUMAN 50 UNIT/0.5 ML ML SQ SCH ×4 (08:42→21:41)
--- NOTE | 2019-05-14 08:42 | CON ---
Date of Consultation: 05/14/2019 Patient was admitted to Dr. Covington on 05/12/2019. I saw the patient on 05/14/2019. Reason For Consultation: Cardiac clearance from surgery on the left sacrum decubitus. History Of Present Illness: Mr. Bird is a 68-year-old white male. He is known to us from previous of fice visits and admission. 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 A catheterizati on was done then without any intervention, was treated medically. He has a history of chronic atrial fibrillation, diabetes, gout, hypertension, dyslipidemia, COPD, and anemia. He is on hemodialysis f or end-stage renal disease. He has been living in a usp. Came in with a left sacral decubi tus ulcer that may need surgery by Dr. Gonzalez, and was asked to clear him. He denied chest pain, s hortness of breath, PND, orthopnea, pedal edema, palpitations, or syncope. Denied any fever or chill s or cough. Past Medical History: As stated above. Allergies: HE IS ALLERGIC TO BACTRIM. Review of Systems: Negative. Social History: Negative. Family History: Noncontributory. Medications: At home include Eliquis, Lipitor, metformin, Protonix, and allopurinol. Physical Examination: General: Mr. Bird is a morbidly obese, weighs 274 pounds. Vital Signs: His vital signs are stable. He was in atrial fibrillation at a rate 80. Afebrile. HEENT: Negative. Neck: Supple. No bruit. Chest: Clear. Cardiac: Irregularly irregular rhythm and rate without any murmurs, gallops, or rubs. Abdomen: Obese, but benign. Extremities: No clubbing or cyanosis. He had 1+ edema. Diagnostic Data: Creatinine was 5.60, hemoglobin was 9.0. Chest x-ray was negative. There is no EK G on the chart yet. Impression And Plan: Mr. Bird is a patient with chronic coronary artery disease that is stable, chron ic atrial fibrillation that is also stable. He has no cardiac symptoms. His atrial fibrillation rat e is only 80. His Eliquis has been held for 2 days. His last echocardiogram and stress test in my o ffice in 2017 were normal. I think he is at low risk for perioperative mortality. I will continue t o follow him. Dr. King was following him regarding his hemodialysis and end-stage renal disease. His diabetes, hypertension, and dyslipidemia as well as gout and COPD seem to be stable. Mr. Bird strong s anemia. His hemoglobin is 9.0. At one point, he had gastrointestinal bleed, on Xarelto. He used to take Coumadin in the past. He has known Eliquis, which has been held for 2 days. I feel comforta ble with him being off anticoagulants until his surgery is done and we can resume his Eliquis after t hat. MARY/SOHAN Voice ID: [id number] Report ID: [id number]
[2019-05-14] MEDS: MONTELUKAST 10 MG TAB PO SCH ×2 (08:43→08:44)
[2019-05-14] MEDS: SEVELAMER CARBONATE 800 MG TABLET PO SCH ×3 (08:44→16:44)
[2019-05-14] MEDS: PANTOPRAZOLE 40MG TABLET PO SCH (08:44)
[2019-05-14] MEDS: VITAMIN D 5,000 UNIT CAP PO SCH (08:45)
[2019-05-14] MEDS: CALCITROL 0.25 MCG CAP PO SCH (08:45)
[2019-05-14] MEDS: ASCORBIC ACID 500 MG TABLET PO SCH ×2 (08:45→21:41)
[2019-05-14] MEDS: ZINC SULFATE 220 MG CAP PO SCH (08:45)
[2019-05-14] MEDS: MULTIVITAMIN TAB PO SCH ×2 (08:45→21:41)
[2019-05-14] MEDS: MULTIVITAMINS,THERAPEUT 1 TAB PO SCH (08:45)
[2019-05-14] MEDS: METOPROLOL TAR 25 MG TAB PO SCH ×2 (08:46→21:41)
[2019-05-14] MEDS: HOME MED 1 EA UNK (Cetirizine Hcl [Zyrtec] 10 MG) PO SCH (08:47)
[2019-05-14] MEDS: COLLAGENASE 30 GM OINTMENT TOP SCH (08:48)
[2019-05-14] MEDS: NEPRO SHAKE 237 ML CAN PO SCH ×2 (08:48→21:00)
[2019-05-14 10:01] VITALS: O2SAT 100
--- NOTE | 2019-05-14 10:50 | P.PN ---
Date of Service: 05/14/19 Vital Signs Temp Pulse Resp BP Pulse Ox 97 F 79 18 81/53 L 98 05/14/19 08:00 05/14/19 08:46 05/14/19 08:41 05/14/19 08:46 05/14/19 08:41 Medications Acetaminophen (Tylenol -Extra Strength) 500 mg PO Q6H PRN PRN Reason: Pain scale 2-4 (Mild) Stop: 06/11/19 20:21 Last Admin: 05/13/19 20:47 Dose: 500 mg Albuterol Sulfate (Proventil 0.083% Neb Soln) 2.5 mg NEB Q6HP PRN PRN Reason: SHORTNESS OF BREATH Stop: 06/11/19 20:21 Ascorbic Acid (Vitamin C) 500 mg PO BID [facility] Stop: 06/12/19 09:01 Last Admin: 05/14/19 08:45 Dose: 500 mg Atorvastatin Calcium (Lipitor) 20 mg PO BEDTIME BHARGAVI Stop: 06/12/19 21:01 Last Admin: 05/13/19 20:47 Dose: 20 mg Calcitriol (Rocaltrol) 0.5 mcg PO DAILY [facility] Stop: 06/13/19 09:01 Last Admin: 05/14/19 08:45 Dose: 0.5 mcg Cholecalciferol (Vitamin D 5,000 Iu Cap) 5,000 unit PO DAILY [facility] Stop: 06/12/19 09:01 Last Admin: 05/14/19 08:45 Dose: 5,000 unit Collagenase (Santyl Ointment) 1 appl TOP DAILY BHARGAVI Stop: 06/13/19 09:01 Last Admin: 05/14/19 08:48 Dose: 1 applic Docusate Sodium (Colace Cap) 100 mg PO DAILY [facility] Stop: 06/12/19 09:01 Last Admin: 05/14/19 04:16 Dose: 100 mg Enteral Nutritional Formula (Nepro Shake) 237 ml PO BID [facility], [facility] Stop: 06/12/19 09:01 Last Admin: 05/14/19 08:48 Dose: 237 ml Famotidine (Pepcid) 20 mg PO QD [facility], [facility]; Protocol Stop: 06/11/19 21:01 Last Admin: 05/13/19 20:47 Dose: 20 mg Heparin Sodium (Porcine) (Heparin 1,000 Units/Ml) 6,000 unit IV EVERY HD PRN PRN Reason: FLUSH AFTER EACH USE Stop: 06/12/19 09:20 Home Med (Acetaminophen With Codeine [Tylenol With Codeine #4 Tablet]) 1 tab PO Q8HP PRN PRN Reason: Pain scale 2-4 (Mild) Home Med (Acetaminophen [Tylenol Arthritis]) 650 mg PO Q8HP PRN PRN Reason: Pain scale 2-4 (Mild) Home Med (Cetirizine Hcl [Zyrtec]) 10 mg PO DAILY [facility] Stop: 06/12/19 09:01 Last Admin: 05/14/19 08:47 Dose: Not Given Hydralazine HCl (Apresoline) 10 mg IV Q6HP PRN PRN Reason: Titrate to SBP (MUST DEFINE) Stop: 06/11/19 20:26 Vancomycin HCl (Vancomycin 1 Gm/250 Ml Ns Ivpb) 1 gm in 250 mls @ 166.667 mls/ hr IVPB AFTER EACH DIALYSIS [facility], [facility]; Protocol Stop: 06/11/19 20:31 Piperacillin/Tazobactam/Sod Chloride (Zosyn 2.25 Gm/50 Ml Ivpb) 2.25 gm in 50 mls @ 50 mls/hr IV Q8H BHARGAVI; Protocol Stop: 06/11/19 22:01 Last Admin: 05/13/19 22:50 Dose: 50 mls Albumin Human (Albumin 25%) 50 mls @ 100 mls/hr IV EVERY HD [facility], [facility] Stop: 06/12/19 10:01 Insulin Human Regular (Novolin -R) 0 unit SQ ACHS [facility]ARGAVI; Protocol Stop: 06/11/19 21:01 Last Admin: 05/14/19 08:42 Dose: 7 unit Loperamide HCl (Imodium) 2 mg PO Q8HP PRN PRN Reason: DIARRHEA Stop: 06/12/19 07:17 Mannitol (Mannitol 12.5 Gm/50 Ml Vial) 12.5 gm IV EVERY HD PRN PRN Reason: Titrate to SBP >160 Stop: 06/12/19 09:20 Metoprolol Tartrate (Lopressor) 25 mg PO BID [facility] Stop: 06/12/19 09:01 Last Admin: 05/14/19 08:46 Dose: Not Given Midodrine (Proamatine) 10 mg PO EVERY HD [facility] Stop: 06/12/19 13:01 Montelukast Sodium (Singulair) 10 mg PO DAILY [facility] Stop: 06/13/19 09:01 Last Admin: 05/14/19 08:43 Dose: 10 mg Montelukast Sodium (Singulair) 10 mg PO DAILY [facility] Stop: 06/13/19 09:01 Last Admin: 05/14/19 08:44 Dose: Not Given Morphine Sulfate (Morphine Sulfate) 2 mg IV Q4H PRN PRN Reason: Pain scale 5-7 (Moderate) Stop: 06/11/19 20:21 Last Admin: 05/13/19 22:50 Dose: 2 mg Multivitamins/Minerals (Centrum Tablet) 1 tab PO BID [facility] Stop: 06/12/19 09:01 Last Admin: 05/14/19 08:45 Dose: 1 tab Ondansetron HCl (Zofran) 4 mg IV Q8H PRN PRN Reason: NAUSEA / VOMITING Stop: 06/11/19 20:21 Oxycodone/Acetaminophen (Percocet 5/325 Tab) 1 tab PO Q4H PRN PRN Reason: Pain scale 5-7 (Moderate) Stop: 06/11/19 20:26 Last Admin: 05/14/19 08:41 Dose: 1 tab Pantoprazole Sodium (Protonix Tab) 40 mg PO DAILY [facility], [facility]; Protocol Stop: 06/12/19 09:01 Last Admin: 05/14/19 08:44 Dose: 40 mg Sevelamer Carbonate (Renvela) 1,600 mg PO TIDWM [facility] Stop: 06/12/19 08:01 Last Admin: 05/14/19 08:44 Dose: 1,600 mg Sodium Chloride (Normal Saline Flush) 10 ml IV BID [facility] Stop: 06/11/19 21:01 Last Admin: 05/14/19 08:47 Dose: 10 ml Vitamin B Complex/Vit C/Folic Acid (Nephro-Sindi) 1 tab PO DAILY [facility] Stop: 06/13/19 09:01 Last Admin: 05/14/19 08:45 Dose: 1 tab Zinc Sulfate (Zinc Sulfate) 220 mg PO DAILY [facility] Stop: 06/12/19 09:01 Last Admin: 05/14/19 08:45 Dose: 220 mg Lab Results (last 24 hrs) 05/14/19 07:54: POC Glucose 257 H 05/14/19 06:22: Sodium 134 L, Potassium 4.4, Chloride 100, Carbon Dioxide 25, BUN 46 H D, Creatinine 4.28 H D, Estimated GFR 14 L, Glucose 260 H, Uric Acid 3.1 L, Calcium 8.8, Phosphorus 3.7, Magnesium 2.3, Total Bilirubin 0.4, AST 16, ALT 18, Alkaline Phosphatase 184 H, Serum Total Protein 7.5, Albumin 2.1 L, Globulin 5.4 H, Albumin/Globulin Ratio 0.4 L 05/14/19 06:22: WBC 9.8, RBC 2.73 L, Hgb 9.1 L, Hct 27.8 L, MCV 102.0 H, MCH 33.2, MCHC 32.6, RDW 16.4 H, Plt Count 163, MPV 7.3 L, Neutrophils % 81.5 H, Lymphocytes % 6.5 L, Monocytes % 10.7, Eosinophils % 1.0, Basophils % 0.3, Absolute Neutrophils 8.0, Absolute Lymphocytes 0.6 L, Absolute Monocytes 1.0, Absolute Eosinophils 0.1, Absolute Basophils 0.0 05/13/19 20:24: POC Glucose 124 H 05/13/19 15:14: POC Glucose 132 H 05/13/19 13:14: PT 16.8 H, INR 1.43 05/13/19 10:55: POC Glucose 147 H 05/13/19 07:29: POC Glucose 129 H Microbiology Results 05/12/19 20:44 Blood - Blood Aerobic Blood Culture - Preliminary No growth in 24 hours. 05/12/19 20:44 Blood - Blood Anaerobic Blood Culture - Preliminary No growth in 24 hours. 05/12/19 20:30 Wound - Left Buttock Gram Stain - Final Assessment/ Plan: Nephrology Persistent buttock pain. CPS stable without CP or SOB. No acute events overnight. Vitals, medications, blood work and imaging reviewed in the chart. General: Oriented x3, Cooperative HEENT: Atraumatic Neck: Supple, JVD distended Respiratory: Diminished Cardiovascular: Regular rate/rhythm, Edema Gastrointestinal: Soft and benign, Non-distended, No guarding Musculoskeletal: No clubbing, No contractures Integumentary: No rashes, No cyanosis Neurological: Normal speech Laboratory Data (last 24 hrs) 05/13/19 05:41: Sodium 133 L, Potassium 4.9, BUN 71 H, Creatinine 5.60 H*, Glucose 124 H, Total Bilirubin 0.4, AST 13 L, ALT 14, Alkaline Phosphatase 180 H 05/13/19 05:41: WBC 10.2, Hgb 9.0 L, Hct 27.5 L, Plt Count 169 Conclusions/Impression: A/ ESRD on HD. Hyponatremia Diastolic CHF, chronic. HTN with CKD/ CHF. KENROY Anemia in CKD. NICOLAS/ Secondary HyperPTH Gout DM II with CKD. Moderate malnutrition. Left sacral decubitus ulcer. P/ Continue current POC and Medications. No HD today. Wound care as ordered. Follow up with surgery. Continue abx. Monitor vanco level. Follow up cultures. Give Retacrit PRN Pain control as ordered. Renal diet with fluid restriction. No NSAIDs. AM labs. Daily weight.
[2019-05-14] MEDS: PIPER/TAZO/NS 2.25gm 2.25 GM/50 ML BAG IV SCH ×2 (14:42→21:49)
[2019-05-14] MEDS: EPOETIN ALFA-EPBX 10,000 UNIT/ML VIAL SQ SCH (16:44)
[2019-05-14] MEDS: FAMOTIDINE 20 MG TAB PO SCH (21:00)
--- NOTE | 2019-05-14 21:34 | PN ---
Date of Progress Note: 05/14/2019 Diagnosis: Infected sacral decubitus ulcer. Vital Signs: Temperature 98.3. Blood pressure 107/48. Review of Systems: Ten points otherwise unremarkable. Objective: Abdomen: Soft and depressible. Skin: Shows a stage III decubitus ulcer with necrotic tissue present. Infected pressure ulcer. Laboratory Data: Blood work shows WBC count of 9.8 with hemoglobin of 9.1, INR is 1.43, creatinine i s 4.28. Assessment: This is a 68-year-old patient with an ulcer. Patient does not want me to debride it at bedside, it is very tender. They tried that previously and he said it did not go anywhere, it is jus t getting worse. So, I offered him I will do it under anesthesia or sedation. He understands the ri sks of coronavirus, understand the risks of the emergency is going on right now, but he cannot allow this to happen at bedside, so I have to book in surgery. Since patient has cardiac disease, we reque st cardiac clearance, he would just evaluate him and obviously with all the conditions they understan d the surgery will be going, so we just got a clearance. Renal service is working on his creatinine. From the surgical standpoint, we are going to proceed with debridement of necrotic ulcer with benef its, alternatives, and risks previously explaining include, but not limited to infection, bleeding, d amage to adjacent structures, anesthesia complication, nonhealing wound, ME, and even . He also understands this may not relieve any symptoms. He might need more than one surgical intervention. Understands the importance of nutrition, importance of his medical problems control, importance losing weight, and also offloading. HM/MODL Voice ID: [id number] Report ID: [id number]
[2019-05-14] MEDS: ATORVASTATIN 20 MG TAB PO SCH (21:41)
[2019-05-15] MEDS: MORPHINE 2 MG/ML SYR IV PRN ×3 (00:49→10:15)
[2019-05-15 06:04] LABS: Absolute Lymphocytes (CBC) 1.2 K/uL (0.7-4.9); Basophils % 0.4 % (0-1.3); Hematocrit 28.5 % (39.6-49.0); Lymphocytes % 11.2 % (15.3-44.8); MPV 7.6 fL (7.6-11.3); RBC Red Blood Cell Count 2.83 M/uL (4.33-5.43)
[2019-05-15] MEDS: PIPER/TAZO/NS 2.25gm 2.25 GM/50 ML BAG IV SCH (06:05)
[2019-05-15 06:39] LABS: Potassium 4.7 mmol/L (3.5-5.1)
--- NOTE | 2019-05-15 07:22 | P.PN ---
Subjective Date of Service: 05/15/19 Primary Care Provider: Dr. Weaver Chief Complaint: Left Buttocks ulcer Subjective: Doing well Patient seen and examined chart reviewed and case discussed with RN and Dr. King. Patient cleared from cardiology standpoint for surgery. Will be going for debridement today. Pain is controlled Review of Systems 10-point ROS is otherwise unremarkable Integumentary: As per HPI Physical Examination - Vital Signs Temperature: 96.8 F Blood Pressure: 105/55 Pulse: 89 Respirations: 18 Pulse Ox (%): 97 - Physical Exam General: Alert, Oriented x3, Mild distress, Obese, Other (Ill-appearing elderly male) HEENT: Atraumatic, PERRLA, EOMI Neck: Supple, JVD not distended Respiratory: Clear to auscultation bilaterally, Normal air movement Cardiovascular: Normal S1 S2, Edema, Irregular heart rate/rhythm Gastrointestinal: Normal bowel sounds, Soft and benign, Non-distended, No tenderness Musculoskeletal: No tenderness Integumentary: Pressure ulcer (Sacral ulcer left buttock stage IV) Neurological: Normal speech, Normal strength at 5/5 x4 extr, Normal tone, Normal affect - Studies Laboratory Data (last 24 hrs) 05/15/19 05:45: Sodium 132 L, Potassium 4.7, BUN 71 H D, Creatinine 5.47 H* D, Glucose 219 H 05/15/19 05:45: WBC 11.0 H, Hgb 9.1 L, Hct 28.5 L, Plt Count 186 Microbiology Data (last 24 hrs): 05/12/19 20:30 Wound - Left Buttock Gram Stain - Final Medications List Reviewed: Yes Assessment And Plan Physician Review: Patient Assessed, Agree with Above Assessment and Plan Physician Review Additional Text: 68-year-old male with # left Buttock sacral decubitus ulcer-nonhealing with stage IV, -follow up on blood culture and wound culture. Wound culture growing Gram negative rods. Will await ID and sensitivity. Patient will likely need long- term IV antibiotics. -continue vancomycin post dialysis as well as Zosyn -continue pain management. add p.r.n. morphine and [place] to regimen -Dr. Gonzalez with general surgery consulted. Cleared from cardiac standpoint for wound debridement -air mattress # atrial fibrillation chronic permanent chronic anticoagulation-hold Eliquis for now. Continue rate control. Discussed with cardiology. 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 Adjust long-acting insulin. # Hypertension-follow blood pressure, continue home regimen # ESRD-continue HD in a.m./TTS, Dr. Lyle consulted. # obesity BMI 37 counseled # obstructive sleep apnea continue CPAP # coronary artery disease [place] artery [place] heart without angina. Continue home medications DVT prophylaxis SCDs no chemical anticoagulation due to surgery Disposition discharge back to nursing facility in the next 24-48 hr depending on clinical improvement and once debridement has been completed with possibility of long-term IV antibiotics depending on culture results. ID has been consulted.
[2019-05-15] MEDS: INSULIN -REGULAR HUMAN 50 UNIT/0.5 ML ML SQ SCH ×2 (07:30→11:30)
[2019-05-15] MEDS: SEVELAMER CARBONATE 800 MG TABLET PO SCH ×2 (08:00→11:50)
[2019-05-15] MEDS: MULTIVITAMINS,THERAPEUT 1 TAB PO SCH (09:00)
[2019-05-15] MEDS: NEPRO SHAKE 237 ML CAN PO SCH (09:00)
[2019-05-15] MEDS: COLLAGENASE 30 GM OINTMENT TOP SCH (09:00)
[2019-05-15] MEDS: MULTIVITAMIN TAB PO SCH (09:00)
[2019-05-15] MEDS: METOPROLOL TAR 25 MG TAB PO SCH (09:00)
[2019-05-15] MEDS: PANTOPRAZOLE 40MG TABLET PO SCH (09:00)
[2019-05-15] MEDS: ZINC SULFATE 220 MG CAP PO SCH (09:00)
[2019-05-15] MEDS: DOCUSATE NA 100 MG CAP PO SCH (09:00)
[2019-05-15] MEDS: MONTELUKAST 10 MG TAB PO SCH ×2 (09:00)
[2019-05-15] MEDS: CALCITROL 0.25 MCG CAP PO SCH (09:00)
[2019-05-15] MEDS ORDERED: CETIRIZINE HCL 5 MG TABLET PO SCH (09:00)
[2019-05-15] MEDS: ASCORBIC ACID 500 MG TABLET PO SCH (09:00)
[2019-05-15] MEDS: VITAMIN D 5,000 UNIT CAP PO SCH (09:00)
[2019-05-15 10:41] VITALS: TEMP 97.6
[2019-05-15] MEDS ORDERED: propofoL 200 MG/20 ML VIAL IV ONE (11:27)
[2019-05-15] MEDS ORDERED: FENTANYL CITR 100 MCG/2 ML ONE ×2 (11:27→12:57)
[2019-05-15] MEDS ORDERED: MIDAZOLAM HCL 2 MG/2 ML INJ ONE (11:27)
[2019-05-15] MEDS ORDERED: LIDOCAINE 2% MPF 5 ML VIAL ONE (11:27)
[2019-05-15] MEDS ORDERED: NA CHLORIDE 0.9% 500 ML ONE (11:29)
[2019-05-15] MEDS ORDERED: ROCURONIUM 50 MG/5 ML VIAL IV ONE (11:33)
[2019-05-15] MEDS ORDERED: EPHEDRINE SULF 50 MG/ML VIAL ONE ×2 (12:43→13:29)
[2019-05-15] MEDS ORDERED: Phenylephrine HCl 10 MG/ML 1 ML VIAL ONE ×2 (13:04→13:46)
[2019-05-15] MEDS ORDERED: GLYCOPYRROLATE 0.2 MG/ML SYR ONE (13:12)
--- NOTE | 2019-05-15 13:14 | P.BOP ---
Preoperative diagnosis: infected necrotic sacral decubitus tender ulcer Postoperative diagnosis: same Primary procedure: Excisional debridement of infected necrotic sacral decubitus ulcer Secondary procedure: 12 x 8 x 2 cm Estimated blood loss: <20cc Specimen: necrotic tissue/culture Findings: necrotic ulcer Anesthesia: General Complications: None Drain(s): Other (wet to dry NS) Transferred to: ICU Condition: Serious
[2019-05-15] MEDS ORDERED: NS 0.9% VIAL 10 ML ONE (13:46)
--- NOTE | 2019-05-15 13:46 | P.PN ---
Date of Service: 05/15/19 Vital Signs Temp Pulse Resp BP Pulse Ox 97.6 F 82 16 101/55 L 100 05/15/19 12:00 05/15/19 12:00 05/15/19 12:00 05/15/19 12:00 05/15/19 12:00 Medications Acetaminophen (Tylenol -Tablet) 650 mg PO Q8HP PRN PRN Reason: Pain scale 2-4 (Mild) Albuterol Sulfate (Proventil 0.083% Neb Soln) 2.5 mg NEB Q6HP PRN PRN Reason: SHORTNESS OF BREATH Stop: 06/11/19 20:21 Ascorbic Acid (Vitamin C) 500 mg PO BID [facility]I Stop: 06/12/19 09:01 Last Admin: 05/15/19 09:00 Dose: Not Given Atorvastatin Calcium (Lipitor) 20 mg PO BEDTIME BHARGAVI Stop: 06/12/19 21:01 Last Admin: 05/14/19 21:41 Dose: 20 mg Calcitriol (Rocaltrol) 0.5 mcg PO DAILY [facility] Stop: 06/13/19 09:01 Last Admin: 05/15/19 09:00 Dose: Not Given Cetirizine HCl (Zyrtec) 10 mg PO DAILY [facility] Stop: 06/14/19 09:01 Last Admin: 05/15/19 09:00 Dose: Not Given Cholecalciferol (Vitamin D 5,000 Iu Cap) 5,000 unit PO DAILY [facility] Stop: 06/12/19 09:01 Last Admin: 05/15/19 09:00 Dose: Not Given Collagenase (Santyl Ointment) 1 appl TOP DAILY [facility] Stop: 06/13/19 09:01 Last Admin: 05/15/19 09:00 Dose: Not Given Docusate Sodium (Colace Cap) 100 mg PO DAILY [facility] Stop: 06/12/19 09:01 Last Admin: 05/15/19 09:00 Dose: Not Given Enteral Nutritional Formula (Nepro Shake) 237 ml PO BID [facility] Stop: 06/12/19 09:01 Last Admin: 05/15/19 09:00 Dose: Not Given Famotidine (Pepcid) 20 mg PO QD [facility]; Protocol Stop: 06/11/19 21:01 Last Admin: 05/14/19 21:00 Dose: 20 mg Heparin Sodium (Porcine) (Heparin 1,000 Units/Ml) 6,000 unit IV EVERY HD PRN PRN Reason: FLUSH AFTER EACH USE Stop: 06/12/19 09:20 Home Med (Acetaminophen With Codeine [Tylenol With Codeine #4 Tablet]) 1 tab PO Q8HP PRN PRN Reason: Pain scale 2-4 (Mild) Hydralazine HCl (Apresoline) 10 mg IV Q6HP PRN PRN Reason: Titrate to SBP (MUST DEFINE) Stop: 06/11/19 20:26 Vancomycin HCl (Vancomycin 1 Gm/250 Ml Ns Ivpb) 1 gm in 250 mls @ 150 mls/hr IVPB AFTER EACH DIALYSIS [facility]; Protocol Stop: 06/11/19 20:31 Piperacillin/Tazobactam/Sod Chloride (Zosyn 2.25 Gm/50 Ml Ivpb) 2.25 gm in 50 mls @ 50 mls/hr IV Q8H [facility]; Protocol Stop: 06/11/19 22:01 Last Admin: 05/15/19 06:05 Dose: 50 mls Albumin Human (Albumin 25%) 50 mls @ 100 mls/hr IV EVERY HD [facility] Stop: 06/12/19 10:01 Insulin Human Regular (Novolin -R) 0 unit SQ ACHS [facility]; Protocol Stop: 06/11/19 21:01 Last Admin: 05/15/19 11:30 Dose: Not Given Loperamide HCl (Imodium) 2 mg PO Q8HP PRN PRN Reason: DIARRHEA Stop: 06/12/19 07:17 Mannitol (Mannitol 12.5 Gm/50 Ml Vial) 12.5 gm IV EVERY HD PRN PRN Reason: Titrate to SBP >160 Stop: 06/12/19 09:20 Metoprolol Tartrate (Lopressor) 25 mg PO BID [facility] Stop: 06/12/19 09:01 Last Admin: 05/15/19 09:00 Dose: Not Given Midodrine (Proamatine) 10 mg PO EVERY HD [facility] Stop: 06/12/19 13:01 Montelukast Sodium (Singulair) 10 mg PO DAILY [facility] Stop: 06/13/19 09:01 Last Admin: 05/15/19 09:00 Dose: Not Given Montelukast Sodium (Singulair) 10 mg PO DAILY [facility] Stop: 06/13/19 09:01 Last Admin: 05/15/19 09:00 Dose: Not Given Morphine Sulfate (Morphine Sulfate) 2 mg IV Q4H PRN PRN Reason: Pain scale 5-7 (Moderate) Stop: 06/11/19 20:21 Last Admin: 05/15/19 10:15 Dose: 2 mg Multivitamins/Minerals (Centrum Tablet) 1 tab PO BID [facility] Stop: 06/12/19 09:01 Last Admin: 05/15/19 09:00 Dose: Not Given Ondansetron HCl (Zofran) 4 mg IV Q8H PRN PRN Reason: NAUSEA / VOMITING Stop: 06/11/19 20:21 Last Admin: 05/14/19 21:42 Dose: 4 mg Oxycodone/Acetaminophen (Percocet 5/325 Tab) 1 tab PO Q4H PRN PRN Reason: Pain scale 5-7 (Moderate) Stop: 06/11/19 20:26 Last Admin: 05/14/19 21:42 Dose: 1 tab Pantoprazole Sodium (Protonix Tab) 40 mg PO DAILY [facility]; Protocol Stop: 06/12/19 09:01 Last Admin: 05/15/19 09:00 Dose: Not Given Sevelamer Carbonate (Renvela) 1,600 mg PO TIDWM [facility] Stop: 06/12/19 08:01 Last Admin: 05/15/19 11:50 Dose: Not Given Sodium Chloride (Normal Saline Flush) 10 ml IV BID [facility] Stop: 06/11/19 21:01 Last Admin: 05/15/19 09:00 Dose: Not Given Vitamin B Complex/Vit C/Folic Acid (Nephro-Sindi) 1 tab PO DAILY [facility] Stop: 06/13/19 09:01 Last Admin: 05/15/19 09:00 Dose: Not Given Zinc Sulfate (Zinc Sulfate) 220 mg PO DAILY [facility] Stop: 06/12/19 09:01 Last Admin: 05/15/19 09:00 Dose: Not Given Lab Results (last 24 hrs) 05/15/19 11:06: POC Glucose 208 H 05/15/19 07:42: POC Glucose 213 H 05/15/19 05:45: Sodium 132 L, Potassium 4.7, Chloride 97 L, Carbon Dioxide 25, BUN 71 H D, Creatinine 5.47 H* D, Estimated GFR 11 L, Glucose 219 H, Calcium 8.9 05/15/19 05:45: WBC 11.0 H, RBC 2.83 L, Hgb 9.1 L, Hct 28.5 L, MCV 100.7 H, MCH 32.2, MCHC 32.0, RDW 16.1 H, Plt Count 186, MPV 7.6, Neutrophils % 75.8 H, Lymphocytes % 11.2 L, Monocytes % 10.5, Eosinophils % 2.1, Basophils % 0.4, Absolute Neutrophils 8.3 H, Absolute Lymphocytes 1.2, Absolute Monocytes 1.2, Absolute Eosinophils 0.2, Absolute Basophils 0.0 05/14/19 19:55: POC Glucose 191 H 05/14/19 16:15: POC Glucose 267 H Microbiology Results 05/12/19 20:30 Wound - Left Buttock Gram Stain - Final 05/12/19 20:30 Wound - Left Buttock Culture & Sensitivity - Final Proteus Mirabilis 05/12/19 20:44 Blood - Blood Aerobic Blood Culture - Preliminary No growth in 24 hours. 05/12/19 20:44 Blood - Blood Anaerobic Blood Culture - Preliminary No growth in 24 hours. Assessment/ Plan: Nephrology Persistent buttock pain. CPS stable without CP or SOB. No acute events overnight. Vitals, medications, blood work and imaging reviewed in the chart. General: Oriented x3, Cooperative HEENT: Atraumatic Neck: Supple, JVD distended Respiratory: Diminished Cardiovascular: Regular rate/rhythm, Edema Gastrointestinal: Soft and benign, Non-distended, No guarding Musculoskeletal: No clubbing, No contractures Integumentary: No rashes, No cyanosis Neurological: Normal speech Laboratory Data (last 24 hrs) 05/13/19 05:41: Sodium 133 L, Potassium 4.9, BUN 71 H, Creatinine 5.60 H*, Glucose 124 H, Total Bilirubin 0.4, AST 13 L, ALT 14, Alkaline Phosphatase 180 H 05/13/19 05:41: WBC 10.2, Hgb 9.0 L, Hct 27.5 L, Plt Count 169 Conclusions/Impression: A/ ESRD on HD. Hyponatremia Diastolic CHF, chronic. HTN with CKD/ CHF. KNEROY Anemia in CKD. NICOLAS/ Secondary HyperPTH Gout DM II with CKD. Moderate malnutrition. Left sacral decubitus ulcer. P/ Continue current POC and Medications. Acute HD today. Wound care as ordered. Follow up with surgery. Continue abx. Monitor vanco level. Follow up cultures. Give Retacrit. Pain control as ordered. Renal diet with fluid restriction. No NSAIDs. AM labs. Daily weight. Addendum: The patient coded several times after surgery today. He was brought to the ICU for resuscitation, however, the son decided to withdraw care due to his father's deteriorating condition. The case was reviewed with Dr. Hunt and the son. Greater than 30 min patient care.
[2019-05-15] MEDS ORDERED: NS 0.9% VIAL 20 ML ONE (13:47)
--- NOTE | 2019-05-15 13:50 | OP ---
Date of Procedure: 05/15/2019 Surgeon: John Gonzalez MD Diagnosis: Necrotic sacral decubitus ulcer with infection. Postoperative Diagnosis: Necrotic sacral decubitus ulcer with infection. Procedure: Excisional debridement of necrotic very tender infected sacral decubitus ulcer, 12 x 8 x 2 cm. Anesthesia: General plus local. Specimen: Culture of necrotic tissue. Indications: This is a case of a 68-year-old patient dealing with a sacral decubitus ulcer for sever al weeks. Had debridement at bedside and did not improve. He then got admitted to the hospital with an infected necrotic ulcer and very tender. He is not allowing us to do this at bedside. He stated it has been done before bedside and it just got worse and that was by the infectious disease doctor not too long ago. It needs to be done. He is necrotic and this can lead to sepsis, so he wants to d o under anesthesia. So I discussed the case with the primary doctor, get a cardiac clearance, and lo oking for debridement under anesthesia with benefits, alternatives, and risks including, but not limi dariel to infection, bleeding, damage to adjacent structures as complication, WI, and even . He al so understands this may not relieve any of his symptoms. He might need more than one surgical interv ention. He signed a consent. He understand we have a national emergency with a walker virus around the area. He understands the exposure to and he still want to go for the ventilator anesthesia. He signed a consent. Description Of Procedure: Patient was brought to the operating room, placed in supine position. Ane sthesia was done without complication. The patient was placed in lateral decubitus position with pro per protection. Sacral area was prepped and draped in a sterile fashion. Using a sharp knife, we pr oceeded to do debridement of the area. All the necrotic tissue was removed. This area is about 12 x 8 x 2 cm. All the spots nearby satellite lesions were also debrided. Hemostasis obtained. Area wa s culture. Patient was covered with sterile dressings and normal saline. Patient tolerated the proc edure well. Patient was sent to Recovery in stable condition. Patient will be sent to the floor. CAYDEN/SOHAN Voice ID: [id number] Report ID: [id number]
[2019-05-15] MEDS ORDERED: SODIUM BICARB 50 MEQ/50ML VIAL ONE ×2 (13:52→15:01)
[2019-05-15] MEDS ORDERED: SODIUM CHL 0.9% 1000 ML BAG ONE (14:00)
[2019-05-15] MEDS ORDERED: AMIODARONE HCL 150 MG/3 ML INJ IV ONE (14:00)
[2019-05-15] MEDS ORDERED: Caclcium Chloride 10% INJ SYR IV ONE ×2 (14:00→14:53)
[2019-05-15] MEDS ORDERED: MAGNESIUM SULF 1GM/2ML VIAL ONE (14:00)
[2019-05-15] MEDS ORDERED: EPINEPHrine 1 MG/10 ML SYR ONE (14:00)
[2019-05-15] MEDS ORDERED: EPOETIN ALFA-EPBX 10,000 UNIT/ML VIAL SQ SCH (14:00)
[2019-05-15] MEDS ORDERED: NOREPINEPHRINE 4 MG in D5W 250 ML IV PRN (14:02)
[2019-05-15 14:42] LABS: Absolute Lymphocytes (CBC) 5.5 K/uL (0.7-4.9); Basophils % 0.2 % (0-1.3); Hematocrit 29.5 % (39.6-49.0); MPV 8.3 fL (7.6-11.3); RBC Red Blood Cell Count 2.83 M/uL (4.33-5.43)
[2019-05-15] MEDS ORDERED: NA CHLORIDE 0.9% 1,000 ML ONE ×3 (14:56→14:57)
[2019-05-15] MEDS ORDERED: ALBUTEROL 2.5 MG/3 ML NEB SOL NEB PRN (15:00)
--- NOTE | 2019-05-15 15:20 | RAD REPORT ---
EXAM DESCRIPTION: RAD - Chest Single View - 05/15/2019 3:05 pm CLINICAL HISTORY: E-tube placement COMPARISON: June 2018 TECHNIQUE: AP portable chest image was obtained 05/15/2019 3:05 pm . FINDINGS: Endotracheal tube has been placed. Tip is mid aortic arch level 2-3 cm above the maciej. Heart, vasculature and lung markings are all accentuated by shallow inspiration and motion. Vasculatu re and lung markings are prominent. A mild failure or volume overload could be masked. No pneumothora x. IMPRESSION: Endotracheal tube in good position. Heart, vascular and lung assessment is limited by motion and shallow inspiration. Mild failure or vol ume overload not excluded.
[2019-05-15] MEDS ORDERED: EPINEPHrine 4 MG in NA CHLORIDE 0.9% 250 ML IV PRN ×2 (15:24→15:30)
--- NOTE | 2019-05-15 15:43 | P.PN ---
Subjective Date of Service: 05/15/19 Primary Care Provider: Dr. Weaver Chief Complaint: Left Buttocks ulcer Physical Examination - Vital Signs Temperature: 97.6 F Blood Pressure: 105/89 Pulse: 97 Respirations: 20 Pulse Ox (%): 68 - Studies Laboratory Data (last 24 hrs) 05/15/19 14:10: Sodium 136, Potassium 5.0, BUN 75 H, Creatinine 5.87 H*, Glucose 276 H 05/15/19 14:10: WBC 17.3 H D, Hgb 9.0 L, Hct 29.5 L, Plt Count 195 05/15/19 05:45: Sodium 132 L, Potassium 4.7, BUN 71 H D, Creatinine 5.47 H* D, Glucose 219 H 05/15/19 05:45: WBC 11.0 H, Hgb 9.1 L, Hct 28.5 L, Plt Count 186 Microbiology Data (last 24 hrs): 05/12/19 20:30 Wound - Left Buttock Gram Stain - Final 05/12/19 20:30 Wound - Left Buttock Culture & Sensitivity - Final Proteus Mirabilis Medications List Reviewed: Yes Assessment & Plan Physician Review Additional Text: 68-year-old male with # left Buttock sacral decubitus ulcer-nonhealing with stage IV, -follow up on blood culture and wound culture. Wound culture growing Gram negative rods. Will await ID and sensitivity. Patient will likely need long- term IV antibiotics. -continue vancomycin post dialysis as well as Zosyn -continue pain management. add p.r.n. morphine and Hyndman to regimen -Dr. Gonzalez with general surgery consulted. Cleared from cardiac standpoint for wound debridement -air mattress # atrial fibrillation chronic permanent chronic anticoagulation-hold Eliquis for now. Continue rate control. Discussed with cardiology. 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 Adjust long-acting insulin. # Hypertension-follow blood pressure, continue home regimen # ESRD-continue HD in a.m./TTS, Dr. Lyle consulted. # obesity BMI 37 counseled # obstructive sleep apnea continue CPAP # coronary artery disease mechoopda artery mechoopda heart without angina. Continue home medications DVT prophylaxis SCDs no chemical anticoagulation due to surgery Disposition discharge back to nursing facility in the next 24-48 hr depending on clinical improvement and once debridement has been completed with possibility of long-term IV antibiotics depending on culture results. ID has been consulted. Patient has coded 3 times already since after surgery. He was in Vfib, given CPR and shock. H was stabilized on Levophed and Amio. Then he was coded again in the ICU times 2. I have spoke to son multiple times. Advance directives and plan of care also addressed multiple times. Son has not made him DNR after understanding his current medical status. Will put in order. Full note to follow. Critical care greater than 1 hour
[2019-05-15] MEDS ORDERED: EPINEPHRINE/PF 1 MG/ML AMP ONE (16:00)
--- NOTE | 2019-05-15 16:51 | EKG ---
Test Date: 2019-05-14 Test Time: 12:44:49 Occasional Caregiver: KIRSTY Brandon MEASUREMENT RESULTS: Intervals: Rate: 85 HI: QRSD: 144 QT: 386 QTc: 459 [place]: P: HI: QRS: 51 T: -14 INTERPRETIVE STATEMENTS: Atrial fibrillation Right bundle branch block Abnormal ECG Compared to ECG 06/16/2018 11:31:05 Ventricular premature complex(es) no longer present T-wave abnormality no longer present Possible ischemia no longer present Electronically Signed On 05-15-19 16:47:51 CDT by Yannick Degroot
[2019-05-15 17:00] LABS: Blood Morphology Comment NOT SEEN (NOT SEEN); Platelet Estimate ADEQ; Urine White Blood Cell Casts OK
--- NOTE | 2019-05-15 17:32 | P.DS ---
Admission Date: 05/12/19 Discharge Date: 05/15/19 Primary Care Provider: Dr. Weaver Disposition: Reason for Admission: Left Buttocks ulcer Consultations: Cardiology-Dr. Degroot Nephrology-Dr. King Surgery-Dr. Gonzalez Procedures: Surgery: Date of Procedure: 05/15/2019 Surgeon: John Gonzalez MD Diagnosis: Necrotic sacral decubitus ulcer with infection. Postoperative Diagnosis: Necrotic sacral decubitus ulcer with infection. Procedure: Excisional debridement of necrotic very tender infected sacral decubitus ulcer, 12 x 8 x 2 cm. Anesthesia: General plus local. Specimen: Culture of necrotic tissue. Medical Problem List: Cardiopulmonary arrest with acute respiratory failure with severe hypotension, ventricular fibrillation, requiring multiple episodes of CPR/vasopressors/ amiodarone differential includes pulmonary embolism, septic shock Necrotic sacral decubitus ulcer with infection status post excisional debridement of necrotic very tender infected sacral decubitus ulcer, wound culture positive for Proteus Atrial fibrillation on chronic anti coagulation therapy with history of CAD Diabetes mellitus type 2 End-stage renal disease on hemodialysis Hypertension COPD Hyperlipidemia Obstructive sleep apnea on CPAP Obesity Brief History of Present Illness: 68-year-old male with multiple medical problems including CAD, chronic atrial fibrillation on chronic anti coagulation therapy, end-stage renal disease on dialysis, hypertension, COPD, anemia of chronic disease and chronic decubitus ulcer. Patient was admitted to the hospital from the senior care for debridement of left sacral decubitus ulcer. Hospital Course: Patient presented with necrotic sacral decubitus ulcer with infection. Patient required debridement. Patient was evaluated by surgery, Nephrology, and Cardiology due to his multiple medical problems including atrial fibrillation on chronic anti coagulation therapy, CAD, diabetes mellitus type 2 with hyperglycemia, end-stage renal disease on hemodialysis, hypertension, COPD, hyperlipidemia, obstructive sleep apnea on CPAP and obesity. Upon admission patient was placed on antibiotic therapy. Patient did receive dialysis during the course of his stay. Patient was given treatment for hypertension, atrial fibrillation, obstructive sleep apnea, and diabetes. Patient was seen and evaluated by Cardiology. Prior echocardiogram and cardiac stress tests unremarkable. Patient was cleared by cardiology. Patient proceeded with surgery. Surgery noted a great deal of pus behind the wound. Unfortunately after surgery patient had cardiopulmonary arrest with acute respiratory failure and severe hypotension. The patient also had atrial fibrillation with RVR then ventricular fibrillation. CPR was required. Code was called. Patient given medication and multiple shocks. Patient was resuscitated. Patient started on Levophed and amiodarone. Patient was stabilize in transferred to the ICU. Once to the ICU, the patient coded again. The patient continued to have episodes of hypotension and required additional vasopressor-epinephrine. During the course of this time I discussed with his son on plan of care and advanced directives. After the 3rd resuscitation, The son decided to make the patient DNR. I also discussed the case in detail with surgery, cardiology, nephrology and his PCP. Etiology of cardiopulmonary arrest on clear. Patient may have had pulmonary embolism versus septic shock. Multiple specialists understood the patient's poor prognosis and current condition. Son also understood his current situation and poor prognosis. After arriving to the hospital, advanced directives were addressed again in detail. Plan of care was readdressed. The son ultimately decided to withdrawal care due to the patient's poor prognosis. He was at peace with his decision. Once withdrawal was done patient peacefully at 5:09 p.m., june he rest in peace. Critical care greater than 75 min. Including CPR, addressing issues with multiple specialists, addressing advanced directives and plan of care with son and ultimately withdrawal of care. Vital Signs/Physical Exam: Temp Pulse Resp BP Pulse Ox 97.6 F 130 H 24 H 94/74 100 05/15/19 15:42 05/15/19 16:00 05/15/19 16:00 05/15/19 16:00 05/15/19 15:46 Other Physical/Emotional Findings: Patient Laboratory Data at Discharge: WBC 17.3 K/uL (4.3-10.9) H D 05/15/19 14:10 Hgb 9.0 g/dL (13.6-17.9) L 05/15/19 14:10 Hct 29.5 % (39.6-49.0) L 05/15/19 14:10 Plt Count 195 K/uL (152-406) 05/15/19 14:10 PT 16.8 SECONDS (9.5-12.5) H 05/13/19 13:14 INR 1.43 05/13/19 13:14 Sodium 136 mmol/L (136-145) 05/15/19 14:10 Potassium 5.0 mmol/L (3.5-5.1) 05/15/19 14:10 BUN 75 mg/dL (7-18) H 05/15/19 14:10 Creatinine 5.87 mg/dL (0.55-1.3) H* 05/15/19 14:10 Glucose 276 mg/dL (74-106) H 05/15/19 14:10 Uric Acid 3.1 mg/dL (3.5-7.2) L 05/14/19 06:22 Phosphorus 3.7 mg/dL (2.5-4.9) 05/14/19 06:22 Magnesium 2.3 mg/dL (1.8-2.4) 05/14/19 06:22 Total Bilirubin 0.4 mg/dL (0.2-1.0) 05/14/19 06:22 AST 16 U/L (15-37) 05/14/19 06:22 ALT 18 U/L (12-78) 05/14/19 06:22 Alkaline Phosphatase 184 U/L (45-117) H 05/14/19 06:22 Home Medications: Insulin -Regular Human [Novolin -R*] See Protocol SQ ACHS 07/06/17 Apixaban [Eliquis] 5 mg PO BID 05/17/18 Ascorbic Acid [Vitamin C] 500 mg PO BID 05/17/18 Metoprolol Tartrate [Lopressor] 25 mg PO BID 05/17/18 allopurinoL [Zyloprim] 300 mg PO DAILY 05/17/18 Acetaminophen [Tylenol Arthritis] 650 mg PO Q8HP PRN 05/13/19 Acetaminophen with Codeine [Tylenol with Codeine #4 Tablet] 1 tab PO Q8HP PRN Atorvastatin Calcium 20 mg PO BEDTIME 05/13/19 Cetirizine HCl [Zyrtec] 10 mg PO DAILY 05/13/19 Cholecalciferol (Vitamin D3) [Vitamin D 5,000 IU Cap*] 5,000 units PO DAILY 05/28 Collagenase [Santyl Ointment*] 1 laly TOP DAILY 05/13/19 Docusate Sodium 100 mg PO DAILY 05/13/19 Famotidine/Ca Carb/Mag Hydrox [Tums Dual Action Tablet Chew] 2 tab PO TIDWM 05/28 Insulin Detemir [Levemir] 30 units SQ BEDTIME 05/13/19 Insulin Detemir [Levemir] 40 units SQ DAILY 05/13/19 Lactulose 30 ml PO DAILYPRN PRN 05/13/19 Loperamide [Imodium*] 2 mg PO Q8HP PRN 05/13/19 Montelukast [Singulair*] 10 mg PO DAILY 05/13/19 Multivitamin [Multiple Vitamins] 1 tab PO BID 05/13/19 Nepro Shake [Nepro*] 1 can PO BID 05/13/19 Ondansetron [Zofran (Odt)*] 4 mg PO Q8HP 05/13/19 Pantoprazole [Protonix Tab*] 40 mg PO DAILY 05/13/19 Sevelamer Carbonate 1,600 mg PO TIDWM 05/13/19 Zinc Sulfate [Zinc Sulfate*] 220 mg PO DAILY 05/13/19 clindamycin HCL [Clindamycin HCl] 300 mg PO Q8HR 05/13/19 levoFLOXacin [Levaquin*] 250 mg PO Q48H 05/13/19 Patient Discharge Instructions: Patient . June he rest in peace. Time spent managing pt's care (in minutes): 65
[2019-05-15 17:34] VITALS: BP 77/43
--- NOTE | 2019-05-15 19:05 | PN ---
Mr. Bird had a rather unfortunate event postoperatively today. He had a cardiac arrest, requiring CPR and intubation. He is now in the ICU. The case apparently has been discussed with Dr. Gonzalez, Dr Bijan Hunt, and the family regarding code status. Mr. Bird is a patient who had extensive past medical history including end-stage renal disease, hemodialysis, atrial fibrillation, diabetes, hypertension, dyslipidemia, and coronary artery disease as well as COPD. I agree with his present regimen right n ow including ventilatory and blood pressure support. I will continue to follow along with Dr. Hunt . He is on IV amiodarone right now and I agree with that management. NB/MODL Voice ID: [id number] Report ID: [id number]
--- NOTE | 2019-05-16 10:43 | EKG ---
Test Date: 2019-05-15 Test Time: 14:59:22 Die Press Operator: BOOM MEASUREMENT RESULTS: Intervals: Rate: 133 DC: QRSD: 140 QT: 360 QTc: 535 [place]: P: DC: QRS: 41 T: -25 INTERPRETIVE STATEMENTS: Atrial fibrillation with rapid ventricular response Right bundle branch block Inferior infarct, age undetermined Abnormal ECG Compared to ECG 05/15/2019 13:35:02 No significant changes Electronically Signed On 05-16-19 10:41:44 CDT by Yannick Degroot
--- NOTE | 2019-05-16 10:43 | EKG ---
Test Date: 2019-05-15 Test Time: 13:35:02 Java Developer Architect: MEASUREMENT RESULTS: Intervals: Rate: 135 ME: 104 QRSD: 156 QT: 320 QTc: 480 [place]: P: -41 ME: 104 QRS: 95 T: -33 INTERPRETIVE STATEMENTS: Unusual P axis, possible ectopic atrial bradycardia with frequent and consecutive premature ventricular complexes and fusion co Right bundle branch block Inferior infarct, age undetermined Abnormal ECG Compared to ECG 05/14/2019 12:44:49 Myocardial infarct finding now present Atrial fibrillation no longer present Electronically Signed On 05-16-19 10:41:49 CDT by Yannick Degroot
== END 2019-05-15 17:09 | disposition expired | DRG 570 ==
LOC: 2ND 19:23 → 3RD-ICU 05-15 14:29
PROVIDERS: ADMIT Internal Medicine; ATTEND Family Medicine
PROC: 0JB70ZZ Excision of Back Subcutaneous Tissue and Fascia, Open Approach (ICD-10-PCS; principal; 2019-05-15 12:00)
DX: L89.154 Pressure ulcer of sacral region, stage 4 (principal); N18.6 End stage renal disease; J96.01 Acute respiratory failure with hypoxia; I26.99 Other pulmonary embolism without acute cor pulmonale; R65.21 Severe sepsis with septic shock; E11.52 Type 2 diabetes mellitus with diabetic peripheral angiopathy with gangrene; I96 Gangrene, not elsewhere classified; I48.21 Permanent atrial fibrillation; E87.1 Hypo-osmolality and hyponatremia; I13.2 Hypertensive heart and chronic kidney disease with heart failure and with stage 5 chronic kidney disease, or end stage renal disease; I50.32 Chronic diastolic (congestive) heart failure; N25.81 Secondary hyperparathyroidism of renal origin; E44.0 Moderate protein-calorie malnutrition; G93.1 Anoxic brain damage, not elsewhere classified; I97.191 Other postprocedural cardiac functional disturbances following other surgery; I97.121 Postprocedural cardiac arrest following other surgery; L89.324 Pressure ulcer of left buttock, stage 4; L08.89 Other specified local infections of the skin and subcutaneous tissue; B96.4 Proteus (mirabilis) (morganii) as the cause of diseases classified elsewhere; E11.40 Type 2 diabetes mellitus with diabetic neuropathy, unspecified; E11.22 Type 2 diabetes mellitus with diabetic chronic kidney disease; M19.012 Primary osteoarthritis, left shoulder; K21.9 Gastro-esophageal reflux disease without esophagitis; E66.01 Morbid (severe) obesity due to excess calories; M19.011 Primary osteoarthritis, right shoulder; I25.10 Atherosclerotic heart disease of native coronary artery without angina pectoris; M10.9 Gout, unspecified; I49.01 Ventricular fibrillation; G47.33 Obstructive sleep apnea (adult) (pediatric); Z79.4 Long term (current) use of insulin; Z99.2 Dependence on renal dialysis; Z99.81 Dependence on supplemental oxygen; Z79.01 Long term (current) use of anticoagulants; I25.2 Old myocardial infarction; Z68.37 Body mass index [BMI] 37.0-37.9, adult
CPT/HCPCS: 36415; 71045; 80048; 80053; 82805; 82947; 83735; 84100; 84550; 85025; 85610; 86850; 86900; 86901; 87040; 87070; 87075; 87077; 87186; 87205; 88304; 90935; 93005; 94002; J0171; J0282; J1644; J2250; J2270; J2370; J2405; J2543; J2704; J3010; J3475; J3590; J7030; J7040; J7060; P9047; Q5106